=== PATIENT | female | born 1980 | race Caucasian/White ===

== ENCOUNTER 2016-07-21 10:08 | Emergency (ER) | payer OTHER, SELFPAY ==
[2016-07-21] MEDS ORDERED: MOTRIN 600 MG PO ONE (10:16)
--- NOTE | 2016-07-21 10:21 | ERPHSYRPT ---
- History of Present Illness Time Seen by Provider: 07/21/16 10:16 Source: patient Physician History: CC: left foot/ankle pain Hx: 36 y/o patient of Dr Elliott was walking and felt pain in the left foot and ankle. It is severe. 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 Not . No other injuries. Severity of Pain-Max: moderate Severity of Pain-Current: moderate Lower Extremities Pain: foot: left, ankle: left Allergies/Adverse Reactions: cefaclor [From Ceclor] Allergy (Mild, Verified 08/04/15 02:38) cephalexin monohydrate [From Keflex] Allergy (Mild, Verified 08/04/15 02:38) Home Medications: Fluoxetine HCl 20 mg [Prozac 20 MG] 20 mg PO DAILY 11/09/11 [History] Hx Tetanus, Diphtheria Vaccination/Date Given: No Hx Influenza Vaccination/Date Given: No Hx Pneumococcal Vaccination/Date Given: No - Review of Systems Constitutional: No Symptoms Musculoskeletal: Injury, Joint Pain, No Back Pain, No Neck Pain Skin: No Rash Neurological: No Focal Weakness, No Headache, No Parasthesia - Past Medical History Pertinent Past Medical History: Yes Neurological History: Migraines ENT History: No Pertinent History Cardiac History: No Pertinent History Respiratory History: Bronchitis Endocrine Medical History: No Pertinent History Musculoskeletal History: No Pertinent History GI Medical History: No Pertinent History History: No Pertinent History Psycho-Social History: Depression Female Reproductive Disorders: Endometriosis, Other Other Medical History: polycystic ovaries - Past Surgical History Past Surgical History: Yes Neuro Surgical History: No Pertinent History Cardiac: No Pertinent History Respiratory: No Pertinent History Gastrointestinal: Appendectomy Genitourinary: No Pertinent History Musculoskeletal: No Pertinent History Female Surgical History: Hysterectomy Other Surgical History: HYSTERECTOMY PARTIAL - Social History Smoking Status: Current every day smoker How long have you smoked: 15 Exposure to second hand smoke: Yes Drug Use: marijuana Patient Lives Alone: No Significant Family History: no pertinent family hx, alpha-1 antitrypsin deficiency - Female History Hx Now: No - Nursing Vital Signs Nursing Vital Signs: Initial Vital Signs Temperature 97.8 F Temperature Source Oral Pulse Rate 84 Respiratory Rate 18 Blood Pressure [Right Arm] 122/52 - Physical Exam General Appearance: alert Neck Exam: supple Cardiovascular/Respiratory Exam: regular rate/rhythm Neuro/Tendon Exam: normal sensation, normal motor functions Mental Status Exam: alert, oriented x 3, cooperative Skin Exam: warm, dry Comments: tender left foot prox and ankle lateral. No swelling or bruising. No fibular head tenderness. Skin intact. - Course Nursing assessment & vital signs reviewed: Yes - Radiology Exams left ankle/foot X-ray Interpretation: Discussed w/ radiologist, No Fracture Ordered Tests: Active Orders 24 hr Category Date Time Status Reji Bandage Application -[facility] STAT Care 07/21/16 10:58 Ordered Cold Application STAT Care 07/21/16 10:16 Active ANKLE (3 VIEWS) Stat Exams 07/21/16 10:16 Completed FOOT (MINIMUM 3 VIEWS) Stat Exams 07/21/16 10:16 Completed Medication Summary Discontinued Medications Generic Name Dose Route Start Last Admin Trade Name Freq PRN Reason Stop Dose Admin Ibuprofen 600 mg 07/21/16 10:16 07/21/16 10:23 Motrin 600 Mg PO 07/21/16 10:17 600 mg STAT ONE Administration Ibuprofen Confirm 07/21/16 10:22 Motrin 600 Mg Administered 07/21/16 10:23 Dose 600 mg .ROUTE .STK-MED ONE - Progress Progress Note: 07/21/16 10:59 Reji wrap and ankle sprain instructions given. She will use aleve at home which she already has for pain. Counseled pt/family regarding: diagnosis, need for follow-up, rad results - Departure Time of Disposition: 10:59 Departure Disposition: Home Clinical Impression: Sprain of left ankle Qualifiers: Encounter type: initial encounter Involved ligament of ankle: unspecified ligament Qualified Code(s): S93.402A - Sprain of unspecified ligament of left ankle, initial encounter Condition: Stable Critical Care Time: No Referrals: DENISE PEREZ [Primary Care Provider] - Instructions: Ankle Sprain Additional Instructions: Ice, rest, elevated. Reji wrap. Use your aleve as already directed. Follow up with Dr Elliott.
[2016-07-21] MEDS ORDERED: MOTRIN 600 MG ONE (10:22)
[2016-07-21 10:24] VITALS: BP 122/52; PULSE 84; O2SAT 100
--- NOTE | 2016-07-21 10:55 | XRAY ---
Indication: Pain and swelling after walking. Comparison: None 3 nonweightbearing views of the left foot demonstrates normal bones, articulation, and soft tissues.
--- NOTE | 2016-07-21 10:55 | XRAY ---
Indication: Pain and swelling after walking. Comparison: None 3 views of the left ankle demonstrates normal bones, articulation, and soft tissues.
== END 2016-07-21 11:17 | disposition home or self-care (01) ==
LOC: ED 10:08
DX: S93.402A Sprain of unspecified ligament of left ankle, initial encounter (principal)
CPT/HCPCS: 73610; 73630; 99283

== ENCOUNTER 2016-10-17 02:51 | Emergency (ER) | payer SELFPAY ==
[2016-10-17] MEDS ORDERED: TORAdol 30 mg Injection IV ONE (03:27)
--- NOTE | 2016-10-17 03:27 | ERPHSYRPT ---
- History of Present Illness Time Seen by Provider: 10/17/16 03:16 Historian: patient Exam Limitations: no limitations Patient Subjective Stated Complaint: Pt sts chest pain left side under ribs. St pain woke her up. Sts pain stays in that area, non-radiating. Sts feels short of breath with it. Pt rates pain 10/10, worse with coughing, movement. Pt has cough. Triage Nursing Assessment: Pt alert, oriented, answers all questions appropriately. Skin p/w/d, resps non-labored. Loose cough noted. Pt clutching chest when coughing. EKG at triage - sinus rhythm. Denies cardiac history. Physician History: The patient is a 36-year-old female who smokes complains of waking up tonight an hour and a half ago with coughing and left-sided lower chest pain. The patient is quite dramatic when she tells the history. She says the pain is a 10 out of 10. However she fell back asleep while her was making a grilled cheese sandwich for her. She says the pain is excruciating when she coughs. She claims she was short of breath due to the chest pain and coughing. She denies nausea or diaphoresis. She says her told her that she was coughing in her sleep. Timing/Duration: today, hour(s) (06/13) Activities at Onset: sleep Quality: sharpness Location: central Chest Pain Radiation: no radiation Severity of Pain-Max: severe Severity of Pain-Current: severe Modifying Factors: Improves With: coughing Associated Symptoms: shortness of breath, cough, hurts to breathe Prior Chest Pain/Cardiac Workup: no prior chest pain Nitro Today/Relief: no nitro taken today Aspirin Treatment Today: no aspirin today Allergies/Adverse Reactions: cefaclor [From Ceclor] Allergy (Mild, Verified 10/17/16 02:58) cephalexin monohydrate [From Keflex] Allergy (Mild, Verified 10/17/16 02:58) Hx Tetanus, Diphtheria Vaccination/Date Given: No Hx Influenza Vaccination/Date Given: No Hx Pneumococcal Vaccination/Date Given: No Immunizations Up to Date: Yes - Review of Systems Constitutional: No Fever, No Chills Eyes: No Symptoms Ears, Nose, & Throat: No Symptoms Respiratory: Cough, Dyspnea Cardiac: Chest Pain Abdominal/Gastrointestinal: No Abdominal Pain, No Nausea, No Vomiting, No Diarrhea Genitourinary Symptoms: No No Symptoms ( really even afebrile lesions we can't do that I understand they have they will they don't want normally), No Dysuria Musculoskeletal: No Back Pain, No Neck Pain Skin: No Rash Neurological: No Dizziness, No Focal Weakness, No Sensory Changes Psychological: No Symptoms Endocrine: No Symptoms Hematologic/Lymphatic: No Symptoms Immunological/Allergic: No Symptoms All Other Systems: Reviewed and Negative - Past Medical History Pertinent Past Medical History: Yes Neurological History: Migraines ENT History: No Pertinent History Cardiac History: No Pertinent History Respiratory History: Bronchitis Endocrine Medical History: No Pertinent History Musculoskeletal History: No Pertinent History GI Medical History: No Pertinent History History: No Pertinent History Psycho-Social History: Depression Female Reproductive Disorders: Endometriosis, Other Other Medical History: polycystic ovaries - Past Surgical History Past Surgical History: Yes Neuro Surgical History: No Pertinent History Cardiac: No Pertinent History Respiratory: No Pertinent History Gastrointestinal: Appendectomy Genitourinary: No Pertinent History Musculoskeletal: No Pertinent History Female Surgical History: Hysterectomy Other Surgical History: HYSTERECTOMY PARTIAL - Social History Smoking Status: Current every day smoker How long have you smoked: 20+ Exposure to second hand smoke: No Drug Use: marijuana Patient Lives Alone: No Significant Family History: no pertinent family hx, alpha-1 antitrypsin deficiency - Female History Hx Last Menstrual Period: partial hyst Hx Now: No - Nursing Vital Signs Temperature: 97.9 F Temperature Source: Oral Pulse Rate: 87 Respiratory Rate: 16 Pain Intensity: 10 - Physical Exam General Appearance: mild distress Eye Exam: PERRL/EOMI, eyes nml inspection Ears, Nose, Throat Exam: normal ENT inspection, moist mucous membranes Neck Exam: normal inspection, non-tender, supple, full range of motion Respiratory Exam: chest tenderness (The patient's response to light palpation of the anterior lower ribs bilaterally was highly exaggerated.), diminished breath sounds Cardiovascular Exam: regular rate/rhythm, normal heart sounds Gastrointestinal/Abdomen Exam: soft, No tenderness, No mass Pelvic Exam: not done Rectal Exam: not done Back Exam: normal inspection, No CVA tenderness, No vertebral tenderness Extremity Exam: normal inspection, normal range of motion Neurologic Exam: alert, oriented x 3, cooperative, normal mood/affect, sensation nml, No motor deficits Skin Exam: normal color SpO2 Interpretation: normal SpO2: 96 - Course EKG Interpreted by Me: RATE, Sinus Rhythm, NORMAL AXIS, NORMAL INTERVALS, NORMAL QRS, NORMAL ST-T, Other (No change compared to EKG 04/17/13.) - Radiology Exams Chest X-ray Interpretation: Interpreted by me, Negative, Other (no acute, hyperinflated chest. Comp CXR 06/19/14.) Ordered Tests: Active Orders 24 hr Category Date Time Status EKG-ER Only STAT Care 10/17/16 03:27 Active IV Insertion STAT Care 10/17/16 03:27 Active CHEST 2 VIEWS (PA AND LAT) Stat Exams 10/17/16 03:27 Taken CBC W DIFF Stat Lab 10/17/16 03:34 Completed CMP Stat Lab 10/17/16 03:34 Completed LIPASE Stat Lab 10/17/16 03:34 Completed TROPONIN Stat Lab 10/17/16 03:34 Completed UA Stat Lab 10/17/16 03:27 Ordered Urine Triage Profile Stat Lab 10/17/16 03:27 Ordered Respiratory Nebulizer STAT RT 10/17/16 03:29 Completed Medication Summary Discontinued Medications Generic Name Dose Route Start Last Admin Trade Name Freq PRN Reason Stop Dose Admin Albuterol/Ipratropium 3 ml 10/17/16 03:28 10/17/16 03:46 Duoneb 0.5-3 Mg/3 Ml Neb IH 10/17/16 03:29 3 ml STAT ONE Administration Albuterol/Ipratropium Confirm 10/17/16 03:36 Duoneb 0.5-3 Mg/3 Ml Neb Administered 10/17/16 03:37 Dose 3 ml IH .STK-MED ONE Benzonatate 100 mg 10/17/16 04:02 Tessalon Perles 100 Mg PO 10/17/16 04:03 TID PRN STA Ketorolac Tromethamine 30 mg 10/17/16 03:27 10/17/16 03:39 Toradol 30 Mg Injection IV 10/17/16 03:28 30 mg STAT ONE Administration Ketorolac Tromethamine Confirm 10/17/16 03:34 Toradol 30 Mg Injection Administered 10/17/16 03:35 Dose 30 mg .ROUTE .STK-MED ONE Methylprednisolone Sodium Succinate 125 mg 10/17/16 03:28 10/17/16 03:39 Solu-Medrol 125 Mg IV 10/17/16 03:29 125 mg STAT ONE Administration Methylprednisolone Sodium Succinate Confirm 10/17/16 03:34 Solu-Medrol 125 Mg Administered 10/17/16 03:35 Dose 125 mg .ROUTE .STK-MED ONE Lab/Rad Data: Laboratory Result Diagrams 10/17/16 03:34 10/17/16 03:34 Laboratory Results 10/17/16 10/17/16 Range/Units 03:34 03:34 WBC 5.6 (4.0-10.5) K/mm3 RBC 4.67 (4.1-5.4) M/mm3 Hgb 14.6 (12.0-16.0) gm/dl Hct 43.1 (35-47) % MCV 92.3 (78-100) fl MCH 31.3 (26-32) pg MCHC 33.9 (32-36) g/dl RDW 12.5 (11.5-14.0) % Plt Count 156 (150-450) K/mm3 MPV 10.9 H (6-9.5) fl Gran % 43.1 (36.0-66.0) % Lymphocytes % 42.9 (24.0-44.0) % Monocytes % 10.6 (0.0-12.0) % Eosinophils % 2.9 (0.00-5.0) % Basophils % 0.5 (0.0-0.4) % Basophils # 0.03 (0-0.4) Sodium 142 (136-145) mEq/L Potassium 3.4 L (3.5-5.1) mEq/L Chloride 102 (98-107) mEq/L Carbon Dioxide 25.8 (21-32) mEq/L Anion Gap 17.1 H (5-15) MEQ/L BUN 5 L (9-20) mg/dL Creatinine 0.85 (0.55-1.30) mg/dl Estimated GFR > 60 ML/MIN Glucose 95 (70-110) MG/DL Calcium 9.4 (8.5-10.1) mg/dL Total Bilirubin 0.5 (0.2-1.0) mg/dL AST 24 (15-37) U/L ALT 18 (12-78) U/L Alkaline Phosphatase 48 (46-116) U/L Troponin I < 0.017 (0.000-0.056) ng/ml Serum Total Protein 7.5 (6.4-8.2) gm/dL Albumin 4.0 (3.4-5.0) g/dL Lipase 117 (73-393) U/L - Progress Progress: improved Air Movement: good Progress Note: 10/17/16 04:13 After Duo neb, tessalon perles 100 mg po, and solumedrol 125 mg IV, pt is feeling better. Blood Culture(s) Obtained: No Antibiotics given: No Counseled pt/family regarding: lab results, diagnosis, rad results, smoking cessation - Departure Time of Disposition: 04:14 Departure Disposition: Home Clinical Impression: Pleuritic chest pain Condition: Stable Critical Care Time: No Referrals: DENISE PEREZ [Primary Care Provider] - Additional Instructions: You have pleuritic chest pain. You were given a DuoNeb treatment, Solu-Medrol 125 mg IV, and Tessalon Perles 100 mg in the ER. Your chest x-ray did not show any pneumonia but it did show hyperinflated lungs that are consistent with COPD. Please consider smoking cessation. You were given a prescription for Tessalon pearls 100 mg every 8 hours as needed for cough. And also a prescription for naproxen 500 mg twice a day as needed for the pleuritic chest pain. Prescriptions: Benzonatate [Tessalon Perle] 100 mg PO TID PRN #21 capsule Naproxen 500 mg PO BID PRN #30 tablet.
[2016-10-17] MEDS ORDERED: solu-MEDROL 125 MG IV ONE (03:28)
[2016-10-17] MEDS ORDERED: DUONEB 0.5-3 MG/3 ml Neb IH ONE ×2 (03:28→03:36)
[2016-10-17] MEDS ORDERED: TORAdol 30 mg Injection ONE (03:34)
[2016-10-17] MEDS ORDERED: solu-MEDROL 125 MG ONE (03:34)
[2016-10-17 03:38] LABS: BASOPHIL % 0.5 % (0.0-0.4); Eosinophil % 2.9 % (0.00-5.0); Granulocytes % 43.1 % (36.0-66.0); Lymphocytes % 42.9 % (24.0-44.0); Mean Cell Volume 92.3 fl (78-100); Mean Corpuscular Hemoglobin 31.3 pg (26-32); Mean Platelet Volume 10.9 fl (6-9.5); Monocytes % 10.6 % (0.0-12.0); Platelet Count 156 K/mm3 (150-450); Red Blood Count 4.67 M/mm3 (4.1-5.4); Red Cell Distribution Width 12.5 % (11.5-14.0); White Blood Count 5.6 K/mm3 (4.0-10.5)
[2016-10-17 03:50] LABS: ALKALINE PHOSPHATASE 48 U/L (46-116); ANION GAP 17.1 MEQ/L (5-15); BILIRUBIN,TOTAL 0.5 mg/dL (0.2-1.0); BLOOD UREA NITROGEN 5 mg/dL (9-20); CHLORIDE 102 mEq/L (98-107); Carbon Dioxide 25.8 mEq/L (21-32); Glucose 95 MG/DL (70-110); LIPASE 117 U/L (73-393); Potassium 3.4 mEq/L (3.5-5.1); SGOT/AST 24 U/L (15-37); SGPT/ALT 18 U/L (12-78); SODIUM 142 mEq/L (136-145); TROPONIN < 0.017 ng/ml (0.000-0.056); Total Protein 7.5 gm/dL (6.4-8.2)
[2016-10-17] MEDS ORDERED: Tessalon Perles 100 MG PO STA (04:02)
[2016-10-17] MEDS ORDERED: Klor Con 10 MEQ PO ONE ×2 (04:07→04:14)
[2016-10-17 04:18] LABS: COMPLETE URINE MICROSCOPIC? NO; Collection Type CLEAN CATCH
[2016-10-17 04:43] VITALS: BP 102/45; PULSE 77; O2SAT 98
--- NOTE | 2016-10-17 09:05 | XRAY ---
Indication: Chest pain and cough. Comparison: June 19, 2014. PA/lateral chest again hyperinflated and clear. Heart and mediastinal structures are stable and within normal limits. Bony thorax intact. Impression: Stable nonacute hyperinflated chest.
== END 2016-10-17 04:43 | disposition home or self-care (01) ==
LOC: ED 02:51
DX: R07.89 Other chest pain (principal); R06.02 Shortness of breath; R05 Cough; R06.00 Dyspnea, unspecified
CPT/HCPCS: 36000; 36415; 71020; 80053; 80307; 81002; 83690; 84484; 85025; 93005; 94640; 96374; 96375; 99284; J1885; J2930; A9270-GY

== ENCOUNTER 2018-01-28 11:03 | Emergency (ER) | payer OTHER ==
[2018-01-28] MEDS ORDERED: Zofran 4 MG/2 ML VIAL IV ONE (11:37)
[2018-01-28] MEDS ORDERED: Sodium Chloride 0.9% 1000 ML 1,000 ML IV STA (11:37)
[2018-01-28] MEDS ORDERED: Sodium Chloride 0.9% 1000 ML 1,000 ML ONE (11:45)
[2018-01-28] MEDS ORDERED: Zofran 4 MG/2 ML VIAL ONE (11:45)
[2018-01-28 11:54] LABS: BASOPHIL % 0.3 % (0.0-0.4); Basophil (Absolute #) 0.03 (0-0.4); Eosinophil % 3.1 % (0.00-5.0); Granulocyte Absolute (ANC) 5.35 (1.4-6.9); Granulocytes % 54.6 % (36.0-66.0); Hematocrit 42.5 % (35-47); Hemoglobin 14.7 gm/dl (12.0-16.0); Lymphocyte (Absolute #) 3.31 (1.0-4.6); Lymphocytes % 33.8 % (24.0-44.0); Mean Cell Volume 93.8 fl (78-100); Mean Corpuscular Hemoglobin 32.5 pg (26-32); Mean Corpuscular Hgb Concent. 34.6 g/dl (32-36); Mean Platelet Volume 10.3 fl (6-9.5); Monocytes % 8.2 % (0.0-12.0); Platelet Count 212 K/mm3 (150-450); Red Blood Count 4.53 M/mm3 (4.1-5.4); Red Cell Distribution Width 12.8 % (11.5-14.0); White Blood Count 9.8 K/mm3 (4.0-10.5)
[2018-01-28 12:29] VITALS: O2SAT 98
[2018-01-28] MEDS ORDERED: TORAdol 30 mg Injection IV ONE (12:59)
[2018-01-28 13:08] LABS: Amphetamine,Urine NEGATIVE (NEGATIVE); Barbiturate,Urine NEGATIVE (NEGATIVE); Benzodiazepine,Urine NEGATIVE (NEGATIVE); Cocaine,Urine NEGATIVE (NEGATIVE); Methadone,Urine NEGATIVE (NEGATIVE); Opiate,Urine NEGATIVE (NEGATIVE); PCP,Urine NEGATIVE (NEGATIVE); THC,Urine POSITIVE (NEGATIVE)
[2018-01-28] MEDS ORDERED: TORAdol 30 mg Injection ONE (13:13)
--- NOTE | 2018-01-28 13:31 | ERPHSYRPT ---
- History of Present Illness Time Seen by Provider: 01/28/18 11:15 Source: patient Exam Limitations: clinical condition Patient Subjective Stated Complaint: stated had a headache yesterday, has a history of cluster headaches. C/o right sided facial pain and headache, light sensitivity, feels like I'm going to pass out. ate bites of breakfast and drove self to work. felt worse at work and co worker brought to ER. Triage Nursing Assessment: Pt holding hand to face to shield light, c/o right sided facial pain and headache 10/10 with nausea, dry heaves, diaphoretic. states has a history of cluster headaches/migraines. A/O speech clear, able to voice wants and needs. BECKER WNL, having intermittent tremors in extremities Physician History: PATIENT COMPLAINS OF RIGHT SIDE FACIAL PAIN, FRONTAL HEADACHE AND DIZZINESS X 2 DAYS. STATES DIZZINESS EXACERBATED UPON MOTION OF HEAD AND NECK. HAS ASSOCIATED PHOTOPHOBIA, DENIES BLURRED VISION, NASAL CONGESTION OR FEVER, HAS ASSOCIATED DRY HEAVES. DENIES SINUS DRAINAGE. Timing/Duration: day(s) Quality: pressure Head Pain Location: frontal (RIGHT FACIAL PAIN) Severity of Pain-Max: moderate Severity of Pain-Current: moderate Recent Head Trauma: occasional headaches Modifying Factors: Improves With: exposure to light Associated Symptoms: facial pain, nausea/vomiting Previous symptoms: same symptoms as today Allergies/Adverse Reactions: cefaclor [From Ceclor] Allergy (Mild, Verified 10/17/16 02:58) cephalexin monohydrate [From Keflex] Allergy (Mild, Verified 10/17/16 02:58) Hx Tetanus, Diphtheria Vaccination/Date Given: No Hx Influenza Vaccination/Date Given: No Hx Pneumococcal Vaccination/Date Given: No - Review of Systems Constitutional: No Fever, No Chills Eyes: No Symptoms Ears, Nose, & Throat: No Symptoms, Other (FACIAL PAIN) Respiratory: No Symptoms, No Cough, No Dyspnea Cardiac: No Symptoms, No Chest Pain, No Edema, No Syncope Abdominal/Gastrointestinal: No Symptoms, No Abdominal Pain, No Nausea, No Vomiting, No Diarrhea Genitourinary Symptoms: No Dysuria Musculoskeletal: No Symptoms, No Back Pain, No Neck Pain Skin: No Rash Neurological: No Dizziness, No Focal Weakness, No Sensory Changes Psychological: No Symptoms Endocrine: No Symptoms All Other Systems: Reviewed and Negative - Past Medical History Pertinent Past Medical History: Yes Neurological History: Migraines ENT History: No Pertinent History Cardiac History: No Pertinent History Respiratory History: Bronchitis Endocrine Medical History: No Pertinent History Musculoskeletal History: No Pertinent History GI Medical History: No Pertinent History History: No Pertinent History Psycho-Social History: Depression Female Reproductive Disorders: Endometriosis, Other Other Medical History: polycystic ovaries - Past Surgical History Past Surgical History: Yes Neuro Surgical History: No Pertinent History Cardiac: No Pertinent History Respiratory: No Pertinent History Gastrointestinal: Appendectomy Genitourinary: No Pertinent History Musculoskeletal: No Pertinent History Female Surgical History: Hysterectomy Other Surgical History: HYSTERECTOMY PARTIAL - Social History Smoking Status: Current every day smoker How long have you smoked: 20+ Exposure to second hand smoke: No Drug Use: marijuana Patient Lives Alone: No Significant Family History: no pertinent family hx, alpha-1 antitrypsin deficiency - Female History Hx Now: No - Nursing Vital Signs Nursing Vital Signs: Initial Vital Signs Temperature 97.4 F 01/28/18 11:04 Pulse Rate 86 01/28/18 11:04 Respiratory Rate 18 01/28/18 11:04 Blood Pressure 136/73 01/28/18 11:04 O2 Sat by Pulse Oximetry 97 01/28/18 11:04 Pain Scale Pain Intensity 3 - Physical Exam General Appearance: no apparent distress Eye Exam: PERRL/EOMI Ears, Nose, Throat Exam: normal ENT inspection, moist mucous membranes, other ( THERE IS ) Neck Exam: normal inspection, supple, full range of motion, No meningismus Respiratory Exam: normal breath sounds, lungs clear Cardiovascular Exam: regular rate/rhythm, normal heart sounds Gastrointestinal/Abdominal Exam: soft, normal bowel sounds, No tenderness, No distention Back Exam: normal inspection, normal range of motion Mental Status Exam: alert, oriented x 3, 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: normal speech, PERRL, No facial droop Coordination/Gait Exam: normal cerebellar function Motor/Sensory Exam: no motor deficit, no sensory deficit DTR Exam: bicep (R): 2+, bicep (L): 2+, tricep (R): 2+, tricep (L): 2+, knee (R) : 2+, knee (L): 2+, ankle (R): 2+, ankle (L): 2+ Skin Exam: normal color, warm, dry, No rash SpO2 Interpretation: normal SpO2: 98 Oxygen Delivery: Room Air - CT Exams Head CT Interpretation: Tele-radiologist Report, No/Intracranial Hemorrhag Ordered Tests: Active Orders 24 hr Category Date Time Status Clean Catch Urine Specimen STAT Care 01/28/18 11:37 Active IV Insertion STAT Care 01/28/18 11:37 Active HEAD WITHOUT CONTRAST [CT] Stat Exams 01/28/18 11:39 Taken CBC W DIFF Stat Lab 01/28/18 11:25 Completed Urine Triage Profile Stat Lab 01/28/18 12:10 Received Medication Summary Generic Name Dose Route Start Last Admin Trade Name Freq PRN Reason Stop Dose Admin Sodium Chloride 1,000 mls @ 500 mls/hr 01/28/18 11:37 01/28/18 11:48 Sodium Chloride 0.9% 1000 Ml IV 01/28/18 13:36 500 mls/hr .Q2H STA Administration Discontinued Medications Generic Name Dose Route Start Last Admin Trade Name Freq PRN Reason Stop Dose Admin Sodium Chloride Confirm 01/28/18 11:45 Sodium Chloride 0.9% 1000 Ml Administered 01/28/18 11:46 Dose 1,000 mls @ ud .ROUTE .STK-MED ONE Ketorolac Tromethamine 30 mg 01/28/18 12:59 01/28/18 13:17 Toradol 30 Mg Injection IV 01/28/18 13:00 30 mg STAT ONE Administration Ketorolac Tromethamine Confirm 01/28/18 13:13 Toradol 30 Mg Injection Administered 01/28/18 13:14 Dose 30 mg .ROUTE .STK-MED ONE Ondansetron HCl 4 mg 01/28/18 11:37 01/28/18 11:48 Zofran 4 Mg/2 Ml Vial IV 01/28/18 11:38 4 mg STAT ONE Administration Ondansetron HCl Confirm 01/28/18 11:45 Zofran 4 Mg/2 Ml Vial Administered 01/28/18 11:46 Dose 4 mg .ROUTE .STK-MED ONE Lab/Rad Data: Laboratory Result Diagrams 01/28/18 11:25 Laboratory Results 01/28/18 01/28/18 Range/Units 12:10 11:25 WBC 9.8 (4.0-10.5) K/mm3 RBC 4.53 (4.1-5.4) M/mm3 Hgb 14.7 (12.0-16.0) gm/dl Hct 42.5 (35-47) % MCV 93.8 (78-100) fl MCH 32.5 H (26-32) pg MCHC 34.6 (32-36) g/dl RDW 12.8 (11.5-14.0) % Plt Count 212 (150-450) K/mm3 MPV 10.3 H (6-9.5) fl Gran % 54.6 (36.0-66.0) % Eos # (Auto) 0.30 (0-0.5) Absolute Lymphs (auto) 3.31 (1.0-4.6) Absolute Monos (auto) 0.80 (0.0-1.3) Lymphocytes % 33.8 (24.0-44.0) % Monocytes % 8.2 (0.0-12.0) % Eosinophils % 3.1 (0.00-5.0) % Basophils % 0.3 (0.0-0.4) % Absolute Granulocytes 5.35 (1.4-6.9) Basophils # 0.03 (0-0.4) Urine Opiates Level NEGATIVE (NEGATIVE) Ur Methadone NEGATIVE (NEGATIVE) Urine Barbiturates NEGATIVE (NEGATIVE) Ur Phencyclidine (PCP) NEGATIVE (NEGATIVE) Urine Amphetamine NEGATIVE (NEGATIVE) U Benzodiazepine Level NEGATIVE (NEGATIVE) Urine Cocaine NEGATIVE (NEGATIVE) Urine Marijuana (THC) POSITIVE (NEGATIVE) - Progress Progress: improved Progress Note: 01/28/18 13:35 ADMINISTERED IF NORMAL SALINE 500ML/HR, ZOFRAN 4MG, TORADOL 30MG IV, SYMPTOMS IMPROVED. Will see patient in: hospital (full admit) Counseled pt/family regarding: diagnosis, need for follow-up, rad results - Departure Time of Disposition: 13:40 Departure Disposition: Home Clinical Impression: ACUTE SINUSITIS, ACUTE LABYRINTHITIS Condition: Stable Critical Care Time: No Additional Instructions: BEGIN ANTIBIOTIC AMOXICILLIN 500MG EVERY 8 HOURS FOR 10 DAYS. TORADOL 10MG EVERY 6 HOURS NEEDED FOR PAIN. ANTIVERT 25MG EVERY 8 HOURS FOR DIZZINESS. CONSULT YOUR PRIMARY CARE PROVIDER FOR FOLLOWUP IN 1 WEEK. Prescriptions: Ketorolac Tromethamine [Toradol] 10 mg PO Q6HPRN PRN #20 tablet PRN Reason: Pain Meclizine HCl 25 mg [Antivert 25 mg] 25 mg PO Q8H PRN PRN #20 tablet PRN Reason: Dizziness Amoxicillin 500 mg PO TID #30 capsule
[2018-01-28 14:05] VITALS: BP 91/56; PULSE 80
--- NOTE | 2018-01-28 21:01 | XRAY ---
Indication: Headache, dizziness, pain behind right eye, and left arm pain. Multiple contiguous axial images obtained through the head without contrast. Comparison: June 27, 2014. Again normal appearing brain parenchyma, ventricles, and bony calvarium. Visualized paranasal sinuses and mastoid air cells are clear. Impression: Stable normal CT head without contrast exam. Comment: Preliminary interpretation was made by [facility]. No discrepancy. CTDI 69.25
== END 2018-01-28 14:06 | disposition home or self-care (01) ==
LOC: ED 11:03
DX: J01.90 Acute sinusitis, unspecified (principal); H83.09 Labyrinthitis, unspecified ear
CPT/HCPCS: 36415; 70450; 80307; 85025; 96360; 96361; 96374; 96375; 99284; J1885; J2405

== ENCOUNTER 2018-02-05 12:55 | Emergency (ER) | payer OTHER ==
[2018-02-05 14:17] VITALS: BP 122/58; PULSE 66; O2SAT 98
--- NOTE | 2018-02-05 14:29 | ERPHSYRPT ---
- History of Present Illness Time Seen by Provider: 02/05/18 14:27 Source: patient Patient Subjective Stated Complaint: HERE FOR A MIGRAINE HEADACHE,PT HAS HEADACHES LIKE THIS BEFORE, Triage Nursing Assessment: PT ALERT, WALKED IN, RESP EASY, SKIN W/D/P Physician History: mild throbbing familiar migraine since 11am has improved, hx migraines for 20 yrs, no fever, no visual disturbance, no injury, speech fluent Allergies/Adverse Reactions: cefaclor [From Ceclor] Allergy (Mild, Verified 02/05/18 14:17) cephalexin monohydrate [From Keflex] Allergy (Mild, Verified 02/05/18 14:17) Home Medications: Amoxicillin 500 mg Cap [Amoxil 500 mg] 500 mg TID 02/05/18 [History] Hx Tetanus, Diphtheria Vaccination/Date Given: No Hx Influenza Vaccination/Date Given: No Hx Pneumococcal Vaccination/Date Given: No Immunizations Up to Date: Yes - Review of Systems Constitutional: No Fever Eyes: Photophobia, No Vision Changes Ears, Nose, & Throat: No Mouth Pain Respiratory: No Dyspnea Cardiac: No Chest Pain Abdominal/Gastrointestinal: No Abdominal Pain Genitourinary Symptoms: No Dysuria Musculoskeletal: No Back Pain, No Neck Pain Skin: No Rash Neurological: Headache, No Dizziness, No Focal Weakness, No Speech Changes - Past Medical History Pertinent Past Medical History: Yes Neurological History: Migraines ENT History: No Pertinent History Cardiac History: No Pertinent History Respiratory History: Bronchitis Endocrine Medical History: No Pertinent History Musculoskeletal History: No Pertinent History GI Medical History: No Pertinent History History: No Pertinent History Psycho-Social History: Depression Female Reproductive Disorders: Endometriosis, Other Other Medical History: polycystic ovaries - Past Surgical History Past Surgical History: Yes Neuro Surgical History: No Pertinent History Cardiac: No Pertinent History Respiratory: No Pertinent History Gastrointestinal: Appendectomy Genitourinary: No Pertinent History Musculoskeletal: No Pertinent History Female Surgical History: Hysterectomy Other Surgical History: HYSTERECTOMY PARTIAL - Social History Smoking Status: Current every day smoker How long have you smoked: 20+ Exposure to second hand smoke: Yes Drug Use: marijuana Patient Lives Alone: No Significant Family History: no pertinent family hx, alpha-1 antitrypsin deficiency - Female History Hx Last Menstrual Period: HYSTER Hx Now: No - Nursing Vital Signs Nursing Vital Signs: Initial Vital Signs Temperature 97.9 F 02/05/18 14:14 Pulse Rate 66 02/05/18 14:14 Respiratory Rate 16 02/05/18 14:14 Blood Pressure 122/58 02/05/18 14:14 O2 Sat by Pulse Oximetry 98 02/05/18 14:14 Pain Scale Pain Intensity 7 - Physical Exam General Appearance: no apparent distress Eye Exam: PERRL/EOMI, eyes nml inspection Ears, Nose, Throat Exam: moist mucous membranes Neck Exam: normal inspection Respiratory Exam: normal breath sounds Cardiovascular Exam: regular rate/rhythm Gastrointestinal/Abdominal Exam: soft, No tenderness Extremity Exam: normal range of motion Mental Status Exam: alert, oriented x 3, 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 Exam: normal speech, PERRL Skin Exam: normal color, warm, dry SpO2 Interpretation: normal SpO2: 98 Oxygen Delivery: Room Air - Course Nursing assessment & vital signs reviewed: Yes Ordered Tests: Medication Summary Discontinued Medications Generic Name Dose Route Start Last Admin Trade Name Freq PRN Reason Stop Dose Admin Acetaminophen 1,000 mg 02/05/18 14:26 02/05/18 14:37 Tylenol Extra Strength 500 Mg PO 02/05/18 14:27 1,000 mg STAT STA Administration Acetaminophen Confirm 02/05/18 14:36 Tylenol Extra Strength 500 Mg Administered 02/05/18 14:37 Dose 1,000 mg .ROUTE .STK-MED ONE - Progress Progress: improved Air Movement: good Counseled pt/family regarding: diagnosis, need for follow-up - Departure Time of Disposition: 14:41 Departure Disposition: Home Clinical Impression: Migraine headache Qualifiers: Migraine type: unspecified Status migrainosus presence: without status migrainosus Intractability: not intractable Qualified Code(s): G43.909 - Migraine, unspecified, not intractable, without status migrainosus Condition: Stable Critical Care Time: No Referrals: DOCTOR,NO FAMILY [Primary Care Provider] - Instructions: Headache, Adult (DC)
[2018-02-05] MEDS ORDERED: TYLENOL EXTRA STRENGTH 500 MG ONE (14:36)
[2018-02-05] MEDS: TYLENOL EXTRA STRENGTH 500 MG PO STA (14:37)
== END 2018-02-05 14:59 | disposition home or self-care (01) ==
LOC: ED 12:55
DX: G43.909 Migraine, unspecified, not intractable, without status migrainosus (principal)
CPT/HCPCS: 99283; A9270-GY

== ENCOUNTER 2018-07-01 09:34 | Emergency (ER) | payer MEDICAID, OTHER ==
[2018-07-01] MEDS ORDERED: CLINDAMYCIN-D5W 600 MG/50 ML*** 600 MG/50 ML BAG IV STA (10:14)
[2018-07-01] MEDS ORDERED: TORAdol 30 mg Injection IV ONE (10:15)
--- NOTE | 2018-07-01 10:21 | ERPHSYRPT ---
- History of Present Illness Time Seen by Provider: 07/01/18 10:03 Source: patient Exam Limitations: no limitations Patient Subjective Stated Complaint: Pt states "I think I have a dental infection. My face has been swelling since . I cannot eat, I cannot sleep." Triage Nursing Assessment: Pt alert and oriented X 3, skin pwd. Pt ambulates with an upright steady gait, able to speak in clear full sentencse. PT in no apparent respiratory distress. the right side of pt face swollen with tenderness to lower right jaw, no neck swelling or tenderness noted. Physician History: 38-year-old white female arrives with complaint of pain and swelling in the right mandibular region symptoms 3 days no fevers. Patient states she is unable to get into a dentist. Past medical history includes migraines, bronchitis, depression, endometriosis, polycystic ovaries. Past surgical history includes appendectomy hysterectomy.. Social history negative day includes tobacco use, marijuana use. Timing/Duration: day(s) (3 days) Severity: moderate Modifying Factors: Improves With: nothing Associated Symptoms: other (swelling and pain right side of jaw), No nausea, No vomiting, No abdominal pain, No shortness of breath, No heartburn, No diaphoresis, No cough, No chills, No chest pain, No fever, No headaches, No loss of appetite, No malaise, No rash, No syncope, No seizure, No weakness Allergies/Adverse Reactions: cefaclor [From Ceclor] Allergy (Mild, Verified 02/05/18 14:17) cephalexin monohydrate [From Keflex] Allergy (Mild, Verified 02/05/18 14:17) Hx Tetanus, Diphtheria Vaccination/Date Given: No Hx Influenza Vaccination/Date Given: No Hx Pneumococcal Vaccination/Date Given: No Immunizations Up to Date: Yes - Review of Systems Constitutional: No Fever, No Chills Eyes: No Symptoms Ears, Nose, & Throat: Mouth Pain, Mouth Swelling, No Ear Pain, No Ear Discharge , No Hearing Changes, No Tinnitus, No Nose Pain, No Nose Congestion, No Nose Discharge, No Sinus Drainage, No Loose Teeth, No Throat Pain, No Throat Swelling , No Hoarse, No Painful Swallowing, No Snoring, No Stridor Respiratory: No Cough, No Dyspnea Cardiac: No Chest Pain, No Edema, No Syncope Abdominal/Gastrointestinal: No Abdominal Pain, No Nausea, No Vomiting, No Diarrhea Genitourinary Symptoms: No Dysuria Musculoskeletal: No Back Pain, No Neck Pain Skin: No Rash Neurological: No Dizziness, No Focal Weakness, No Sensory Changes Psychological: No Symptoms Endocrine: No Symptoms All Other Systems: Reviewed and Negative - Past Medical History Pertinent Past Medical History: Yes Neurological History: Migraines ENT History: No Pertinent History Cardiac History: No Pertinent History Respiratory History: Bronchitis Endocrine Medical History: No Pertinent History Musculoskeletal History: No Pertinent History GI Medical History: No Pertinent History History: No Pertinent History Psycho-Social History: Depression Female Reproductive Disorders: Endometriosis, Other Other Medical History: polycystic ovaries - Past Surgical History Past Surgical History: Yes Neuro Surgical History: No Pertinent History Cardiac: No Pertinent History Respiratory: No Pertinent History Gastrointestinal: Appendectomy Genitourinary: No Pertinent History Musculoskeletal: No Pertinent History Female Surgical History: Hysterectomy Other Surgical History: HYSTERECTOMY PARTIAL - Social History Smoking Status: Current every day smoker How long have you smoked: 20 years Exposure to second hand smoke: Yes Drug Use: marijuana Patient Lives Alone: No Significant Family History: no pertinent family hx, alpha-1 antitrypsin deficiency - Female History Hx Last Menstrual Period: partial hysterectomy Hx Now: No - Nursing Vital Signs Nursing Vital Signs: Initial Vital Signs Temperature 98.0 F 07/01/18 09:42 Pulse Rate 92 H 07/01/18 09:42 Respiratory Rate 18 07/01/18 09:42 Blood Pressure 117/86 07/01/18 09:42 O2 Sat by Pulse Oximetry 96 07/01/18 09:42 Pain Scale Pain Intensity 7 - Physical Exam General Appearance: moderate distress, alert, other (well-developed white female moderate distress, tender right mandibular region with swelling) Eye Exam: PERRL/EOMI, eyes nml inspection Ears, Nose, Throat Exam: TMs normal, pharynx normal, moist mucous membranes, other (Multiple dental caries right mandibular region. Edema and tenderness in the skin overlying mandible right lateral mandible), No TM abnormal (R), No TM abnormal (L), No pharyngeal erythema Neck Exam: normal inspection, non-tender, supple, full range of motion Respiratory Exam: normal breath sounds, lungs clear, No respiratory distress Cardiovascular Exam: regular rate/rhythm, normal heart sounds, normal peripheral pulses Gastrointestinal/Abdomen Exam: soft, normal bowel sounds, No tenderness, No mass Back Exam: normal inspection, normal range of motion, No CVA tenderness, No vertebral tenderness Extremity Exam: normal inspection, normal range of motion, pelvis stable Neurologic Exam: alert, oriented 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, 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, 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, normal mood/affect, nml cerebellar function, nml station & gait, sensation nml, No motor deficits Skin Exam: normal color, warm, dry, No rash SpO2 Interpretation: normal (96%) SpO2: 96 - Course Nursing assessment & vital signs reviewed: Yes Ordered Tests: Active Orders 24 hr Category Date Time Status IV Insertion STAT Care 07/01/18 10:15 Active Medication Summary Generic Name Dose Route Start Last Admin Trade Name Freq PRN Reason Stop Dose Admin Clindamycin HCl/Dextrose 600 mg in 50 mls @ 100 mls/hr 07/01/18 10:14 Clindamycin-D5w 600 Mg/50 Ml IV 07/01/18 10:43 STAT STA Discontinued Medications Generic Name Dose Route Start Last Admin Trade Name Freq PRN Reason Stop Dose Admin Ketorolac Tromethamine 30 mg 07/01/18 10:15 Toradol 30 Mg Injection IV 07/01/18 10:16 STAT ONE - Progress Progress: improved Progress Note: 07/01/18 10:19 This is a 38-year-old white female with history of migraines, bronchitis, depression, endometriosis, polycystic ovaries. She arrives with complaint of pain and swelling on the right side of her mandible symptoms 3 days. On physical examination patient has palpable tenderness on the right lateral mandible she does have corresponding carious teeth. Will go ahead and give patient clindamycin 600 mg IV, also Toradol 30 mg IV. Will go ahead and plan to discharge patient she is to continue clindamycin 300 mg orally 3 times a day for 10 days. Will write for [place] for pain. Patient will need to place cold packs on the area overlying the right mandible. She will need follow-up with a dentist she is advised of this. She may return for acute distress or severe symptoms or any problems. 07/01/18 10:23 Inspect his queried patient does not show history of recent narcotic prescription or recurrent prescriptions. Patient denies any history of substance abuse. Other than smoking marijuana. - Departure Time of Disposition: 10:23 Departure Disposition: Home Clinical Impression: Pain, dental, Dental abscess Condition: Fair Critical Care Time: No Referrals: DOCTOR,NO FAMILY [Primary Care Provider] - Instructions: Tooth Abscess (DC) Additional Instructions: Return home. Clindamycin as prescribed. Cold packs to area 24-48 hours. [place] as prescribed. Follow-up with your dentist. Return for acute distress or for severe symptoms or for any problems. Prescriptions: Clindamycin HCl 300 mg PO TID #30 capsule Hydrocodone/APAP 5-325 Tab^^^ [[place] 5-325 Tablet^^^] 1 tab PO Q4-6HPRN PRN #12 tablet MDD 6 PRN Reason: Pain
[2018-07-01] MEDS ORDERED: TORAdol 30 mg Injection ONE (10:40)
[2018-07-01] MEDS ORDERED: CLINDAMYCIN-D5W 600 MG/50 ML*** 600 MG/50 ML BAG IV ONE (10:41)
[2018-07-01 10:49] VITALS: O2SAT 97
[2018-07-01] MEDS ORDERED: CLEOCIN 150 MG CAPSULE PO ONE (11:42)
[2018-07-01] MEDS ORDERED: NORCO 5/325 MG PO ONE (11:43)
[2018-07-01] MEDS ORDERED: CLEOCIN 150 MG CAPSULE ONE (11:43)
[2018-07-01] MEDS ORDERED: NORCO 5/325 MG ONE (11:44)
[2018-07-01 11:58] VITALS: BP 110/74; PULSE 68
== END 2018-07-01 11:56 | disposition home or self-care (01) ==
LOC: ED 09:34
DX: K04.7 Periapical abscess without sinus (principal); F15.10 Other stimulant abuse, uncomplicated; F32.9 Major depressive disorder, single episode, unspecified; N80.9 Endometriosis, unspecified
CPT/HCPCS: 36000; 96365; 96374; 99284; J1885; A9270-GY

== ENCOUNTER 2019-01-11 00:58 | Emergency (ER) | payer MEDICAID | END 2019-01-11 02:06 | disposition left against medical advice (07) | LOC: ED 00:58 | DX: Z53.9 Procedure and treatment not carried out, unspecified reason (principal) ==

== ENCOUNTER 2019-06-06 10:10 | Emergency (ER) | payer MEDICAID ==
[2019-06-06] MEDS ORDERED: DUONEB 0.5-3 MG/3 ml Neb IH ONE ×2 (10:49→10:59)
--- NOTE | 2019-06-06 11:04 | ERPHSYRPT ---
- History of Present Illness Time Seen by Provider: 06/06/19 10:14 Source: patient, family Exam Limitations: no limitations Patient Subjective Stated Complaint: states fever and cough since yesterday. took aleve this am but is not feeling any better. denies n/v/d. also aching all over and has back pain. Triage Nursing Assessment: ambulated to room per self. skin w/d, color normal. resp nonlabored. occasional dry cough noted. Physician History: fever ,chills, general malaise--headache, sore throat , copugh s/s since yesterday Son was sick earlier this week with similar s/s m did not go to doctor for evaluation Timing/Duration: yesterday Severity: moderate Modifying Factors: Improves With: other (smoker) Allergies/Adverse Reactions: cefaclor [From Ceclor] Allergy (Mild, Verified 06/06/19 10:24) cephalexin monohydrate [From Keflex] Allergy (Mild, Verified 06/06/19 10:24) Hx Tetanus, Diphtheria Vaccination/Date Given: No Hx Influenza Vaccination/Date Given: No Hx Pneumococcal Vaccination/Date Given: No - Review of Systems Constitutional: Fever, Chills, Fatigue, Malaise Eyes: No Symptoms Ears, Nose, & Throat: Nose Congestion, Sinus Drainage, Other (sinus pain) Respiratory: Cough Cardiac: No Symptoms Abdominal/Gastrointestinal: Diarrhea Genitourinary Symptoms: No Symptoms Musculoskeletal: Arthralgias, Back Pain Skin: No Symptoms Neurological: No Symptoms Psychological: No Symptoms Hematologic/Lymphatic: No Symptoms All Other Systems: Reviewed and Negative - Past Medical History Pertinent Past Medical History: Yes Neurological History: Migraines ENT History: No Pertinent History Cardiac History: No Pertinent History Respiratory History: Bronchitis Endocrine Medical History: No Pertinent History Musculoskeletal History: No Pertinent History GI Medical History: No Pertinent History History: No Pertinent History Psycho-Social History: Depression Female Reproductive Disorders: Endometriosis, Other Other Medical History: polycystic ovaries - Past Surgical History Past Surgical History: Yes Neuro Surgical History: No Pertinent History Cardiac: No Pertinent History Respiratory: No Pertinent History Gastrointestinal: Appendectomy Genitourinary: No Pertinent History Musculoskeletal: No Pertinent History Female Surgical History: Hysterectomy Other Surgical History: HYSTERECTOMY PARTIAL - Social History Smoking Status: Current every day smoker How long have you smoked: 25 Exposure to second hand smoke: Yes Drug Use: marijuana Patient Lives Alone: No Significant Family History: no pertinent family hx, alpha-1 antitrypsin deficiency - Female History Hx Now: No - Nursing Vital Signs Nursing Vital Signs: Initial Vital Signs Temperature 100 F 06/06/19 10:14 Pulse Rate 95 H 06/06/19 10:14 Respiratory Rate 16 06/06/19 10:14 Blood Pressure 119/63 06/06/19 10:14 O2 Sat by Pulse Oximetry 99 06/06/19 10:14 Pain Scale Pain Intensity 2 - Physical Exam General Appearance: mild distress Eye Exam: PERRL/EOMI Ears, Nose, Throat Exam: moist mucous membranes, TM abnormal (L) (SELINA bilaterally injected), pharyngeal erythema Neck Exam: normal inspection, non-tender, supple, full range of motion Respiratory Exam: diminished breath sounds, prolonged expirations (mild), wheezing (scattered) Cardiovascular Exam: tachycardia (104) Gastrointestinal/Abdomen Exam: soft, normal bowel sounds, No tenderness, No guarding, No rebound Back Exam: normal inspection, normal range of motion, CVA tenderness, vertebral tenderness (and he) Extremity Exam: normal inspection, normal range of motion, pelvis stable Neurologic Exam: alert, oriented x 3, 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, 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, normal mood/affect, nml cerebellar function, nml station & gait Skin Exam: normal color Lymphatic Exam: No adenopathy SpO2: 99 O2 Delivery: Room Air - Course Nursing assessment & vital signs reviewed: Yes Ordered Tests: Active Orders 24 hr Category Date Time Status CHEST 1 VIEW (PORTABLE) Stat Exams 06/06/19 10:39 Completed KUB Stat Exams 06/06/19 11:00 Completed CBC W DIFF Stat Lab 06/06/19 11:00 Completed CMP Stat Lab 06/06/19 11:00 Completed UA W/RFX UR CULTURE Stat Lab 06/06/19 12:00 Completed Peak Expiratory Flow Rate ONCE RT 06/06/19 11:20 Active Respiratory Therapy Assessment DAILY RT 06/06/19 11:20 Active Medication Summary Discontinued Medications Generic Name Dose Route Start Last Admin Trade Name Freq PRN Reason Stop Dose Admin Albuterol/Ipratropium 3 ml 06/06/19 10:49 06/06/19 11:17 Duoneb 0.5-3 Mg/3 Ml Neb IH 06/06/19 10:50 3 ml STAT ONE Administration Albuterol/Ipratropium Confirm 06/06/19 10:59 Duoneb 0.5-3 Mg/3 Ml Neb Administered 06/06/19 11:00 Dose 3 ml IH .STK-MED ONE Lab/Rad Data: Laboratory Result Diagrams 06/06/19 11:00 06/06/19 11:00 Laboratory Results 06/06/19 06/06/19 06/06/19 Range/Units 12:00 11:00 11:00 WBC 4.5 (4.0-10.5) K/mm3 RBC 4.47 (4.1-5.4) M/mm3 Hgb 14.1 (12.0-16.0) gm/dl Hct 41.8 (35-47) % MCV 93.5 (78-100) fl MCH 31.5 (26-32) pg MCHC 33.7 (32-36) g/dl RDW 12.2 (11.5-14.0) % Plt Count 113 L (150-450) K/mm3 MPV 10.8 H (6-9.5) fl Gran % 70.5 H (36.0-66.0) % Eos # (Auto) 0.01 (0-0.5) Absolute Lymphs (auto) 0.78 L (1.0-4.6) Absolute Monos (auto) 0.54 (0.0-1.3) Lymphocytes % 17.2 L (24.0-44.0) % Monocytes % 11.9 (0.0-12.0) % Eosinophils % 0.2 (0.00-5.0) % Basophils % 0.2 (0.0-0.4) % Absolute Granulocytes 3.20 (1.4-6.9) Basophils # 0.01 (0-0.4) Sodium 135 L (137-145) mmol/L Potassium 4.0 (3.5-5.1) mmol/L Chloride 103 (98-107) mmol/L Carbon Dioxide 24 (22-30) mmol/L Anion Gap 12.6 (5-15) MEQ/L BUN 6 L (7-17) mg/dL Creatinine 0.66 (0.52-1.04) mg/dL Estimated GFR > 60.0 ML/MIN Glucose 89 (74-106) mg/dL Calcium 9.4 (8.4-10.2) mg/dL Total Bilirubin 0.70 (0.2-1.3) mg/dL AST 26 (14-36) U/L ALT 14 (0-35) U/L Alkaline Phosphatase 43 (38-126) U/L Serum Total Protein 7.9 (6.3-8.2) g/dL Albumin 4.4 (3.5-5.0) g/dL Urine Color YELLOW (YELLOW) Urine Appearance CLEAR (CLEAR) Urine pH 5.0 (5-6) Ur Specific [place] 1.015 (1.005-1.025) Urine Protein NEGATIVE (Negative) Urine Ketones SMALL (NEGATIVE) Urine Blood MODERATE (0-5) Robinson/ul Urine Nitrite NEGATIVE (NEGATIVE) Urine Bilirubin NEGATIVE (NEGATIVE) Urine Urobilinogen NEGATIVE (0-1) mg/dL Ur Leukocyte Esterase NEGATIVE (NEGATIVE) Urine WBC (Auto) 3-5 (0-5) /HPF Urine RBC (Auto) 0-2 (0-2) /HPF U Epithel Cells (Auto) RARE (FEW) /HPF Urine Bacteria (Auto) RARE (NEGATIVE) /HPF Urine Mucus (Auto) SLIGHT (NEGATIVE) /HPF Urine Culture Reflexed NO (NO) Urine Glucose NEGATIVE (NEGATIVE) mg/dL - Progress Progress: improved - Departure Departure Disposition: Home Clinical Impression: Flu syndrome, Bronchitis, Smoker, Headache, Sinusitis Condition: Stable Critical Care Time: No Referrals: DOCTOR,NO FAMILY [Primary Care Provider] - Instructions: Quit Smoking Additional Instructions: follow up with pcp next week return to ER as needed take medications as directed advised to stop smoking Prescriptions: Albuterol 8 gm Mdi Hfa [Ventolin Hfa MDI] 8 gm IH Q4H PRN #1 [id number] PRN Reason: Shortness Of Breath Azithromycin 250 mg [Zithromax 250 MG TABLET] 250 mg PO ZPACK #6 tablet Oseltamivir 75 mg [Tamiflu 75MG Capsule] 75 mg PO BID #10 cap
--- NOTE | 2019-06-06 11:12 | XRAY ---
Indication: Cough, congestion, and fever. Comparison: October 12, 2009. KUB demonstrates nonspecific nonobstructed bowel gas pattern. Solid organs and osseous structures unremarkable. No large free air. Impression: Negative KUB.
--- NOTE | 2019-06-06 11:15 | XRAY ---
Indication: Cough, congestion, and fever. Comparison: October 17, 2016. Portable chest remains hyperinflated and clear. Heart and mediastinal structures within normal limits. Bony thorax intact. No new/acute findings.
[2019-06-06 11:18] LABS: BASOPHIL % 0.2 % (0.0-0.4); Basophil (Absolute #) 0.01 (0-0.4); Eosinophil % 0.2 % (0.00-5.0); Eosinophil (Absolute #) 0.01 (0-0.5); Hematocrit 41.8 % (35-47); Hemoglobin 14.1 gm/dl (12.0-16.0); Lymphocyte (Absolute #) 0.78 (1.0-4.6); Lymphocytes % 17.2 % (24.0-44.0); Mean Cell Volume 93.5 fl (78-100); Mean Corpuscular Hemoglobin 31.5 pg (26-32); Mean Corpuscular Hgb Concent. 33.7 g/dl (32-36); Mean Platelet Volume 10.8 fl (6-9.5); Monocyte (Absolute #) 0.54 (0.0-1.3); Monocytes % 11.9 % (0.0-12.0); Neutrophil % 70.5 % (36.0-66.0); Platelet Count 113 K/mm3 (150-450); Red Blood Count 4.47 M/mm3 (4.1-5.4); Red Cell Distribution Width 12.2 % (11.5-14.0); White Blood Count 4.5 K/mm3 (4.0-10.5)
[2019-06-06 11:25] LABS: ALBUMIN 4.4 g/dL (3.5-5.0); ALKALINE PHOSPHATASE 43 U/L (38-126); ANION GAP 12.6 MEQ/L (5-15); BLOOD UREA NITROGEN 6 mg/dL (7-17); CHLORIDE 103 mmol/L (98-107); Calcium 9.4 mg/dL (8.4-10.2); Carbon Dioxide 24 mmol/L (22-30); Creatinine 1 0.66 mg/dL (0.52-1.04); Glucose 89 mg/dL (74-106); SGOT/AST 26 U/L (14-36); SGPT/ALT 14 U/L (0-35); SODIUM 135 mmol/L (137-145); Total Protein 7.9 g/dL (6.3-8.2)
[2019-06-06 12:00] LABS: Appearance CLEAR (CLEAR); Bacteria RARE /HPF (NEGATIVE); Bilirubin NEGATIVE (NEGATIVE); Blood MODERATE Ery/ul (0-5); Epithelial Cells RARE /HPF (FEW); Glucose NEGATIVE (NEGATIVE); Ketones SMALL (NEGATIVE); Leukocyte Esterase NEGATIVE (NEGATIVE); Mucus SLIGHT /HPF (NEGATIVE); Nitrite NEGATIVE (NEGATIVE); Protein,Urine Dip NEGATIVE (Negative); RBC 0-2 /HPF (0-2); Specific Gravity 1.015 (1.005-1.025); Urobilinogen NEGATIVE mg/dL (0-1)
[2019-06-06 13:48] VITALS: BP 123/56; PULSE 88; O2SAT 98
== END 2019-06-06 13:48 | disposition home or self-care (01) ==
LOC: ED 10:10
DX: J11.1 Influenza due to unidentified influenza virus with other respiratory manifestations (principal); J40 Bronchitis, not specified as acute or chronic; Z72.0 Tobacco use; J32.9 Chronic sinusitis, unspecified
CPT/HCPCS: 36415; 71045; 74018; 80053; 81001; 85025; 94150; 94640; 99284; A9270-GY

== ENCOUNTER 2019-06-09 10:49 | Emergency (ER) | payer MEDICAID ==
[2019-06-09] MEDS ORDERED: Sodium Chloride 0.9% 1000 ML 1,000 ML IV STA (11:34)
[2019-06-09] MEDS ORDERED: Robitussin AC Syrup Unit Dose Cup PO PRN (11:34)
[2019-06-09] MEDS ORDERED: Robitussin AC Syrup Unit Dose Cup ONE (11:38)
[2019-06-09] MEDS ORDERED: Sodium Chloride 0.9% 1000 ML 1,000 ML ONE (11:38)
--- NOTE | 2019-06-09 11:47 | ERPHSYRPT ---
- History of Present Illness Time Seen by Provider: 06/09/19 11:46 Source: patient, family Exam Limitations: no limitations Patient Subjective Stated Complaint: Pt diagnosed with the flu on and has been treating it but she still feels bad, vomiting when she eats, diarrhea Triage Nursing Assessment: Pt walked into the ER slowly, hypotensive, afebrile, pulses normal, skin flushed and dry, coughing Physician History: Pt diagnosed with the flu on and has been treating it but she still feels bad, vomiting when she eats, diarrhea Cough Quality/Degree: dry cough Associated Symptoms: chest pain/soreness, cough, headache, muscle aches, shortness of breath, No fever, No chills International travel in last 2 weeks: No Allergies/Adverse Reactions: cefaclor [From Ceclor] Allergy (Mild, Verified 06/09/19 11:34) cephalexin monohydrate [From Keflex] Allergy (Mild, Verified 06/09/19 11:34) Hx Tetanus, Diphtheria Vaccination/Date Given: No Hx Influenza Vaccination/Date Given: No Hx Pneumococcal Vaccination/Date Given: No - Review of Systems Constitutional: No Fever, No Chills Eyes: No Symptoms Ears, Nose, & Throat: No Symptoms Respiratory: Cough, Dyspnea, Wheezing Cardiac: No Chest Pain, No Edema, No Syncope Abdominal/Gastrointestinal: Nausea, Vomiting, Diarrhea, No Abdominal Pain Genitourinary Symptoms: No Dysuria Musculoskeletal: No Back Pain, No Neck Pain Skin: No Rash Neurological: No Dizziness, No Focal Weakness, No Sensory Changes Psychological: No Symptoms Endocrine: No Symptoms All Other Systems: Reviewed and Negative - Past Medical History Pertinent Past Medical History: Yes Neurological History: Migraines ENT History: No Pertinent History Cardiac History: No Pertinent History Respiratory History: Bronchitis Endocrine Medical History: No Pertinent History Musculoskeletal History: No Pertinent History GI Medical History: No Pertinent History History: No Pertinent History Psycho-Social History: Depression Female Reproductive Disorders: Endometriosis, Other Other Medical History: polycystic ovaries - Past Surgical History Past Surgical History: Yes Neuro Surgical History: No Pertinent History Cardiac: No Pertinent History Respiratory: No Pertinent History Gastrointestinal: Appendectomy Genitourinary: No Pertinent History Musculoskeletal: No Pertinent History Female Surgical History: Hysterectomy Other Surgical History: HYSTERECTOMY PARTIAL - Social History Smoking Status: Current every day smoker How long have you smoked: 25 Exposure to second hand smoke: Yes Drug Use: marijuana Patient Lives Alone: No Significant Family History: no pertinent family hx, alpha-1 antitrypsin deficiency - Female History Hx Now: No - Nursing Vital Signs Nursing Vital Signs: Initial Vital Signs Temperature 98.2 F 06/09/19 11:24 Pulse Rate 77 06/09/19 11:24 Blood Pressure 82/54 06/09/19 11:24 O2 Sat by Pulse Oximetry 97 06/09/19 11:24 Pain Scale Pain Intensity 3 - Physical Exam General Appearance: no apparent distress, alert Eye Exam: PERRL/EOMI, eyes nml inspection Ears, Nose, Throat Exam: normal ENT inspection, TMs normal, pharynx normal, moist mucous membranes Neck Exam: normal inspection, non-tender, supple, full range of motion Respiratory Exam: normal breath sounds, diminished breath sounds, wheezing, No respiratory distress Cardiovascular Exam: regular rate/rhythm, normal heart sounds Gastrointestinal/Abdomen Exam: soft, normal bowel sounds, No tenderness Back Exam: normal inspection, No CVA tenderness, No vertebral tenderness Extremity Exam: normal inspection, normal range of motion Neurologic Exam: alert, oriented x 3, cooperative, normal mood/affect, sensation nml, No motor deficits Skin Exam: normal color, warm, dry, No rash Lymphatic Exam: No adenopathy SpO2: 97 Ordered Tests: Medication Summary Generic Name Dose Route Start Last Admin Trade Name Freq PRN Reason Stop Dose Admin Guaifenesin/Codeine Phosphate 10 ml 06/09/19 11:34 06/09/19 11:39 Robitussin Ac Syrup Unit Dose Cup PO 07/09/19 11:33 10 ml QIDP PRN Administration COUGH Sodium Chloride 1,000 mls @ 999 mls/hr 06/09/19 11:34 06/09/19 11:39 Sodium Chloride 0.9% 1000 Ml IV 06/09/19 12:34 999 mls/hr .Q1H1M STA Administration Discontinued Medications Generic Name Dose Route Start Last Admin Trade Name Freq PRN Reason Stop Dose Admin Sodium Chloride Confirm 06/09/19 11:38 Sodium Chloride 0.9% 1000 Ml Administered 06/09/19 11:39 Dose 1,000 mls @ ud .ROUTE .STK-MED ONE Oseltamivir Phosphate 75 mg 06/09/19 12:17 06/09/19 12:27 Tamiflu 75mg Capsule PO 12/29/19 12:18 Not Given STAT ONE Lab/Rad Data: Laboratory Results 06/09/19 Range/Units 11:38 Influenza Type A Ag POSITIVE (NEGATIVE) Influenza Type B Ag NEGATIVE (NEGATIVE) RSV (PCR) NEGATIVE (Negative) - Progress Progress: improved Air Movement: good Blood Culture(s) Obtained: No Antibiotics given: No Counseled pt/family regarding: lab results, diagnosis, need for follow-up, smoking cessation - Departure Departure Disposition: Home Clinical Impression: Influenza A Condition: Stable Critical Care Time: No Referrals: DOCTOR,NO FAMILY [Primary Care Provider] - Instructions: Flu, Adult (DC) Additional Instructions: Discharge/Care Plan KAHLIL HALE was seen on 06/09/19 in the Emergency Room. The patient was counseled regarding Diagnosis,Lab results, Imaging studies, need for follow up and when to return to the Emergency Room. Prescriptions given: Discharge Note I have spoken with the patient and/or caregivers. I have explained the patient' s condition, diagnosis and treatment plan based on the information available to me at this time. I have answered the patient's and/or caregiver's questions and addressed any concerns. The patient and/or caregivers have as good understanding of the patient's diagnosis, condition and treatment plan as can be expected at this point. The vital signs have been stable. The patient's condition is stable and appropriate for discharge from the emergency department. The patient will pursue further outpatient evaluation with the primary care physician or other designated or consulting physician as outlined in the discharge instructions. The patient and/or caregivers are agreeable to this plan of care and follow-up instructions have been explained in detail. The patient and/or caregivers have received these instruction. The patient/and or caregivers are aware that any significant change in condition or worsening of symptoms should prompt an immediate return to this or the closest emergency department or call 911. KAHLIL HALE was seen on 06/09/19 n the Emergency Room. At that time you were treated for an emergent condition, during your visit Laboratory, Radiology and/or other procedures may have been ordered. It is very important that you follow-up with your Primary Care Physician NO FAMILY DOCTOR within the next 24-48 hours to review your Emergency Room visit and the final results of testing that was ordered. Some test results such as Urine Cultures, Blood Cultures, and other cultures if ordered will not be finalized for 24-48 hours. If you do not have a Primary Care Provider please call the medical records department at [phone] ext [phone] to obtain a copy of your results or you may sign into our patient portal to obtain these results by visiting us @ [email or web address] and completing the following steps: 1. Click on the Patient Portal link 2. Click the Patient Self Enrollment Link to complete the enrollment form and entering your 3. Once the enrollment form is completed you will receive an email with a temporary ID and password at the email address you provided. 4. Next choose a user name and password. Your user name must be at least 4 characters long and your password must be at least 4 characters long. 5. Choose a security question from the list and provide your answer to the question. If you already have signed into the Health Portal you may access your Health Care Information 02/01 by the following steps: 1. Login to our website @ [email or web address] 2. Enter your original user name and password. FAQS The [facility] Health Portal is an online tool that contains your Lab Results, Radiology Reports, Visit History, Discharge Instructions and Health Summary Lab and Radiology Results will not be available for 72 hours on the portal. The Portal is a secure site, passwords are encryted and URLs are re-written so they cannot be copied and pasted. You and authorized family members are the only ones who can access your Portal. Also there is a timeout feature that protects your information if you leave the Portal page open. If you have technical difficulty please use the Contact Us link on the page this will allow you to submit any questions you have regarding the Portal or you may contact the Medical Record Department at [phone] ext [phone]. Continue tamiflu and Zithromax. Forms: Work/School Release Form Prescriptions: Guaifenesin/Codeine Phosphate [Robitussin AC Syrup] 5 ml PO QID #120 ml
[2019-06-09 12:16] LABS: INFLUENZA A POSITIVE (NEGATIVE); INFLUENZA B NEGATIVE (NEGATIVE); RESPIRATORY SYNCTIAL VIRUS NEGATIVE (Negative)
[2019-06-09] MEDS ORDERED: Tamiflu 75MG Capsule PO ONE (12:17)
[2019-06-09 12:29] VITALS: BP 114/75; PULSE 81
[2019-06-09 12:32] VITALS: O2SAT 97
== END 2019-06-09 12:38 | disposition home or self-care (01) ==
LOC: ED 10:49
DX: J10.1 Influenza due to other identified influenza virus with other respiratory manifestations (principal)
CPT/HCPCS: 87631; 96360; 99284; A9270-GY

== ENCOUNTER 2019-06-12 02:03 | Emergency (ER) | payer MEDICAID ==
[2019-06-12] MEDS ORDERED: BABY ASPIRIN 81 MG CHEW PO ONE (02:06)
[2019-06-12] MEDS ORDERED: Ativan 2 MG/1 ML VIAL IV ONE (02:07)
--- NOTE | 2019-06-12 02:11 | ERPHSYRPT ---
- History of Present Illness Time Seen by Provider: 06/12/19 02:05 Source: patient, family Exam Limitations: no limitations Physician History: patient came to the ER as shaking all over and see if she cannot control her shakes. Patient smoked marijuana active midnight which was a 2 hours ago. Patient is on atenolol Zithromax and inhalers Albuterol for a flu. ppatient denies using meth Timing/Duration: today Severity: moderate Modifying Factors: Improves With: other (mmarijuana) Associated Symptoms: cough, chills, other (sshaking and hurting all over) Allergies/Adverse Reactions: cefaclor [From Ceclor] Allergy (Mild, Verified 06/12/19 02:19) cephalexin monohydrate [From Keflex] Allergy (Mild, Verified 06/12/19 02:19) Hx Tetanus, Diphtheria Vaccination/Date Given: No Hx Influenza Vaccination/Date Given: No Hx Pneumococcal Vaccination/Date Given: No - Review of Systems Constitutional: Other (shaking all over), No Fever, No Chills Eyes: No Symptoms Ears, Nose, & Throat: No Symptoms Respiratory: No Cough, No Dyspnea Cardiac: No Chest Pain, No Edema, No Syncope Abdominal/Gastrointestinal: No Abdominal Pain, No Nausea, No Vomiting, No Diarrhea Genitourinary Symptoms: No Dysuria Musculoskeletal: No Back Pain, No Neck Pain Skin: No Rash Neurological: No Dizziness, No Focal Weakness, No Sensory Changes Psychological: No Symptoms Endocrine: No Symptoms All Other Systems: Reviewed and Negative - Past Medical History Pertinent Past Medical History: Yes Neurological History: Migraines ENT History: No Pertinent History Cardiac History: No Pertinent History Respiratory History: Bronchitis Endocrine Medical History: No Pertinent History Musculoskeletal History: No Pertinent History GI Medical History: No Pertinent History History: No Pertinent History Psycho-Social History: Depression Female Reproductive Disorders: Endometriosis, Other Other Medical History: polycystic ovaries - Past Surgical History Past Surgical History: Yes Neuro Surgical History: No Pertinent History Cardiac: No Pertinent History Respiratory: No Pertinent History Gastrointestinal: Appendectomy Genitourinary: No Pertinent History Musculoskeletal: No Pertinent History Female Surgical History: Hysterectomy Other Surgical History: HYSTERECTOMY PARTIAL - Social History Smoking Status: Current every day smoker How long have you smoked: 25 Exposure to second hand smoke: Yes Drug Use: marijuana Patient Lives Alone: No Significant Family History: no pertinent family hx, alpha-1 antitrypsin deficiency - Nursing Vital Signs Nursing Vital Signs: Initial Vital Signs Temperature 99.1 F 06/12/19 02:05 Pulse Rate 99 H 06/12/19 02:05 Respiratory Rate 18 06/12/19 02:05 O2 Sat by Pulse Oximetry 100 06/12/19 02:05 Pain Scale Pain Intensity 5 - Physical Exam General Appearance: no apparent distress, alert, other (Anxious, SHaking) Eye Exam: PERRL/EOMI, eyes nml inspection Ears, Nose, Throat Exam: normal ENT inspection, TMs normal, pharynx normal, moist mucous membranes Neck Exam: normal inspection, non-tender, supple, full range of motion Respiratory Exam: normal breath sounds, lungs clear, No respiratory distress Cardiovascular Exam: regular rate/rhythm, normal heart sounds, normal peripheral pulses Gastrointestinal/Abdomen Exam: soft, normal bowel sounds, No tenderness, No mass Back Exam: normal inspection, normal range of motion, No CVA tenderness, No vertebral tenderness Extremity Exam: normal inspection, normal range of motion, pelvis stable Neurologic Exam: alert, oriented x 3, cooperative, normal mood/affect, nml cerebellar function, nml station & gait, sensation nml, No motor deficits Skin Exam: normal color, warm, dry, No rash Lymphatic Exam: No adenopathy SpO2 Interpretation: normal O2 Delivery: Room Air - Course Nursing assessment & vital signs reviewed: Yes EKG Interpreted by Me: RATE, NORMAL AXIS, NORMAL INTERVALS, NORMAL QRS, Q-wave Ordered Tests: Active Orders 24 hr Category Date Time Status EKG-ER Only STAT Care 06/12/19 02:06 Active IV Insertion STAT Care 06/12/19 02:06 Active CBC W DIFF Stat Lab 06/12/19 02:22 Completed CMP Stat Lab 06/12/19 02:22 Completed Manual Differential NC Stat Lab 06/12/19 02:22 Completed TROPONIN Stat Lab 06/12/19 02:22 Completed Urine Triage Profile Stat Lab 06/12/19 02:39 Completed Medication Summary Discontinued Medications Generic Name Dose Route Start Last Admin Trade Name Freq PRN Reason Stop Dose Admin Aspirin 324 mg 06/12/19 02:06 06/12/19 02:27 Baby Aspirin 81 Mg Chew PO 06/12/19 02:07 324 mg STAT ONE Administration Lorazepam 1 mg 06/12/19 02:07 06/12/19 02:27 Ativan 2 Mg/1 Ml Vial IV 06/12/19 02:08 1 mg STAT ONE Administration Lorazepam Confirm 06/12/19 02:25 Ativan 2 Mg/1 Ml Vial Administered 06/12/19 02:26 Dose 2 mg .ROUTE .STK-MED ONE Lab/Rad Data: Laboratory Result Diagrams 06/12/19 02:22 06/12/19 02:22 Laboratory Results 06/12/19 06/12/19 06/12/19 Range/Units 02:39 02:22 02:22 WBC 6.3 (4.0-10.5) K/mm3 RBC 4.49 (4.1-5.4) M/mm3 Hgb 14.4 (12.0-16.0) gm/dl Hct 41.9 (35-47) % MCV 93.3 (78-100) fl MCH 32.1 H (26-32) pg MCHC 34.4 (32-36) g/dl RDW 12.2 (11.5-14.0) % Plt Count 123 L (150-450) K/mm3 MPV 10.6 H (6-9.5) fl Segmented Neutrophils 52 (36.0-66.0) % Lymphocytes (Manual) 27 (24-44) % Monocytes (Manual) 12 (0.0-12.0) % Eosinophils (Manual) 3 (0.00-3.0) % Atypical Lymphocytes 6 % Platelet Estimate NORMAL (NORMAL) RBC Morphology NORMAL Sodium 139 (137-145) mmol/L Potassium 4.2 (3.5-5.1) mmol/L Chloride 104 (98-107) mmol/L Carbon Dioxide 28 (22-30) mmol/L Anion Gap 11.8 (5-15) MEQ/L BUN 8 (7-17) mg/dL Creatinine 0.82 (0.52-1.04) mg/dL Estimated GFR > 60.0 ML/MIN Glucose 79 (74-106) mg/dL Calcium 9.5 (8.4-10.2) mg/dL Total Bilirubin 0.40 (0.2-1.3) mg/dL AST 26 (14-36) U/L ALT 18 (0-35) U/L Alkaline Phosphatase 41 (38-126) U/L Troponin I < 0.012 (0.000-0.034) ng/mL Serum Total Protein 7.8 (6.3-8.2) g/dL Albumin 4.3 (3.5-5.0) g/dL Urine Opiates Level NEGATIVE (NEGATIVE) Ur Methadone NEGATIVE (NEGATIVE) Urine Barbiturates NEGATIVE (NEGATIVE) Ur Phencyclidine (PCP) NEGATIVE (NEGATIVE) Urine Amphetamine NEGATIVE (NEGATIVE) U Benzodiazepine Level NEGATIVE (NEGATIVE) Urine Cocaine NEGATIVE (NEGATIVE) Urine Marijuana (THC) POSITIVE (NEGATIVE) Influenza Type A Ag (NEGATIVE) Influenza Type B Ag (NEGATIVE) RSV (PCR) (Negative) 06/12/19 Range/Units 02:10 WBC (4.0-10.5) K/mm3 RBC (4.1-5.4) M/mm3 Hgb (12.0-16.0) gm/dl Hct (35-47) % MCV (78-100) fl MCH (26-32) pg MCHC (32-36) g/dl RDW (11.5-14.0) % Plt Count (150-450) K/mm3 MPV (6-9.5) fl Segmented Neutrophils (36.0-66.0) % Lymphocytes (Manual) (24-44) % Monocytes (Manual) (0.0-12.0) % Eosinophils (Manual) (0.00-3.0) % Atypical Lymphocytes % Platelet Estimate (NORMAL) RBC Morphology Sodium (137-145) mmol/L Potassium (3.5-5.1) mmol/L Chloride (98-107) mmol/L Carbon Dioxide (22-30) mmol/L Anion Gap (5-15) MEQ/L BUN (7-17) mg/dL Creatinine (0.52-1.04) mg/dL Estimated GFR ML/MIN Glucose (74-106) mg/dL Calcium (8.4-10.2) mg/dL Total Bilirubin (0.2-1.3) mg/dL AST (14-36) U/L ALT (0-35) U/L Alkaline Phosphatase (38-126) U/L Troponin I (0.000-0.034) ng/mL Serum Total Protein (6.3-8.2) g/dL Albumin (3.5-5.0) g/dL Urine Opiates Level (NEGATIVE) Ur Methadone (NEGATIVE) Urine Barbiturates (NEGATIVE) Ur Phencyclidine (PCP) (NEGATIVE) Urine Amphetamine (NEGATIVE) U Benzodiazepine Level (NEGATIVE) Urine Cocaine (NEGATIVE) Urine Marijuana (THC) (NEGATIVE) Influenza Type A Ag NEGATIVE (NEGATIVE) Influenza Type B Ag NEGATIVE (NEGATIVE) RSV (PCR) NEGATIVE (Negative) - Progress Progress: improved Progress Note: 06/12/19 04: pt resting in ER Will see patient in: other Counseled pt/family regarding: lab results, diagnosis - Departure Departure Disposition: Home Clinical Impression: Panic attack, Substance abuse Condition: Fair Critical Care Time: No Referrals: DOCTOR,NO FAMILY [Primary Care Provider] - Follow Up with PCP/3 days Instructions: Panic Disorder, Marijuana Use and Addiction
[2019-06-12 02:19] VITALS: O2SAT 100
[2019-06-12 02:25] LABS: Hematocrit 41.9 % (35-47); Hemoglobin 14.4 gm/dl (12.0-16.0); Mean Cell Volume 93.3 fl (78-100); Mean Corpuscular Hemoglobin 32.1 pg (26-32); Mean Corpuscular Hgb Concent. 34.4 g/dl (32-36); Mean Platelet Volume 10.6 fl (6-9.5); Platelet Count 123 K/mm3 (150-450); Red Blood Count 4.49 M/mm3 (4.1-5.4); Red Cell Distribution Width 12.2 % (11.5-14.0); White Blood Count 6.3 K/mm3 (4.0-10.5)
[2019-06-12] MEDS ORDERED: Ativan 2 MG/1 ML VIAL ONE (02:25)
[2019-06-12 02:47] LABS: ALBUMIN 4.3 g/dL (3.5-5.0); ALKALINE PHOSPHATASE 41 U/L (38-126); ANION GAP 11.8 MEQ/L (5-15); BLOOD UREA NITROGEN 8 mg/dL (7-17); CHLORIDE 104 mmol/L (98-107); Calcium 9.5 mg/dL (8.4-10.2); Carbon Dioxide 28 mmol/L (22-30); Creatinine 1 0.82 mg/dL (0.52-1.04); Glucose 79 mg/dL (74-106); Potassium 4.2 mmol/L (3.5-5.1); SGOT/AST 26 U/L (14-36); SGPT/ALT 18 U/L (0-35); SODIUM 139 mmol/L (137-145); Total Protein 7.8 g/dL (6.3-8.2)
[2019-06-12 02:51] LABS: TROPONIN < 0.012 ng/mL (0.000-0.034)
[2019-06-12 02:51] LABS: INFLUENZA A NEGATIVE (NEGATIVE); INFLUENZA B NEGATIVE (NEGATIVE); RESPIRATORY SYNCTIAL VIRUS NEGATIVE (Negative)
[2019-06-12 02:57] LABS: Amphetamine,Urine NEGATIVE (NEGATIVE); Barbiturate,Urine NEGATIVE (NEGATIVE); Benzodiazepine,Urine NEGATIVE (NEGATIVE); Cocaine,Urine NEGATIVE (NEGATIVE); Methadone,Urine NEGATIVE (NEGATIVE); Opiate,Urine NEGATIVE (NEGATIVE); PCP,Urine NEGATIVE (NEGATIVE); THC,Urine POSITIVE (NEGATIVE)
[2019-06-12 02:57] LABS: ATYPICAL LYMPHS 6 %; Eosinophil 3 % (0.00-3.0); Lymphocytes 27 % (24-44); Monocyte 12 % (0.0-12.0); Neutrophils 52 % (36.0-66.0); Platelet Estimate NORMAL (NORMAL); Total Cells Counted 100
[2019-06-12 04:45] VITALS: BP 110/61; PULSE 68
== END 2019-06-12 04:45 | disposition home or self-care (01) ==
LOC: ED 02:03
DX: F41.0 Panic disorder [episodic paroxysmal anxiety] (principal); F19.10 Other psychoactive substance abuse, uncomplicated
CPT/HCPCS: 36000; 36415; 80053; 80307; 84484; 85025; 87631; 93005; 96374; 99284; J2060; A9270-GY

== ENCOUNTER 2019-08-07 18:26 | Emergency (ER) | payer MEDICAID ==
--- NOTE | 2019-08-07 18:39 | ERPHSYRPT ---
- History of Present Illness Time Seen by Provider: 08/07/19 18:39 Source: patient, family Exam Limitations: no limitations Physician History: Is a 39-year-old white female who states she is not on any medication and presents with a one-week history of constipation. Patient did states she used a fleets enema yesterday but it hurt too use it so she did not repeat the enema. Patient states she does have a history of intermittent constipation. However, these episodes usually last only 2 to 3 days. Patient has had no nausea or vomiting and denies fever Timing/Duration: week(s) (1), intermittent, worse Severity: moderate Associated Symptoms: abdominal pain, No nausea, No vomiting Allergies/Adverse Reactions: cefaclor [From Ceclor] Allergy (Mild, Verified 06/12/19 02:19) cephalexin monohydrate [From Keflex] Allergy (Mild, Verified 06/12/19 02:19) Hx Tetanus, Diphtheria Vaccination/Date Given: No Hx Influenza Vaccination/Date Given: No Hx Pneumococcal Vaccination/Date Given: No - Review of Systems Constitutional: No Symptoms Eyes: No Symptoms Ears, Nose, & Throat: No Symptoms Respiratory: No Symptoms Cardiac: No Symptoms Abdominal/Gastrointestinal: Abdominal Pain, Constipation Genitourinary Symptoms: No Symptoms Musculoskeletal: No Symptoms Skin: No Symptoms Neurological: No Symptoms Psychological: No Symptoms Endocrine: No Symptoms Hematologic/Lymphatic: No Symptoms Immunological/Allergic: No Symptoms All Other Systems: Reviewed and Negative - Past Medical History Pertinent Past Medical History: Yes Neurological History: Migraines ENT History: No Pertinent History Cardiac History: No Pertinent History Respiratory History: Bronchitis Endocrine Medical History: No Pertinent History Musculoskeletal History: No Pertinent History GI Medical History: No Pertinent History History: No Pertinent History Psycho-Social History: Depression Female Reproductive Disorders: Endometriosis, Other Other Medical History: polycystic ovaries - Past Surgical History Past Surgical History: Yes Neuro Surgical History: No Pertinent History Cardiac: No Pertinent History Respiratory: No Pertinent History Gastrointestinal: Appendectomy Genitourinary: No Pertinent History Musculoskeletal: No Pertinent History Female Surgical History: Hysterectomy Other Surgical History: HYSTERECTOMY PARTIAL - Social History Smoking Status: Current every day smoker How long have you smoked: 25 Exposure to second hand smoke: Yes Drug Use: marijuana Patient Lives Alone: No Significant Family History: no pertinent family hx, alpha-1 antitrypsin deficiency - Nursing Vital Signs Nursing Vital Signs: Initial Vital Signs Temperature 97.4 F 08/07/19 18:35 Pulse Rate 70 08/07/19 18:35 Respiratory Rate 18 08/07/19 18:35 Blood Pressure 120/63 08/07/19 18:35 O2 Sat by Pulse Oximetry 98 08/07/19 18:35 Pain Scale Pain Intensity 7 - Physical Exam General Appearance: mild distress, alert, anxiety Eye Exam: PERRL/EOMI, eyes nml inspection Ears, Nose, Throat Exam: moist mucous membranes Neck Exam: normal inspection, non-tender, supple, full range of motion Respiratory Exam: normal breath sounds, lungs clear, airway intact, No chest tenderness, No respiratory distress Cardiovascular Exam: regular rate/rhythm, normal heart sounds, normal peripheral pulses Gastrointestinal/Abdomen Exam: normal bowel sounds, tenderness (mild diffuse), distention (mild diffuse), No guarding, No rebound Pelvic Exam: not done Rectal Exam: not done Back Exam: normal inspection, normal range of motion, No CVA tenderness, No vertebral tenderness Extremity Exam: normal inspection, normal range of motion, pelvis stable Neurologic Exam: alert, oriented x 3, cooperative, park manager II-XII nml as tested, normal mood/affect, nml cerebellar function, nml station & gait Skin Exam: normal color, warm, dry Lymphatic Exam: No adenopathy SpO2 Interpretation: normal O2 Delivery: Room Air - Course Nursing assessment & vital signs reviewed: Yes Ordered Tests: Active Orders 24 hr Category Date Time Status Enema STAT Care 08/07/19 19:25 Active ABDOMEN AND PELVIS W/0 CONTRAS [CT] Stat Exams 08/07/19 21:31 Ordered KUB Stat Exams 08/07/19 19:25 Taken Medication Summary Discontinued Medications Generic Name Dose Route Start Last Admin Trade Name Wingq PRN Reason Stop Dose Admin Magnesium Citrate 296 ml 08/07/19 19:24 08/07/19 19:30 Citroma 296 Ml PO 08/07/19 19:25 296 ml STAT ONE Administration Magnesium Citrate Confirm 08/07/19 19:30 Citroma 296 Ml Administered 08/07/19 19:31 Dose 296 ml .ROUTE .STK-MED ONE - Progress Progress: improved, pain not gone completely, re-examined Progress Note: 08/07/19 22:44 The patient states that she is feeling better. She does not have as much distention on examination and she states the pain is not as severe. It is now intermittent cramping and she is passing more flatus now. Medical decision making: The KUB performed shows no free air under the diaphragm. There is some air in the large colon as well as right-sided colonic stool present. There is no evidence of's small bowel obstruction. There is no air or stool in the rectum seen on the KUB. The CAT scan report was read by the night radiologist group. He states in the report that there is small bowel fluid consistent with possible enteritis. However the patient did recently consume 300 mL of magnesium citrate. I feel this is likely what he is seen. I will hold off prescribing this patient antibiotics at this time. I had a discussion with Dr. Arenas who is the night radiologist. He stated specifically there is no evidence of any bowel obstruction. Patient symptomatically has improved with the treatment we provided. We will send her home with magnesium citrate orally and a fleets enema for rectal use. Patient can follow-up with her primary care physician if her symptoms worsen or she can return to the emergency room 08/07/19 22:47 Counseled pt/family regarding: diagnosis, need for follow-up, rad results - Departure Departure Disposition: Home Clinical Impression: Constipation Condition: Stable Critical Care Time: No Referrals: DOCTOR,NO FAMILY [Primary Care Provider] - Additional Instructions: Clear liquid diet only until you are passing large amounts of stool and flatus and you have no more abdominal distention or abdominal pain. Use the magnesium citrate and fleets enema as discussed. Follow-up with your primary care physician for persistent symptoms. Return to the emergency department if symptoms worsen
[2019-08-07] MEDS ORDERED: CITROMA 296 ML PO ONE ×2 (19:24→22:50)
[2019-08-07] MEDS ORDERED: CITROMA 296 ML ONE ×2 (19:30→23:22)
[2019-08-07 23:44] VITALS: BP 120/70; PULSE 71; O2SAT 100
--- NOTE | 2019-08-08 10:29 | XRAY ---
Exam: Supine film of the abdomen from 08/07/2019. Comparison: Supine film of the abdomen from 06/06/2019. Indication: Fecal stasis in 39-year-old female. Findings: I again see abundant air within the stomach, small bowel, and colon. However, the bowel appears nondistended. Gas is not seen in the distal rectum. A mild amount of stool is seen within the ascending colon and hepatic flexure. No other significant colonic stool is seen. No hepatosplenomegaly is seen. No extrinsic soft tissue mass impressions or suspicious calcifications are seen. The bones appear unremarkable. Impression: 1. Nonspecific bowel gas pattern, as described above, representing no significant change from 06/06/2019. The bowel is not obstructed. There is a mild amount of retained stool within the ascending colon and hepatic flexure.
--- NOTE | 2019-08-08 11:28 | XRAY ---
Exam: CT of the abdomen and pelvis without IV contrast from 08/07/2019. CTDI: 3.17mGy. Comparison: CT of the abdomen and pelvis with IV contrast from 08/29/2013. Indication: 39-year-old female with abdominal pain, constipation. Patient gives history of prior partial hysterectomy and appendectomy. Technique: Non-IV contrast axial images were obtained through the abdomen and pelvis. Reconstructed coronal and sagittal images were created and reviewed. No oral contrast was given. Findings: Abundant bowel gas is seen within the stomach, small bowel, and colon to the level of the rectum. The bowel appears nonobstructed. Only a small amount of retained solid stool is seen within the cecum, ascending colon, and distal descending colon. This is nonspecific. The patient is quite thin. The lung bases appear clear. The liver, spleen, pancreas, adrenal glands, and kidneys reveal no gross abnormality. Scattered fluid is seen within the stomach, small bowel, and colon. Consider a generalized ileus or gastroenteritis. I see no bowel wall thickening. The appendix is difficult to definitively identify in this thin individual with no IV or oral contrast. However, no secondary findings of appendicitis are seen. Also, the patient gives a history of prior appendectomy. There is no free intraperitoneal air or free intraperitoneal fluid. Some atherosclerotic vascular calcification is seen within the distal abdominal aorta and proximal common iliac arteries. No abdominal aortic aneurysm or abnormal retroperitoneal lymphadenopathy is seen. The uterus appears surgically absent. The urinary bladder is only minimally distended. No other pelvic abnormality is seen. No abnormal lymphadenopathy is seen within either groin. The bones reveal no acute fracture or aggressive bone lesion. Impression: 1. Abundant bowel gas is seen within the stomach, small bowel, and colon. There is no evidence of bowel obstruction. I do note scattered fluid within the stomach, small bowel, and colon. Consider an ileus versus gastroenteritis. No bowel wall thickening or pathological bowel distention is seen. No significant retained solid stool is seen within the colon. 2. No other acute process is seen within the abdomen or pelvis.
== END 2019-08-07 23:42 | disposition home or self-care (01) ==
LOC: ED 18:26
DX: K59.00 Constipation, unspecified (principal)
CPT/HCPCS: 74018; 74176; 99284; A9270-GY

== ENCOUNTER 2019-08-09 12:28 | Emergency (ER) | payer MEDICAID ==
--- NOTE | 2019-08-09 12:44 | ERPHSYRPT ---
- History of Present Illness Time Seen by Provider: 08/09/19 12:43 Source: patient Exam Limitations: no limitations Physician History: Is a 39-year-old female who has had constipation, per her report, for 9 days. Patient was seen in the emergency room by me 2 days ago. At that time we did give the patient magnesium citrate orally and soapsuds enema rectally after obtaining a KUB and performing a CAT scan without contrast. During that emergency room visit, the patient began passing flatus and even had a liquid bowel movement prior to her being discharged. Patient's exam showed some abdominal distention during that visit. Today she arrives with persistent complaint of constipation. She states that her abdominal pain and distention have improved but she still is not, in her opinion, having and passing solid bowel movements. Patient is unable to see her primary care physician until next Monday. Patient did not want to wait to be evaluated since the weekend is coming up. Patient has had no vomiting or fevers. She states she is passing some flatus and oily liquid stool. Timing/Duration: day(s) (9) Severity: mild Modifying Factors: Improves With: nothing Associated Symptoms: abdominal pain (Mild diffuse cramping), No nausea, No vomiting, No shortness of breath, No chest pain, No fever, No weakness Allergies/Adverse Reactions: cefaclor [From Ceclor] Allergy (Mild, Verified 08/09/19 12:40) cephalexin monohydrate [From Keflex] Allergy (Mild, Verified 08/09/19 12:40) Home Medications: No Reportable Medications [No Reported Medications] 08/09/19 [History] Hx Tetanus, Diphtheria Vaccination/Date Given: No Hx Influenza Vaccination/Date Given: No Hx Pneumococcal Vaccination/Date Given: No - Review of Systems Constitutional: No Symptoms Eyes: No Symptoms Ears, Nose, & Throat: No Symptoms Respiratory: No Symptoms Cardiac: No Symptoms Abdominal/Gastrointestinal: Abdominal Pain, Constipation, No Nausea, No Vomiting , No Diarrhea Genitourinary Symptoms: No Symptoms Musculoskeletal: No Symptoms Skin: No Symptoms Neurological: No Symptoms Psychological: No Symptoms Endocrine: No Symptoms Hematologic/Lymphatic: No Symptoms Immunological/Allergic: No Symptoms All Other Systems: Reviewed and Negative - Past Medical History Pertinent Past Medical History: Yes Neurological History: Migraines ENT History: No Pertinent History Cardiac History: No Pertinent History Respiratory History: Bronchitis Endocrine Medical History: No Pertinent History Musculoskeletal History: No Pertinent History GI Medical History: No Pertinent History History: No Pertinent History Psycho-Social History: Depression Female Reproductive Disorders: Endometriosis, Other Other Medical History: polycystic ovaries - Past Surgical History Past Surgical History: Yes Neuro Surgical History: No Pertinent History Cardiac: No Pertinent History Respiratory: No Pertinent History Gastrointestinal: Appendectomy Genitourinary: No Pertinent History Musculoskeletal: No Pertinent History Female Surgical History: Hysterectomy Other Surgical History: HYSTERECTOMY PARTIAL - Social History Smoking Status: Current every day smoker How long have you smoked: 25 Exposure to second hand smoke: Yes Drug Use: marijuana Patient Lives Alone: No Significant Family History: no pertinent family hx, alpha-1 antitrypsin deficiency - Nursing Vital Signs Nursing Vital Signs: Initial Vital Signs Temperature 98.1 F 08/09/19 12:42 Pulse Rate 93 H 08/09/19 12:42 Respiratory Rate 18 08/09/19 12:42 Blood Pressure 123/59 08/09/19 12:42 O2 Sat by Pulse Oximetry 100 08/09/19 12:42 Pain Scale Pain Intensity 9 - Physical Exam General Appearance: no apparent distress, alert, anxiety Eye Exam: PERRL/EOMI, eyes nml inspection Ears, Nose, Throat Exam: normal ENT inspection, moist mucous membranes Neck Exam: normal inspection, non-tender, supple, full range of motion Respiratory Exam: normal breath sounds, lungs clear, airway intact, No chest tenderness, No respiratory distress Cardiovascular Exam: regular rate/rhythm, normal heart sounds, normal peripheral pulses Gastrointestinal/Abdomen Exam: soft, normal bowel sounds, tenderness (Mild diffuse), No distention, No guarding, No rebound Pelvic Exam: not done Rectal Exam: not done Back Exam: normal inspection, normal range of motion, No CVA tenderness, No vertebral tenderness Extremity Exam: normal inspection, normal range of motion, pelvis stable Neurologic Exam: alert, oriented x 3, cooperative, title curative specialist II-XII nml as tested Skin Exam: normal color, warm, dry Lymphatic Exam: No adenopathy SpO2 Interpretation: normal O2 Delivery: Room Air - Course Nursing assessment & vital signs reviewed: Yes Ordered Tests: Active Orders 24 hr Category Date Time Status IV Insertion STAT Care 08/09/19 13:09 Active ABDOMEN AND PELVIS W CONTRAST [CT] Stat Exams 08/09/19 13:10 Completed AMYLASE Stat Lab 08/09/19 13:21 Completed CBC W DIFF Stat Lab 08/09/19 13:21 Completed CMP Stat Lab 08/09/19 13:21 Completed LIPASE Stat Lab 08/09/19 13:21 Completed Lactic Acid Stat Lab 08/09/19 13:09 Completed UA W/RFX UR CULTURE Stat Lab 08/09/19 13:29 Completed Medication Summary Discontinued Medications Generic Name Dose Route Start Last Admin Trade Name Araceli PRN Reason Stop Dose Admin Sodium Chloride 1,000 mls @ 999 mls/hr 08/09/19 13:09 08/09/19 14:29 Sodium Chloride 0.9% 1000 Ml IV 08/09/19 14:09 Infused .Q1H1M STA Infusion Sodium Chloride Confirm 08/09/19 13:23 Sodium Chloride 0.9% 1000 Ml Administered 08/09/19 13:24 Dose 1,000 mls @ ud .ROUTE .STK-MED ONE Lab/Rad Data: Laboratory Result Diagrams 08/09/19 13:21 08/09/19 13:21 Laboratory Results 08/09/19 08/09/19 08/09/19 Range/Units 13:29 13:21 13:21 WBC 7.7 (4.0-10.5) K/mm3 RBC 4.44 (4.1-5.4) M/mm3 Hgb 14.1 (12.0-16.0) gm/dl Hct 42.0 (35-47) % MCV 94.6 (78-100) fl MCH 31.8 (26-32) pg MCHC 33.6 (32-36) g/dl RDW 12.9 (11.5-14.0) % Plt Count 136 L (150-450) K/mm3 MPV 9.9 (7.5-11.0) fl Gran % 78.8 H (36.0-66.0) % Eos # (Auto) 0.03 (0-0.5) Absolute Lymphs (auto) 0.87 L (1.0-4.6) Absolute Monos (auto) 0.73 (0.0-1.3) Lymphocytes % 11.3 L (24.0-44.0) % Monocytes % 9.4 (0.0-12.0) % Eosinophils % 0.4 (0.00-5.0) % Basophils % 0.1 (0.0-0.4) % Absolute Granulocytes 6.09 (1.4-6.9) Basophils # 0.01 (0-0.4) Sodium 133 L (137-145) mmol/L Potassium 4.3 (3.5-5.1) mmol/L Chloride 102 (98-107) mmol/L Carbon Dioxide 25 (22-30) mmol/L Anion Gap 10.5 (5-15) MEQ/L BUN 11 (7-17) mg/dL Creatinine 0.75 (0.52-1.04) mg/dL Estimated GFR > 60.0 ML/MIN Glucose 89 (74-106) mg/dL Lactic Acid (0.4-2.0) Calcium 9.4 (8.4-10.2) mg/dL Total Bilirubin 1.50 H (0.2-1.3) mg/dL AST 25 (14-36) U/L ALT 16 (0-35) U/L Alkaline Phosphatase 44 (38-126) U/L Serum Total Protein 7.6 (6.3-8.2) g/dL Albumin 4.3 (3.5-5.0) g/dL Amylase 66 (30-110) U/L Lipase 52 (23-300) U/L Urine Color YELLOW (YELLOW) Urine Appearance CLEAR (CLEAR) Urine pH 7.0 (5-6) Ur Specific [place] 1.023 (1.005-1.025) Urine Protein NEGATIVE (Negative) Urine Ketones NEGATIVE (NEGATIVE) Urine Blood SMALL (0-5) Robinson/ul Urine Nitrite NEGATIVE (NEGATIVE) Urine Bilirubin NEGATIVE (NEGATIVE) Urine Urobilinogen NEGATIVE (0-1) mg/dL Ur Leukocyte Esterase NEGATIVE (NEGATIVE) Urine WBC (Auto) NONE (0-5) /HPF Urine RBC (Auto) 6-10 (0-2) /HPF U Epithel Cells (Auto) RARE (FEW) /HPF Urine Bacteria (Auto) NONE (NEGATIVE) /HPF Urine Mucus (Auto) SLIGHT (NEGATIVE) /HPF Urine Culture Reflexed NO (NO) Urine Glucose NEGATIVE (NEGATIVE) mg/dL 08/09/19 Range/Units 13:09 WBC (4.0-10.5) K/mm3 RBC (4.1-5.4) M/mm3 Hgb (12.0-16.0) gm/dl Hct (35-47) % MCV (78-100) fl MCH (26-32) pg MCHC (32-36) g/dl RDW (11.5-14.0) % Plt Count (150-450) K/mm3 MPV (7.5-11.0) fl Gran % (36.0-66.0) % Eos # (Auto) (0-0.5) Absolute Lymphs (auto) (1.0-4.6) Absolute Monos (auto) (0.0-1.3) Lymphocytes % (24.0-44.0) % Monocytes % (0.0-12.0) % Eosinophils % (0.00-5.0) % Basophils % (0.0-0.4) % Absolute Granulocytes (1.4-6.9) Basophils # (0-0.4) Sodium (137-145) mmol/L Potassium (3.5-5.1) mmol/L Chloride (98-107) mmol/L Carbon Dioxide (22-30) mmol/L Anion Gap (5-15) MEQ/L BUN (7-17) mg/dL Creatinine (0.52-1.04) mg/dL Estimated GFR ML/MIN Glucose (74-106) mg/dL Lactic Acid 0.8 (0.4-2.0) Calcium (8.4-10.2) mg/dL Total Bilirubin (0.2-1.3) mg/dL AST (14-36) U/L ALT (0-35) U/L Alkaline Phosphatase (38-126) U/L Serum Total Protein (6.3-8.2) g/dL Albumin (3.5-5.0) g/dL Amylase (30-110) U/L Lipase (23-300) U/L Urine Color (YELLOW) Urine Appearance (CLEAR) Urine pH (5-6) Ur Specific [place] (1.005-1.025) Urine Protein (Negative) Urine Ketones (NEGATIVE) Urine Blood (0-5) Robinson/ul Urine Nitrite (NEGATIVE) Urine Bilirubin (NEGATIVE) Urine Urobilinogen (0-1) mg/dL Ur Leukocyte Esterase (NEGATIVE) Urine WBC (Auto) (0-5) /HPF Urine RBC (Auto) (0-2) /HPF U Epithel Cells (Auto) (FEW) /HPF Urine Bacteria (Auto) (NEGATIVE) /HPF Urine Mucus (Auto) (NEGATIVE) /HPF Urine Culture Reflexed (NO) Urine Glucose (NEGATIVE) mg/dL - Progress Progress: improved, re-examined Progress Note: 08/09/19 13:56 Medical decision making: This patient's symptoms have improved but are persistent. That includes constipation or abnormal passing of flatus or bowel movement. Patient still complains of a lani cramping that is more mild than prior visit. Patient does have a scheduled appointment next Monday with her primary care physician. Today, we will obtain a CAT scan of the abdomen and pelvis with contrast, place an IV and give patient normal saline, obtain urine and blood for laboratory evaluation. If the lab work and x-ray studies are within normal limits, the patient is to follow the bowel hygiene regimen that I discharge her with and to keep her appointment next Monday. 08/09/19 16:22 The CAT scan of the abdomen and pelvis with oral and IV contrast reveals the bowel to be well-opacified with contrast except for the distal rectosigmoid colon. The bowel is nonobstructed. There is no bowel wall thickening. There is a mild amount of retained stool within the rectosigmoid colon. There is a complex oval-shaped cystic mass measuring 6.4 cm x 3.2 cm. There are no other acute processes seen within the abdomen and pelvis Counseled pt/family regarding: lab results, diagnosis, need for follow-up, rad results - Departure Departure Disposition: Home Clinical Impression: Constipation, Ovarian cystic mass Condition: Stable Critical Care Time: No Referrals: RALU JALLOH [Primary Care Provider] - Additional Instructions: For bowel hygiene drink plenty of fluids. Be active with a lot of walking. Use MiraLAX [id number] as directed on the container. May use over-the- counter Colace as directed on the container. In addition, may use fleets enemas or glycerin suppositories as directed on the [id number] containers. Follow-up with your primary care physician for further instructions and management of your constipation. In addition, follow-up with your primary care physician or asphalt patcher for evaluation of this right ovarian cystic mass.
[2019-08-09] MEDS ORDERED: Sodium Chloride 0.9% 1000 ML 1,000 ML IV STA (13:09)
[2019-08-09] MEDS ORDERED: Sodium Chloride 0.9% 1000 ML 1,000 ML ONE (13:23)
[2019-08-09 13:24] LABS: Absolute Neutrophil Ct (ANC) 6.09 (1.4-6.9); BASOPHIL % 0.1 % (0.0-0.4); Basophil (Absolute #) 0.01 (0-0.4); Eosinophil % 0.4 % (0.00-5.0); Eosinophil (Absolute #) 0.03 (0-0.5); Hemoglobin 14.1 gm/dl (12.0-16.0); Lymphocyte (Absolute #) 0.87 (1.0-4.6); Lymphocytes % 11.3 % (24.0-44.0); Mean Cell Volume 94.6 fl (78-100); Mean Corpuscular Hemoglobin 31.8 pg (26-32); Mean Corpuscular Hgb Concent. 33.6 g/dl (32-36); Mean Platelet Volume 9.9 fl (7.5-11.0); Monocyte (Absolute #) 0.73 (0.0-1.3); Monocytes % 9.4 % (0.0-12.0); Neutrophil % 78.8 % (36.0-66.0); Platelet Count 136 K/mm3 (150-450); Red Blood Count 4.44 M/mm3 (4.1-5.4); Red Cell Distribution Width 12.9 % (11.5-14.0); White Blood Count 7.7 K/mm3 (4.0-10.5)
[2019-08-09 13:35] LABS: ALBUMIN 4.3 g/dL (3.5-5.0); ALKALINE PHOSPHATASE 44 U/L (38-126); AMYLASE 66 U/L (30-110); ANION GAP 10.5 MEQ/L (5-15); BLOOD UREA NITROGEN 11 mg/dL (7-17); CHLORIDE 102 mmol/L (98-107); Calcium 9.4 mg/dL (8.4-10.2); Carbon Dioxide 25 mmol/L (22-30); Creatinine 1 0.75 mg/dL (0.52-1.04); Glucose 89 mg/dL (74-106); LIPASE 52 U/L (23-300); Potassium 4.3 mmol/L (3.5-5.1); SGOT/AST 25 U/L (14-36); SGPT/ALT 16 U/L (0-35); SODIUM 133 mmol/L (137-145); Total Protein 7.6 g/dL (6.3-8.2)
[2019-08-09 14:14] LABS: Appearance CLEAR (CLEAR); Bilirubin NEGATIVE (NEGATIVE); Blood SMALL Ery/ul (0-5); Epithelial Cells RARE /HPF (FEW); Glucose NEGATIVE (NEGATIVE); Ketones NEGATIVE (NEGATIVE); Leukocyte Esterase NEGATIVE (NEGATIVE); Mucus SLIGHT /HPF (NEGATIVE); Nitrite NEGATIVE (NEGATIVE); Protein,Urine Dip NEGATIVE (Negative); Specific Gravity 1.023 (1.005-1.025); Urobilinogen NEGATIVE mg/dL (0-1)
[2019-08-09 16:17] VITALS: BP 105/43; PULSE 92; O2SAT 96
--- NOTE | 2019-08-09 16:17 | XRAY ---
Exam: CT of the abdomen and pelvis with IV contrast from 08/09/2019. Total DLP: 262.41 mGy-cm. Comparison: CT of the abdomen and pelvis without IV contrast from 08/07/2019. Indication: 39-year-old female with abdominal/pelvic pain, weakness, constipation for 2 weeks. The patient gives a history of prior partial hysterectomy and appendectomy. Technique: Post-IV contrast axial images were obtained through the abdomen and pelvis during and following automated injection of 80 cc of Isovue-370 contrast material. Reconstructed coronal and sagittal images were created and reviewed. In addition, CT oral contrast was given. Findings: The visualized lung bases appear clear. The liver and spleen appear of unremarkable size and uniform attenuation. No biliary duct distention is seen. The gallbladder is distended and reveals no dense calcifications within it. The pancreas and adrenal glands appear unremarkable. The kidneys are normal size and reveal no renal calculi, hydronephrosis, or renal mass. Both kidneys function on delay images. The opacified ureters appear unremarkable Mild atherosclerotic vascular calcification is seen within the distal abdominal aorta and proximal iliac arteries. No aneurysm or abnormal retroperitoneal lymphadenopathy is seen. There is no free intraperitoneal air. The anterior abdominal wall appears intact. The bowel is well opacified with contrast except for the distal rectosigmoid colon. The bowel is nonobstructed. No bowel wall thickening is seen. A mild amount of retained stool is seen within the rectosigmoid colon. The appendix is not identified consistent with patient's history of prior appendectomy. The uterus is surgically absent. The left pelvic adnexa appears unremarkable. Within the lower posterior right hemipelvis, I see a complex oval-shaped cystic mass measuring 6.4 cm x 3.2 cm in cross section on axial image #65. It measures about 5.3 cm in greatest craniocaudal dimension on coronal image #73. There is a suggestion of a small amount of free fluid posterior to this complex cystic mass. This may be right ovarian in origin. Consider further evaluation with a right pelvic ultrasound. The urinary bladder appears unremarkable. No enlarged pelvic lymph nodes are seen. The skeleton reveals no acute fracture or aggressive bone lesion. Impression: 1. Within the lower posterior right hemipelvis, I see an oval-shaped complex cystic mass measuring 6.4 cm x 3.2 cm in cross section on axial image #65. This may be right ovarian in origin. Consider complex right ovarian cyst, cystic neoplasm, or tubo-ovarian abscess. I believe there is also a small amount of free fluid posterior to this complex cystic mass. Consider further evaluation with a pelvic ultrasound. 2. No other acute process is seen within the abdomen and pelvis.
== END 2019-08-09 16:46 | disposition home or self-care (01) ==
LOC: ED 12:28
DX: K59.00 Constipation, unspecified (principal)
CPT/HCPCS: 36415; 74177; 80053; 81001; 82150; 83605; 83690; 85025; 96360; 99284

== ENCOUNTER 2019-09-28 01:15 | Emergency (ER) | payer SELFPAY ==
[2019-09-28] MEDS ORDERED: BABY ASPIRIN 81 MG CHEW PO ONE (01:27)
[2019-09-28 01:51] LABS: Absolute Neutrophil Ct (ANC) 4.33 (1.4-6.9); BASOPHIL % 0.3 % (0.0-0.4); Basophil (Absolute #) 0.02 (0-0.4); Eosinophil % 2.7 % (0.00-5.0); Eosinophil (Absolute #) 0.21 (0-0.5); Hematocrit 45.4 % (35-47); Hemoglobin 15.2 gm/dl (12.0-16.0); Lymphocyte (Absolute #) 2.67 (1.0-4.6); Lymphocytes % 34.1 % (24.0-44.0); Mean Cell Volume 95.2 fl (78-100); Mean Corpuscular Hemoglobin 31.9 pg (26-32); Mean Corpuscular Hgb Concent. 33.5 g/dl (32-36); Mean Platelet Volume 10.7 fl (7.5-11.0); Monocyte (Absolute #) 0.59 (0.0-1.3); Monocytes % 7.5 % (0.0-12.0); Neutrophil % 55.4 % (36.0-66.0); Platelet Count 160 K/mm3 (150-450); Red Blood Count 4.77 M/mm3 (4.1-5.4); White Blood Count 7.8 K/mm3 (4.0-10.5)
[2019-09-28 01:54] LABS: INR 1.04 (0.8-3.0); PROTIME 11.8 SECONDS (9.95-12.35)
--- NOTE | 2019-09-28 01:56 | ERPHSYRPT ---
- History of Present Illness Time Seen by Provider: 09/28/19 01:20 Historian: patient Exam Limitations: no limitations Patient Subjective Stated Complaint: pt states while sitting on the couch at home and began having pressure in the lt chest. states feels like "a gas bubble " Triage Nursing Assessment: pt alert and oriented, answers questions approp. pt ambulatory with steady gait noted. respirations nonlabored with lungs cta. skin pink warm and dry. heart rate 84 on monitor, sinus rhythm Physician History: This is a 39-year-old white female who has a history of bronchitis, smokes tobacco and marijuana, has a history of migraine headaches and panic attacks. She presents with a 1 hour history of chest pressure. She also states she feels shaky and has head pressure as well. Patient states she is under a lot of stress at this time. She has no nausea no vomiting no diarrhea no abdominal pain. The chest pressure has no radiation. She has no associated shortness of breath. Timing/Duration: today Activities at Onset: none Quality: pressure Location: substernal, central Chest Pain Radiation: no radiation Severity of Pain-Max: mild Severity of Pain-Current: mild Modifying Factors: Improves With: nothing Associated Symptoms: denies symptoms Prior Chest Pain/Cardiac Workup: no prior chest pain, no prior cardiac workup Nitro Today/Relief: no nitro taken today Aspirin Treatment Today: no aspirin today Allergies/Adverse Reactions: cefaclor [From Ceclor] Allergy (Mild, Verified 09/28/19 01:45) cephalexin monohydrate [From Keflex] Allergy (Mild, Verified 09/28/19 01:45) Home Medications: No Reportable Medications [No Reported Medications] 08/09/19 [History] Hx Tetanus, Diphtheria Vaccination/Date Given: No Hx Influenza Vaccination/Date Given: No Hx Pneumococcal Vaccination/Date Given: No Immunizations Up to Date: No Travel Risk - International Travel Have you traveled outside of the country in past 3 weeks: No Have you or anyone close to you been diagnosed with or: No Do your reside in a community with a known COVID-19 case?: Yes If Yes where:: [facility] - Coronavirus Screening Has patient experienced Coronavirus symptoms: No - Review of Systems Constitutional: No Symptoms Eyes: No Symptoms Ears, Nose, & Throat: No Symptoms Respiratory: No Symptoms Cardiac: Chest Pain Abdominal/Gastrointestinal: No Symptoms Genitourinary Symptoms: No Symptoms Musculoskeletal: No Symptoms Skin: No Symptoms Neurological: No Symptoms Psychological: No Symptoms Endocrine: No Symptoms Hematologic/Lymphatic: No Symptoms Immunological/Allergic: No Symptoms All Other Systems: Reviewed and Negative - Past Medical History Pertinent Past Medical History: Yes Neurological History: Migraines ENT History: No Pertinent History Cardiac History: No Pertinent History Respiratory History: Bronchitis Endocrine Medical History: No Pertinent History Musculoskeletal History: No Pertinent History GI Medical History: No Pertinent History History: No Pertinent History Psycho-Social History: Depression Female Reproductive Disorders: Endometriosis, Other Other Medical History: polycystic ovaries - Past Surgical History Past Surgical History: Yes Neuro Surgical History: No Pertinent History Cardiac: No Pertinent History Respiratory: No Pertinent History Gastrointestinal: Appendectomy Genitourinary: No Pertinent History Musculoskeletal: No Pertinent History Female Surgical History: Hysterectomy Other Surgical History: HYSTERECTOMY PARTIAL - Social History Smoking Status: Current every day smoker How long have you smoked: 25 Exposure to second hand smoke: Yes Drug Use: marijuana Patient Lives Alone: No Significant Family History: no pertinent family hx, alpha-1 antitrypsin deficiency - Female History Hx Last Menstrual Period: hyster Hx Now: No - Nursing Vital Signs Nursing Vital Signs: Initial Vital Signs Pulse Rate 90 09/28/19 01:16 Respiratory Rate 20 09/28/19 01:16 Blood Pressure 109/56 09/28/19 01:16 O2 Sat by Pulse Oximetry 100 09/28/19 01:16 Pain Scale Pain Intensity 5 - Physical Exam General Appearance: no apparent distress, alert, anxiety Eye Exam: PERRL/EOMI, eyes nml inspection Ears, Nose, Throat Exam: normal ENT inspection, moist mucous membranes Neck Exam: normal inspection, non-tender, supple, full range of motion Respiratory Exam: normal breath sounds, chest tenderness, lungs clear, airway intact, No respiratory distress Cardiovascular Exam: regular rate/rhythm, normal heart sounds, normal peripheral pulses Gastrointestinal/Abdomen Exam: soft, normal bowel sounds, No tenderness Pelvic Exam: not done Rectal Exam: not done Back Exam: normal inspection, normal range of motion, No CVA tenderness, No vertebral tenderness Extremity Exam: normal inspection, normal range of motion, pelvis stable Neurologic Exam: alert, oriented x 3, cooperative, cottrell operator II-XII nml as tested, normal mood/affect, nml cerebellar function, nml station & gait Skin Exam: normal color, warm, dry Lymphatic Exam: No adenopathy SpO2 Interpretation: normal SpO2: 100 O2 Delivery: Room Air - Course Nursing assessment & vital signs reviewed: Yes EKG Interpreted by Me: RATE ([id number]), Sinus Rhythm, NORMAL AXIS, NORMAL INTERVALS, NORMAL QRS, Other (No comparison EKG) Ordered Tests: Active Orders 24 hr Category Date Time Status Wire Saw Operator STAT Care 09/28/19 01:27 Active Clean Catch Urine Specimen STAT Care 09/28/19 01:28 Active EKG-ER Only STAT Care 09/28/19 01:27 Active IV Insertion STAT Care 09/28/19 01:27 Active Pulse Oximetry (ED) STAT Care 09/28/19 01:27 Active CBC W DIFF Stat Lab 09/28/19 01:43 Completed CMP Stat Lab 09/28/19 01:43 Completed D-DIMER QUANTITATIVE Stat Lab 09/28/19 01:43 Completed NT PRO BNP Stat Lab 09/28/19 01:43 Completed PROTIME WITH INR Stat Lab 09/28/19 01:43 Completed TROPONIN Q3H Lab 09/28/19 01:43 Completed TROPONIN Q3H Lab 09/28/19 04:30 Ordered TROPONIN Q3H Lab 09/28/19 07:30 Ordered TROPONIN Q3H Lab 09/28/19 10:30 Ordered TROPONIN Q3H Lab 09/28/19 13:30 Ordered UA W/RFX UR CULTURE Stat Lab 09/28/19 02:45 Completed Urine Triage Profile Stat Lab 09/28/19 01:59 Completed Medication Summary Discontinued Medications Generic Name Dose Route Start Last Admin Trade Name Freq PRN Reason Stop Dose Admin Aspirin 324 mg 09/28/19 01:27 09/28/19 01:43 Baby Aspirin 81 Mg Chew PO 09/28/19 01:28 324 mg STAT ONE Administration Lab/Rad Data: Laboratory Result Diagrams 09/28/19 01:43 09/28/19 01:43 Laboratory Results 09/28/19 09/28/19 09/28/19 Range/Units 02:45 01:59 01:43 WBC (4.0-10.5) K/mm3 RBC (4.1-5.4) M/mm3 Hgb (12.0-16.0) gm/dl Hct (35-47) % MCV (78-100) fl MCH (26-32) pg MCHC (32-36) g/dl RDW (11.5-14.0) % Plt Count (150-450) K/mm3 MPV (7.5-11.0) fl Gran % (36.0-66.0) % Eos # (Auto) (0-0.5) Absolute Lymphs (auto) (1.0-4.6) Absolute Monos (auto) (0.0-1.3) Lymphocytes % (24.0-44.0) % Monocytes % (0.0-12.0) % Eosinophils % (0.00-5.0) % Basophils % (0.0-0.4) % Absolute Granulocytes (1.4-6.9) Basophils # (0-0.4) PT (9.95-12.35) SECONDS INR (0.8-3.0) D-Dimer (215-500) ng/mL Sodium (137-145) mmol/L Potassium (3.5-5.1) mmol/L Chloride (98-107) mmol/L Carbon Dioxide (22-30) mmol/L Anion Gap (5-15) MEQ/L BUN (7-17) mg/dL Creatinine (0.52-1.04) mg/dL Estimated GFR ML/MIN Glucose (74-106) mg/dL Calcium (8.4-10.2) mg/dL Total Bilirubin (0.2-1.3) mg/dL AST (14-36) U/L ALT (0-35) U/L Alkaline Phosphatase (38-126) U/L Troponin I < 0.012 (0.000-0.034) ng/mL NT-Pro-B Natriuret Pep (0-450) pg/mL Serum Total Protein (6.3-8.2) g/dL Albumin (3.5-5.0) g/dL Urine Color STRAW (YELLOW) Urine Appearance CLEAR (CLEAR) Urine pH 7.0 (5-6) Ur Specific [place] 1.004 (1.005-1.025) Urine Protein NEGATIVE (Negative) Urine Ketones NEGATIVE (NEGATIVE) Urine Blood SMALL (0-5) Robinson/ul Urine Nitrite NEGATIVE (NEGATIVE) Urine Bilirubin NEGATIVE (NEGATIVE) Urine Urobilinogen NEGATIVE (0-1) mg/dL Ur Leukocyte Esterase NEGATIVE (NEGATIVE) Urine WBC (Auto) NONE (0-5) /HPF Urine RBC (Auto) NONE (0-2) /HPF U Epithel Cells (Auto) NONE (FEW) /HPF Urine Bacteria (Auto) NONE SEEN (NEGATIVE) /HPF Urine Culture Reflexed NO (NO) Urine Glucose NEGATIVE (NEGATIVE) mg/dL Urine Opiates Level NEGATIVE (NEGATIVE) Ur Methadone NEGATIVE (NEGATIVE) Urine Barbiturates NEGATIVE (NEGATIVE) Ur Phencyclidine (PCP) NEGATIVE (NEGATIVE) Urine Amphetamine NEGATIVE (NEGATIVE) U Benzodiazepine Level NEGATIVE (NEGATIVE) Urine Cocaine NEGATIVE (NEGATIVE) Urine Marijuana (THC) POSITIVE (NEGATIVE) 09/28/19 09/28/19 09/28/19 Range/Units 01:43 01:43 01:43 WBC 7.8 (4.0-10.5) K/mm3 RBC 4.77 (4.1-5.4) M/mm3 Hgb 15.2 (12.0-16.0) gm/dl Hct 45.4 (35-47) % MCV 95.2 (78-100) fl MCH 31.9 (26-32) pg MCHC 33.5 (32-36) g/dl RDW 13.0 (11.5-14.0) % Plt Count 160 (150-450) K/mm3 MPV 10.7 (7.5-11.0) fl Gran % 55.4 (36.0-66.0) % Eos # (Auto) 0.21 (0-0.5) Absolute Lymphs (auto) 2.67 (1.0-4.6) Absolute Monos (auto) 0.59 (0.0-1.3) Lymphocytes % 34.1 (24.0-44.0) % Monocytes % 7.5 (0.0-12.0) % Eosinophils % 2.7 (0.00-5.0) % Basophils % 0.3 (0.0-0.4) % Absolute Granulocytes 4.33 (1.4-6.9) Basophils # 0.02 (0-0.4) PT 11.8 (9.95-12.35) SECONDS INR 1.04 (0.8-3.0) D-Dimer 344 (215-500) ng/mL Sodium 141 (137-145) mmol/L Potassium 4.0 (3.5-5.1) mmol/L Chloride 104 (98-107) mmol/L Carbon Dioxide 28 (22-30) mmol/L Anion Gap 12.8 (5-15) MEQ/L BUN 13 (7-17) mg/dL Creatinine 0.73 (0.52-1.04) mg/dL Estimated GFR > 60.0 ML/MIN Glucose 87 (74-106) mg/dL Calcium 9.6 (8.4-10.2) mg/dL Total Bilirubin 0.40 (0.2-1.3) mg/dL AST 29 (14-36) U/L ALT 16 (0-35) U/L Alkaline Phosphatase 55 (38-126) U/L Troponin I (0.000-0.034) ng/mL NT-Pro-B Natriuret Pep 28.8 (0-450) pg/mL Serum Total Protein 7.9 (6.3-8.2) g/dL Albumin 4.5 (3.5-5.0) g/dL Urine Color (YELLOW) Urine Appearance (CLEAR) Urine pH (5-6) Ur Specific [place] (1.005-1.025) Urine Protein (Negative) Urine Ketones (NEGATIVE) Urine Blood (0-5) Robinson/ul Urine Nitrite (NEGATIVE) Urine Bilirubin (NEGATIVE) Urine Urobilinogen (0-1) mg/dL Ur Leukocyte Esterase (NEGATIVE) Urine WBC (Auto) (0-5) /HPF Urine RBC (Auto) (0-2) /HPF U Epithel Cells (Auto) (FEW) /HPF Urine Bacteria (Auto) (NEGATIVE) /HPF Urine Culture Reflexed (NO) Urine Glucose (NEGATIVE) mg/dL Urine Opiates Level (NEGATIVE) Ur Methadone (NEGATIVE) Urine Barbiturates (NEGATIVE) Ur Phencyclidine (PCP) (NEGATIVE) Urine Amphetamine (NEGATIVE) U Benzodiazepine Level (NEGATIVE) Urine Cocaine (NEGATIVE) Urine Marijuana (THC) (NEGATIVE) - Progress Progress: improved Air Movement: good Blood Culture(s) Obtained: No Antibiotics given: No Counseled pt/family regarding: lab results, diagnosis, need for follow-up - Departure Departure Disposition: Home Clinical Impression: Non-cardiac chest pain Condition: Stable Critical Care Time: No Referrals: RAUL JALLOH [Primary Care Provider] - Additional Instructions: Follow-up with your primary care physician for further management
[2019-09-28 02:06] LABS: ALBUMIN 4.5 g/dL (3.5-5.0); ALKALINE PHOSPHATASE 55 U/L (38-126); ANION GAP 12.8 MEQ/L (5-15); BLOOD UREA NITROGEN 13 mg/dL (7-17); CHLORIDE 104 mmol/L (98-107); Calcium 9.6 mg/dL (8.4-10.2); Carbon Dioxide 28 mmol/L (22-30); Creatinine 1 0.73 mg/dL (0.52-1.04); Glucose 87 mg/dL (74-106); NT PRO BNP 28.8 pg/mL (0-450); SGOT/AST 29 U/L (14-36); SGPT/ALT 16 U/L (0-35); SODIUM 141 mmol/L (137-145); Total Protein 7.9 g/dL (6.3-8.2)
[2019-09-28 02:17] LABS: Amphetamine,Urine NEGATIVE (NEGATIVE); Barbiturate,Urine NEGATIVE (NEGATIVE); Benzodiazepine,Urine NEGATIVE (NEGATIVE); Cocaine,Urine NEGATIVE (NEGATIVE); Methadone,Urine NEGATIVE (NEGATIVE); Opiate,Urine NEGATIVE (NEGATIVE); PCP,Urine NEGATIVE (NEGATIVE); THC,Urine POSITIVE (NEGATIVE)
[2019-09-28 02:56] LABS: Appearance CLEAR (CLEAR); Bilirubin NEGATIVE (NEGATIVE); Blood SMALL Ery/ul (0-5); Glucose NEGATIVE (NEGATIVE); Ketones NEGATIVE (NEGATIVE); Leukocyte Esterase NEGATIVE (NEGATIVE); Nitrite NEGATIVE (NEGATIVE); Protein,Urine Dip NEGATIVE (Negative); Specific Gravity 1.004 (1.005-1.025); Urobilinogen NEGATIVE mg/dL (0-1)
[2019-09-28 02:57] LABS: Bacteria NONE SEEN /HPF (NEGATIVE)
[2019-09-28 02:58] VITALS: PULSE 71
[2019-09-28 03:52] VITALS: BP 121/71; O2SAT 99
== END 2019-09-28 03:51 | disposition home or self-care (01) ==
LOC: ED 01:15
DX: R07.89 Other chest pain (principal)
CPT/HCPCS: 36000; 36415; 80053; 80307; 81001; 83880; 84484; 85025; 85379; 85610; 93005; 93041; 94760; 99284; A9270-GY

== ENCOUNTER 2019-10-11 22:48 | Observation (INO) | payer MEDICAID ==
[2019-10-11] MEDS ORDERED: MORPHINE SULFATE 2 MG INJ IV ONE (22:49)
[2019-10-11] MEDS ORDERED: Sodium Chloride 0.9% 1000 ML 1,000 ML IV SCH (23:00)
[2019-10-11] MEDS ORDERED: MORPHINE SULFATE 2 MG INJ ONE (23:20)
[2019-10-11] MEDS ORDERED: Ativan 2 MG/1 ML VIAL IV ONE (23:23)
[2019-10-11] MEDS ORDERED: Ativan 2 MG/1 ML VIAL ONE (23:24)
[2019-10-11 23:27] LABS: INR 1.07 (0.8-3.0); PROTIME 12.1 SECONDS (9.95-12.35)
[2019-10-11 23:30] LABS: PTT 32.1 SECONDS (25.3-37.0)
[2019-10-11 23:40] LABS: ALBUMIN 4.7 g/dL (3.5-5.0); ALKALINE PHOSPHATASE 51 U/L (38-126); ANION GAP 13.9 MEQ/L (5-15); BLOOD UREA NITROGEN 14 mg/dL (7-17); CHLORIDE 102 mmol/L (98-107); Calcium 9.7 mg/dL (8.4-10.2); Carbon Dioxide 26 mmol/L (22-30); Creatinine 1 0.78 mg/dL (0.52-1.04); Glucose 95 mg/dL (74-106); LDH-LACTATE DEHYDROGENASE 128 U/L (120-246); NT PRO BNP 23.6 pg/mL (0-450); Potassium 4.1 mmol/L (3.5-5.1); SGOT/AST 26 U/L (14-36); SGPT/ALT 16 U/L (0-35); SODIUM 138 mmol/L (137-145); Total Protein 8.3 g/dL (6.3-8.2)
[2019-10-12 00:14] LABS: Absolute Neutrophil Ct (ANC) 5.36 (1.4-6.9); Appearance CLEAR (CLEAR); BASOPHIL % 0.1 % (0.0-0.4); Basophil (Absolute #) 0.01 (0-0.4); Bilirubin NEGATIVE (NEGATIVE); Blood SMALL Ery/ul (0-5); Eosinophil % 2.8 % (0.00-5.0); Epithelial Cells RARE /HPF (FEW); Glucose NEGATIVE (NEGATIVE); Hematocrit 48.8 % (35-47); Hemoglobin 16.7 gm/dl (12.0-16.0); Ketones NEGATIVE (NEGATIVE); Leukocyte Esterase NEGATIVE (NEGATIVE); Lymphocyte (Absolute #) 3.98 (1.0-4.6); Lymphocytes % 37.7 % (24.0-44.0); Mean Corpuscular Hemoglobin 31.8 pg (26-32); Mean Corpuscular Hgb Concent. 34.2 g/dl (32-36); Monocyte (Absolute #) 0.92 (0.0-1.3); Monocytes % 8.7 % (0.0-12.0); Mucus SLIGHT /HPF (NEGATIVE); Neutrophil % 50.7 % (36.0-66.0); Nitrite NEGATIVE (NEGATIVE); Platelet Count 199 K/mm3 (150-450); Protein,Urine Dip NEGATIVE (Negative); RBC 0-2 /HPF (0-2); Red Blood Count 5.25 M/mm3 (4.1-5.4); Red Cell Distribution Width 12.4 % (11.5-14.0); Specific Gravity 1.014 (1.005-1.025); Urobilinogen 2 mg/dL (0-1); WBC 0-2 /HPF (0-5); White Blood Count 10.6 K/mm3 (4.0-10.5)
--- NOTE | 2019-10-12 00:38 | ERPHSYRPT ---
- History of Present Illness Time Seen by Provider: 10/11/19 22:55 Source: patient Exam Limitations: no limitations Patient Subjective Stated Complaint: pt states she was tested for covid 19 as part of a study on monday. states she was told on monday that she was positive and had negative antibodies reported today. states she was feeling fine at home until approx 2100 tonight when she began having burning pain in the rt lower lung and squeezing pain in the lt lung. Triage Nursing Assessment: pt alert and oriented, answers questions approp. pt in per wheelchair. slow shaky gait noted on arrival. respirations nonlabored with diminished lung sounds. skin warm and dry. Physician History: Patient is a 39-year-old white female to be positive for COVID-19 last Monday. She did receive an email from the state telling her she was COVID positive and antibody negative. This was confirmed by the ER nurse. She was being cared for at home and tonight developed burning pain on the right lung breath. Activities at Onset: emotional stress Severity of Dyspnea-Max: moderate Severity of Dyspnea-Current: moderate Possible Cause: occasional episodes Associated Symptoms: chest pain/discomfort, wheezing Allergies/Adverse Reactions: cefaclor [From Ceclor] Allergy (Mild, Verified 09/28/19 01:45) cephalexin monohydrate [From Keflex] Allergy (Mild, Verified 09/28/19 01:45) Home Medications: No Reportable Medications [No Reported Medications] 08/09/19 [History] Hx Tetanus, Diphtheria Vaccination/Date Given: No Hx Influenza Vaccination/Date Given: No Hx Pneumococcal Vaccination/Date Given: No Immunizations Up to Date: No Travel Risk - International Travel Have you traveled outside of the country in past 3 weeks: No (N) Have you or anyone close to you been diagnosed with or: No Do your reside in a community with a known COVID-19 case?: Yes If Yes where:: [facility] - Coronavirus Screening Has patient experienced Coronavirus symptoms: Yes Symptoms experienced: respiratory symptoms (i.e.Cought,shortness of breath), weakness Date of respiratory symptoms onset:: 10/11/19 - Review of Systems Constitutional: No Fever, No Chills Eyes: No Symptoms Ears, Nose, & Throat: No Symptoms Respiratory: Cough, Dyspnea, Wheezing Cardiac: No Chest Pain, No Edema, No Syncope Abdominal/Gastrointestinal: No Abdominal Pain, No Nausea, No Vomiting, No Diarrhea Genitourinary Symptoms: No Dysuria Musculoskeletal: No Back Pain, No Neck Pain Skin: No Rash Neurological: No Dizziness, No Focal Weakness, No Sensory Changes Psychological: No Symptoms Endocrine: No Symptoms All Other Systems: Reviewed and Negative - Past Medical History Pertinent Past Medical History: Yes Neurological History: Migraines ENT History: No Pertinent History Cardiac History: No Pertinent History Respiratory History: Bronchitis Endocrine Medical History: No Pertinent History Musculoskeletal History: No Pertinent History GI Medical History: No Pertinent History History: No Pertinent History Psycho-Social History: Depression Female Reproductive Disorders: Endometriosis, Other Other Medical History: polycystic ovaries. recent covid 19 diagnosis - Past Surgical History Past Surgical History: Yes Neuro Surgical History: No Pertinent History Cardiac: No Pertinent History Respiratory: No Pertinent History Gastrointestinal: Appendectomy Genitourinary: No Pertinent History Musculoskeletal: No Pertinent History Female Surgical History: Hysterectomy Other Surgical History: HYSTERECTOMY PARTIAL - Social History Smoking Status: Current every day smoker How long have you smoked: 25 Exposure to second hand smoke: Yes Drug Use: marijuana Patient Lives Alone: No Significant Family History: no pertinent family hx, alpha-1 antitrypsin deficiency - Female History Hx Last Menstrual Period: hyster Hx Now: No - Nursing Vital Signs Nursing Vital Signs: Initial Vital Signs Pulse Rate 84 10/11/19 22:49 Respiratory Rate 18 10/11/19 22:49 Blood Pressure 134/78 10/11/19 22:49 O2 Sat by Pulse Oximetry 99 10/11/19 22:49 Pain Scale Pain Intensity 4 - Physical Exam General Appearance: moderate distress, alert Eye Exam: PERRL/EOMI Neck Exam: normal inspection, supple Respiratory Exam: diminished breath sounds Cardiovascular/Chest Exam: normal heart sounds, regular rate/rhythm Abdominal/Gastrointestinal Exam: soft, No tenderness, No distention, No mass Extremity Exam: non-tender, normal range of motion, normal inspection, no calf tenderness, no pedal edema Neurologic Exam: alert, oriented x 3, cooperative, transliterator II-XII nml as tested, sensation nml, No motor deficits Skin Exam: normal color, warm, No dry SpO2 Interpretation: normal SpO2: 98 O2 Delivery: Room Air - Course Nursing assessment & vital signs reviewed: Yes Ordered Tests: Active Orders 24 hr Category Date Time Status Semi Driver STAT Care 10/11/19 22:51 Active EKG-ER Only STAT Care 10/11/19 22:49 Active IV Insertion STAT Care 10/11/19 22:49 Active Isolation, Initiate & Maintain Q12H Care 10/11/19 23:13 Active Pulse Oximetry (ED) STAT Care 10/11/19 22:49 Active CHEST 1 VIEW (PORTABLE) Stat Exams 10/11/19 22:50 Taken BLOOD CULTURE Stat Lab 10/11/19 23:14 Received BLOOD CULTURE Stat Lab 10/11/19 23:17 Received CBC W DIFF Stat Lab 10/11/19 23:14 Completed CMP Stat Lab 10/11/19 23:14 Completed D-DIMER QUANTITATIVE Stat Lab 10/11/19 23:14 Completed Ferritin Stat Lab 10/11/19 23:14 Completed LDH-LACTATE DEHYDROGENASE Stat Lab 10/11/19 23:14 Completed NT PRO BNP Stat Lab 10/11/19 23:14 Completed PROTIME WITH INR Stat Lab 10/11/19 23:14 Completed PTT Stat Lab 10/11/19 23:14 Completed TROPONIN Q3H Lab 10/11/19 23:00 Completed TROPONIN Q3H Lab 10/12/19 02:00 Ordered TROPONIN Q3H Lab 10/12/19 05:00 Ordered TROPONIN Q3H Lab 10/12/19 08:00 Ordered TROPONIN Q3H Lab 10/12/19 11:00 Ordered UA W/RFX UR CULTURE Stat Lab 10/11/19 23:14 Completed Medication Summary Generic Name Dose Route Start Last Admin Trade Name Freq PRN Reason Stop Dose Admin Sodium Chloride 1,000 mls @ 100 mls/hr 10/11/19 23:00 10/11/19 23:27 Sodium Chloride 0.9% 1000 Ml IV 11/10/19 22:59 100 mls/hr .Q10H LAURA Administration Discontinued Medications Generic Name Dose Route Start Last Admin Trade Name Freq PRN Reason Stop Dose Admin Lorazepam 1 mg 10/11/19 23:23 10/11/19 23:27 Ativan 2 Mg/1 Ml Vial IV 10/11/19 23:24 1 mg STAT ONE Administration Lorazepam Confirm 10/11/19 23:24 Ativan 2 Mg/1 Ml Vial Administered 10/11/19 23:25 Dose 2 mg .ROUTE .STK-MED ONE Morphine Sulfate 2 mg 10/11/19 22:49 10/11/19 23:28 Morphine Sulfate 2 Mg Inj IV 10/11/19 22:50 2 mg STAT ONE Administration Morphine Sulfate Confirm 10/11/19 23:20 Morphine Sulfate 2 Mg Inj Administered 10/11/19 23:21 Dose 2 mg .ROUTE .STK-MED ONE Lab/Rad Data: Laboratory Result Diagrams 10/11/19 23:14 10/11/19 23:14 Laboratory Results 10/11/19 10/11/19 10/11/19 Range/Units 23:14 23:14 23:14 WBC (4.0-10.5) K/mm3 RBC (4.1-5.4) M/mm3 Hgb (12.0-16.0) gm/dl Hct (35-47) % MCV (78-100) fl MCH (26-32) pg MCHC (32-36) g/dl RDW (11.5-14.0) % Plt Count (150-450) K/mm3 MPV (7.5-11.0) fl Gran % (36.0-66.0) % Eos # (Auto) (0-0.5) Absolute Lymphs (auto) (1.0-4.6) Absolute Monos (auto) (0.0-1.3) Lymphocytes % (24.0-44.0) % Monocytes % (0.0-12.0) % Eosinophils % (0.00-5.0) % Basophils % (0.0-0.4) % Absolute Granulocytes (1.4-6.9) Basophils # (0-0.4) PT 12.1 (9.95-12.35) SECONDS INR 1.07 (0.8-3.0) APTT 32.1 (25.3-37.0) SECONDS D-Dimer 275 (215-500) ng/mL Sodium (137-145) mmol/L Potassium (3.5-5.1) mmol/L Chloride (98-107) mmol/L Carbon Dioxide (22-30) mmol/L Anion Gap (5-15) MEQ/L BUN (7-17) mg/dL Creatinine (0.52-1.04) mg/dL Estimated GFR ML/MIN Glucose (74-106) mg/dL Calcium (8.4-10.2) mg/dL Ferritin 73.5 (6.24-137) ng/mL Total Bilirubin (0.2-1.3) mg/dL AST (14-36) U/L ALT (0-35) U/L Alkaline Phosphatase (38-126) U/L Lactate Dehydrogenase (120-246) U/L Troponin I (0.000-0.034) ng/mL NT-Pro-B Natriuret Pep (0-450) pg/mL Serum Total Protein (6.3-8.2) g/dL Albumin (3.5-5.0) g/dL Urine Color YELLOW (YELLOW) Urine Appearance CLEAR (CLEAR) Urine pH 6.0 (5-6) Ur Specific [place] 1.014 (1.005-1.025) Urine Protein NEGATIVE (Negative) Urine Ketones NEGATIVE (NEGATIVE) Urine Blood SMALL (0-5) Robinson/ul Urine Nitrite NEGATIVE (NEGATIVE) Urine Bilirubin NEGATIVE (NEGATIVE) Urine Urobilinogen 2 (0-1) mg/dL Ur Leukocyte Esterase NEGATIVE (NEGATIVE) Urine WBC (Auto) 0-2 (0-5) /HPF Urine RBC (Auto) 0-2 (0-2) /HPF U Epithel Cells (Auto) RARE (FEW) /HPF Urine Bacteria (Auto) NONE (NEGATIVE) /HPF Urine Mucus (Auto) SLIGHT (NEGATIVE) /HPF Urine Culture Reflexed NO (NO) Urine Glucose NEGATIVE (NEGATIVE) mg/dL 10/11/19 10/11/19 10/11/19 Range/Units 23:14 23:14 23:00 WBC 10.6 H (4.0-10.5) K/mm3 RBC 5.25 (4.1-5.4) M/mm3 Hgb 16.7 H (12.0-16.0) gm/dl Hct 48.8 H (35-47) % MCV 93.0 (78-100) fl MCH 31.8 (26-32) pg MCHC 34.2 (32-36) g/dl RDW 12.4 (11.5-14.0) % Plt Count 199 (150-450) K/mm3 MPV 11.0 (7.5-11.0) fl Gran % 50.7 (36.0-66.0) % Eos # (Auto) 0.30 (0-0.5) Absolute Lymphs (auto) 3.98 (1.0-4.6) Absolute Monos (auto) 0.92 (0.0-1.3) Lymphocytes % 37.7 (24.0-44.0) % Monocytes % 8.7 (0.0-12.0) % Eosinophils % 2.8 (0.00-5.0) % Basophils % 0.1 (0.0-0.4) % Absolute Granulocytes 5.36 (1.4-6.9) Basophils # 0.01 (0-0.4) PT (9.95-12.35) SECONDS INR (0.8-3.0) APTT (25.3-37.0) SECONDS D-Dimer (215-500) ng/mL Sodium 138 (137-145) mmol/L Potassium 4.1 (3.5-5.1) mmol/L Chloride 102 (98-107) mmol/L Carbon Dioxide 26 (22-30) mmol/L Anion Gap 13.9 (5-15) MEQ/L BUN 14 (7-17) mg/dL Creatinine 0.78 (0.52-1.04) mg/dL Estimated GFR > 60.0 ML/MIN Glucose 95 (74-106) mg/dL Calcium 9.7 (8.4-10.2) mg/dL Ferritin (6.24-137) ng/mL Total Bilirubin 0.60 (0.2-1.3) mg/dL AST 26 (14-36) U/L ALT 16 (0-35) U/L Alkaline Phosphatase 51 (38-126) U/L Lactate Dehydrogenase 128 (120-246) U/L Troponin I < 0.012 (0.000-0.034) ng/mL NT-Pro-B Natriuret Pep 23.6 (0-450) pg/mL Serum Total Protein 8.3 H (6.3-8.2) g/dL Albumin 4.7 (3.5-5.0) g/dL Urine Color (YELLOW) Urine Appearance (CLEAR) Urine pH (5-6) Ur Specific [place] (1.005-1.025) Urine Protein (Negative) Urine Ketones (NEGATIVE) Urine Blood (0-5) Robinson/ul Urine Nitrite (NEGATIVE) Urine Bilirubin (NEGATIVE) Urine Urobilinogen (0-1) mg/dL Ur Leukocyte Esterase (NEGATIVE) Urine WBC (Auto) (0-5) /HPF Urine RBC (Auto) (0-2) /HPF U Epithel Cells (Auto) (FEW) /HPF Urine Bacteria (Auto) (NEGATIVE) /HPF Urine Mucus (Auto) (NEGATIVE) /HPF Urine Culture Reflexed (NO) Urine Glucose (NEGATIVE) mg/dL - Progress Progress: improved Air Movement: fair Blood Culture(s) Obtained: Yes Antibiotics given: No Discussed with : Vlad Will see patient in: hospital (observation) - Departure Departure Disposition: Observation (Patient will be placed in the COVID unit on observation status overnight to be evaluated tomorrow by ) Clinical Impression: COVID-19 Condition: Fair Critical Care Time: No Referrals: RAUL JALLOH [Primary Care Provider] -
[2019-10-12] MEDS ORDERED: Sodium Chloride 0.9% 1000 ML 1,000 ML IV SCH (00:45)
[2019-10-12] MEDS ORDERED: VENTOLIN COMMON CANISTER IH PRN (02:45)
[2019-10-12 06:10] LABS: Absolute Neutrophil Ct (ANC) 4.36 (1.4-6.9); BASOPHIL % 0.2 % (0.0-0.4); Basophil (Absolute #) 0.02 (0-0.4); Eosinophil % 2.9 % (0.00-5.0); Eosinophil (Absolute #) 0.24 (0-0.5); Hematocrit 43.8 % (35-47); Hemoglobin 14.7 gm/dl (12.0-16.0); Lymphocyte (Absolute #) 2.95 (1.0-4.6); Lymphocytes % 36.1 % (24.0-44.0); Mean Cell Volume 94.4 fl (78-100); Mean Corpuscular Hemoglobin 31.7 pg (26-32); Mean Corpuscular Hgb Concent. 33.6 g/dl (32-36); Mean Platelet Volume 10.4 fl (7.5-11.0); Monocytes % 7.3 % (0.0-12.0); Neutrophil % 53.5 % (36.0-66.0); Platelet Count 150 K/mm3 (150-450); Red Blood Count 4.64 M/mm3 (4.1-5.4); Red Cell Distribution Width 12.3 % (11.5-14.0); White Blood Count 8.2 K/mm3 (4.0-10.5)
[2019-10-12 06:40] LABS: INR 1.16 (0.8-3.0); PROTIME 13.1 SECONDS (9.95-12.35)
[2019-10-12 06:47] LABS: ALBUMIN 3.7 g/dL (3.5-5.0); ALKALINE PHOSPHATASE 35 U/L (38-126); ANION GAP 13.1 MEQ/L (5-15); BLOOD UREA NITROGEN 12 mg/dL (7-17); CHLORIDE 103 mmol/L (98-107); Calcium 8.9 mg/dL (8.4-10.2); Carbon Dioxide 26 mmol/L (22-30); Creatinine 1 0.76 mg/dL (0.52-1.04); Glucose 84 mg/dL (74-106); Potassium 4.1 mmol/L (3.5-5.1); SGOT/AST 22 U/L (14-36); SGPT/ALT 13 U/L (0-35); SODIUM 138 mmol/L (137-145); Total Protein 6.8 g/dL (6.3-8.2)
[2019-10-12 06:53] LABS: D-DIMER QUANTITATIVE < 215 ng/mL (215-500)
[2019-10-12] MEDS ORDERED: VENTOLIN COMMON CANISTER IH SCH (07:00)
--- NOTE | 2019-10-12 07:18 | XRAY ---
Indication: Chest pain. COVID 19. Comparison: June 06, 2019. Portable chest remains hyperinflated and clear. Heart is not enlarged. Bony thorax intact. No new/acute findings. Impression: Nonacute hyperinflated chest.
[2019-10-12] MEDS ORDERED: FLUZONE QUAD 2019-2020 SYRINGE IM ONE (10:00)
[2019-10-12] MEDS ORDERED: Pepcid 20 MG VIAL IV SCH (10:00)
--- NOTE | 2019-10-12 10:04 | PCM.SSS ---
History of Present Illness - Chief Complaint Chief Complaint: SOB Date: 10/12/19 History of Present Illness: is a 39 year old female. presented to ER last night with feeling of sob and anxiousness with right lower chest pain, she was recently reported positive for covid virus with self isolation for the past 2 days. - Review of Systems Constitutional: No Symptoms Eyes: No Symptoms Ears, Nose, & Throat: No Symptoms Respiratory: Short Of Breath Cardiac: Chest Pain Abdominal/Gastrointestinal: No Abdominal Pain, No Nausea, No Vomiting, No Diarrhea Genitourinary Symptoms: No Dysuria Musculoskeletal: No Back Pain, No Neck Pain Skin: No Rash Neurological: No Dizziness, No Focal Weakness, No Sensory Changes Psychological: No Symptoms All Other Systems: Reviewed and Negative Medications & Allergies Home Medications: Home Medication List No Reportable Medications [No Reported Medications] 08/09/19 [History Confirmed 10/12/19] Allergies/Adverse Reactions: Allergies Allergy/AdvReac Type Severity Reaction Status Date / Time cephalexin monohydrate Allergy Intermediate Hives Verified 10/12/19 04:02 [From Keflex] cefaclor [From Ceclor] Allergy Mild Hives Verified 10/12/19 04:02 - Past Medical History Past Medical History: Yes Neurological History: Migraines ENT History: No Pertinent History Cardiac History: No Pertinent History Respiratory History: Bronchitis Endocrine Medical History: No Pertinent History Musculoskelatal History: No Pertinent History GI Medical History: No Pertinent History History: No Pertinent History Pyscho-Social History: Depression Reproductive Disorders: Endometriosis, Other Comment: polycystic ovaries. recent covid 19 diagnosis - Female History Hx Last Menstrual Period: hyster Are you now?: No - Past Surgical History Past Surgical History: Yes Neuro Surgical History: No Pertinent History Cardiac History: No Pertinent History Respiratory Surgery: No Pertinent History GI Surgical History: Appendectomy Genitourinary Surgical Hx: No Pertinent History Musculskeletal Surgical Hx: No Pertinent History Female Surgical History: Hysterectomy Other Surgical History: HYSTERECTOMY PARTIAL - Social History Smoking Status: Current every day smoker How long have you smoked: 35 years Exposure to second hand smoke: Yes Alcohol: None Drug Use: marijuana Significant Family History: no pertinent family hx, alpha-1 antitrypsin deficiency - Physical Exam Vital Signs: Vital Signs - 24 hr Temp Pulse Resp BP Pulse Ox 10/12/19 09:00 18 05/02/20 08:03 94 L 10/12/19 08:02 89 18 94 L 10/12/19 08:00 97.7 F 93 H 18 116/41 98 10/12/19 06:49 17 10/12/19 06:03 114/52 10/12/19 06:00 17 10/12/19 05:46 64 17 92 L 10/12/19 05:00 12 10/12/19 04:56 75 19 96 10/12/19 03:51 18 10/12/19 03:50 97.7 F 76 19 95 10/12/19 03:00 18 10/12/19 02:58 75 18 95 10/12/19 02:47 77 18 95 10/12/19 02:00 19 10/12/19 01:52 74 19 95 10/12/19 01:51 97.7 F 67 15 104/61 99 10/12/19 00:58 72 18 116/64 97 10/12/19 00:38 98 10/12/19 00:00 70 16 117/66 98 10/11/19 23:04 18 99 10/11/19 23:02 99 10/11/19 22:49 84 18 134/78 99 General Appearance: no apparent distress, alert Neurologic Exam: alert, oriented x 3, cooperative, normal mood/affect, No motor deficits Eye Exam: PERRL/EOMI, eyes nml inspection Ears, Nose, Throat Exam: normal ENT inspection, pharynx normal, moist mucous membranes Neck Exam: normal inspection, non-tender, supple, full range of motion Respiratory Exam: normal breath sounds, lungs clear, No respiratory distress Cardiovascular Exam: regular rate/rhythm, normal heart sounds, normal peripheral pulses Gastrointestinal/Abdomen Exam: soft, normal bowel sounds, No tenderness, No mass Extremity Exam: normal inspection, normal range of motion, pelvis stable Skin Exam: normal color, warm, dry, No rash Results - Labs Lab/Micro Results: Lab Results-Last 24 Hours 10/11/19 10/11/19 10/11/19 Range/Units 23:00 23:14 23:14 WBC 10.6 H (4.0-10.5) K/mm3 RBC 5.25 (4.1-5.4) M/mm3 Hgb 16.7 H (12.0-16.0) gm/dl Hct 48.8 H (35-47) % MCV 93.0 (78-100) fl MCH 31.8 (26-32) pg MCHC 34.2 (32-36) g/dl RDW 12.4 (11.5-14.0) % Plt Count 199 (150-450) K/mm3 MPV 11.0 (7.5-11.0) fl Gran % 50.7 (36.0-66.0) % Eos # (Auto) 0.30 (0-0.5) Absolute Lymphs (auto) 3.98 (1.0-4.6) Absolute Monos (auto) 0.92 (0.0-1.3) Lymphocytes % 37.7 (24.0-44.0) % Monocytes % 8.7 (0.0-12.0) % Eosinophils % 2.8 (0.00-5.0) % Basophils % 0.1 (0.0-0.4) % Absolute Granulocytes 5.36 (1.4-6.9) Basophils # 0.01 (0-0.4) PT (9.95-12.35) SECONDS INR (0.8-3.0) APTT (25.3-37.0) SECONDS D-Dimer (215-500) ng/mL Sodium 138 (137-145) mmol/L Potassium 4.1 (3.5-5.1) mmol/L Chloride 102 (98-107) mmol/L Carbon Dioxide 26 (22-30) mmol/L Anion Gap 13.9 (5-15) MEQ/L BUN 14 (7-17) mg/dL Creatinine 0.78 (0.52-1.04) mg/dL Estimated GFR > 60.0 ML/MIN Glucose 95 (74-106) mg/dL Calcium 9.7 (8.4-10.2) mg/dL Ferritin (6.24-137) ng/mL Total Bilirubin 0.60 (0.2-1.3) mg/dL AST 26 (14-36) U/L ALT 16 (0-35) U/L Alkaline Phosphatase 51 (38-126) U/L Lactate Dehydrogenase 128 (120-246) U/L Troponin I < 0.012 (0.000-0.034) ng/mL NT-Pro-B Natriuret Pep 23.6 (0-450) pg/mL Serum Total Protein 8.3 H (6.3-8.2) g/dL Albumin 4.7 (3.5-5.0) g/dL Urine Color (YELLOW) Urine Appearance (CLEAR) Urine pH (5-6) Ur Specific [place] (1.005-1.025) Urine Protein (Negative) Urine Ketones (NEGATIVE) Urine Blood (0-5) Robinson/ul Urine Nitrite (NEGATIVE) Urine Bilirubin (NEGATIVE) Urine Urobilinogen (0-1) mg/dL Ur Leukocyte Esterase (NEGATIVE) Urine WBC (Auto) (0-5) /HPF Urine RBC (Auto) (0-2) /HPF U Epithel Cells (Auto) (FEW) /HPF Urine Bacteria (Auto) (NEGATIVE) /HPF Urine Mucus (Auto) (NEGATIVE) /HPF Urine Culture Reflexed (NO) Urine Glucose (NEGATIVE) mg/dL 10/11/19 10/11/19 10/11/19 Range/Units 23:14 23:14 23:14 WBC (4.0-10.5) K/mm3 RBC (4.1-5.4) M/mm3 Hgb (12.0-16.0) gm/dl Hct (35-47) % MCV (78-100) fl MCH (26-32) pg MCHC (32-36) g/dl RDW (11.5-14.0) % Plt Count (150-450) K/mm3 MPV (7.5-11.0) fl Gran % (36.0-66.0) % Eos # (Auto) (0-0.5) Absolute Lymphs (auto) (1.0-4.6) Absolute Monos (auto) (0.0-1.3) Lymphocytes % (24.0-44.0) % Monocytes % (0.0-12.0) % Eosinophils % (0.00-5.0) % Basophils % (0.0-0.4) % Absolute Granulocytes (1.4-6.9) Basophils # (0-0.4) PT 12.1 (9.95-12.35) SECONDS INR 1.07 (0.8-3.0) APTT 32.1 (25.3-37.0) SECONDS D-Dimer 275 (215-500) ng/mL Sodium (137-145) mmol/L Potassium (3.5-5.1) mmol/L Chloride (98-107) mmol/L Carbon Dioxide (22-30) mmol/L Anion Gap (5-15) MEQ/L BUN (7-17) mg/dL Creatinine (0.52-1.04) mg/dL Estimated GFR ML/MIN Glucose (74-106) mg/dL Calcium (8.4-10.2) mg/dL Ferritin 73.5 (6.24-137) ng/mL Total Bilirubin (0.2-1.3) mg/dL AST (14-36) U/L ALT (0-35) U/L Alkaline Phosphatase (38-126) U/L Lactate Dehydrogenase (120-246) U/L Troponin I (0.000-0.034) ng/mL NT-Pro-B Natriuret Pep (0-450) pg/mL Serum Total Protein (6.3-8.2) g/dL Albumin (3.5-5.0) g/dL Urine Color YELLOW (YELLOW) Urine Appearance CLEAR (CLEAR) Urine pH 6.0 (5-6) Ur Specific [place] 1.014 (1.005-1.025) Urine Protein NEGATIVE (Negative) Urine Ketones NEGATIVE (NEGATIVE) Urine Blood SMALL (0-5) Robinson/ul Urine Nitrite NEGATIVE (NEGATIVE) Urine Bilirubin NEGATIVE (NEGATIVE) Urine Urobilinogen 2 (0-1) mg/dL Ur Leukocyte Esterase NEGATIVE (NEGATIVE) Urine WBC (Auto) 0-2 (0-5) /HPF Urine RBC (Auto) 0-2 (0-2) /HPF U Epithel Cells (Auto) RARE (FEW) /HPF Urine Bacteria (Auto) NONE (NEGATIVE) /HPF Urine Mucus (Auto) SLIGHT (NEGATIVE) /HPF Urine Culture Reflexed NO (NO) Urine Glucose NEGATIVE (NEGATIVE) mg/dL 10/12/19 10/12/19 10/12/19 Range/Units 05:15 05:15 05:15 WBC 8.2 (4.0-10.5) K/mm3 RBC 4.64 (4.1-5.4) M/mm3 Hgb 14.7 (12.0-16.0) gm/dl Hct 43.8 (35-47) % MCV 94.4 (78-100) fl MCH 31.7 (26-32) pg MCHC 33.6 (32-36) g/dl RDW 12.3 (11.5-14.0) % Plt Count 150 (150-450) K/mm3 MPV 10.4 (7.5-11.0) fl Gran % 53.5 (36.0-66.0) % Eos # (Auto) 0.24 (0-0.5) Absolute Lymphs (auto) 2.95 (1.0-4.6) Absolute Monos (auto) 0.60 (0.0-1.3) Lymphocytes % 36.1 (24.0-44.0) % Monocytes % 7.3 (0.0-12.0) % Eosinophils % 2.9 (0.00-5.0) % Basophils % 0.2 (0.0-0.4) % Absolute Granulocytes 4.36 (1.4-6.9) Basophils # 0.02 (0-0.4) PT 13.1 H (9.95-12.35) SECONDS INR 1.16 (0.8-3.0) APTT (25.3-37.0) SECONDS D-Dimer < 215 L (215-500) ng/mL Sodium 138 (137-145) mmol/L Potassium 4.1 (3.5-5.1) mmol/L Chloride 103 (98-107) mmol/L Carbon Dioxide 26 (22-30) mmol/L Anion Gap 13.1 (5-15) MEQ/L BUN 12 (7-17) mg/dL Creatinine 0.76 (0.52-1.04) mg/dL Estimated GFR > 60.0 ML/MIN Glucose 84 (74-106) mg/dL Calcium 8.9 (8.4-10.2) mg/dL Ferritin (6.24-137) ng/mL Total Bilirubin 0.80 (0.2-1.3) mg/dL AST 22 (14-36) U/L ALT 13 (0-35) U/L Alkaline Phosphatase 35 L (38-126) U/L Lactate Dehydrogenase (120-246) U/L Troponin I (0.000-0.034) ng/mL NT-Pro-B Natriuret Pep (0-450) pg/mL Serum Total Protein 6.8 (6.3-8.2) g/dL Albumin 3.7 (3.5-5.0) g/dL Urine Color (YELLOW) Urine Appearance (CLEAR) Urine pH (5-6) Ur Specific [place] (1.005-1.025) Urine Protein (Negative) Urine Ketones (NEGATIVE) Urine Blood (0-5) Robinson/ul Urine Nitrite (NEGATIVE) Urine Bilirubin (NEGATIVE) Urine Urobilinogen (0-1) mg/dL Ur Leukocyte Esterase (NEGATIVE) Urine WBC (Auto) (0-5) /HPF Urine RBC (Auto) (0-2) /HPF U Epithel Cells (Auto) (FEW) /HPF Urine Bacteria (Auto) (NEGATIVE) /HPF Urine Mucus (Auto) (NEGATIVE) /HPF Urine Culture Reflexed (NO) Urine Glucose (NEGATIVE) mg/dL - Radiology Impressions Radiology Exams & Impressions: Radiology Procedures Category Date Time Status CHEST 1 VIEW (PORTABLE) Stat Exams 10/11/19 22:50 Completed - Other Procedures and Tests Respiratory Therapy 10/12/19 02:45 Respiratory Therapy Assessment DAILY Assessment/Plan (1) COVID-19 Current Visit: Yes Status: Acute Assessment & Plan: positive test results but no ill symptoms at this time, work-up negative for acute process to address at this time, will plan d/c to home. Code(s): U07.1 - [place] [address] Hospital Summary - Hospital Course Hospital Course: Pt. given several doses of ativan, work-up negative and pt. feeling fine this am , will d/c to home with continued self isolation - Vitals & Intake/Output Vital Signs: Vital Signs Temperature 97.7 F 10/12/19 08:00 Pulse Rate 89 10/12/19 08:02 Respiratory Rate 18 10/12/19 09:00 Blood Pressure 116/41 10/12/19 08:00 O2 Sat by Pulse Oximetry 94 L 10/12/19 08:03 Intake & Output: Intake & Output 10/09/19 10/10/19 10/11/19 10/12/19 11:59 11:59 11:59 11:59 Weight 48.5 kg - Lab Result Diagrams: 10/12/19 05:15 10/12/19 05:15 Lab Results-Last 24 Hrs: Lab Results-Last 24 Hours 05/01/20 05/01/20 05/01/20 Range/Units 23:00 23:14 23:14 WBC 10.6 H (4.0-10.5) K/mm3 RBC 5.25 (4.1-5.4) M/mm3 Hgb 16.7 H (12.0-16.0) gm/dl Hct 48.8 H (35-47) % MCV 93.0 (78-100) fl MCH 31.8 (26-32) pg MCHC 34.2 (32-36) g/dl RDW 12.4 (11.5-14.0) % Plt Count 199 (150-450) K/mm3 MPV 11.0 (7.5-11.0) fl Gran % 50.7 (36.0-66.0) % Eos # (Auto) 0.30 (0-0.5) Absolute Lymphs (auto) 3.98 (1.0-4.6) Absolute Monos (auto) 0.92 (0.0-1.3) Lymphocytes % 37.7 (24.0-44.0) % Monocytes % 8.7 (0.0-12.0) % Eosinophils % 2.8 (0.00-5.0) % Basophils % 0.1 (0.0-0.4) % Absolute Granulocytes 5.36 (1.4-6.9) Basophils # 0.01 (0-0.4) PT (9.95-12.35) SECONDS INR (0.8-3.0) APTT (25.3-37.0) SECONDS D-Dimer (215-500) ng/mL Sodium 138 (137-145) mmol/L Potassium 4.1 (3.5-5.1) mmol/L Chloride 102 (98-107) mmol/L Carbon Dioxide 26 (22-30) mmol/L Anion Gap 13.9 (5-15) MEQ/L BUN 14 (7-17) mg/dL Creatinine 0.78 (0.52-1.04) mg/dL Estimated GFR > 60.0 ML/MIN Glucose 95 (74-106) mg/dL Calcium 9.7 (8.4-10.2) mg/dL Ferritin (6.24-137) ng/mL Total Bilirubin 0.60 (0.2-1.3) mg/dL AST 26 (14-36) U/L ALT 16 (0-35) U/L Alkaline Phosphatase 51 (38-126) U/L Lactate Dehydrogenase 128 (120-246) U/L Troponin I < 0.012 (0.000-0.034) ng/mL NT-Pro-B Natriuret Pep 23.6 (0-450) pg/mL Serum Total Protein 8.3 H (6.3-8.2) g/dL Albumin 4.7 (3.5-5.0) g/dL Urine Color (YELLOW) Urine Appearance (CLEAR) Urine pH (5-6) Ur Specific [place] (1.005-1.025) Urine Protein (Negative) Urine Ketones (NEGATIVE) Urine Blood (0-5) Robinson/ul Urine Nitrite (NEGATIVE) Urine Bilirubin (NEGATIVE) Urine Urobilinogen (0-1) mg/dL Ur Leukocyte Esterase (NEGATIVE) Urine WBC (Auto) (0-5) /HPF Urine RBC (Auto) (0-2) /HPF U Epithel Cells (Auto) (FEW) /HPF Urine Bacteria (Auto) (NEGATIVE) /HPF Urine Mucus (Auto) (NEGATIVE) /HPF Urine Culture Reflexed (NO) Urine Glucose (NEGATIVE) mg/dL 10/11/19 10/11/19 10/11/19 Range/Units 23:14 23:14 23:14 WBC (4.0-10.5) K/mm3 RBC (4.1-5.4) M/mm3 Hgb (12.0-16.0) gm/dl Hct (35-47) % MCV (78-100) fl MCH (26-32) pg MCHC (32-36) g/dl RDW (11.5-14.0) % Plt Count (150-450) K/mm3 MPV (7.5-11.0) fl Gran % (36.0-66.0) % Eos # (Auto) (0-0.5) Absolute Lymphs (auto) (1.0-4.6) Absolute Monos (auto) (0.0-1.3) Lymphocytes % (24.0-44.0) % Monocytes % (0.0-12.0) % Eosinophils % (0.00-5.0) % Basophils % (0.0-0.4) % Absolute Granulocytes (1.4-6.9) Basophils # (0-0.4) PT 12.1 (9.95-12.35) SECONDS INR 1.07 (0.8-3.0) APTT 32.1 (25.3-37.0) SECONDS D-Dimer 275 (215-500) ng/mL Sodium (137-145) mmol/L Potassium (3.5-5.1) mmol/L Chloride (98-107) mmol/L Carbon Dioxide (22-30) mmol/L Anion Gap (5-15) MEQ/L BUN (7-17) mg/dL Creatinine (0.52-1.04) mg/dL Estimated GFR ML/MIN Glucose (74-106) mg/dL Calcium (8.4-10.2) mg/dL Ferritin 73.5 (6.24-137) ng/mL Total Bilirubin (0.2-1.3) mg/dL AST (14-36) U/L ALT (0-35) U/L Alkaline Phosphatase (38-126) U/L Lactate Dehydrogenase (120-246) U/L Troponin I (0.000-0.034) ng/mL NT-Pro-B Natriuret Pep (0-450) pg/mL Serum Total Protein (6.3-8.2) g/dL Albumin (3.5-5.0) g/dL Urine Color YELLOW (YELLOW) Urine Appearance CLEAR (CLEAR) Urine pH 6.0 (5-6) Ur Specific [place] 1.014 (1.005-1.025) Urine Protein NEGATIVE (Negative) Urine Ketones NEGATIVE (NEGATIVE) Urine Blood SMALL (0-5) Robinson/ul Urine Nitrite NEGATIVE (NEGATIVE) Urine Bilirubin NEGATIVE (NEGATIVE) Urine Urobilinogen 2 (0-1) mg/dL Ur Leukocyte Esterase NEGATIVE (NEGATIVE) Urine WBC (Auto) 0-2 (0-5) /HPF Urine RBC (Auto) 0-2 (0-2) /HPF U Epithel Cells (Auto) RARE (FEW) /HPF Urine Bacteria (Auto) NONE (NEGATIVE) /HPF Urine Mucus (Auto) SLIGHT (NEGATIVE) /HPF Urine Culture Reflexed NO (NO) Urine Glucose NEGATIVE (NEGATIVE) mg/dL 10/12/19 10/12/19 10/12/19 Range/Units 05:15 05:15 05:15 WBC 8.2 (4.0-10.5) K/mm3 RBC 4.64 (4.1-5.4) M/mm3 Hgb 14.7 (12.0-16.0) gm/dl Hct 43.8 (35-47) % MCV 94.4 (78-100) fl MCH 31.7 (26-32) pg MCHC 33.6 (32-36) g/dl RDW 12.3 (11.5-14.0) % Plt Count 150 (150-450) K/mm3 MPV 10.4 (7.5-11.0) fl Gran % 53.5 (36.0-66.0) % Eos # (Auto) 0.24 (0-0.5) Absolute Lymphs (auto) 2.95 (1.0-4.6) Absolute Monos (auto) 0.60 (0.0-1.3) Lymphocytes % 36.1 (24.0-44.0) % Monocytes % 7.3 (0.0-12.0) % Eosinophils % 2.9 (0.00-5.0) % Basophils % 0.2 (0.0-0.4) % Absolute Granulocytes 4.36 (1.4-6.9) Basophils # 0.02 (0-0.4) PT 13.1 H (9.95-12.35) SECONDS INR 1.16 (0.8-3.0) APTT (25.3-37.0) SECONDS D-Dimer < 215 L (215-500) ng/mL Sodium 138 (137-145) mmol/L Potassium 4.1 (3.5-5.1) mmol/L Chloride 103 (98-107) mmol/L Carbon Dioxide 26 (22-30) mmol/L Anion Gap 13.1 (5-15) MEQ/L BUN 12 (7-17) mg/dL Creatinine 0.76 (0.52-1.04) mg/dL Estimated GFR > 60.0 ML/MIN Glucose 84 (74-106) mg/dL Calcium 8.9 (8.4-10.2) mg/dL Ferritin (6.24-137) ng/mL Total Bilirubin 0.80 (0.2-1.3) mg/dL AST 22 (14-36) U/L ALT 13 (0-35) U/L Alkaline Phosphatase 35 L (38-126) U/L Lactate Dehydrogenase (120-246) U/L Troponin I (0.000-0.034) ng/mL NT-Pro-B Natriuret Pep (0-450) pg/mL Serum Total Protein 6.8 (6.3-8.2) g/dL Albumin 3.7 (3.5-5.0) g/dL Urine Color (YELLOW) Urine Appearance (CLEAR) Urine pH (5-6) Ur Specific [place] (1.005-1.025) Urine Protein (Negative) Urine Ketones (NEGATIVE) Urine Blood (0-5) Robinson/ul Urine Nitrite (NEGATIVE) Urine Bilirubin (NEGATIVE) Urine Urobilinogen (0-1) mg/dL Ur Leukocyte Esterase (NEGATIVE) Urine WBC (Auto) (0-5) /HPF Urine RBC (Auto) (0-2) /HPF U Epithel Cells (Auto) (FEW) /HPF Urine Bacteria (Auto) (NEGATIVE) /HPF Urine Mucus (Auto) (NEGATIVE) /HPF Urine Culture Reflexed (NO) Urine Glucose (NEGATIVE) mg/dL - Radiology Exams Ordered Rad Exams-Entire Visit: Radiology Procedures Category Date Time Status CHEST 1 VIEW (PORTABLE) Stat Exams 10/11/19 22:50 Completed - Procedures and Test Procedures and Tests throughout Hospitalization: Therapy Orders & Screens 10/12/19 00:39 Respiratory Therapy Consult Comment: Reason For Exam: 10/12/19 02:45 Respiratory Therapy Assessment DAILY Comment: Diagnosis: SOB - Discharge Disposition: Home, Self-Care Condition: Fair Prescriptions: No Action No Reportable Medications [No Reported Medications] Follow up with: RAUL JALLOH [Primary Care Provider] - 1 Week
[2019-10-12 11:04] VITALS: BP 106/47; PULSE 73; O2SAT 98
== END 2019-10-12 11:25 | disposition home or self-care (01) ==
LOC: ED 22:48 → MED SURG 10-12 01:17
PROVIDERS: ADMIT Family Medicine; ATTEND Family Medicine
DX: U07.1 COVID-19 (principal); F41.9 Anxiety disorder, unspecified; R07.9 Chest pain, unspecified; F17.200 Nicotine dependence, unspecified, uncomplicated
CPT/HCPCS: 36000; 36415; 71045; 80053; 81001; 82728; 83615; 83880; 84484; 85025; 85379; 85610; 85730; 86140; 87040; 93005; 93041; 93268; 94760; 94762; 96374; 96375; 99285; J2060; J2270; G0378

== ENCOUNTER 2019-10-19 00:30 | Emergency (ER) | payer MEDICAID ==
[2019-10-19] MEDS ORDERED: Sodium Chloride 0.9% 1000 ML 1,000 ML IV STA (00:35)
[2019-10-19] MEDS ORDERED: NORCO 5/325 MG PO ONE (00:37)
--- NOTE | 2019-10-19 00:46 | ERPHSYRPT ---
- History of Present Illness Time Seen by Provider: 10/19/19 00:32 Source: patient Exam Limitations: no limitations Physician History: 39 years old female with history of tobacco abuse, positive COVID testing outpatient 13 days ago who remained asymptomatic presented in the ER with chief complaint of generalized body ache, sore throat, cough and generalized chest soreness/pain since morning. She is complaining of mild shortness of breath and chills. Cough is productive of clear to yellow sputum not any different than her routine smoker cough. Denies any fever. Patient reports she was told that her current plan would be over 2 days ago. Denies any abdominal pain nausea vomiting, dizziness or lightheadedness. Timing/Duration: today, gradual onset, worse Cough Quality/Degree: moderate, productive cough, sputum Modifying Factors: Improves With: nothing Associated Symptoms: chills, chest pain/soreness, cough, muscle aches, shortness of breath, sore throat Allergies/Adverse Reactions: cephalexin monohydrate [From Keflex] Allergy (Intermediate, Verified 10/19/19 02 :20) Hives cefaclor [From Ceclor] Allergy (Mild, Verified 10/19/19 02:20) Hives Home Medications: No Reportable Medications [No Reported Medications] 10/19/19 [History] Hx Tetanus, Diphtheria Vaccination/Date Given: No Hx Influenza Vaccination/Date Given: No Hx Pneumococcal Vaccination/Date Given: No Travel Risk - International Travel Have you traveled outside of the country in past 3 weeks: No Have you or anyone close to you been diagnosed with or: Yes Do your reside in a community with a known COVID-19 case?: Yes - Coronavirus Screening Has patient experienced Coronavirus symptoms: Yes Symptoms experienced: respiratory symptoms (i.e.Cought,shortness of breath), muscle pain, weakness - Review of Systems Constitutional: Chills, Fatigue, Malaise Eyes: No Symptoms Ears, Nose, & Throat: Nose Congestion, Throat Pain, Throat Swelling Respiratory: Cough Cardiac: Chest Pain Abdominal/Gastrointestinal: No Symptoms Genitourinary Symptoms: No Symptoms Musculoskeletal: Myalgias Neurological: No Symptoms Psychological: No Symptoms Endocrine: No Symptoms Hematologic/Lymphatic: No Symptoms Immunological/Allergic: No Symptoms - Past Medical History Pertinent Past Medical History: Yes Neurological History: Migraines ENT History: No Pertinent History Cardiac History: No Pertinent History Respiratory History: Bronchitis Endocrine Medical History: No Pertinent History Musculoskeletal History: No Pertinent History GI Medical History: No Pertinent History History: No Pertinent History Psycho-Social History: Depression Female Reproductive Disorders: Endometriosis, Other Other Medical History: polycystic ovaries. recent covid 19 diagnosis - Past Surgical History Past Surgical History: Yes Neuro Surgical History: No Pertinent History Cardiac: No Pertinent History Respiratory: No Pertinent History Gastrointestinal: Appendectomy Genitourinary: No Pertinent History Musculoskeletal: No Pertinent History Female Surgical History: Hysterectomy Other Surgical History: HYSTERECTOMY PARTIAL - Social History Smoking Status: Current every day smoker How long have you smoked: 35 years Exposure to second hand smoke: Yes Drug Use: marijuana Patient Lives Alone: No Significant Family History: no pertinent family hx, alpha-1 antitrypsin deficiency - Nursing Vital Signs Nursing Vital Signs: Initial Vital Signs Temperature 98.0 F 10/19/19 01:08 Pulse Rate 91 H 10/19/19 01:08 Respiratory Rate 18 10/19/19 01:08 Blood Pressure 99/64 10/19/19 01:08 O2 Sat by Pulse Oximetry 100 10/19/19 01:08 Pain Scale Pain Intensity 0 - Physical Exam General Appearance: no apparent distress, alert, anxiety Eye Exam: eyes nml inspection Ears, Nose, Throat Exam: TMs normal, moist mucous membranes, pharyngeal erythema Neck Exam: normal inspection, non-tender, supple, full range of motion Respiratory Exam: normal breath sounds, chest tenderness (Left anterior chest wall tenderness mild), lungs clear, airway intact, No accessory muscle use Cardiovascular Exam: regular rate/rhythm, normal heart sounds Gastrointestinal/Abdomen Exam: soft, normal bowel sounds, No tenderness Back Exam: normal inspection, normal range of motion Extremity Exam: normal inspection, normal range of motion, pelvis stable Neurologic Exam: alert, oriented x 3, cooperative, 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 as tested, normal mood/affect, nml cerebellar function Skin Exam: normal color, warm SpO2 Interpretation: normal O2 Delivery: Room Air - Course Nursing assessment & vital signs reviewed: Yes EKG Interpreted by Me: RATE ([id number]), NORMAL AXIS, NORMAL INTERVALS, NORMAL QRS Ordered Tests: Active Orders 24 hr Category Date Time Status Isolation, Initiate & Maintain Q4H Care 10/19/19 01:20 Active CHEST 1 VIEW (PORTABLE) Stat Exams 10/19/19 01:15 Taken BLOOD CULTURE Stat Lab 10/19/19 01:15 Received CBC W DIFF Stat Lab 10/19/19 01:00 Completed CMP Stat Lab 10/19/19 01:00 Completed HCG QUALITATIVE,SERUM Stat Lab 10/19/19 01:00 Completed Lactic Acid Stat Lab 10/19/19 01:07 Completed NT PRO BNP Stat Lab 10/19/19 01:00 Completed TROPONIN Q3H Lab 10/19/19 01:00 Completed UA W/RFX UR CULTURE Stat Lab 10/19/19 02:30 Completed Medication Summary Discontinued Medications Generic Name Dose Route Start Last Admin Trade Name Freq PRN Reason Stop Dose Admin Hydrocodone Bitart/Acetaminophen 1 tab 10/19/19 00:37 10/19/19 01:53 [place] 5/325 Mg PO 10/19/19 00:38 1 tab STAT ONE Administration Hydrocodone Bitart/Acetaminophen Confirm 10/19/19 01:51 [place] 5/325 Mg Administered 10/19/19 01:52 Dose 1 tab .ROUTE .STK-MED ONE Sodium Chloride 1,000 mls @ 999 mls/hr 10/19/19 00:35 10/19/19 01:53 Sodium Chloride 0.9% 1000 Ml IV 10/19/19 01:35 999 mls/hr .Q1H1M STA Administration Sodium Chloride Confirm 10/19/19 01:51 Sodium Chloride 0.9% 1000 Ml Administered 10/19/19 01:52 Dose 1,000 mls @ ud .ROUTE .STK-MED ONE Lab/Rad Data: Laboratory Result Diagrams 10/19/19 01:00 10/19/19 01:00 Laboratory Results 10/19/19 10/19/19 10/19/19 Range/Units 02:30 01:15 01:07 WBC (4.0-10.5) K/mm3 RBC (4.1-5.4) M/mm3 Hgb (12.0-16.0) gm/dl Hct (35-47) % MCV (78-100) fl MCH (26-32) pg MCHC (32-36) g/dl RDW (11.5-14.0) % Plt Count (150-450) K/mm3 MPV (7.5-11.0) fl Gran % (36.0-66.0) % Eos # (Auto) (0-0.5) Absolute Lymphs (auto) (1.0-4.6) Absolute Monos (auto) (0.0-1.3) Lymphocytes % (24.0-44.0) % Monocytes % (0.0-12.0) % Eosinophils % (0.00-5.0) % Basophils % (0.0-0.4) % Absolute Granulocytes (1.4-6.9) Basophils # (0-0.4) Sodium (137-145) mmol/L Potassium (3.5-5.1) mmol/L Chloride (98-107) mmol/L Carbon Dioxide (22-30) mmol/L Anion Gap (5-15) MEQ/L BUN (7-17) mg/dL Creatinine (0.52-1.04) mg/dL Estimated GFR ML/MIN Glucose (74-106) mg/dL Lactic Acid 0.7 (0.4-2.0) Calcium (8.4-10.2) mg/dL Total Bilirubin (0.2-1.3) mg/dL AST (14-36) U/L ALT (0-35) U/L Alkaline Phosphatase (38-126) U/L Troponin I (0.000-0.034) ng/mL NT-Pro-B Natriuret Pep (0-450) pg/mL Serum Total Protein (6.3-8.2) g/dL Albumin (3.5-5.0) g/dL Serum , Qual (Negative) Urine Color YELLOW (YELLOW) Urine Appearance CLEAR (CLEAR) Urine pH 6.0 (5-6) Ur Specific Coy 1.010 (1.005-1.025) Urine Protein NEGATIVE (Negative) Urine Ketones NEGATIVE (NEGATIVE) Urine Blood SMALL (0-5) Robinson/ul Urine Nitrite NEGATIVE (NEGATIVE) Urine Bilirubin NEGATIVE (NEGATIVE) Urine Urobilinogen NEGATIVE (0-1) mg/dL Ur Leukocyte Esterase NEGATIVE (NEGATIVE) Urine WBC (Auto) NONE (0-5) /HPF Urine RBC (Auto) 0-2 (0-2) /HPF U Epithel Cells (Auto) NONE (FEW) /HPF Urine Bacteria (Auto) NONE (NEGATIVE) /HPF Urine Mucus (Auto) SLIGHT (NEGATIVE) /HPF Urine Culture Reflexed NO (NO) Urine Glucose NEGATIVE (NEGATIVE) mg/dL Influenza Type A Ag NEGATIVE (NEGATIVE) Influenza Type B Ag NEGATIVE (NEGATIVE) RSV (PCR) NEGATIVE (Negative) Group A Strep Antibody NOT DETECTED (NEGATIVE) 10/19/19 10/19/19 10/19/19 Range/Units 01:00 01:00 01:00 WBC (4.0-10.5) K/mm3 RBC (4.1-5.4) M/mm3 Hgb (12.0-16.0) gm/dl Hct (35-47) % MCV (78-100) fl MCH (26-32) pg MCHC (32-36) g/dl RDW (11.5-14.0) % Plt Count (150-450) K/mm3 MPV (7.5-11.0) fl Gran % (36.0-66.0) % Eos # (Auto) (0-0.5) Absolute Lymphs (auto) (1.0-4.6) Absolute Monos (auto) (0.0-1.3) Lymphocytes % (24.0-44.0) % Monocytes % (0.0-12.0) % Eosinophils % (0.00-5.0) % Basophils % (0.0-0.4) % Absolute Granulocytes (1.4-6.9) Basophils # (0-0.4) Sodium 136 L (137-145) mmol/L Potassium 3.8 (3.5-5.1) mmol/L Chloride 103 (98-107) mmol/L Carbon Dioxide 26 (22-30) mmol/L Anion Gap 11.2 (5-15) MEQ/L BUN 9 (7-17) mg/dL Creatinine 0.67 (0.52-1.04) mg/dL Estimated GFR > 60.0 ML/MIN Glucose 88 (74-106) mg/dL Lactic Acid (0.4-2.0) Calcium 9.3 (8.4-10.2) mg/dL Total Bilirubin 0.60 (0.2-1.3) mg/dL AST 22 (14-36) U/L ALT 13 (0-35) U/L Alkaline Phosphatase 48 (38-126) U/L Troponin I < 0.012 (0.000-0.034) ng/mL NT-Pro-B Natriuret Pep 32.9 (0-450) pg/mL Serum Total Protein 7.6 (6.3-8.2) g/dL Albumin 4.2 (3.5-5.0) g/dL Serum , Qual NEGATIVE (Negative) Urine Color (YELLOW) Urine Appearance (CLEAR) Urine pH (5-6) Ur Specific Coy (1.005-1.025) Urine Protein (Negative) Urine Ketones (NEGATIVE) Urine Blood (0-5) Robinson/ul Urine Nitrite (NEGATIVE) Urine Bilirubin (NEGATIVE) Urine Urobilinogen (0-1) mg/dL Ur Leukocyte Esterase (NEGATIVE) Urine WBC (Auto) (0-5) /HPF Urine RBC (Auto) (0-2) /HPF U Epithel Cells (Auto) (FEW) /HPF Urine Bacteria (Auto) (NEGATIVE) /HPF Urine Mucus (Auto) (NEGATIVE) /HPF Urine Culture Reflexed (NO) Urine Glucose (NEGATIVE) mg/dL Influenza Type A Ag (NEGATIVE) Influenza Type B Ag (NEGATIVE) RSV (PCR) (Negative) Group A Strep Antibody (NEGATIVE) 10/19/19 Range/Units 01:00 WBC 6.3 (4.0-10.5) K/mm3 RBC 4.72 (4.1-5.4) M/mm3 Hgb 15.3 (12.0-16.0) gm/dl Hct 43.8 (35-47) % MCV 92.8 (78-100) fl MCH 32.4 H (26-32) pg MCHC 34.9 (32-36) g/dl RDW 12.3 (11.5-14.0) % Plt Count 153 (150-450) K/mm3 MPV 10.2 (7.5-11.0) fl Gran % 56.1 (36.0-66.0) % Eos # (Auto) 0.19 (0-0.5) Absolute Lymphs (auto) 1.97 (1.0-4.6) Absolute Monos (auto) 0.57 (0.0-1.3) Lymphocytes % 31.5 (24.0-44.0) % Monocytes % 9.1 (0.0-12.0) % Eosinophils % 3.0 (0.00-5.0) % Basophils % 0.3 (0.0-0.4) % Absolute Granulocytes 3.50 (1.4-6.9) Basophils # 0.02 (0-0.4) Sodium (137-145) mmol/L Potassium (3.5-5.1) mmol/L Chloride (98-107) mmol/L Carbon Dioxide (22-30) mmol/L Anion Gap (5-15) MEQ/L BUN (7-17) mg/dL Creatinine (0.52-1.04) mg/dL Estimated GFR ML/MIN Glucose (74-106) mg/dL Lactic Acid (0.4-2.0) Calcium (8.4-10.2) mg/dL Total Bilirubin (0.2-1.3) mg/dL AST (14-36) U/L ALT (0-35) U/L Alkaline Phosphatase (38-126) U/L Troponin I (0.000-0.034) ng/mL NT-Pro-B Natriuret Pep (0-450) pg/mL Serum Total Protein (6.3-8.2) g/dL Albumin (3.5-5.0) g/dL Serum , Qual (Negative) Urine Color (YELLOW) Urine Appearance (CLEAR) Urine pH (5-6) Ur Specific Coy (1.005-1.025) Urine Protein (Negative) Urine Ketones (NEGATIVE) Urine Blood (0-5) Robinson/ul Urine Nitrite (NEGATIVE) Urine Bilirubin (NEGATIVE) Urine Urobilinogen (0-1) mg/dL Ur Leukocyte Esterase (NEGATIVE) Urine WBC (Auto) (0-5) /HPF Urine RBC (Auto) (0-2) /HPF U Epithel Cells (Auto) (FEW) /HPF Urine Bacteria (Auto) (NEGATIVE) /HPF Urine Mucus (Auto) (NEGATIVE) /HPF Urine Culture Reflexed (NO) Urine Glucose (NEGATIVE) mg/dL Influenza Type A Ag (NEGATIVE) Influenza Type B Ag (NEGATIVE) RSV (PCR) (Negative) Group A Strep Antibody (NEGATIVE) - Progress Progress: re-examined Air Movement: good Progress Note: 10/19/19 She is given IV fluids and one-time dose of oral pain medication, on reevaluation she is feeling better. Chest x-ray did not show pneumonia or picture suggestive of COVID. Respiratory panel is negative. Grossly unremarkable blood work otherwise. I believe patient has viral syndrome and recommended supportive care. Will recheck for COVID to make sure it is negative. Patient is recommended to continue with social isolation until results are back. Discussed signs symptoms of worsening needing return to ER which she seems understanding. Stable for discharge. Blood Culture(s) Obtained: Yes Antibiotics given: No Counseled pt/family regarding: diagnosis, need for follow-up, rad results, smoking cessation - Departure Departure Disposition: Home Clinical Impression: Viral syndrome Condition: Stable Critical Care Time: No Referrals: RAUL JALLOH [Primary Care Provider] - Follow Up with PCP/3 days Instructions: Viral Syndrome (DC) Additional Instructions: Drink plenty of fluids. Take Tylenol as needed. Follow-up with primary care for reevaluation. Return to ER for any worsening.
[2019-10-19 01:27] LABS: BASOPHIL % 0.3 % (0.0-0.4); Basophil (Absolute #) 0.02 (0-0.4); Eosinophil (Absolute #) 0.19 (0-0.5); Hematocrit 43.8 % (35-47); Hemoglobin 15.3 gm/dl (12.0-16.0); Lymphocyte (Absolute #) 1.97 (1.0-4.6); Lymphocytes % 31.5 % (24.0-44.0); Mean Cell Volume 92.8 fl (78-100); Mean Corpuscular Hemoglobin 32.4 pg (26-32); Mean Corpuscular Hgb Concent. 34.9 g/dl (32-36); Mean Platelet Volume 10.2 fl (7.5-11.0); Monocyte (Absolute #) 0.57 (0.0-1.3); Monocytes % 9.1 % (0.0-12.0); Neutrophil % 56.1 % (36.0-66.0); Platelet Count 153 K/mm3 (150-450); Red Blood Count 4.72 M/mm3 (4.1-5.4); Red Cell Distribution Width 12.3 % (11.5-14.0); White Blood Count 6.3 K/mm3 (4.0-10.5)
[2019-10-19 01:48] LABS: ALBUMIN 4.2 g/dL (3.5-5.0); ALKALINE PHOSPHATASE 48 U/L (38-126); ANION GAP 11.2 MEQ/L (5-15); BLOOD UREA NITROGEN 9 mg/dL (7-17); CHLORIDE 103 mmol/L (98-107); Calcium 9.3 mg/dL (8.4-10.2); Carbon Dioxide 26 mmol/L (22-30); Creatinine 1 0.67 mg/dL (0.52-1.04); Glucose 88 mg/dL (74-106); NT PRO BNP 32.9 pg/mL (0-450); Potassium 3.8 mmol/L (3.5-5.1); SGOT/AST 22 U/L (14-36); SGPT/ALT 13 U/L (0-35); SODIUM 136 mmol/L (137-145); Total Protein 7.6 g/dL (6.3-8.2)
[2019-10-19] MEDS ORDERED: Sodium Chloride 0.9% 1000 ML 1,000 ML ONE (01:51)
[2019-10-19] MEDS ORDERED: NORCO 5/325 MG ONE (01:51)
[2019-10-19 02:09] LABS: INFLUENZA A NEGATIVE (NEGATIVE); INFLUENZA B NEGATIVE (NEGATIVE); RESPIRATORY SYNCTIAL VIRUS NEGATIVE (Negative)
[2019-10-19 02:48] VITALS: BP 122/46; PULSE 67; O2SAT 100
[2019-10-19 02:53] LABS: Appearance CLEAR (CLEAR); Bilirubin NEGATIVE (NEGATIVE); Blood SMALL Ery/ul (0-5); Glucose NEGATIVE (NEGATIVE); Ketones NEGATIVE (NEGATIVE); Leukocyte Esterase NEGATIVE (NEGATIVE); Mucus SLIGHT /HPF (NEGATIVE); Nitrite NEGATIVE (NEGATIVE); Protein,Urine Dip NEGATIVE (Negative); RBC 0-2 /HPF (0-2); Urobilinogen NEGATIVE mg/dL (0-1)
--- NOTE | 2019-10-19 09:23 | XRAY ---
Indication: Short of breath. Positive COVID 19. Comparison: October 11, 2019. Portable chest again hyperinflated and clear. Heart and mediastinal structures within normal limits. No new/acute findings. Impression: Continued nonacute hyperinflated chest.
== END 2019-10-19 03:10 | disposition home or self-care (01) ==
LOC: ED 00:30
DX: B34.9 Viral infection, unspecified (principal)
CPT/HCPCS: 36415; 71045; 80053; 81001; 81025; 83605; 83880; 84484; 85025; 87040; 87631; 87651; 96360; 99284; U0003; A9270-GY

== ENCOUNTER 2019-12-07 02:06 | Emergency (ER) | payer MEDICAID ==
[2019-12-07] MEDS ORDERED: BENADRYL 50 MG/ML IV ONE (02:39)
[2019-12-07] MEDS ORDERED: TORAdol 30 mg Injection IV ONE (02:39)
[2019-12-07] MEDS ORDERED: Compazine 10 MG/2 ML IV ONE (02:40)
[2019-12-07] MEDS ORDERED: TORAdol 30 mg Injection ONE (02:43)
[2019-12-07] MEDS ORDERED: BENADRYL 50 MG/ML ONE (02:43)
[2019-12-07] MEDS ORDERED: Compazine 10 MG/2 ML ONE (02:43)
--- NOTE | 2019-12-07 03:02 | ERPHSYRPT ---
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 She has had some nausea no vomiting she does have a history of migraines this headache is typical. She gets headaches 2-3 times a year. Timing/Duration: yesterday Quality: aching, throbbing Head Pain Location: global Severity of Pain-Max: severe Severity of Pain-Current: severe Recent Head Trauma: frequent headaches Modifying Factors: Improves With: exposure to light, noise Associated Symptoms: nausea/vomiting Allergies/Adverse Reactions: cephalexin monohydrate [From Keflex] Allergy (Intermediate, Verified 12/07/19 02:34) Hives cefaclor [From Ceclor] Allergy (Mild, Verified 12/07/19 02:34) Hives Home Medications: Aspirin [Aspirin EC] 81 mg PO DAILY 12/07/19 [History] Hx Tetanus, Diphtheria Vaccination/Date Given: No Hx Influenza Vaccination/Date Given: No Hx Pneumococcal Vaccination/Date Given: No Travel Risk - International Travel Have you traveled outside of the country in past 3 weeks: No - Coronavirus Screening Are you exhibiting any of the following symptoms?: No Close contact with a COVID-19 positive Pt in past 14-21 Days: No - Review of Systems Constitutional: No Fever, No Chills Eyes: Photophobia Ears, Nose, & Throat: No Symptoms Respiratory: No Cough, No Dyspnea Cardiac: No Chest Pain, No Edema, No Syncope Abdominal/Gastrointestinal: Nausea, No Abdominal Pain, No Vomiting, No Diarrhea Genitourinary Symptoms: No Dysuria Musculoskeletal: No Back Pain, No Neck Pain Skin: No Rash Neurological: Headache, No Dizziness, No Focal Weakness, No Sensory Changes Psychological: No Symptoms Endocrine: No Symptoms All Other Systems: Reviewed and Negative - Past Medical History Pertinent Past Medical History: Yes Neurological History: Migraines ENT History: No Pertinent History Cardiac History: No Pertinent History Respiratory History: Bronchitis Endocrine Medical History: No Pertinent History Musculoskeletal History: No Pertinent History GI Medical History: No Pertinent History History: No Pertinent History Psycho-Social History: Depression Female Reproductive Disorders: Endometriosis, Other Other Medical History: polycystic ovaries. 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 - Past Surgical History Past Surgical History: Yes Neuro Surgical History: No Pertinent History Cardiac: No Pertinent History Respiratory: No Pertinent History Gastrointestinal: Appendectomy Genitourinary: No Pertinent History Musculoskeletal: No Pertinent History Female Surgical History: Hysterectomy Other Surgical History: HYSTERECTOMY PARTIAL - Social History Smoking Status: Current every day smoker How long have you smoked: 35 years Exposure to second hand smoke: Yes Drug Use: marijuana Patient Lives Alone: No Significant Family History: no pertinent family hx, alpha-1 antitrypsin deficiency - Female History Hx Now: No - Nursing Vital Signs Nursing Vital Signs: Initial Vital Signs Temperature 97.8 F 12/07/19 02:13 Pulse Rate 78 12/07/19 02:13 Respiratory Rate 16 12/07/19 02:13 Blood Pressure 129/43 12/07/19 02:13 O2 Sat by Pulse Oximetry 100 12/07/19 02:13 Pain Scale Pain Intensity 7 - Physical Exam General Appearance: no apparent distress, moderate distress Eye Exam: PERRL/EOMI Ears, Nose, Throat Exam: normal ENT inspection, moist mucous membranes Neck Exam: normal inspection, supple, full range of motion, No meningismus Respiratory Exam: normal breath sounds, lungs clear Cardiovascular Exam: regular rate/rhythm, normal heart sounds Gastrointestinal/Abdominal Exam: soft, No tenderness, No distention Back Exam: normal inspection, normal range of motion Mental Status Exam: alert, oriented x 3, cooperative 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 Exam: normal speech, PERRL, No facial droop Coordination/Gait Exam: normal cerebellar function Motor/Sensory Exam: no motor deficit, no sensory deficit Skin Exam: normal color, warm, dry, No rash SpO2: 100 - Course Nursing assessment & vital signs reviewed: Yes Ordered Tests: Medication Summary Generic Name Dose Route Start Last Admin Trade Name Freq PRN Reason Stop Dose Admin Diphenhydramine HCl 50 mg 12/07/19 02:39 Benadryl 50 Mg/Ml IV 12/07/19 02:40 STAT ONE Ketorolac Tromethamine 30 mg 12/07/19 02:39 Toradol 30 Mg Injection IV 12/07/19 02:40 STAT ONE Prochlorperazine Edisylate 10 mg 12/07/19 02:40 Compazine 10 Mg/2 Ml IV 12/07/19 02:41 STAT ONE - Progress Progress: improved, re-examined (Feeling better) Air Movement: good Blood Culture(s) Obtained: No Antibiotics given: No - Departure Departure Disposition: Home Clinical Impression: Migraine headache Condition: Stable Critical Care Time: No Referrals: RAUL JALLOH [Primary Care Provider] - Instructions: Headache, Adult (DC)
[2019-12-07 03:08] VITALS: BP 126/62; PULSE 68; O2SAT 99
== END 2019-12-07 03:19 | disposition home or self-care (01) ==
LOC: ED 02:06
DX: G43.909 Migraine, unspecified, not intractable, without status migrainosus (principal)
CPT/HCPCS: 96374; 96375; 99284; J1200; J1885

== ENCOUNTER 2019-12-10 09:02 | Emergency (ER) | payer MEDICAID ==
--- NOTE | 2019-12-10 09:38 | ERPHSYRPT ---
- History of Present Illness Time Seen by Provider: 12/10/19 09:09 Patient Subjective Stated Complaint: PT states "I feel really weird, my head has a ton of pressure in it and my lungs burn. It is not my chest, it is my lungs." Triage Nursing Assessment: Pt presented alert and oriented X 3, skin pwd. Pt ambulates with an upright steady gait, able to speak in clear full sentences. PT has no apparent respiratory distress. Physician History: 39 years old female with history of tobacco abuse, migraine presented in the ER with sudden onset of generalized headache moderate intensity, generalized pressure/pressure in the both ears without any significant aggravating or relieving factors. Nausea but no vomiting. No neck pain. Denies any visual symptoms, difficulty speech, numbness tingling or focal weakness. Denies any fever or chills. Denies any sinus congestion. She has scarring in the lungs with a recent infection and has some burning sensation which is going on for the last few months which is not any worse than usual. Denies any chest pain otherwise. No palpitations. No shortness of breath. Patient described similar symptoms in the past as well. Timing/Duration: today, sudden, worse Quality: pressure Head Pain Location: global Severity of Pain-Max: moderate Severity of Pain-Current: moderate Recent Head Trauma: frequent headaches Associated Symptoms: denies symptoms Previous symptoms: same symptoms as today Allergies/Adverse Reactions: cephalexin monohydrate [From Keflex] Allergy (Intermediate, Verified 12/07/19 02:34) Hives cefaclor [From Ceclor] Allergy (Mild, Verified 12/07/19 02:34) Hives Home Medications: Aspirin [Aspirin EC] 81 mg PO DAILY 12/07/19 [History] Hx Tetanus, Diphtheria Vaccination/Date Given: No Hx Influenza Vaccination/Date Given: No Hx Pneumococcal Vaccination/Date Given: No Immunizations Up to Date: Yes Travel Risk - International Travel Have you traveled outside of the country in past 3 weeks: No If Yes, where;: N - Coronavirus Screening Are you exhibiting any of the following symptoms?: No Close contact with a COVID-19 positive Pt in past 14-21 Days: No - Review of Systems Constitutional: No Symptoms Eyes: No Symptoms Ears, Nose, & Throat: No Symptoms Respiratory: No Symptoms Cardiac: No Symptoms Abdominal/Gastrointestinal: Nausea Genitourinary Symptoms: No Symptoms Musculoskeletal: No Symptoms Skin: No Symptoms Neurological: Headache Psychological: No Symptoms Endocrine: No Symptoms Hematologic/Lymphatic: No Symptoms - Past Medical History Pertinent Past Medical History: Yes Neurological History: Migraines ENT History: No Pertinent History Cardiac History: No Pertinent History Respiratory History: Bronchitis Endocrine Medical History: No Pertinent History Musculoskeletal History: No Pertinent History GI Medical History: No Pertinent History History: No Pertinent History Psycho-Social History: Depression Female Reproductive Disorders: Endometriosis, Other Other Medical History: polycystic ovaries. 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 - Past Surgical History Past Surgical History: Yes Neuro Surgical History: No Pertinent History Cardiac: No Pertinent History Respiratory: No Pertinent History Gastrointestinal: Appendectomy Genitourinary: No Pertinent History Musculoskeletal: No Pertinent History Female Surgical History: Hysterectomy Other Surgical History: HYSTERECTOMY PARTIAL - Social History Smoking Status: Current every day smoker How long have you smoked: years Exposure to second hand smoke: Yes Drug Use: marijuana Patient Lives Alone: No Significant Family History: no pertinent family hx, alpha-1 antitrypsin deficiency - Female History Hx Last Menstrual Period: partial hysterectomy Hx Now: No - Nursing Vital Signs Nursing Vital Signs: Initial Vital Signs Temperature 97.8 F 12/10/19 09:11 Pulse Rate 64 12/10/19 09:11 Respiratory Rate 18 12/10/19 09:11 Blood Pressure 133/74 12/10/19 09:11 O2 Sat by Pulse Oximetry 100 12/10/19 09:11 Pain Scale Pain Intensity 4 - Physical Exam General Appearance: no apparent distress Eye Exam: PERRL/EOMI, eyes nml inspection Ears, Nose, Throat Exam: normal ENT inspection, TMs normal, pharyngeal erythema Neck Exam: normal inspection, non-tender, supple, full range of motion Respiratory Exam: normal breath sounds, lungs clear, No chest tenderness Cardiovascular Exam: regular rate/rhythm, normal heart sounds Gastrointestinal/Abdominal Exam: soft, normal bowel sounds Back Exam: normal inspection Extremity Exam: normal inspection, normal range of motion Mental Status Exam: alert, oriented x 3, cooperative pecan picker Exam: normal hearing, normal speech, PERRL Coordination/Gait Exam: normal finger to nose, normal gait Motor/Sensory Exam: no motor deficit, no sensory deficit, no pronator drift, negative Babinski's sign Skin Exam: normal color SpO2 Interpretation: normal SpO2: 100 O2 Delivery: Room Air Ordered Tests: Medication Summary Discontinued Medications Generic Name Dose Route Start Last Admin Trade Name Araceli PRN Reason Stop Dose Admin Diphenhydramine HCl 25 mg 12/10/19 09:30 12/10/19 09:48 Benadryl 50 Mg/Ml IM 12/10/19 09:31 25 mg STAT ONE Administration Diphenhydramine HCl Confirm 12/10/19 09:45 Benadryl 50 Mg/Ml Administered 12/10/19 09:46 Dose 50 mg .ROUTE .STK-MED ONE Ketorolac Tromethamine 30 mg 12/10/19 09:30 12/10/19 09:49 Toradol 30 Mg Injection IM 12/10/19 09:31 30 mg STAT ONE Administration Ketorolac Tromethamine Confirm 12/10/19 09:45 Toradol 30 Mg Injection Administered 12/10/19 09:46 Dose 30 mg .ROUTE .STK-MED ONE Metoclopramide HCl 10 mg 12/10/19 09:30 12/10/19 09:49 Reglan 10 Mg/2 Ml IM 12/10/19 09:31 10 mg STAT ONE Administration Metoclopramide HCl Confirm 12/10/19 09:45 Reglan 10 Mg/2 Ml Administered 12/10/19 09:46 Dose 10 mg .ROUTE .STK-MED ONE - Progress Progress: improved, re-examined Air Movement: good Progress Note: 12/10/19 10:39 Given migraine cocktail, on reevaluation her headache is completely improved. She has nonfocal neuro exam throughout her stay in the ER. Headache is similar to previous episode. I do not think she needs imaging or other work-up. Stable for discharge with outpatient follow-up. Discussed with patient about neurology evaluation and to be placed on prophylactic medication for migraine because of her repeated episodes. Discussed signs symptoms of worsening needing return to ER which she seems understanding. Blood Culture(s) Obtained: No Antibiotics given: No Counseled pt/family regarding: diagnosis, need for follow-up - Departure Departure Disposition: Home Clinical Impression: Migraine headache Qualifiers: Migraine type: unspecified Status migrainosus presence: without status migrainosus Intractability: not intractable Qualified Code(s): G43.909 - Migraine, unspecified, not intractable, without status migrainosus Condition: Stable Critical Care Time: No Referrals: RAUL JALLOH [Primary Care Provider] - (1-2 days for reevaluation) BISI SHAFER [NON-STAFF PHY W/O PRIVILEGES] - Follow Up with PCP/3 days Instructions: Headache, Adult (DC) Additional Instructions: Tylenol/ibuprofen as needed. Follow-up with primary care and neurology for reevaluation. Return to ER for any worsening.
[2019-12-10] MEDS ORDERED: Reglan 10 MG/2 ML ONE (09:45)
[2019-12-10] MEDS ORDERED: TORAdol 30 mg Injection ONE (09:45)
[2019-12-10] MEDS ORDERED: BENADRYL 50 MG/ML ONE (09:45)
[2019-12-10] MEDS: BENADRYL 50 MG/ML IM ONE (09:48)
[2019-12-10] MEDS: TORAdol 30 mg Injection IM ONE (09:49)
[2019-12-10] MEDS: Reglan 10 MG/2 ML IM ONE (09:49)
[2019-12-10 10:17] VITALS: BP 115/66; PULSE 60
[2019-12-10 10:41] VITALS: O2SAT 100
== END 2019-12-10 10:54 | disposition home or self-care (01) ==
LOC: ED 09:02
DX: G43.909 Migraine, unspecified, not intractable, without status migrainosus (principal)
CPT/HCPCS: 96372; 99284; J1200; J1885

== ENCOUNTER 2020-01-22 21:51 | Emergency (ER) | payer SELFPAY ==
[2020-01-22] MEDS ORDERED: DELTASONE 20 MG PO ONE (22:42)
--- NOTE | 2020-01-22 22:49 | ERPHSYRPT ---
- History of Present Illness Time Seen by Provider: 01/22/20 22:16 Source: patient Patient Subjective Stated Complaint: pt states she has had sinus congestion, cough, sore throat, and ear pain tonight. states she was seen by tube bender today and was told that her lungs were fine. Triage Nursing Assessment: pt alert and oriented, answers questions approp. pt ambulatory with steady gait noted. respirations nonlabored with lungs cta. no distress ntoed. skin warm and dry. Physician History: 39 years old female presented in the ER with chief complaint of nasal/sinus congestion, sore throat along with dry cough for the last 2 to 3 days after her but then on her face all night and symptoms began the next morning. She has been using [id number] sinus medication with not much relief and prior to arrival she is feeling more congested. No fever or chills reported. Reports having similar symptoms multiple times in the past. Patient denies any chest pain palpitations or shortness of breath. Timing/Duration: today Cough Quality/Degree: mild, dry cough Possible Cause: occasional episodes Modifying Factors: Improves With: nothing Associated Symptoms: nasal congestion, nasal drainage, sinus infection, sore throat Allergies/Adverse Reactions: cephalexin monohydrate [From Keflex] Allergy (Intermediate, Verified 01/22/20 22:16) Hives cefaclor [From Ceclor] Allergy (Mild, Verified 01/22/20 22:16) Hives Home Medications: Aspirin [Aspirin EC] 81 mg PO DAILY 12/07/19 [History] Hx Tetanus, Diphtheria Vaccination/Date Given: Yes Hx Influenza Vaccination/Date Given: No Hx Pneumococcal Vaccination/Date Given: No Immunizations Up to Date: Yes Travel Risk - International Travel Have you traveled outside of the country in past 3 weeks: No - Coronavirus Screening Are you exhibiting any of the following symptoms?: No Close contact with a COVID-19 positive Pt in past 14-21 Days: No - Review of Systems Constitutional: No Symptoms Eyes: No Symptoms Ears, Nose, & Throat: Nose Congestion, Throat Swelling Respiratory: Cough Cardiac: No Symptoms Abdominal/Gastrointestinal: No Symptoms Genitourinary Symptoms: No Symptoms Musculoskeletal: No Symptoms Skin: No Symptoms Neurological: No Symptoms Psychological: No Symptoms Endocrine: No Symptoms Hematologic/Lymphatic: No Symptoms Immunological/Allergic: No Symptoms - Past Medical History Pertinent Past Medical History: Yes Neurological History: Migraines ENT History: No Pertinent History Cardiac History: No Pertinent History Respiratory History: Bronchitis Endocrine Medical History: No Pertinent History Musculoskeletal History: No Pertinent History GI Medical History: No Pertinent History History: No Pertinent History Psycho-Social History: Depression Female Reproductive Disorders: Endometriosis, Other Other Medical History: polycystic ovaries. 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 - Past Surgical History Past Surgical History: Yes Neuro Surgical History: No Pertinent History Cardiac: No Pertinent History Respiratory: No Pertinent History Gastrointestinal: Appendectomy Genitourinary: No Pertinent History Musculoskeletal: No Pertinent History Female Surgical History: Hysterectomy Other Surgical History: HYSTERECTOMY PARTIAL - Social History Smoking Status: Current every day smoker How long have you smoked: years Exposure to second hand smoke: Yes Drug Use: marijuana Patient Lives Alone: No Significant Family History: no pertinent family hx, alpha-1 antitrypsin deficiency - Female History Hx Last Menstrual Period: hyster Hx Now: No - Nursing Vital Signs Nursing Vital Signs: Initial Vital Signs Temperature 98.3 F 01/22/20 22:02 Pulse Rate 96 H 01/22/20 22:02 Respiratory Rate 18 01/22/20 22:02 Blood Pressure 118/80 01/22/20 22:02 O2 Sat by Pulse Oximetry 99 01/22/20 22:02 Pain Scale Pain Intensity 0 - Physical Exam General Appearance: no apparent distress, alert, anxiety Eye Exam: PERRL/EOMI, eyes nml inspection Ears, Nose, Throat Exam: pharyngeal erythema, other (Mild bilateral maxillary tenderness) Neck Exam: normal inspection, supple, full range of motion Respiratory Exam: normal breath sounds, lungs clear Cardiovascular Exam: regular rate/rhythm, normal heart sounds Gastrointestinal/Abdomen Exam: soft, No tenderness Extremity Exam: normal inspection, normal range of motion Neurologic Exam: alert, oriented x 3, cooperative Skin Exam: normal color SpO2 Interpretation: normal SpO2: 99 O2 Delivery: Room Air - Course Nursing assessment & vital signs reviewed: Yes Ordered Tests: Medication Summary Discontinued Medications Generic Name Dose Route Start Last Admin Trade Name Freq PRN Reason Stop Dose Admin Prednisone 60 mg 01/22/20 22:42 01/22/20 22:50 Deltasone 20 Mg PO 01/22/20 22:43 60 mg STAT ONE Administration Prednisone Confirm 01/22/20 22:50 Deltasone 20 Mg Administered 01/22/20 22:51 Dose 60 mg .ROUTE .STK-MED ONE - Progress Progress: unchanged Air Movement: good Progress Note: 01/23/20 00:10 Patient symptoms/signs are consistent with sinusitis. I would start her on oral steroids and Flonase along with Claritin. Outpatient follow-up. Do not think she needs any work-up and is stable for discharge. Lungs are bilateral clear. Blood Culture(s) Obtained: No Antibiotics given: No Counseled pt/family regarding: diagnosis, need for follow-up - Departure Departure Disposition: Home Clinical Impression: Sinusitis Qualifiers: Sinusitis location: maxillary Chronicity: acute Recurrence: not specified as recurrent Qualified Code(s): J01.00 - Acute maxillary sinusitis, unspecified Condition: Stable Critical Care Time: No Referrals: RAUL JALLOH [Primary Care Provider] - Follow Up with PCP/3 days Instructions: Sinusitis, Adult (DC), Cough, Adult (DC) Additional Instructions: Take [id number] cough medications as needed. Take Tylenol/ibuprofen as needed. Continue with Flonase and steroids. Follow-up with primary care for reevaluation. Return to ER for any worsening. Prescriptions: Loratadine 10 mg [Claritin 10 mg] 10 mg PO DAILY #10 tablet Prednisone 20 mg [Deltasone 20 mg] 60 mg PO DAILY 5 Days #15 tablet Fluticasone Propionate [Flonase Allergy Relief] 9.9 ml NS DAILY #1 spray.susp
[2020-01-22] MEDS ORDERED: DELTASONE 20 MG ONE (22:50)
[2020-01-22 23:02] VITALS: BP 130/64; PULSE 87
[2020-01-23 00:09] VITALS: O2SAT 99
== END 2020-01-22 23:03 | disposition home or self-care (01) ==
LOC: ED 21:51
DX: J01.00 Acute maxillary sinusitis, unspecified (principal)
CPT/HCPCS: 99283; A9270-GY

== ENCOUNTER 2020-04-30 01:55 | Emergency (ER) | payer SELFPAY ==
--- NOTE | 2020-04-30 02:21 | ERPHSYRPT ---
- History of Present Illness Time Seen by Provider: 04/30/20 02:10 Historian: patient Exam Limitations: no limitations Patient Subjective Stated Complaint: pt states she began having pain in her lt chest, under her lt breast, radiating up to lt neck. describes pain as pressure. Triage Nursing Assessment: pt alert and oriented, answers questions approp. pt ambulatory with steady gait noted. respirations nonlabored with lungs cta. heart rate 92 on monitor, sinus rhythm. skin pink warm and dry Physician History: This this is a 40-year-old white female who has anxiety and depression issues and presents with sudden onset of left-sided chest pain described as a pressure with radiation to her left back. Began at approximately 00 45 this morning. Patient is a chronic smoker. She takes no medications chronically. Patient has had intermittent chest pain in the past but nothing like this. She denies cough. She denies fever. She denies shortness of breath. Patient is not under any new or worsening stressors at home. Timing/Duration: today Activities at Onset: none Quality: pressure Location: other (Left anterior chest) Chest Pain Radiation: back (Left) Severity of Pain-Max: mild Severity of Pain-Current: mild Modifying Factors: Improves With: nothing Associated Symptoms: denies symptoms Nitro Today/Relief: no nitro taken today Aspirin Treatment Today: no aspirin today Allergies/Adverse Reactions: cephalexin monohydrate [From Keflex] Allergy (Intermediate, Verified 01/22/20 22:16) Hives cefaclor [From Ceclor] Allergy (Mild, Verified 01/22/20 22:16) Hives Home Medications: Aspirin [Aspirin EC] 81 mg PO DAILY 12/07/19 [History] Hx Tetanus, Diphtheria Vaccination/Date Given: Yes Hx Influenza Vaccination/Date Given: No Hx Pneumococcal Vaccination/Date Given: No Immunizations Up to Date: Yes Travel Risk - International Travel Have you traveled outside of the country in past 3 weeks: No - Coronavirus Screening Are you exhibiting any of the following symptoms?: No Close contact with a COVID-19 positive Pt in past 14-21 Days: No - Review of Systems Constitutional: No Symptoms Eyes: No Symptoms Ears, Nose, & Throat: No Symptoms Respiratory: No Symptoms Cardiac: Chest Pain Abdominal/Gastrointestinal: No Symptoms Genitourinary Symptoms: No Symptoms Musculoskeletal: No Symptoms Skin: No Symptoms Neurological: No Symptoms Psychological: No Symptoms Endocrine: No Symptoms Hematologic/Lymphatic: No Symptoms Immunological/Allergic: No Symptoms All Other Systems: Reviewed and Negative - Past Medical History Pertinent Past Medical History: Yes Neurological History: Migraines ENT History: No Pertinent History Cardiac History: No Pertinent History Respiratory History: Bronchitis Endocrine Medical History: No Pertinent History Musculoskeletal History: No Pertinent History GI Medical History: No Pertinent History History: No Pertinent History Psycho-Social History: Depression Female Reproductive Disorders: Endometriosis, Other Other Medical History: polycystic ovaries. 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 - Past Surgical History Past Surgical History: Yes Neuro Surgical History: No Pertinent History Cardiac: No Pertinent History Respiratory: No Pertinent History Gastrointestinal: Appendectomy Genitourinary: No Pertinent History Musculoskeletal: No Pertinent History Female Surgical History: Hysterectomy Other Surgical History: HYSTERECTOMY PARTIAL - Social History Smoking Status: Current every day smoker How long have you smoked: years Exposure to second hand smoke: Yes Drug Use: marijuana Patient Lives Alone: No Significant Family History: no pertinent family hx, alpha-1 antitrypsin deficiency - Female History Hx Last Menstrual Period: hyster Hx Now: No - Nursing Vital Signs Nursing Vital Signs: Initial Vital Signs Temperature 97.7 F 04/30/20 01:57 Pulse Rate 92 H 04/30/20 01:57 Respiratory Rate 18 04/30/20 01:57 Blood Pressure 130/47 04/30/20 01:57 O2 Sat by Pulse Oximetry 100 04/30/20 01:57 Pain Scale Pain Intensity 5 - Physical Exam General Appearance: no apparent distress, alert, anxiety, thin Eye Exam: PERRL/EOMI, eyes nml inspection Ears, Nose, Throat Exam: normal ENT inspection, moist mucous membranes Neck Exam: normal inspection, non-tender, supple, full range of motion Respiratory Exam: normal breath sounds, chest tenderness, lungs clear, airway intact, No respiratory distress Cardiovascular Exam: regular rate/rhythm, normal heart sounds, normal peripheral pulses Gastrointestinal/Abdomen Exam: soft, normal bowel sounds, No tenderness Pelvic Exam: not done Rectal Exam: not done Back Exam: normal inspection, normal range of motion, No CVA tenderness, No vertebral tenderness Extremity Exam: normal inspection, normal range of motion, pelvis stable Neurologic Exam: alert, oriented x 3, cooperative, archeologist classical II-XII nml as tested, normal mood/affect, nml cerebellar function, nml station & gait, sensation nml Skin Exam: normal color, warm, dry Lymphatic Exam: No adenopathy SpO2 Interpretation: normal SpO2: 100 O2 Delivery: Room Air - Course Nursing assessment & vital signs reviewed: Yes EKG Interpreted by Me: RATE ([id number]), Sinus Rhythm, NORMAL AXIS, NORMAL INTERVALS, NORMAL QRS, Other (The nonspecific ST-T segment changes that were present on the comparison EKG dated 10/19/2019 are now resolved on this EKG. There are no acute ischemic changes on the current EKG) Ordered Tests: Active Orders 24 hr Category Date Time Status Estimator STAT Care 04/30/20 02:22 Active EKG-ER Only STAT Care 04/30/20 02:21 Active IV Insertion STAT Care 04/30/20 02:21 Active Pulse Oximetry (ED) STAT Care 04/30/20 02:21 Active CHEST 1 VIEW (PORTABLE) Stat Exams 04/30/20 02:22 Taken CBC W DIFF Stat Lab 04/30/20 02:28 Completed CMP Stat Lab 04/30/20 02:28 Completed D-DIMER QUANTITATIVE Stat Lab 04/30/20 02:28 Completed NT PRO BNP Stat Lab 04/30/20 02:28 Completed TROPONIN Q3H Lab 04/30/20 02:28 Completed TROPONIN Q3H Lab 04/30/20 05:30 Ordered TROPONIN Q3H Lab 04/30/20 08:30 Ordered TROPONIN Q3H Lab 04/30/20 11:30 Ordered TROPONIN Q3H Lab 04/30/20 14:30 Ordered Medication Summary Discontinued Medications Generic Name Dose Route Start Last Admin Trade Name Freq PRN Reason Stop Dose Admin Aspirin 324 mg 04/30/20 02:30 04/30/20 02:36 Baby Aspirin 81 Mg Chew PO 04/30/20 02:31 324 mg STAT ONE Administration Lab/Rad Data: Laboratory Result Diagrams 04/30/20 02:28 04/30/20 02:28 Laboratory Results 04/30/20 04/30/20 04/30/20 Range/Units 02:28 02:28 02:28 WBC (4.0-10.5) K/mm3 RBC (4.1-5.4) M/mm3 Hgb (12.0-16.0) gm/dl Hct (35-47) % MCV (78-100) fl MCH (26-32) pg MCHC (32-36) g/dl RDW (11.5-14.0) % Plt Count (150-450) K/mm3 MPV (7.5-11.0) fl Gran % (36.0-66.0) % Eos # (Auto) (0-0.5) Absolute Lymphs (auto) (1.0-4.6) Absolute Monos (auto) (0.0-1.3) Lymphocytes % (24.0-44.0) % Monocytes % (0.0-12.0) % Eosinophils % (0.00-5.0) % Basophils % (0.0-0.4) % Absolute Granulocytes (1.4-6.9) Basophils # (0-0.4) D-Dimer 290 (215-500) ng/mL Sodium 136 L (137-145) mmol/L Potassium 3.7 (3.5-5.1) mmol/L Chloride 104 (98-107) mmol/L Carbon Dioxide 28 (22-30) mmol/L Anion Gap 7.7 (5-15) MEQ/L BUN 8 (7-17) mg/dL Creatinine 0.70 (0.52-1.04) mg/dL Estimated GFR > 60.0 ML/MIN Glucose 99 (74-106) mg/dL Calcium 9.2 (8.4-10.2) mg/dL Total Bilirubin 0.50 (0.2-1.3) mg/dL AST 21 (14-36) U/L ALT 12 (0-35) U/L Alkaline Phosphatase 39 (38-126) U/L Troponin I < 0.012 (0.000-0.034) ng/mL NT-Pro-B Natriuret Pep 29.2 (0-450) pg/mL Serum Total Protein 7.6 (6.3-8.2) g/dL Albumin 4.4 (3.5-5.0) g/dL 04/30/20 Range/Units 02:28 WBC 8.7 (4.0-10.5) K/mm3 RBC 4.52 (4.1-5.4) M/mm3 Hgb 14.4 (12.0-16.0) gm/dl Hct 43.2 (35-47) % MCV 95.6 (78-100) fl MCH 31.9 (26-32) pg MCHC 33.3 (32-36) g/dl RDW 12.8 (11.5-14.0) % Plt Count 172 (150-450) K/mm3 MPV 10.9 (7.5-11.0) fl Gran % 50.6 (36.0-66.0) % Eos # (Auto) 0.34 (0-0.5) Absolute Lymphs (auto) 3.21 (1.0-4.6) Absolute Monos (auto) 0.73 (0.0-1.3) Lymphocytes % 36.9 (24.0-44.0) % Monocytes % 8.4 (0.0-12.0) % Eosinophils % 3.9 (0.00-5.0) % Basophils % 0.2 (0.0-0.4) % Absolute Granulocytes 4.39 (1.4-6.9) Basophils # 0.02 (0-0.4) D-Dimer (215-500) ng/mL Sodium (137-145) mmol/L Potassium (3.5-5.1) mmol/L Chloride (98-107) mmol/L Carbon Dioxide (22-30) mmol/L Anion Gap (5-15) MEQ/L BUN (7-17) mg/dL Creatinine (0.52-1.04) mg/dL Estimated GFR ML/MIN Glucose (74-106) mg/dL Calcium (8.4-10.2) mg/dL Total Bilirubin (0.2-1.3) mg/dL AST (14-36) U/L ALT (0-35) U/L Alkaline Phosphatase (38-126) U/L Troponin I (0.000-0.034) ng/mL NT-Pro-B Natriuret Pep (0-450) pg/mL Serum Total Protein (6.3-8.2) g/dL Albumin (3.5-5.0) g/dL - Progress Progress: improved, re-examined Air Movement: good Progress Note: 04/30/20 02:35 Chest x-ray shows no acute cardiopulmonary process. Blood Culture(s) Obtained: No Antibiotics given: No Counseled pt/family regarding: lab results, diagnosis, need for follow-up, rad results - Departure Departure Disposition: Home Clinical Impression: Chest pain Condition: Stable Critical Care Time: No Referrals: RAUL JALLOH [Primary Care Provider] - Additional Instructions: Follow-up with your primary care physician for further management and evaluation.
[2020-04-30] MEDS ORDERED: BABY ASPIRIN 81 MG CHEW PO ONE (02:30)
[2020-04-30 02:51] LABS: Absolute Neutrophil Ct (ANC) 4.39 (1.4-6.9); BASOPHIL % 0.2 % (0.0-0.4); Basophil (Absolute #) 0.02 (0-0.4); Eosinophil % 3.9 % (0.00-5.0); Eosinophil (Absolute #) 0.34 (0-0.5); Hematocrit 43.2 % (35-47); Hemoglobin 14.4 gm/dl (12.0-16.0); Lymphocyte (Absolute #) 3.21 (1.0-4.6); Lymphocytes % 36.9 % (24.0-44.0); Mean Cell Volume 95.6 fl (78-100); Mean Corpuscular Hemoglobin 31.9 pg (26-32); Mean Corpuscular Hgb Concent. 33.3 g/dl (32-36); Mean Platelet Volume 10.9 fl (7.5-11.0); Monocyte (Absolute #) 0.73 (0.0-1.3); Monocytes % 8.4 % (0.0-12.0); Neutrophil % 50.6 % (36.0-66.0); Platelet Count 172 K/mm3 (150-450); Red Blood Count 4.52 M/mm3 (4.1-5.4); Red Cell Distribution Width 12.8 % (11.5-14.0); White Blood Count 8.7 K/mm3 (4.0-10.5)
[2020-04-30 02:53] LABS: ALBUMIN 4.4 g/dL (3.5-5.0); ALKALINE PHOSPHATASE 39 U/L (38-126); ANION GAP 7.7 MEQ/L (5-15); BLOOD UREA NITROGEN 8 mg/dL (7-17); CHLORIDE 104 mmol/L (98-107); Calcium 9.2 mg/dL (8.4-10.2); Carbon Dioxide 28 mmol/L (22-30); EST GLOMERULAR FILTRATION RATE > 60.0 ML/MIN; Glucose 99 mg/dL (74-106); NT PRO BNP 29.2 pg/mL (0-450); Potassium 3.7 mmol/L (3.5-5.1); SGOT/AST 21 U/L (14-36); SGPT/ALT 12 U/L (0-35); SODIUM 136 mmol/L (137-145); Total Protein 7.6 g/dL (6.3-8.2)
[2020-04-30 03:18] VITALS: BP 130/51; PULSE 66; O2SAT 98
--- NOTE | 2020-04-30 08:54 | XRAY ---
Indication: Chest pain and short of breath. Comparison: October 19, 2019. Portable chest remains hyperinflated and clear. Heart is not enlarged. Bony thorax intact. No new/acute findings.
== END 2020-04-30 03:33 | disposition home or self-care (01) ==
LOC: ED 01:55
DX: R07.89 Other chest pain (principal)
CPT/HCPCS: 36000; 36415; 71045; 80053; 83880; 84484; 85025; 85379; 93005; 93041; 94760; 99284; A9270-GY

== ENCOUNTER 2020-05-08 15:00 | Emergency (ER) | payer SELFPAY ==
--- NOTE | 2020-05-08 15:11 | ERPHSYRPT ---
- History of Present Illness Time Seen by Provider: 05/08/20 15:10 Historian: patient Exam Limitations: no limitations Physician History: This is a 40-year-old white female who has had a history of an appendectomy and a hysterectomy in the past and presents with epigastric abdominal pain. Patient was seen 8 days ago and had a negative work-up for chest pain. She has a history of anxiety and depression. She is a chronic smoker. She was tested positive for COVID-19 in October 2019. She has no cough. She has no chest pain. She has no vomiting or diarrhea. However she did have some nausea today. The pain came on suddenly at 2:00 this morning. No other individuals in the family have similar symptoms Timing/Duration: today, day(s) Activities at Onset: none Quality: aching Abdominal Pain Onset Location: epigastric Pain Radiation: no radiation Severity of Pain-Max: moderate Severity of Pain-Current: moderate Modifying Factors: Improves With: nothing Associated Symptoms: nausea, No chest pain, No shortness of breath, No vomiting Previous symptoms: no prior history, recently seen Allergies/Adverse Reactions: cephalexin monohydrate [From Keflex] Allergy (Intermediate, Verified 05/08/20 15:20) Hives cefaclor [From Ceclor] Allergy (Mild, Verified 05/08/20 15:20) Hives Home Medications: Aspirin [Aspirin EC] 81 mg PO DAILY 12/07/19 [History] Hx Tetanus, Diphtheria Vaccination/Date Given: Yes Hx Influenza Vaccination/Date Given: No Hx Pneumococcal Vaccination/Date Given: No Travel Risk - International Travel Have you traveled outside of the country in past 3 weeks: No - Coronavirus Screening Are you exhibiting any of the following symptoms?: No Close contact with a COVID-19 positive Pt in past 14-21 Days: No - Review of Systems Constitutional: No Symptoms Eyes: No Symptoms Ears, Nose, & Throat: No Symptoms Respiratory: No Symptoms Cardiac: No Symptoms Abdominal/Gastrointestinal: No Symptoms Genitourinary Symptoms: No Symptoms Musculoskeletal: No Symptoms Skin: No Symptoms Neurological: No Symptoms Psychological: No Symptoms Endocrine: No Symptoms Hematologic/Lymphatic: No Symptoms Immunological/Allergic: No Symptoms All Other Systems: Reviewed and Negative - Past Medical History Pertinent Past Medical History: Yes Neurological History: Migraines ENT History: No Pertinent History Cardiac History: No Pertinent History Respiratory History: Bronchitis Endocrine Medical History: No Pertinent History Musculoskeletal History: No Pertinent History GI Medical History: No Pertinent History History: No Pertinent History Psycho-Social History: Depression Female Reproductive Disorders: Endometriosis, Other Other Medical History: polycystic ovaries. 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 - Past Surgical History Past Surgical History: Yes Neuro Surgical History: No Pertinent History Cardiac: No Pertinent History Respiratory: No Pertinent History Gastrointestinal: Appendectomy Genitourinary: No Pertinent History Musculoskeletal: No Pertinent History Female Surgical History: Hysterectomy Other Surgical History: HYSTERECTOMY PARTIAL - Social History Smoking Status: Current every day smoker How long have you smoked: years Exposure to second hand smoke: Yes Drug Use: marijuana Patient Lives Alone: No Significant Family History: no pertinent family hx, alpha-1 antitrypsin defic iency - Nursing Vital Signs Nursing Vital Signs: Initial Vital Signs Temperature 97.9 F 05/08/20 15:10 Pulse Rate 85 05/08/20 15:10 Respiratory Rate 16 05/08/20 15:10 Blood Pressure 134/61 05/08/20 15:10 O2 Sat by Pulse Oximetry 98 05/08/20 15:10 Pain Scale Pain Intensity 4 - Physical Exam General Appearance: no apparent distress, alert, anxiety Eye Exam: PERRL/EOMI, eyes nml inspection Ears, Nose, Throat Exam: normal ENT inspection, moist mucous membranes Neck Exam: normal inspection, non-tender, supple, full range of motion Respiratory Exam: normal breath sounds, lungs clear, respiratory distress, airway intact, No chest tenderness Cardiovascular Exam: regular rate/rhythm, normal heart sounds, normal peripheral pulses Gastrointestinal/Abdomen Exam: soft, normal bowel sounds, tenderness (Epigastric), guarding Pelvic Exam: not done Rectal Exam: not done Back Exam: normal inspection, normal range of motion, No CVA tenderness, No vertebral tenderness Extremity Exam: normal inspection, normal range of motion, pelvis stable Neurologic Exam: alert, oriented x 3, cooperative, 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, normal mood/affect, nml cerebellar function, nml station & gait, sensation nml Skin Exam: normal color, warm, dry Lymphatic Exam: No adenopathy SpO2 Interpretation: normal O2 Delivery: Room Air Ordered Tests: Active Orders 24 hr Category Date Time Status Clean Catch Urine Specimen STAT Care 05/08/20 15:41 Active IV Insertion STAT Care 05/08/20 15:41 Active ABDOMEN AND PELVIS W/0 CONTRAS [CT] Stat Exams 05/08/20 15:41 Taken AMYLASE Stat Lab 05/08/20 15:48 Completed CBC W DIFF Stat Lab 05/08/20 15:48 Completed CMP Stat Lab 05/08/20 15:48 Completed LIPASE Stat Lab 05/08/20 15:48 Completed Lactic Acid Stat Lab 05/08/20 15:41 Completed UA W/RFX UR CULTURE Stat Lab 05/08/20 15:45 Completed Urine Triage Profile Stat Lab 05/08/20 15:45 Completed Medication Summary Discontinued Medications Generic Name Dose Route Start Last Admin Trade Name Freq PRN Reason Stop Dose Admin Hydromorphone HCl 0.5 mg 05/08/20 15:41 05/08/20 15:53 Hydromorphone 1 Mg/Ml Injection IV 05/08/20 15:42 Not Given STAT ONE Hydromorphone HCl Confirm 05/08/20 15:46 Hydromorphone 1 Mg/Ml Injection Administered 05/08/20 15:47 Dose 1 mg .ROUTE .STK-MED ONE Sodium Chloride 1,000 mls @ 999 mls/hr 05/08/20 15:41 05/08/20 15:48 Sodium Chloride 0.9% 1000 Ml IV 05/08/20 16:41 999 mls/hr .Q1H1M STA Administration Sodium Chloride Confirm 05/08/20 15:46 Sodium Chloride 0.9% 1000 Ml Administered 05/08/20 15:47 Dose 1,000 mls @ ud .ROUTE .STK-MED ONE Ondansetron HCl 4 mg 05/08/20 15:41 05/08/20 15:49 Zofran 4 Mg/2 Ml Vial IV 05/08/20 15:42 4 mg STAT ONE Administration Ondansetron HCl Confirm 05/08/20 15:45 Zofran 4 Mg/2 Ml Vial Administered 05/08/20 15:46 Dose 4 mg .ROUTE .STK-MED ONE Pantoprazole Sodium 40 mg 05/08/20 15:41 05/08/20 15:49 Protonix 40 Mg Iv IV 05/08/20 15:42 40 mg STAT ONE Administration Pantoprazole Sodium Confirm 05/08/20 15:45 Protonix 40 Mg Iv Administered 05/08/20 15:46 Dose 40 mg IV .STK-MED ONE Lab/Rad Data: Laboratory Result Diagrams 05/08/20 15:48 05/08/20 15:48 Laboratory Results 05/08/20 05/08/20 05/08/20 Range/Units 15:48 15:48 15:45 WBC 8.6 (4.0-10.5) K/mm3 RBC 5.03 (4.1-5.4) M/mm3 Hgb 16.1 H (12.0-16.0) gm/dl Hct 48.1 H (35-47) % MCV 95.6 (78-100) fl MCH 32.0 (26-32) pg MCHC 33.5 (32-36) g/dl RDW 12.7 (11.5-14.0) % Plt Count 186 (150-450) K/mm3 MPV 10.8 (7.5-11.0) fl Gran % 66.7 H (36.0-66.0) % Eos # (Auto) 0.12 (0-0.5) Absolute Lymphs (auto) 2.06 (1.0-4.6) Absolute Monos (auto) 0.68 (0.0-1.3) Lymphocytes % 23.8 L (24.0-44.0) % Monocytes % 7.9 (0.0-12.0) % Eosinophils % 1.4 (0.00-5.0) % Basophils % 0.2 (0.0-0.4) % Absolute Granulocytes 5.76 (1.4-6.9) Basophils # 0.02 (0-0.4) Sodium 139 (137-145) mmol/L Potassium 4.1 (3.5-5.1) mmol/L Chloride 102 (98-107) mmol/L Carbon Dioxide 29 (22-30) mmol/L Anion Gap 11.6 (5-15) MEQ/L BUN 9 (7-17) mg/dL Creatinine 0.78 (0.52-1.04) mg/dL Estimated GFR > 60.0 ML/MIN Glucose 87 (74-106) mg/dL Lactic Acid (0.4-2.0) Calcium 9.8 (8.4-10.2) mg/dL Total Bilirubin 0.80 (0.2-1.3) mg/dL AST 24 (14-36) U/L ALT 14 (0-35) U/L Alkaline Phosphatase 40 (38-126) U/L Serum Total Protein 7.8 (6.3-8.2) g/dL Albumin 4.7 (3.5-5.0) g/dL Amylase 68 (30-110) U/L Lipase 87 (23-300) U/L Urine Color (YELLOW) Urine Appearance (CLEAR) Urine pH (5-6) Ur Specific [place] (1.005-1.025) Urine Protein (Negative) Urine Ketones (NEGATIVE) Urine Blood (0-5) Robinson/ul Urine Nitrite (NEGATIVE) Urine Bilirubin (NEGATIVE) Urine Urobilinogen (0-1) mg/dL Ur Leukocyte Esterase (NEGATIVE) Urine WBC (Auto) (0-5) /HPF Urine RBC (Auto) (0-2) /HPF U Epithel Cells (Auto) (FEW) /HPF Urine Bacteria (Auto) (NEGATIVE) /HPF Urine Mucus (Auto) (NEGATIVE) /HPF Urine Culture Reflexed (NO) Urine Glucose (NEGATIVE) mg/dL Urine Opiates Level NEGATIVE (NEGATIVE) Ur Methadone NEGATIVE (NEGATIVE) Urine Barbiturates NEGATIVE (NEGATIVE) Ur Phencyclidine (PCP) NEGATIVE (NEGATIVE) Urine Amphetamine NEGATIVE (NEGATIVE) U Benzodiazepine Level NEGATIVE (NEGATIVE) Urine Cocaine NEGATIVE (NEGATIVE) Urine Marijuana (THC) POSITIVE (NEGATIVE) 05/08/20 05/08/20 Range/Units 15:45 15:41 WBC (4.0-10.5) K/mm3 RBC (4.1-5.4) M/mm3 Hgb (12.0-16.0) gm/dl Hct (35-47) % MCV (78-100) fl MCH (26-32) pg MCHC (32-36) g/dl RDW (11.5-14.0) % Plt Count (150-450) K/mm3 MPV (7.5-11.0) fl Gran % (36.0-66.0) % Eos # (Auto) (0-0.5) Absolute Lymphs (auto) (1.0-4.6) Absolute Monos (auto) (0.0-1.3) Lymphocytes % (24.0-44.0) % Monocytes % (0.0-12.0) % Eosinophils % (0.00-5.0) % Basophils % (0.0-0.4) % Absolute Granulocytes (1.4-6.9) Basophils # (0-0.4) Sodium (137-145) mmol/L Potassium (3.5-5.1) mmol/L Chloride (98-107) mmol/L Carbon Dioxide (22-30) mmol/L Anion Gap (5-15) MEQ/L BUN (7-17) mg/dL Creatinine (0.52-1.04) mg/dL Estimated GFR ML/MIN Glucose (74-106) mg/dL Lactic Acid 1.0 (0.4-2.0) Calcium (8.4-10.2) mg/dL Total Bilirubin (0.2-1.3) mg/dL AST (14-36) U/L ALT (0-35) U/L Alkaline Phosphatase (38-126) U/L Serum Total Protein (6.3-8.2) g/dL Albumin (3.5-5.0) g/dL Amylase (30-110) U/L Lipase (23-300) U/L Urine Color YELLOW (YELLOW) Urine Appearance SLIGHTLY CLOUDY (CLEAR) Urine pH 8.0 (5-6) Ur Specific [place] 1.020 (1.005-1.025) Urine Protein NEGATIVE (Negative) Urine Ketones NEGATIVE (NEGATIVE) Urine Blood NEGATIVE (0-5) Robinson/ul Urine Nitrite NEGATIVE (NEGATIVE) Urine Bilirubin NEGATIVE (NEGATIVE) Urine Urobilinogen 4 (0-1) mg/dL Ur Leukocyte Esterase NEGATIVE (NEGATIVE) Urine WBC (Auto) 0-2 (0-5) /HPF Urine RBC (Auto) NONE (0-2) /HPF U Epithel Cells (Auto) RARE (FEW) /HPF Urine Bacteria (Auto) NONE (NEGATIVE) /HPF Urine Mucus (Auto) SLIGHT (NEGATIVE) /HPF Urine Culture Reflexed NO (NO) Urine Glucose NEGATIVE (NEGATIVE) mg/dL Urine Opiates Level (NEGATIVE) Ur Methadone (NEGATIVE) Urine Barbiturates (NEGATIVE) Ur Phencyclidine (PCP) (NEGATIVE) Urine Amphetamine (NEGATIVE) U Benzodiazepine Level (NEGATIVE) Urine Cocaine (NEGATIVE) Urine Marijuana (THC) (NEGATIVE) - Progress Progress: improved, pain not gone completely, re-examined Progress Note: 05/08/20 16:51 CAT scan of the abdomen and pelvis shows a small amount of pelvic fluid possibly gynecologic in nature. No other acute intra-abdominal process present Counseled pt/family regarding: lab results, diagnosis, need for follow-up, rad results - Departure Departure Disposition: Home Clinical Impression: Abdominal pain Condition: Stable Critical Care Time: No Referrals: RAUL JALLOH [Primary Care Provider] - Additional Instructions: Avoid fatty greasy spicy foods. Follow-up with your primary care physician for further management. Prescriptions: Famotidine 20 mg [Pepcid 20 MG] 20 mg PO DAILY #10 tablet
[2020-05-08] MEDS ORDERED: Zofran 4 MG/2 ML VIAL IV ONE (15:41)
[2020-05-08] MEDS ORDERED: Sodium Chloride 0.9% 1000 ML 1,000 ML IV STA (15:41)
[2020-05-08] MEDS ORDERED: PROTONIX 40 MG IV IV ONE ×2 (15:41→15:45)
[2020-05-08] MEDS ORDERED: Hydromorphone 1 mg/ml Injection IV ONE (15:41)
[2020-05-08] MEDS ORDERED: Zofran 4 MG/2 ML VIAL ONE (15:45)
[2020-05-08] MEDS ORDERED: Hydromorphone 1 mg/ml Injection ONE (15:46)
[2020-05-08] MEDS ORDERED: Sodium Chloride 0.9% 1000 ML 1,000 ML ONE (15:46)
[2020-05-08 15:51] LABS: Absolute Neutrophil Ct (ANC) 5.76 (1.4-6.9); BASOPHIL % 0.2 % (0.0-0.4); Basophil (Absolute #) 0.02 (0-0.4); Eosinophil % 1.4 % (0.00-5.0); Eosinophil (Absolute #) 0.12 (0-0.5); Hematocrit 48.1 % (35-47); Hemoglobin 16.1 gm/dl (12.0-16.0); Lymphocyte (Absolute #) 2.06 (1.0-4.6); Lymphocytes % 23.8 % (24.0-44.0); Mean Cell Volume 95.6 fl (78-100); Mean Corpuscular Hgb Concent. 33.5 g/dl (32-36); Mean Platelet Volume 10.8 fl (7.5-11.0); Monocyte (Absolute #) 0.68 (0.0-1.3); Monocytes % 7.9 % (0.0-12.0); Neutrophil % 66.7 % (36.0-66.0); Platelet Count 186 K/mm3 (150-450); Red Blood Count 5.03 M/mm3 (4.1-5.4); Red Cell Distribution Width 12.7 % (11.5-14.0); White Blood Count 8.6 K/mm3 (4.0-10.5)
[2020-05-08 15:52] LABS: Appearance SLIGHTLY CLOUDY (CLEAR); Bilirubin NEGATIVE (NEGATIVE); Blood NEGATIVE Ery/ul (0-5); Epithelial Cells RARE /HPF (FEW); Glucose NEGATIVE (NEGATIVE); Ketones NEGATIVE (NEGATIVE); Leukocyte Esterase NEGATIVE (NEGATIVE); Mucus SLIGHT /HPF (NEGATIVE); Nitrite NEGATIVE (NEGATIVE); Protein,Urine Dip NEGATIVE (Negative); Urobilinogen 4 mg/dL (0-1); WBC 0-2 /HPF (0-5)
[2020-05-08 15:55] LABS: ALBUMIN 4.7 g/dL (3.5-5.0); ALKALINE PHOSPHATASE 40 U/L (38-126); AMYLASE 68 U/L (30-110); ANION GAP 11.6 MEQ/L (5-15); BLOOD UREA NITROGEN 9 mg/dL (7-17); CHLORIDE 102 mmol/L (98-107); Calcium 9.8 mg/dL (8.4-10.2); Carbon Dioxide 29 mmol/L (22-30); Creatinine 1 0.78 mg/dL (0.52-1.04); EST GLOMERULAR FILTRATION RATE > 60.0 ML/MIN; Glucose 87 mg/dL (74-106); LIPASE 87 U/L (23-300); Potassium 4.1 mmol/L (3.5-5.1); SGOT/AST 24 U/L (14-36); SGPT/ALT 14 U/L (0-35); SODIUM 139 mmol/L (137-145); Total Protein 7.8 g/dL (6.3-8.2)
[2020-05-08 16:07] LABS: Amphetamine,Urine NEGATIVE (NEGATIVE); Barbiturate,Urine NEGATIVE (NEGATIVE); Benzodiazepine,Urine NEGATIVE (NEGATIVE); Cocaine,Urine NEGATIVE (NEGATIVE); Methadone,Urine NEGATIVE (NEGATIVE); Opiate,Urine NEGATIVE (NEGATIVE); PCP,Urine NEGATIVE (NEGATIVE); THC,Urine POSITIVE (NEGATIVE)
[2020-05-08 16:12] VITALS: O2SAT 99
[2020-05-08 17:10] VITALS: BP 114/56; PULSE 67
--- NOTE | 2020-05-08 19:17 | XRAY ---
Indication: Abdomen pain and vomiting. Multiple contiguous axial images obtained through the abdomen and pelvis without contrast as ordered. Comparison: August 09, 2019. Lung bases remain clear. Heart is not enlarged. Noncontrasted stomach and bowel loops appear nonobstructed. Appendectomy and partial hysterectomy reported. Tiny nonspecific pelvic free fluid. No walled off fluid collection or free air. Gallbladder contracted without gallstones. Remaining liver, gallbladder, pancreas, spleen, adrenal glands, kidneys, ureters, and bladder appear unremarkable for noncontrast exam. Minimal aortoiliac calcifications without AAA. Osseous structures intact. Impression: 1. Tiny pelvic free fluid, possibly physiologic from rupture/leaking cyst. 2. Remaining CT abdomen/pelvis without contrast exam is negative. Comment: Preliminary interpretation was made by [facility]. No critical discrepancy.
== END 2020-05-08 17:11 | disposition home or self-care (01) ==
LOC: ED 15:00
DX: R10.9 Unspecified abdominal pain (principal)
CPT/HCPCS: 36000; 36415; 74176; 80053; 80307; 81001; 82150; 83605; 83690; 85025; 96360; 96374; 96375; 99284; J1170; J2405

== ENCOUNTER 2020-06-17 00:03 | Emergency (ER) | payer OTHER ==
--- NOTE | 2020-06-17 00:23 | ERPHSYRPT ---
- History of Present Illness Time Seen by Provider: 06/17/20 00:23 Source: patient Exam Limitations: no limitations Physician History: This is a 40-year-old white female has a history of migraine headaches and presents with onset of a migraine headache at approximately 8 AM on 06/16/2020. She took Excedrin migraine headache this morning and it did not seem to help much. She then took Aleve medication this evening and that did not help. It is not her typical migraine headache. She has had nausea but no vomiting. She did not suffer any trauma or head injury. Patient has not had any myalgias arthralgias or fevers. She has no nausea vomiting or diarrhea. She has no flulike symptoms. Patient has some mild sensitivity to light but no blurred vision. Timing/Duration: today Quality: pressure Head Pain Location: global Severity of Pain-Max: moderate Severity of Pain-Current: moderate Recent Head Trauma: occasional headaches Modifying Factors: Improves With: exposure to light, noise Associated Symptoms: denies symptoms Previous symptoms: different symptoms Allergies/Adverse Reactions: cephalexin monohydrate [From Keflex] Allergy (Intermediate, Verified 05/08/20 15:20) Hives cefaclor [From Ceclor] Allergy (Mild, Verified 05/08/20 15:20) Hives Home Medications: Aspirin [Aspirin EC] 81 mg PO DAILY 12/07/19 [History] Hx Tetanus, Diphtheria Vaccination/Date Given: Yes Hx Influenza Vaccination/Date Given: No Hx Pneumococcal Vaccination/Date Given: No Travel Risk - International Travel Have you traveled outside of the country in past 3 weeks: No - Coronavirus Screening Are you exhibiting any of the following symptoms?: No Close contact with a COVID-19 positive Pt in past 14-21 Days: No - Review of Systems Constitutional: No Symptoms Eyes: No Symptoms Ears, Nose, & Throat: No Symptoms Respiratory: No Symptoms Cardiac: No Symptoms Abdominal/Gastrointestinal: No Symptoms Genitourinary Symptoms: No Symptoms Musculoskeletal: No Symptoms Skin: No Symptoms Neurological: Headache Psychological: No Symptoms Endocrine: No Symptoms Hematologic/Lymphatic: No Symptoms Immunological/Allergic: No Symptoms All Other Systems: Reviewed and Negative - Past Medical History Pertinent Past Medical History: Yes Neurological History: Migraines ENT History: No Pertinent History Cardiac History: No Pertinent History Respiratory History: Bronchitis Endocrine Medical History: No Pertinent History Musculoskeletal History: No Pertinent History GI Medical History: No Pertinent History History: No Pertinent History Psycho-Social History: Depression Female Reproductive Disorders: Endometriosis, Other Other Medical History: polycystic ovaries. 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 - Past Surgical History Past Surgical History: Yes Neuro Surgical History: No Pertinent History Cardiac: No Pertinent History Respiratory: No Pertinent History Gastrointestinal: Appendectomy Genitourinary: No Pertinent History Musculoskeletal: No Pertinent History Female Surgical History: Hysterectomy Other Surgical History: HYSTERECTOMY PARTIAL - Social History Smoking Status: Current every day smoker How long have you smoked: years Exposure to second hand smoke: Yes Drug Use: marijuana Patient Lives Alone: No Significant Family History: no pertinent family hx, alpha-1 antitrypsin deficiency - Nursing Vital Signs Nursing Vital Signs: Initial Vital Signs Temperature 98.1 F 06/17/20 00:15 Pulse Rate 62 06/17/20 00:15 Respiratory Rate 18 06/17/20 00:15 Blood Pressure 122/58 06/17/20 00:15 O2 Sat by Pulse Oximetry 96 06/17/20 00:15 Pain Scale Pain Intensity 7 - Physical Exam General Appearance: moderate distress, alert, anxiety, thin Eye Exam: PERRL/EOMI, eyes nml inspection Ears, Nose, Throat Exam: normal ENT inspection, moist mucous membranes, tonsillar exudate Neck Exam: normal inspection, non-tender, supple Respiratory Exam: normal breath sounds, lungs clear, airway intact, No chest tenderness, No respiratory distress Cardiovascular Exam: regular rate/rhythm, normal heart sounds, normal peripheral pulses Gastrointestinal/Abdominal Exam: soft, normal bowel sounds, No tenderness Back Exam: normal inspection, normal range of motion, No CVA tenderness, No vertebral tenderness Extremity Exam: normal inspection, normal range of motion, pelvis stable Mental Status Exam: alert, oriented x 3, 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 Exam: normal hearing, normal speech, PERRL Coordination/Gait Exam: normal finger to nose, normal gait, normal cerebellar function Motor/Sensory Exam: no motor deficit, no sensory deficit Skin Exam: normal color, warm, dry Lymphatic Exam: No adenopathy SpO2 Interpretation: normal O2 Delivery: Room Air - Course Nursing assessment & vital signs reviewed: Yes Ordered Tests: Active Orders 24 hr Category Date Time Status HEAD WITHOUT CONTRAST [CT] Stat Exams 06/17/20 00:22 Taken Medication Summary Discontinued Medications Generic Name Dose Route Start Last Admin Trade Name Freq PRN Reason Stop Dose Admin Hydromorphone HCl 1 mg 06/17/20 01:03 Hydromorphone 1 Mg/Ml Injection IM 06/17/20 01:04 STAT ONE Ondansetron HCl 4 mg 06/17/20 01:02 Zofran Odt 4 Mg PO 06/17/20 01:03 STAT ONE - Progress Progress: unchanged Air Movement: good Progress Note: 06/17/20 01:07 CAT scan of the head without contrast reveals no intracranial hemorrhage or mass-effect. Visualized sinuses are unremarkable. No fluid levels present Counseled pt/family regarding: diagnosis, need for follow-up, rad results - Departure Departure Disposition: Home Clinical Impression: Migraine headache Condition: Stable Critical Care Time: No Referrals: RAUL JALLOH [Primary Care Provider] - Additional Instructions: Use Tylenol and Aleve for pain control if needed. Call your prescribing doctor for further management of your migraine headaches.
[2020-06-17] MEDS ORDERED: ZOFRAN ODT 4 MG PO ONE (01:02)
[2020-06-17] MEDS ORDERED: Hydromorphone 1 mg/ml Injection IM ONE (01:03)
[2020-06-17] MEDS ORDERED: ZOFRAN ODT 4 MG ONE (01:05)
[2020-06-17] MEDS ORDERED: Hydromorphone 1 mg/ml Injection ONE (01:06)
[2020-06-17 03:25] VITALS: BP 120/59; PULSE 73; O2SAT 100
--- NOTE | 2020-06-17 09:10 | XRAY ---
Indication: Headache. Multiple contiguous axial images obtained through the head without contrast. Comparison: January 28, 2018. Normal appearing brain parenchyma, ventricles, and bony calvarium. Visualized paranasal sinuses and mastoid air cells remain clear. Impression: Continued normal CT head without contrast exam. Comment: Preliminary interpretation was made by [facility]. No critical discrepancy.
== END 2020-06-17 03:15 | disposition home or self-care (01) ==
LOC: ED 00:03
DX: G43.909 Migraine, unspecified, not intractable, without status migrainosus (principal); R11.0 Nausea; H53.143 Visual discomfort, bilateral
CPT/HCPCS: 70450; 96372; 99284; J1170; Q0162

== ENCOUNTER 2020-08-30 15:48 | Emergency (ER) | payer OTHER ==
--- NOTE | 2020-08-30 16:22 | ERPHSYRPT ---
- History of Present Illness Source: patient Exam Limitations: no limitations Patient Subjective Stated Complaint: pt here for pain to right right side of neck and shoulder since monday.no injury noted, she states she is unable to lift boxes at work Triage Nursing Assessment: pt alert, resp easy, face mask in place, skin w/d/p. no bruising or swelling noted to right arm Physician History: Patient is a 40-year-old female who presents to the emergency room for right shoulder pain. Patient states she woke up 3 days ago with pain in her right shoulder and neck. She denies any injury. She denied any heavy lifting or any activity that might have strained that area. She thought that she may have slept awkwardly and strained her shoulder. Patient states she was not feeling much better over the next couple of days. Patient also had trouble carrying anything heavy on her right upper extremity and so came here for evaluation. Occurred: days ago (3) Method of Injury: unknown Quality: constant, sharpness Severity of Pain-Max: mild Severity of Pain-Current: severe Extremities Pain Location: shoulder: right, arm: right Modifying Factors: Improves With: movement Associated Symptoms: back pain, neck pain Allergies/Adverse Reactions: cephalexin monohydrate [From Keflex] Allergy (Intermediate, Verified 08/30/20 15:58) Hives cefaclor [From Ceclor] Allergy (Mild, Verified 08/30/20 15:58) Hives Hx Tetanus, Diphtheria Vaccination/Date Given: Yes Hx Influenza Vaccination/Date Given: No Hx Pneumococcal Vaccination/Date Given: No Immunizations Up to Date: Yes Travel Risk - International Travel Have you traveled outside of the country in past 3 weeks: No - Coronavirus Screening Are you exhibiting any of the following symptoms?: No Close contact with a COVID-19 positive Pt in past 14-21 Days: No - Review of Systems Constitutional: No Fever, No Chills Eyes: No Symptoms Ears, Nose, & Throat: No Symptoms Respiratory: No Cough, No Dyspnea Cardiac: No Chest Pain, No Edema, No Syncope Abdominal/Gastrointestinal: No Abdominal Pain, No Nausea, No Vomiting, No Diarrhea Genitourinary Symptoms: No Dysuria Musculoskeletal: Back Pain, Neck Pain, Joint Pain Skin: No Rash Neurological: No Dizziness, No Focal Weakness, No Sensory Changes Psychological: No Symptoms Endocrine: No Symptoms All Other Systems: Reviewed and Negative - Past Medical History Pertinent Past Medical History: Yes Neurological History: Migraines ENT History: No Pertinent History Cardiac History: No Pertinent History Respiratory History: Bronchitis Endocrine Medical History: No Pertinent History Musculoskeletal History: No Pertinent History GI Medical History: No Pertinent History History: No Pertinent History Psycho-Social History: Depression Female Reproductive Disorders: Endometriosis, Other Other Medical History: polycystic ovaries. 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 - Past Surgical History Past Surgical History: Yes Neuro Surgical History: No Pertinent History Cardiac: No Pertinent History Respiratory: No Pertinent History Gastrointestinal: Appendectomy Genitourinary: No Pertinent History Musculoskeletal: No Pertinent History Female Surgical History: Hysterectomy Other Surgical History: HYSTERECTOMY PARTIAL - Social History Smoking Status: Current every day smoker How long have you smoked: years Exposure to second hand smoke: Yes Drug Use: marijuana Patient Lives Alone: No Significant Family History: no pertinent family hx, alpha-1 antitrypsin deficiency - Female History Hx Last Menstrual Period: hyster Hx Now: No - Nursing Vital Signs Nursing Vital Signs: Initial Vital Signs Temperature 97.9 F 08/30/20 15:51 Pulse Rate 88 08/30/20 15:51 Respiratory Rate 18 08/30/20 15:51 Blood Pressure 172/42 08/30/20 15:51 O2 Sat by Pulse Oximetry 98 08/30/20 15:51 Pain Scale Pain Intensity 6 - Physical Exam General Appearance: alert Eyes, Ears, Nose, Throat Exam: moist mucous membranes Neck Exam: non-tender, supple Cardiovascular/Respiratory Exam: chest non-tender, normal breath sounds, regular rate/rhythm, no respiratory distress Abdominal Exam: non-tender, No guarding Back Exam: normal inspection, muscle spasm (Rhomboid/scapular), point tenderness, No vertebral tenderness Shoulder Exam: normal ROM, pain (Lateral right deltoid) Neuro/Tendon Exam: normal sensation, normal motor functions Mental Status Exam: alert, oriented x 3, cooperative Skin Exam: normal color, warm, dry SpO2 Interpretation: normal SpO2: 98 - Course Nursing assessment & vital signs reviewed: Yes Ordered Tests: Active Orders 24 hr Category Date Time Status SHOULDER Stat Exams 08/30/20 16:40 Taken - Progress Progress: improved Progress Note: 08/30/20 16:57 It appears to be muscular. Possibly rhomboid strain. We will get x-rays of the shoulder to rule out any other issues. X-rays negative. Conservative treatment. Will prescribe Flexeril as needed. Will DC home. - Departure Departure Disposition: Home Clinical Impression: Rhomboid muscle strain Condition: Stable Critical Care Time: No Referrals: RAUL JALLOH [Primary Care Provider] - Instructions: Muscle Strain (DC) Additional Instructions: Symptoms closely. Gentle stretching throughout the day will help loosen up the muscle. Ibuprofen or Aleve 3 times a day as needed. We will prescribe some muscle relaxer for nighttime. Follow-up with your PCP if not better in 2 to 3 days. Return to ER if worse. Forms: Work/School Release Form Prescriptions: Cyclobenzaprine HCl [Flexeril] 10 mg PO TID PRN #12 tablet PRN Reason: Muscle Spasms
[2020-08-30 17:01] VITALS: BP 114/44; PULSE 70; O2SAT 100
--- NOTE | 2020-08-30 20:38 | XRAY ---
Indication: Worsening shoulder pain 3-4 days. No known injury. Comparison: None 3 view right shoulder obtained. No bony, articular, or soft tissue abnormalities.
== END 2020-08-30 17:02 | disposition home or self-care (01) ==
LOC: ED 15:48
DX: S46.911A Strain of unspecified muscle, fascia and tendon at shoulder and upper arm level, right arm, initial encounter (principal); M25.511 Pain in right shoulder; M54.2 Cervicalgia; X50.0XXA Overexertion from strenuous movement or load, initial encounter; X50.9XXA Other and unspecified overexertion or strenuous movements or postures, initial encounter; Y93.89 Activity, other specified; Y92.89 Other specified places as the place of occurrence of the external cause; Y99.0 Civilian activity done for income or pay
CPT/HCPCS: 73030; 99283

== ENCOUNTER 2020-11-01 11:42 | Emergency (ER) | payer OTHER ==
--- NOTE | 2020-11-01 12:00 | ERPHSYRPT ---
- History of Present Illness Time Seen by Provider: 11/01/20 11:59 Historian: patient Exam Limitations: no limitations Patient Subjective Stated Complaint: NVD onset early yesterday morning Triage Nursing Assessment: pt to ED c/o NVD that woke her from sleep yesterday morning. did have emesis and diarrhea yesterday but none today, only nausea rem ains. pt states she had hotdog with cheese the night before she began to feel ill and thinks they may be correlated. also c/o 6/10 tightness abd pain in epigastric region that is not relieved by anything. Physician History: This is a thin 40-year-old white female who presents with a history of nausea vomiting and epigastric abdominal pain that started yesterday. The abdominal pain is still present this morning, however, vomiting has stopped but she does have persistent nausea. Patient has been seen multiple times in this emergency department with similar symptoms. Patient does use marijuana. She also smokes tobacco. Patient has history of migraine headaches, endometriosis and polycystic ovary disease/syndrome. Patient has a history of anxiety and depression as well. Patient has had surgical operations of the abdomen including appendectomy and hysterectomy. Patient does see her pain specialist tomorrow. Patient has no chest pain. She has no shortness of breath. She has no back pain. She has not had diarrhea, fever or chills Timing/Duration: yesterday Activities at Onset: none Quality: aching Abdominal Pain Onset Location: epigastric Pain Radiation: no radiation Severity of Pain-Max: moderate Severity of Pain-Current: mild Modifying Factors: Improves With: vomiting Associated Symptoms: nausea, vomiting, No back, No chest pain, No diaphoresis, No diarrhea Previous symptoms: same symptoms as today Allergies/Adverse Reactions: cephalexin monohydrate [From Keflex] Allergy (Intermediate, Verified 11/01/20 11:46) Hives cefaclor [From Ceclor] Allergy (Mild, Verified 11/01/20 11:46) Hives Home Medications: No Reportable Medications [No Reported Medications] 11/01/20 [History] Hx Tetanus, Diphtheria Vaccination/Date Given: No Hx Influenza Vaccination/Date Given: No Hx Pneumococcal Vaccination/Date Given: No Immunizations Up to Date: No Travel Risk - International Travel Have you traveled outside of the country in past 3 weeks: No - Coronavirus Screening Are you exhibiting any of the following symptoms?: Yes Symptoms: Vomiting/Diarrhea Close contact with a COVID-19 positive Pt in past 14-21 Days: No - Vaccine Status Have you recieved a Covid-19 vaccination: No - Review of Systems Constitutional: No Symptoms Eyes: No Symptoms Ears, Nose, & Throat: No Symptoms Respiratory: No Symptoms Cardiac: No Symptoms Abdominal/Gastrointestinal: Abdominal Pain, Nausea, Vomiting Genitourinary Symptoms: No Symptoms Musculoskeletal: No Symptoms Skin: No Symptoms Neurological: No Symptoms Psychological: No Symptoms Endocrine: No Symptoms Hematologic/Lymphatic: No Symptoms Immunological/Allergic: No Symptoms All Other Systems: Reviewed and Negative - Past Medical History Pertinent Past Medical History: Yes Neurological History: Migraines ENT History: No Pertinent History Cardiac History: No Pertinent History Respiratory History: Bronchitis Endocrine Medical History: No Pertinent History Musculoskeletal History: No Pertinent History GI Medical History: No Pertinent History History: No Pertinent History Psycho-Social History: Depression Female Reproductive Disorders: Endometriosis, Other Other Medical History: polycystic ovaries. 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 - Past Surgical History Past Surgical History: Yes Neuro Surgical History: No Pertinent History Cardiac: No Pertinent History Respiratory: No Pertinent History Gastrointestinal: Appendectomy Genitourinary: No Pertinent History Musculoskeletal: No Pertinent History Female Surgical History: Hysterectomy Other Surgical History: HYSTERECTOMY PARTIAL - Social History Smoking Status: Current every day smoker How long have you smoked: years Exposure to second hand smoke: Yes Drug Use: marijuana Patient Lives Alone: No Significant Family History: no pertinent family hx, alpha-1 antitrypsin deficiency - Female History Hx Now: No (hysterectomy) - Nursing Vital Signs Nursing Vital Signs: Initial Vital Signs Temperature 97.8 F 11/01/20 11:47 Pulse Rate 82 11/01/20 11:47 Respiratory Rate 18 11/01/20 11:47 Blood Pressure 138/50 11/01/20 11:47 O2 Sat by Pulse Oximetry 98 11/01/20 11:47 Pain Scale Pain Intensity 5 - Physical Exam General Appearance: no apparent distress, alert, anxiety, thin Eye Exam: PERRL/EOMI, eyes nml inspection Ears, Nose, Throat Exam: moist mucous membranes, other (Patient is a edentulous) Neck Exam: normal inspection, non-tender, supple, full range of motion Respiratory Exam: normal breath sounds, lungs clear, airway intact, No chest tenderness, No respiratory distress Cardiovascular Exam: regular rate/rhythm, normal heart sounds, normal peripheral pulses Gastrointestinal/Abdomen Exam: soft, normal bowel sounds, tenderness (Mild in the epigastric region), guarding (In the epigastric region), No rebound Pelvic Exam: not done Rectal Exam: not done Back Exam: normal inspection, normal range of motion, No CVA tenderness, No vertebral tenderness Extremity Exam: normal inspection, normal range of motion, pelvis stable Neurologic Exam: alert, oriented x 3, cooperative, operations scheduler II-XII nml as tested, normal mood/affect, nml cerebellar function, nml station & gait, sensation nml Skin Exam: normal color, warm, dry Lymphatic Exam: No adenopathy SpO2 Interpretation: normal O2 Delivery: Room Air - Course Nursing assessment & vital signs reviewed: Yes EKG Interpreted by Me: RATE (65), Sinus Rhythm, NORMAL AXIS, NORMAL INTERVALS, NORMAL QRS, NORMAL ST-T, Other (No acute ischemia on today's EKG. There is no changes from the EKG dated 04/30/2020.) Ordered Tests: Active Orders 24 hr Category Date Time Status Clean Catch Urine Specimen STAT Care 11/01/20 12:07 Active EKG-ER Only STAT Care 11/01/20 12:07 Active IV Insertion STAT Care 11/01/20 12:07 Active ABDOMEN AND PELVIS W/0 CONTRAS [CT] Stat Exams 11/01/20 12:07 Taken AMYLASE Stat Lab 11/01/20 12:15 Completed CBC W DIFF Stat Lab 11/01/20 12:15 Completed CMP Stat Lab 11/01/20 12:15 Completed LIPASE Stat Lab 11/01/20 12:15 Completed Lactic Acid Stat Lab 11/01/20 12:07 Completed TROPONIN Q3H Lab 11/01/20 12:15 Completed TROPONIN Q3H Lab 11/01/20 15:15 Ordered TROPONIN Q3H Lab 11/01/20 18:15 Ordered TROPONIN Q3H Lab 11/01/20 21:15 Ordered TROPONIN Q3H Lab 11/02/20 00:15 Ordered UA W/RFX UR CULTURE Stat Lab 11/01/20 12:15 Completed Urine Triage Profile Stat Lab 11/01/20 12:15 Completed Medication Summary Discontinued Medications Generic Name Dose Route Start Last Admin Trade Name Freq PRN Reason Stop Dose Admin Famotidine 20 mg 11/01/20 12:07 11/01/20 12:29 Pepcid 20 Mg Vial IV 11/01/20 12:08 20 mg STAT ONE Administration Famotidine Confirm 11/01/20 12:27 Pepcid 20 Mg Vial Administered 11/01/20 12:28 Dose 20 mg IV .STK-MED ONE Hydromorphone HCl 0.5 mg 11/01/20 12:07 11/01/20 14:00 Hydromorphone 1 Mg/Ml Injection IV 11/01/20 12:08 Not Given STAT ONE Ondansetron HCl 4 mg 11/01/20 12:07 11/01/20 12:29 Zofran 4 Mg/2 Ml Vial IV 11/01/20 12:08 4 mg STAT ONE Administration Ondansetron HCl Confirm 11/01/20 12:27 Zofran 4 Mg/2 Ml Vial Administered 11/01/20 12:28 Dose 4 mg .ROUTE .STK-MED ONE Lab/Rad Data: Laboratory Result Diagrams 11/01/20 12:15 11/01/20 12:15 Laboratory Results 11/01/20 11/01/20 11/01/20 Range/Units 12:15 12:15 12:15 WBC 6.3 (4.0-10.5) K/mm3 RBC 4.52 (4.1-5.4) M/mm3 Hgb 14.3 (12.0-16.0) gm/dl Hct 43.1 (35-47) % MCV 95.4 (78-100) fl MCH 31.6 (26-32) pg MCHC 33.2 (32-36) g/dl RDW 12.6 (11.5-14.0) % Plt Count 153 (150-450) K/mm3 MPV 10.5 (7.5-11.0) fl Gran % 60.2 (36.0-66.0) % Eos # (Auto) 0.15 (0-0.5) Absolute Lymphs (auto) 1.78 (1.0-4.6) Absolute Monos (auto) 0.58 (0.0-1.3) Lymphocytes % 28.1 (24.0-44.0) % Monocytes % 9.1 (0.0-12.0) % Eosinophils % 2.4 (0.00-5.0) % Basophils % 0.2 (0.0-0.4) % Absolute Granulocytes 3.82 (1.4-6.9) Basophils # 0.01 (0-0.4) Sodium 134 L (137-145) mmol/L Potassium 3.9 (3.5-5.1) mmol/L Chloride 104 (98-107) mmol/L Carbon Dioxide 26 (22-30) mmol/L Anion Gap 7.7 (5-15) MEQ/L BUN 8 (7-17) mg/dL Creatinine 0.71 (0.52-1.04) mg/dL Estimated GFR > 60.0 ML/MIN Glucose 89 (74-106) mg/dL Lactic Acid (0.4-2.0) Calcium 9.1 (8.4-10.2) mg/dL Total Bilirubin 0.70 (0.2-1.3) mg/dL AST 20 (14-36) U/L ALT 11 (0-35) U/L Alkaline Phosphatase 35 L (38-126) U/L Troponin I < 0.012 (0.000-0.034) ng/mL Serum Total Protein 6.7 (6.3-8.2) g/dL Albumin 4.1 (3.5-5.0) g/dL Amylase 81 (30-110) U/L Lipase 84 (23-300) U/L Urine Color (YELLOW) Urine Appearance (CLEAR) Urine pH (5-6) Ur Specific Lucas (1.005-1.025) Urine Protein (Negative) Urine Ketones (NEGATIVE) Urine Blood (0-5) Robinson/ul Urine Nitrite (NEGATIVE) Urine Bilirubin (NEGATIVE) Urine Urobilinogen (0-1) mg/dL Ur Leukocyte Esterase (NEGATIVE) Urine WBC (Auto) (0-5) /HPF Urine RBC (Auto) (0-2) /HPF U Epithel Cells (Auto) (FEW) /HPF Urine Bacteria (Auto) (NEGATIVE) /HPF Urine Mucus (Auto) (NEGATIVE) /HPF Urine Culture Reflexed (NO) Urine Glucose (NEGATIVE) mg/dL Urine Opiates Level (NEGATIVE) Ur Methadone (NEGATIVE) Urine Barbiturates (NEGATIVE) Ur Phencyclidine (PCP) (NEGATIVE) Urine Amphetamine (NEGATIVE) U Benzodiazepine Level (NEGATIVE) Urine Cocaine (NEGATIVE) Urine Marijuana (THC) (NEGATIVE) 11/01/20 11/01/20 11/01/20 Range/Units 12:15 12:15 12:07 WBC (4.0-10.5) K/mm3 RBC (4.1-5.4) M/mm3 Hgb (12.0-16.0) gm/dl Hct (35-47) % MCV (78-100) fl MCH (26-32) pg MCHC (32-36) g/dl RDW (11.5-14.0) % Plt Count (150-450) K/mm3 MPV (7.5-11.0) fl Gran % (36.0-66.0) % Eos # (Auto) (0-0.5) Absolute Lymphs (auto) (1.0-4.6) Absolute Monos (auto) (0.0-1.3) Lymphocytes % (24.0-44.0) % Monocytes % (0.0-12.0) % Eosinophils % (0.00-5.0) % Basophils % (0.0-0.4) % Absolute Granulocytes (1.4-6.9) Basophils # (0-0.4) Sodium (137-145) mmol/L Potassium (3.5-5.1) mmol/L Chloride (98-107) mmol/L Carbon Dioxide (22-30) mmol/L Anion Gap (5-15) MEQ/L BUN (7-17) mg/dL Creatinine (0.52-1.04) mg/dL Estimated GFR ML/MIN Glucose (74-106) mg/dL Lactic Acid 1.3 (0.4-2.0) Calcium (8.4-10.2) mg/dL Total Bilirubin (0.2-1.3) mg/dL AST (14-36) U/L ALT (0-35) U/L Alkaline Phosphatase (38-126) U/L Troponin I (0.000-0.034) ng/mL Serum Total Protein (6.3-8.2) g/dL Albumin (3.5-5.0) g/dL Amylase (30-110) U/L Lipase (23-300) U/L Urine Color YELLOW (YELLOW) Urine Appearance SLIGHTLY CLOUDY (CLEAR) Urine pH 5.0 (5-6) Ur Specific Lucas 1.023 (1.005-1.025) Urine Protein NEGATIVE (Negative) Urine Ketones NEGATIVE (NEGATIVE) Urine Blood SMALL (0-5) Robinson/ul Urine Nitrite NEGATIVE (NEGATIVE) Urine Bilirubin NEGATIVE (NEGATIVE) Urine Urobilinogen NEGATIVE (0-1) mg/dL Ur Leukocyte Esterase NEGATIVE (NEGATIVE) Urine WBC (Auto) 0-2 (0-5) /HPF Urine RBC (Auto) 0-2 (0-2) /HPF U Epithel Cells (Auto) RARE (FEW) /HPF Urine Bacteria (Auto) NONE (NEGATIVE) /HPF Urine Mucus (Auto) SLIGHT (NEGATIVE) /HPF Urine Culture Reflexed NO (NO) Urine Glucose NEGATIVE (NEGATIVE) mg/dL Urine Opiates Level NEGATIVE (NEGATIVE) Ur Methadone NEGATIVE (NEGATIVE) Urine Barbiturates NEGATIVE (NEGATIVE) Ur Phencyclidine (PCP) NEGATIVE (NEGATIVE) Urine Amphetamine NEGATIVE (NEGATIVE) U Benzodiazepine Level NEGATIVE (NEGATIVE) Urine Cocaine NEGATIVE (NEGATIVE) Urine Marijuana (THC) POSITIVE (NEGATIVE) - Progress Progress: improved, re-examined Progress Note: 11/01/20 14:19 CAT scan of the abdomen pelvis shows no acute inflammatory process in the visualized abdomen or pelvis. There is small quantity of dependent free fluid in the pelvis Counseled pt/family regarding: lab results, diagnosis, need for follow-up, rad results - Departure Departure Disposition: Home Clinical Impression: Recurrent abdominal pain Condition: Stable Critical Care Time: No Referrals: RAUL JALLOH [Primary Care Provider] - Additional Instructions: Drink plenty of fluids. Avoid fatty greasy spicy foods. Follow-up with your primary care doctor tomorrow to make arrangements for follow-up appointment and further management.
[2020-11-01] MEDS ORDERED: Zofran 4 MG/2 ML VIAL ONE (12:27)
[2020-11-01] MEDS ORDERED: Pepcid 20 MG VIAL IV ONE (12:27)
[2020-11-01] MEDS: Pepcid 20 MG VIAL IV ONE (12:29)
[2020-11-01] MEDS: Zofran 4 MG/2 ML VIAL IV ONE (12:29)
[2020-11-01 12:37] LABS: Absolute Neutrophil Ct (ANC) 3.82 (1.4-6.9); BASOPHIL % 0.2 % (0.0-0.4); Basophil (Absolute #) 0.01 (0-0.4); Eosinophil % 2.4 % (0.00-5.0); Eosinophil (Absolute #) 0.15 (0-0.5); Hematocrit 43.1 % (35-47); Hemoglobin 14.3 gm/dl (12.0-16.0); Lymphocyte (Absolute #) 1.78 (1.0-4.6); Lymphocytes % 28.1 % (24.0-44.0); Mean Cell Volume 95.4 fl (78-100); Mean Corpuscular Hemoglobin 31.6 pg (26-32); Mean Corpuscular Hgb Concent. 33.2 g/dl (32-36); Mean Platelet Volume 10.5 fl (7.5-11.0); Monocyte (Absolute #) 0.58 (0.0-1.3); Monocytes % 9.1 % (0.0-12.0); Neutrophil % 60.2 % (36.0-66.0); Platelet Count 153 K/mm3 (150-450); Red Blood Count 4.52 M/mm3 (4.1-5.4); Red Cell Distribution Width 12.6 % (11.5-14.0); White Blood Count 6.3 K/mm3 (4.0-10.5)
[2020-11-01 12:41] LABS: Appearance SLIGHTLY CLOUDY (CLEAR); Bilirubin NEGATIVE (NEGATIVE); Blood SMALL Ery/ul (0-5); Epithelial Cells RARE /HPF (FEW); Glucose NEGATIVE (NEGATIVE); Ketones NEGATIVE (NEGATIVE); Leukocyte Esterase NEGATIVE (NEGATIVE); Mucus SLIGHT /HPF (NEGATIVE); Nitrite NEGATIVE (NEGATIVE); Protein,Urine Dip NEGATIVE (Negative); RBC 0-2 /HPF (0-2); Specific Gravity 1.023 (1.005-1.025); Urobilinogen NEGATIVE mg/dL (0-1); WBC 0-2 /HPF (0-5)
[2020-11-01 12:44] LABS: ALBUMIN 4.1 g/dL (3.5-5.0); ALKALINE PHOSPHATASE 35 U/L (38-126); AMYLASE 81 U/L (30-110); ANION GAP 7.7 MEQ/L (5-15); BLOOD UREA NITROGEN 8 mg/dL (7-17); CHLORIDE 104 mmol/L (98-107); Calcium 9.1 mg/dL (8.4-10.2); Carbon Dioxide 26 mmol/L (22-30); Creatinine 1 0.71 mg/dL (0.52-1.04); EST GLOMERULAR FILTRATION RATE > 60.0 ML/MIN; Glucose 89 mg/dL (74-106); LIPASE 84 U/L (23-300); Potassium 3.9 mmol/L (3.5-5.1); SGOT/AST 20 U/L (14-36); SGPT/ALT 11 U/L (0-35); SODIUM 134 mmol/L (137-145); Total Protein 6.7 g/dL (6.3-8.2)
[2020-11-01 12:52] LABS: Amphetamine,Urine NEGATIVE (NEGATIVE); Barbiturate,Urine NEGATIVE (NEGATIVE); Benzodiazepine,Urine NEGATIVE (NEGATIVE); Cocaine,Urine NEGATIVE (NEGATIVE); Methadone,Urine NEGATIVE (NEGATIVE); Opiate,Urine NEGATIVE (NEGATIVE); PCP,Urine NEGATIVE (NEGATIVE); THC,Urine POSITIVE (NEGATIVE)
[2020-11-01 13:11] VITALS: BP 110/53; O2SAT 97
[2020-11-01] MEDS: Hydromorphone 1 mg/ml Injection IV ONE (14:00)
[2020-11-01 14:05] VITALS: PULSE 92
--- NOTE | 2020-11-01 18:22 | XRAY ---
Indication: Abdomen pain, nausea, and vomiting. Multiple contiguous axial images obtained through the abdomen and pelvis without contrast. Comparison: May 08, 2020. Lung bases remain clear. Heart is not enlarged. Noncontrasted stomach and bowel loops are nonobstructed. Appendectomy and partial hysterectomy reported. Again tiny nonspecific pelvic free fluid. No walled off fluid collection or free air. Remaining liver, gallbladder, pancreas, spleen, adrenal glands, kidneys, ureters, and bladder appear unremarkable for noncontrast exam. There remains minimal aortoiliac calcifications without AAA. Osseous structures intact. Impression: 1. Again tiny pelvic free fluid, possibly physiologic from rupture/leaking cyst. 2. Remaining CT abdomen/pelvis without contrast exam is again negative. Comment: Preliminary interpretation was made by [facility]. No critical discrepancy.
== END 2020-11-01 14:48 | disposition home or self-care (01) ==
LOC: ED 11:42
DX: R10.9 Unspecified abdominal pain (principal)
CPT/HCPCS: 36000; 36415; 74176; 80053; 80307; 81001; 82150; 83605; 83690; 84484; 85025; 93005; 96374; 96375; 99284; J2405

== ENCOUNTER 2020-12-02 12:03 | Day surgery (SDC) | payer OTHER ==
[2020-12-02] MEDS ORDERED: Depo-Medrol 40 MG/ML IM ONE (12:04)
[2020-12-02] MEDS ORDERED: BUPIVACAINE 0.5% VIAL IJ ONE (12:04)
[2020-12-02] MEDS ORDERED: Versed 2 MG/2 ML Injection ONE (12:30)
[2020-12-02] MEDS ORDERED: DIPRIVAN 200 MG/20 ML IV ONE (13:33)
[2020-12-02] MEDS ORDERED: Lactated Ringers 1,000 ML IV ONE (16:29)
--- NOTE | 2020-12-03 11:34 | XRAY ---
19 seconds fluoroscopy time in surgery for intra-articular and subachromial injections of the right shoulder.
== END 2020-12-02 14:01 | disposition home or self-care (01) ==
LOC: SDC-PAIN 12:03
PROVIDERS: ATTEND Psychiatry & Neurology Pain Medicine
DX: M19.012 Primary osteoarthritis, left shoulder (principal); M75.52 Bursitis of left shoulder; F32.9 Major depressive disorder, single episode, unspecified; F41.9 Anxiety disorder, unspecified; Z79.899 Other long term (current) drug therapy
CPT/HCPCS: 20610; 73030; 77002; 77003; J1030; J2250; J2704; Q9966

== ENCOUNTER 2020-12-08 22:15 | Emergency (ER) | payer OTHER ==
--- NOTE | 2020-12-08 22:56 | ERPHSYRPT ---
- History of Present Illness Time Seen by Provider: 12/08/20 22:19 Source: patient Exam Limitations: no limitations Patient Subjective Stated Complaint: pt states she was "playing Around" with her and she felt like he accidently hit her hand with his fingernail or knuckle and she began having burning pain in her lt hand. states she has increased pain when she moves her ring finger. Triage Nursing Assessment: pt alert and oriented, answers questions approp. pt ambulatory with steady gait noted. respirations nonlabored. swelling noted . radial pulse and cap refill wnl. pt reports good sensation to fingers. Physician History: 40 years old right-handed dominant female presented in the ER with chief complaint of left hand swelling and pain after her accidentally hit her while playing with his knuckle on the dorsum of her hand. Sharp shooting moderate intensity pain, aggravated with movements at the wrist and ring finger with associated increasing swelling on her dorsum of hand. No numbness tingling in the fingers. No injury anywhere else. No skin break. Occurred: hours ago (1) Method of Injury: direct blow Quality: sharpness Severity of Pain-Max: moderate Severity of Pain-Current: moderate Extremities Pain Location: hand: left Modifying Factors: Improves With: immobilization. Worsens With: movement Associated Symptoms: none Allergies/Adverse Reactions: cephalexin monohydrate [From Keflex] Allergy (Intermediate, Verified 12/08/20 22:32) Hives cefaclor [From Ceclor] Allergy (Mild, Verified 12/08/20 22:32) Hives Home Medications: No Reportable Medications [No Reported Medications] 11/01/20 [History] Hx Tetanus, Diphtheria Vaccination/Date Given: No (unsure) Hx Influenza Vaccination/Date Given: No Hx Pneumococcal Vaccination/Date Given: No Immunizations Up to Date: No Travel Risk - International Travel Have you traveled outside of the country in past 3 weeks: No - Coronavirus Screening Are you exhibiting any of the following symptoms?: No Close contact with a COVID-19 positive Pt in past 14-21 Days: No - Vaccine Status Have you recieved a Covid-19 vaccination: No - Review of Systems Constitutional: No Symptoms Eyes: No Symptoms Ears, Nose, & Throat: No Symptoms Respiratory: No Symptoms Cardiac: No Symptoms Abdominal/Gastrointestinal: No Symptoms Genitourinary Symptoms: No Symptoms Musculoskeletal: Arthralgias, Injury, Joint Redness Skin: No Symptoms Psychological: No Symptoms Endocrine: No Symptoms Hematologic/Lymphatic: No Symptoms - Past Medical History Pertinent Past Medical History: Yes Neurological History: Migraines ENT History: No Pertinent History Cardiac History: High Cholesterol Respiratory History: COPD, Other Endocrine Medical History: No Pertinent History Musculoskeletal History: Fractures GI Medical History: No Pertinent History History: No Pertinent History Psycho-Social History: Depression Female Reproductive Disorders: Endometriosis, Other Other Medical History: 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 steriod injections to rt shoulder under anesthesia - Social History Smoking Status: Current every day smoker How long have you smoked: years Exposure to second hand smoke: Yes Drug Use: marijuana Patient Lives Alone: No Significant Family History: no pertinent family hx, alpha-1 antitrypsin deficie ncy - Female History Hx Last Menstrual Period: hyster Hx Now: No - Nursing Vital Signs Nursing Vital Signs: Initial Vital Signs Temperature 98.2 F 12/08/20 22:21 Pulse Rate 93 H 12/08/20 22:21 Respiratory Rate 16 12/08/20 22:21 Blood Pressure 114/51 12/08/20 22:21 O2 Sat by Pulse Oximetry 99 12/08/20 22:21 Pain Scale Pain Intensity 5 - Physical Exam General Appearance: no apparent distress, alert Eyes, Ears, Nose, Throat Exam: normal ENT inspection Neck Exam: normal inspection, supple, full range of motion Cardiovascular/Respiratory Exam: normal breath sounds, regular rate/rhythm Shoulder Exam: normal inspection, non-tender, no evidence of injury, normal ROM Elbow/Forearm Exam: normal inspection, non-tender, no evidence of injury, normal ROM Wrist Exam: normal inspection, non-tender, no evidence of injury, limited ROM (Left wrist because of pain in the dorsum of hand) Hand Exam: soft tissue tenderness, swelling (Left hand dorsum on fourth metacarpal area 2 x 2 cm swelling, tender to palpation. Restricted range of motion of fourth digit secondary to pain. Intact distal neurovascular.) Neuro/Tendon Exam: normal sensation, normal motor functions Skin Exam: normal color SpO2 Interpretation: normal SpO2: 99 O2 Delivery: Room Air Ordered Tests: Active Orders 24 hr Category Date Time Status HAND (MINIMUM 3 VIEWS) Stat Exams 12/08/20 22:46 Taken - Progress Progress: unchanged Progress Note: 12/08/20 22:54 She is offered pain medication which she refused. I did not appreciate any obvious fracture dislocation on x-rays reviewed by me. Official report is pending. Will place in a splint, recommended ice, does have [place] at home for pain which he is advised to continue. Recommended outpatient Ortho clinic follow-up. Counseled pt/family regarding: diagnosis, need for follow-up, rad results - Departure Departure Disposition: Home Clinical Impression: Contusion of left hand Qualifiers: Encounter type: initial encounter Qualified Code(s): S60.222A - Contusion of left hand, initial encounter Condition: Stable Critical Care Time: No Referrals: RAUL JALLOH [Primary Care Provider] - Follow Up with PCP/3 days ORTHO - RENZO BUCHANAN NP [NON-STAFF PHY W/O PRIVILEGES] - (Call tomorrow for reevaluation in 1 to 2 days) Instructions: Hand Fracture (DC), Hand Pain (DC) Additional Instructions: Apply ice. Take pain medications which you have at home as needed. Keep it elevated. Follow-up with Ortho clinic for reevaluation. Return to ER for increasing swelling pain, difficulty movements of finger/placed etc.
[2020-12-08 23:49] VITALS: BP 101/52; PULSE 78; O2SAT 97
--- NOTE | 2020-12-09 08:52 | XRAY ---
Indication: Pain and swelling following injury. Comparison: None 3 view left hand obtained. No bony, articular, or soft tissue abnormalities.
== END 2020-12-08 23:27 | disposition home or self-care (01) ==
LOC: ED 22:15
DX: S60.222A Contusion of left hand, initial encounter (principal); M79.642 Pain in left hand; W50.0XXA Accidental hit or strike by another person, initial encounter
CPT/HCPCS: 73130; 99283; A4570

== ENCOUNTER 2020-12-31 17:20 | Emergency (ER) | payer OTHER ==
[2020-12-31] MEDS ORDERED: Sodium Chloride 0.9% 1000 ML 1,000 ML IV STA (18:18)
[2020-12-31] MEDS ORDERED: TORAdol 30 mg Injection IV ONE (18:20)
--- NOTE | 2020-12-31 18:28 | ERPHSYRPT ---
- History of Present Illness Time Seen by Provider: 12/31/20 17:31 Source: patient Exam Limitations: no limitations Patient Subjective Stated Complaint: C/O fever of 101.4 last night that still hasn't broke today. Has back ache, body aches, headaches since last night. Fuad es SOB or chest pain. States, "I get cold, then I get hot, then I get cold, then I get hot." C/O "my eyes burning really bad." States sleeping a lot. Triage Nursing Assessment: States history of migranes. Denies blurry or double vision; no change in vision thakur noted. Ambulated into hospital without difficulties. No SOB noted upon examination. Physician History: 40 years old female presented in the ER with chief complaint of fever chills, generalized body ache for the last 3 days. She had been taking [id number] medication and he was continuous until prior to arrival when she took Naprosyn and is afebrile. Has chronic smoker cough which is not any worse than usual. No shortness of breath. No sore throat. Denies any sick contact. No urinary symptoms. Denies any nausea vomiting abdominal pain or diarrhea. Did not have Covid vaccine. Does have some headache but denies any difficulty movements of neck. She is feeling fatigued tired with no energy to do her routine activities. 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 Associated Symptoms: denies symptoms Allergies/Adverse Reactions: cephalexin monohydrate [From Keflex] Allergy (Intermediate, Verified 12/08/20 22:32) Hives cefaclor [From Ceclor] Allergy (Mild, Verified 12/08/20 22:32) Hives oxycodone [From OxyContin] Allergy (Verified 12/31/20 17:46) Home Medications: No Reportable Medications [No Reported Medications] 11/01/20 [History] Hx Tetanus, Diphtheria Vaccination/Date Given: No (unsure) Hx Influenza Vaccination/Date Given: No Hx Pneumococcal Vaccination/Date Given: No Immunizations Up to Date: Yes Travel Risk - International Travel Have you traveled outside of the country in past 3 weeks: No - Coronavirus Screening Are you exhibiting any of the following symptoms?: Yes Symptoms: Fever, Headaches/Body Aches/Fatigue Close contact with a COVID-19 positive Pt in past 14-21 Days: No - Vaccine Status Have you recieved a Covid-19 vaccination: No - Review of Systems Constitutional: Fever, Chills, Fatigue, Weakness Eyes: No Symptoms Ears, Nose, & Throat: No Symptoms Respiratory: Cough Cardiac: No Symptoms Abdominal/Gastrointestinal: No Symptoms Genitourinary Symptoms: No Symptoms Musculoskeletal: Myalgias Skin: No Symptoms Neurological: No Symptoms Psychological: No Symptoms Endocrine: No Symptoms Hematologic/Lymphatic: No Symptoms Immunological/Allergic: No Symptoms - Past Medical History Pertinent Past Medical History: Yes Neurological History: Migraines ENT History: No Pertinent History Cardiac History: High Cholesterol Respiratory History: COPD, Other Endocrine Medical History: No Pertinent History Musculoskeletal History: Fractures GI Medical History: No Pertinent History History: No Pertinent History Psycho-Social History: Depression Female Reproductive Disorders: Endometriosis, Other Other Medical History: COVID-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 steriod injections to rt shoulder under anesthesia - Social History Smoking Status: Current every day smoker How long have you smoked: 25 years Exposure to second hand smoke: Yes Drug Use: marijuana Patient Lives Alone: No Significant Family History: no pertinent family hx, alpha-1 antitrypsin deficiency - Female History Hx Now: (unkn) - Nursing Vital Signs Nursing Vital Signs: Initial Vital Signs Temperature 99.3 F 12/31/20 17:35 Pulse Rate 106 H 12/31/20 17:35 Respiratory Rate 19 12/31/20 17:35 Blood Pressure 114/74 12/31/20 17:35 O2 Sat by Pulse Oximetry 97 12/31/20 17:35 Pain Scale Pain Intensity 2 - Physical Exam General Appearance: no apparent distress, alert Eye Exam: PERRL/EOMI, eyes nml inspection ENT Exam: normal ENT inspection, no apparent trauma, hearing grossly normal Neck Exam: normal inspection, non-tender, supple, full range of motion Respiratory Exam: normal breath sounds, lungs clear Cardiovascular/Chest Exam: normal heart sounds, regular rate/rhythm Gastrointestinal/Abdominal Exam: soft, non tender, no distention Extremity Exam: non-tender, normal range of motion Neurologic Exam: alert, oriented x 3, 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, 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 Skin Exam: normal color SpO2 Interpretation: normal SpO2: 97 O2 Delivery: Room Air Ordered Tests: Active Orders 24 hr Category Date Time Status IV Insertion STAT Care 12/31/20 18:18 Active CHEST 1 VIEW (PORTABLE) Stat Exams 12/31/20 18:19 Taken BLOOD CULTURE Stat Lab 12/31/20 18:45 Received CBC W DIFF Stat Lab 12/31/20 18:35 Completed CMP Stat Lab 12/31/20 18:35 Completed HCG,QUALITATIVE URINE Stat Lab 12/31/20 18:50 Completed Lactic Acid Stat Lab 12/31/20 18:40 Completed UA W/RFX UR CULTURE Stat Lab 12/31/20 18:50 Completed Medication Summary Discontinued Medications Generic Name Dose Route Start Last Admin Trade Name Freq PRN Reason Stop Dose Admin Sodium Chloride 1,000 mls @ 999 mls/hr 12/31/20 18:18 12/31/20 20:34 Sodium Chloride 0.9% 1000 Ml IV 12/31/20 19:18 Infused .Q1H1M STA Infusion Sodium Chloride Confirm 12/31/20 18:47 Sodium Chloride 0.9% 1000 Ml Administered 12/31/20 18:48 Dose 1,000 mls @ ud .ROUTE .STK-MED ONE Sodium Chloride Confirm 12/31/20 19:19 Sodium Chloride 0.9% 1000 Ml Administered 12/31/20 19:20 Dose 1,000 mls @ ud .ROUTE .STK-MED ONE Ketorolac Tromethamine 30 mg 12/31/20 18:20 12/31/20 19:27 Toradol 30 Mg Injection IV 12/31/20 18:21 30 mg STAT ONE Administration Ketorolac Tromethamine Confirm 12/31/20 18:47 Toradol 30 Mg Injection Administered 12/31/20 18:48 Dose 30 mg .ROUTE .STK-MED ONE Ketorolac Tromethamine Confirm 12/31/20 19:19 Toradol 30 Mg Injection Administered 12/31/20 19:20 Dose 30 mg .ROUTE .STK-MED ONE Lab/Rad Data: Laboratory Result Diagrams 12/31/20 18:35 12/31/20 18:35 Laboratory Results 12/31/20 12/31/20 12/31/20 Range/Units 18:50 18:50 18:50 WBC (4.0-10.5) K/mm3 RBC (4.1-5.4) M/mm3 Hgb (12.0-16.0) gm/dl Hct (35-47) % MCV (78-100) fl MCH (26-32) pg MCHC (32-36) g/dl RDW (11.5-14.0) % Plt Count (150-450) K/mm3 MPV (7.5-11.0) fl Gran % (36.0-66.0) % Eos # (Auto) (0-0.5) Absolute Lymphs (auto) (1.0-4.6) Absolute Monos (auto) (0.0-1.3) Lymphocytes % (24.0-44.0) % Monocytes % (0.0-12.0) % Eosinophils % (0.00-5.0) % Basophils % (0.0-0.4) % Absolute Granulocytes (1.4-6.9) Basophils # (0-0.4) Sodium (137-145) mmol/L Potassium (3.5-5.1) mmol/L Chloride (98-107) mmol/L Carbon Dioxide (22-30) mmol/L Anion Gap (5-15) MEQ/L BUN (7-17) mg/dL Creatinine (0.52-1.04) mg/dL Estimated GFR ML/MIN Glucose (74-106) mg/dL Lactic Acid (0.4-2.0) Calcium (8.4-10.2) mg/dL Total Bilirubin (0.2-1.3) mg/dL AST (14-36) U/L ALT (0-35) U/L Alkaline Phosphatase (38-126) U/L Serum Total Protein (6.3-8.2) g/dL Albumin (3.5-5.0) g/dL Urine Color YELLOW (YELLOW) Urine Appearance CLEAR (CLEAR) Urine pH 5.0 (5-6) Ur Specific [place] 1.011 (1.005-1.025) Urine Protein NEGATIVE (Negative) Urine Ketones NEGATIVE (NEGATIVE) Urine Blood MODERATE (0-5) Rboinson/ul Urine Nitrite NEGATIVE (NEGATIVE) Urine Bilirubin NEGATIVE (NEGATIVE) Urine Urobilinogen NEGATIVE (0-1) mg/dL Ur Leukocyte Esterase NEGATIVE (NEGATIVE) Urine WBC (Auto) NONE (0-5) /HPF Urine RBC (Auto) NONE (0-2) /HPF U Epithel Cells (Auto) NONE (FEW) /HPF Urine Bacteria (Auto) NONE (NEGATIVE) /HPF Urine Culture Reflexed NO (NO) Urine Glucose NEGATIVE (NEGATIVE) mg/dL Urine HCG, Qual NEGATIVE (Negative) Group A Strep Antibody NOT DETECTED (NEGATIVE) 12/31/20 12/31/20 12/31/20 Range/Units 18:40 18:35 18:35 WBC 2.9 L (4.0-10.5) K/mm3 RBC 5.21 (4.1-5.4) M/mm3 Hgb 16.7 H (12.0-16.0) gm/dl Hct 49.4 H (35-47) % MCV 94.8 (78-100) fl MCH 32.1 H (26-32) pg MCHC 33.8 (32-36) g/dl RDW 12.2 (11.5-14.0) % Plt Count 122 L (150-450) K/mm3 MPV 10.6 (7.5-11.0) fl Gran % 67.5 H (36.0-66.0) % Eos # (Auto) 0.01 (0-0.5) Absolute Lymphs (auto) 0.51 L (1.0-4.6) Absolute Monos (auto) 0.42 (0.0-1.3) Lymphocytes % 17.5 L (24.0-44.0) % Monocytes % 14.4 H (0.0-12.0) % Eosinophils % 0.3 (0.00-5.0) % Basophils % 0.3 (0.0-0.4) % Absolute Granulocytes 1.97 (1.4-6.9) Basophils # 0.01 (0-0.4) Sodium 135 L (137-145) mmol/L Potassium 3.7 (3.5-5.1) mmol/L Chloride 96 L (98-107) mmol/L Carbon Dioxide 25 (22-30) mmol/L Anion Gap 17.5 H (5-15) MEQ/L BUN 6 L (7-17) mg/dL Creatinine 0.79 (0.52-1.04) mg/dL Estimated GFR > 60.0 ML/MIN Glucose 95 (74-106) mg/dL Lactic Acid 0.8 (0.4-2.0) Calcium 10.0 (8.4-10.2) mg/dL Total Bilirubin 0.40 (0.2-1.3) mg/dL AST 34 (14-36) U/L ALT 17 (0-35) U/L Alkaline Phosphatase 52 (38-126) U/L Serum Total Protein 9.1 H (6.3-8.2) g/dL Albumin 5.2 H (3.5-5.0) g/dL Urine Color (YELLOW) Urine Appearance (CLEAR) Urine pH (5-6) Ur Specific [place] (1.005-1.025) Urine Protein (Negative) Urine Ketones (NEGATIVE) Urine Blood (0-5) Robinson/ul Urine Nitrite (NEGATIVE) Urine Bilirubin (NEGATIVE) Urine Urobilinogen (0-1) mg/dL Ur Leukocyte Esterase (NEGATIVE) Urine WBC (Auto) (0-5) /HPF Urine RBC (Auto) (0-2) /HPF U Epithel Cells (Auto) (FEW) /HPF Urine Bacteria (Auto) (NEGATIVE) /HPF Urine Culture Reflexed (NO) Urine Glucose (NEGATIVE) mg/dL Urine HCG, Qual (Negative) Group A Strep Antibody (NEGATIVE) - Progress Progress: improved, re-examined Progress Note: 12/31/20 20:43 40 years old is evaluated for fever chills, generalized body aches/flulike symptoms, unvaccinated for COVID-19. She is given symptomatic treatment and fluid bolus. On reevaluation feeling better. Chest x-ray did not show any acute pneumonic infiltrates. She is maintaining oxygen saturation around 98% on room air without any signs of respiratory compromise. She has a white count of 2.9, low platelets in 130s, grossly unremarkable chemistries and Covid positive. No obvious other focus of infection. At this point I do not think she needs any intervention or admission, recommended supportive care, contact/droplet precautions and outpatient follow-up. Discussed signs symptoms of worsening needing return to ER which he seems understanding. Counseled pt/family regarding: lab results, diagnosis, need for follow-up, rad results - Departure Departure Disposition: Home Clinical Impression: Viral syndrome, COVID-19 Condition: Stable Critical Care Time: No Referrals: RAUL JALLOH [Primary Care Provider] - Follow Up with PCP/3 days Instructions: Fever, Adult (DC) Additional Instructions: Use Tylenol as needed for fever control/body aches. Drink plenty of fluids. Use contact/droplet precautions. Follow-up with primary care for reevaluation. Return to ER for high-grade fever, difficulty breathing, chest pain, intractable vomiting/diarrhea etc.
[2020-12-31] MEDS ORDERED: Sodium Chloride 0.9% 1000 ML 0 ML ONE (18:47)
[2020-12-31] MEDS ORDERED: TORAdol 30 mg Injection ONE ×2 (18:47→19:19)
[2020-12-31 18:57] LABS: Absolute Neutrophil Ct (ANC) 1.97 (1.4-6.9); BASOPHIL % 0.3 % (0.0-0.4); Basophil (Absolute #) 0.01 (0-0.4); Eosinophil % 0.3 % (0.00-5.0); Eosinophil (Absolute #) 0.01 (0-0.5); Hematocrit 49.4 % (35-47); Hemoglobin 16.7 gm/dl (12.0-16.0); Lymphocyte (Absolute #) 0.51 (1.0-4.6); Lymphocytes % 17.5 % (24.0-44.0); Mean Cell Volume 94.8 fl (78-100); Mean Corpuscular Hemoglobin 32.1 pg (26-32); Mean Corpuscular Hgb Concent. 33.8 g/dl (32-36); Mean Platelet Volume 10.6 fl (7.5-11.0); Monocyte (Absolute #) 0.42 (0.0-1.3); Monocytes % 14.4 % (0.0-12.0); Neutrophil % 67.5 % (36.0-66.0); Platelet Count 122 K/mm3 (150-450); Red Blood Count 5.21 M/mm3 (4.1-5.4); Red Cell Distribution Width 12.2 % (11.5-14.0); White Blood Count 2.9 K/mm3 (4.0-10.5)
[2020-12-31 19:11] LABS: ALBUMIN 5.2 g/dL (3.5-5.0); ALKALINE PHOSPHATASE 52 U/L (38-126); ANION GAP 17.5 MEQ/L (5-15); BLOOD UREA NITROGEN 6 mg/dL (7-17); CHLORIDE 96 mmol/L (98-107); Carbon Dioxide 25 mmol/L (22-30); Creatinine 1 0.79 mg/dL (0.52-1.04); EST GLOMERULAR FILTRATION RATE > 60.0 ML/MIN; Glucose 95 mg/dL (74-106); Potassium 3.7 mmol/L (3.5-5.1); SGOT/AST 34 U/L (14-36); SGPT/ALT 17 U/L (0-35); SODIUM 135 mmol/L (137-145); Total Protein 9.1 g/dL (6.3-8.2)
[2020-12-31 19:18] LABS: Appearance CLEAR (CLEAR); Bilirubin NEGATIVE (NEGATIVE); Blood MODERATE Ery/ul (0-5); Glucose NEGATIVE (NEGATIVE); Ketones NEGATIVE (NEGATIVE); Leukocyte Esterase NEGATIVE (NEGATIVE); Nitrite NEGATIVE (NEGATIVE); Protein,Urine Dip NEGATIVE (Negative); Specific Gravity 1.011 (1.005-1.025); Urobilinogen NEGATIVE mg/dL (0-1)
[2020-12-31] MEDS ORDERED: Sodium Chloride 0.9% 1000 ML 1,000 ML ONE (19:19)
[2020-12-31 21:26] VITALS: BP 114/76; PULSE 76; O2SAT 98
[2020-12-31 23:55] LABS: Slide Review 1 YES
--- NOTE | 2021-01-01 08:58 | XRAY ---
Indication: Fever. Comparison: April 30, 2020. Portable chest remains hyperinflated and clear. Heart not enlarged. Bony thorax intact. No new/acute findings.
== END 2020-12-31 21:23 | disposition home or self-care (01) ==
LOC: ED 17:20
DX: B34.9 Viral infection, unspecified (principal); U07.1 COVID-19
CPT/HCPCS: 36000; 36415; 71045; 80053; 81001; 83605; 84703; 85025; 87040; 87651; 96360; 96374; 99284; U0003; J1885

== ENCOUNTER 2021-01-07 18:49 | Emergency (ER) | payer OTHER ==
[2021-01-07] MEDS ORDERED: Sodium Chloride 0.9% 1000 ML 1,000 ML IV STA (19:14)
[2021-01-07] MEDS ORDERED: TYLENOL 325 MG PO ONE (19:14)
[2021-01-07] MEDS ORDERED: Reglan 10 MG/2 ML IV ONE (19:14)
[2021-01-07] MEDS ORDERED: Inapsine 5 MG/2 ML IV ONE (19:14)
[2021-01-07] MEDS ORDERED: BENADRYL 50 MG/ML IV ONE (19:15)
--- NOTE | 2021-01-07 19:19 | ERPHSYRPT ---
- History of Present Illness Time Seen by Provider: 01/07/21 18:58 Source: patient Exam Limitations: no limitations Patient Subjective Stated Complaint: pt here for was dx with covid, she co headache, n/v/d. hot flashes, Triage Nursing Assessment: pt walked in, resp easy, skin w/d/p. abd soft, no edema, face mask in place Physician History: 40 years old female with history of tobacco abuse, COPD, migraines, positive C OVID-19 almost a week ago presented in the ER with chief complaint of worsening headache, nausea and diarrhea with generalized weakness fatigue and tiredness. Patient reports headache on the right side moderate intensity, sharp throbbing without any significant aggravating or relieving factors. Denies any associated visual symptoms, difficulty speech, numbness tingling or focal weakness. No nec k pain or difficulty movements of neck. Does not think this is the worst headache of her life. She is not taking anything for headache at home. Patient reports similar headaches multiple times in the past. Also report having minimal productive smoker cough which is not any worse than usual without any shortness of breath. She also reports having fever chills off and on until yesterday and today fever resolved. No abdominal pain but nausea and diarrhea without hematochezia. Timing/Duration: week(s) (1), gradual onset, worse Severity: moderate Associated Symptoms: nausea, chills, fever, headaches, weakness Allergies/Adverse Reactions: cephalexin monohydrate [From Keflex] Allergy (Intermediate, Verified 01/07/21 19:11) Hives cefaclor [From Ceclor] Allergy (Mild, Verified 01/07/21 19:11) Hives oxycodone [From OxyContin] Allergy (Verified 01/07/21 19:11) Hx Tetanus, Diphtheria Vaccination/Date Given: No (unsure) Hx Influenza Vaccination/Date Given: No Hx Pneumococcal Vaccination/Date Given: No Immunizations Up to Date: Yes Travel Risk - International Travel Have you traveled outside of the country in past 3 weeks: No - Coronavirus Screening Are you exhibiting any of the following symptoms?: Yes Symptoms: Vomiting/Diarrhea, Headaches/Body Aches/Fatigue Close contact with a COVID-19 positive Pt in past 14-21 Days: Yes - Vaccine Status Have you recieved a Covid-19 vaccination: No - Review of Systems Constitutional: Fever, Chills, Fatigue, Weakness Eyes: No Symptoms Ears, Nose, & Throat: Throat Pain Respiratory: Cough Cardiac: No Symptoms Abdominal/Gastrointestinal: Nausea, Diarrhea Genitourinary Symptoms: No Symptoms Musculoskeletal: Myalgias Skin: No Symptoms Neurological: Headache Psychological: No Symptoms Endocrine: No Symptoms Hematologic/Lymphatic: No Symptoms Immunological/Allergic: No Symptoms - Past Medical History Pertinent Past Medical History: Yes Neurological History: Migraines ENT History: No Pertinent History Cardiac History: High Cholesterol Respiratory History: COPD, Other Endocrine Medical History: No Pertinent History Musculoskeletal History: Fractures GI Medical History: No Pertinent History History: No Pertinent History Psycho-Social History: Depression Female Reproductive Disorders: Endometriosis, Other Other Medical History: 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 steriod injections to rt shoulder under anesthesia - Social History Smoking Status: Current every day smoker How long have you smoked: years Exposure to second hand smoke: Yes Drug Use: marijuana Patient Lives Alone: Yes Significant Family History: no pertinent family hx, alpha-1 antitrypsin deficiency - Female History Hx Last Menstrual Period: hyster Hx Now: (unkn) - Nursing Vital Signs Nursing Vital Signs: Initial Vital Signs Temperature 97.8 F 01/07/21 19:05 Pulse Rate 79 01/07/21 19:05 Respiratory Rate 18 01/07/21 19:05 Blood Pressure 107/87 01/07/21 19:05 O2 Sat by Pulse Oximetry 99 01/07/21 19:05 Pain Scale Pain Intensity 4 - Physical Exam General Appearance: no apparent distress, alert, anxiety Eye Exam: PERRL/EOMI, eyes nml inspection Ears, Nose, Throat Exam: normal ENT inspection, TMs normal, pharynx normal Neck Exam: normal inspection, non-tender, supple, full range of motion Respiratory Exam: normal breath sounds, lungs clear Cardiovascular Exam: regular rate/rhythm, normal heart sounds Gastrointestinal/Abdomen Exam: soft, normal bowel sounds, No tenderness Back Exam: normal inspection, normal range of motion Extremity Exam: normal inspection, normal range of motion, pelvis stable Neurologic Exam: alert, oriented x 3, 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, 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 tested, nml cerebellar function, nml station & gait, sensation nml, No motor deficits, No sensory deficit Skin Exam: normal color SpO2 Interpretation: normal SpO2: 99 O2 Delivery: Room Air Ordered Tests: Active Orders 24 hr Category Date Time Status IV Insertion STAT Care 01/07/21 19:14 Completed NPO (ED) STAT Care 01/07/21 19:14 Completed CHEST 1 VIEW (PORTABLE) Stat Exams 01/07/21 19:14 Taken AMYLASE Stat Lab 01/07/21 20:40 Completed CBC W DIFF Stat Lab 01/07/21 20:40 Completed CMP Stat Lab 01/07/21 20:40 Completed LIPASE Stat Lab 01/07/21 20:40 Completed Lactic Acid Stat Lab 01/07/21 20:38 Completed TROPONIN Q3H Lab 01/07/21 20:40 Completed UA W/RFX UR CULTURE Stat Lab 01/07/21 19:14 Completed Medication Summary Discontinued Medications Generic Name Dose Route Start Last Admin Trade Name Wingq PRN Reason Stop Dose Admin Acetaminophen 975 mg 01/07/21 19:14 01/07/21 20:35 Tylenol 325 Mg PO 01/07/21 19:15 975 mg STAT ONE Administration Acetaminophen Confirm 01/07/21 20:08 Tylenol 325 Mg Administered 01/07/21 20:09 Dose 975 mg .ROUTE .STK-MED ONE Diphenhydramine HCl 25 mg 01/07/21 19:15 01/07/21 20:36 Benadryl 50 Mg/Ml IV 01/07/21 19:16 25 mg STAT ONE Administration Diphenhydramine HCl Confirm 01/07/21 20:08 Benadryl 50 Mg/Ml Administered 01/07/21 20:09 Dose 50 mg .ROUTE .STK-MED ONE Droperidol 1.25 mg 01/07/21 19:14 01/07/21 20:36 Inapsine 5 Mg/2 Ml IV 01/07/21 19:15 1.25 mg STAT ONE Administration Droperidol Confirm 01/07/21 20:07 Inapsine 5 Mg/2 Ml Administered 01/07/21 20:08 Dose 5 mg .ROUTE .STK-MED ONE Sodium Chloride 1,000 mls @ 999 mls/hr 01/07/21 19:14 01/07/21 21:45 Sodium Chloride 0.9% 1000 Ml IV 01/07/21 20:14 Infused .Q1H1M STA Infusion Sodium Chloride Confirm 01/07/21 20:08 Sodium Chloride 0.9% 1000 Ml Administered 01/07/21 20:09 Dose 1,000 mls @ ud .ROUTE .STK-MED ONE Metoclopramide HCl 10 mg 01/07/21 19:14 01/07/21 20:36 Reglan 10 Mg/2 Ml IV 01/07/21 19:15 10 mg STAT ONE Administration Metoclopramide HCl Confirm 01/07/21 20:08 Reglan 10 Mg/2 Ml Administered 01/07/21 20:09 Dose 10 mg .ROUTE .STK-MED ONE Lab/Rad Data: Laboratory Result Diagrams 01/07/21 20:40 01/07/21 20:40 Laboratory Results 01/07/21 01/07/21 01/07/21 Range/Units 20:40 20:40 20:40 WBC 6.1 (4.0-10.5) K/mm3 RBC 4.85 (4.1-5.4) M/mm3 Hgb 15.5 (12.0-16.0) gm/dl Hct 45.3 (35-47) % MCV 93.4 (78-100) fl MCH 32.0 (26-32) pg MCHC 34.2 (32-36) g/dl RDW 12.0 (11.5-14.0) % Plt Count 116 L (150-450) K/mm3 MPV 11.0 (7.5-11.0) fl Gran % 63.8 (36.0-66.0) % Eos # (Auto) 0.10 (0-0.5) Absolute Lymphs (auto) 1.68 (1.0-4.6) Absolute Monos (auto) 0.43 (0.0-1.3) Lymphocytes % 27.4 (24.0-44.0) % Monocytes % 7.0 (0.0-12.0) % Eosinophils % 1.6 (0.00-5.0) % Basophils % 0.2 (0.0-0.4) % Absolute Granulocytes 3.92 (1.4-6.9) Basophils # 0.01 (0-0.4) Sodium 135 L (137-145) mmol/L Potassium 3.9 (3.5-5.1) mmol/L Chloride 102 (98-107) mmol/L Carbon Dioxide 22 (22-30) mmol/L Anion Gap 14.9 (5-15) MEQ/L BUN 9 (7-17) mg/dL Creatinine 0.60 (0.52-1.04) mg/dL Estimated GFR > 60.0 ML/MIN Glucose 96 (74-106) mg/dL Lactic Acid (0.4-2.0) Calcium 9.2 (8.4-10.2) mg/dL Total Bilirubin 0.50 (0.2-1.3) mg/dL AST 25 (14-36) U/L ALT 13 (0-35) U/L Alkaline Phosphatase 52 (38-126) U/L Troponin I < 0.012 (0.000-0.034) ng/mL Serum Total Protein 7.4 (6.3-8.2) g/dL Albumin 4.2 (3.5-5.0) g/dL Amylase 70 (30-110) U/L Lipase 59 (23-300) U/L Urine Color (YELLOW) Urine Appearance (CLEAR) Urine pH (5-6) Ur Specific [place] (1.005-1.025) Urine Protein (Negative) Urine Ketones (NEGATIVE) Urine Blood (0-5) Robinson/ul Urine Nitrite (NEGATIVE) Urine Bilirubin (NEGATIVE) Urine Urobilinogen (0-1) mg/dL Ur Leukocyte Esterase (NEGATIVE) Urine WBC (Auto) (0-5) /HPF Urine RBC (Auto) (0-2) /HPF U Epithel Cells (Auto) (FEW) /HPF Urine Bacteria (Auto) (NEGATIVE) /HPF Urine Culture Reflexed (NO) Urine Glucose (NEGATIVE) mg/dL 01/07/21 01/07/21 Range/Units 20:38 19:14 WBC (4.0-10.5) K/mm3 RBC (4.1-5.4) M/mm3 Hgb (12.0-16.0) gm/dl Hct (35-47) % MCV (78-100) fl MCH (26-32) pg MCHC (32-36) g/dl RDW (11.5-14.0) % Plt Count (150-450) K/mm3 MPV (7.5-11.0) fl Gran % (36.0-66.0) % Eos # (Auto) (0-0.5) Absolute Lymphs (auto) (1.0-4.6) Absolute Monos (auto) (0.0-1.3) Lymphocytes % (24.0-44.0) % Monocytes % (0.0-12.0) % Eosinophils % (0.00-5.0) % Basophils % (0.0-0.4) % Absolute Granulocytes (1.4-6.9) Basophils # (0-0.4) Sodium (137-145) mmol/L Potassium (3.5-5.1) mmol/L Chloride (98-107) mmol/L Carbon Dioxide (22-30) mmol/L Anion Gap (5-15) MEQ/L BUN (7-17) mg/dL Creatinine (0.52-1.04) mg/dL Estimated GFR ML/MIN Glucose (74-106) mg/dL Lactic Acid 0.7 (0.4-2.0) Calcium (8.4-10.2) mg/dL Total Bilirubin (0.2-1.3) mg/dL AST (14-36) U/L ALT (0-35) U/L Alkaline Phosphatase (38-126) U/L Troponin I (0.000-0.034) ng/mL Serum Total Protein (6.3-8.2) g/dL Albumin (3.5-5.0) g/dL Amylase (30-110) U/L Lipase (23-300) U/L Urine Color YELLOW (YELLOW) Urine Appearance CLEAR (CLEAR) Urine pH 7.0 (5-6) Ur Specific [place] 1.017 (1.005-1.025) Urine Protein NEGATIVE (Negative) Urine Ketones SMALL (NEGATIVE) Urine Blood NEGATIVE (0-5) Robinson/ul Urine Nitrite NEGATIVE (NEGATIVE) Urine Bilirubin NEGATIVE (NEGATIVE) Urine Urobilinogen 4 (0-1) mg/dL Ur Leukocyte Esterase NEGATIVE (NEGATIVE) Urine WBC (Auto) NONE (0-5) /HPF Urine RBC (Auto) NONE (0-2) /HPF U Epithel Cells (Auto) RARE (FEW) /HPF Urine Bacteria (Auto) NONE (NEGATIVE) /HPF Urine Culture Reflexed NO (NO) Urine Glucose NEGATIVE (NEGATIVE) mg/dL - Progress Progress: improved, re-examined Progress Note: 01/07/21 21:42 She is given migraine cocktail and fluid bolus, on reevaluation feeling much better and her headache is completely resolved. Baseline work-up is grossly unremarkable. Nonfocal neuro exam throughout her stay in the ER. Do not think she needs any imaging or work-up. Headache is similar to previous episodes. Does not think this is the worst headache of her life. I believe patient has viral syndrome, recommended supportive care and outpatient follow-up. Counseled pt/family regarding: lab results, diagnosis, need for follow-up, rad results - Departure Departure Disposition: Home Clinical Impression: Viral syndrome Migraine headache Qualifiers: Migraine type: without aura Status migrainosus presence: without status migrainosus Intractability: not intractable Qualified Code(s): G43.009 - Migraine without aura, not intractable, without status migrainosus Condition: Stable Critical Care Time: No Referrals: RAUL JALLOH [Primary Care Provider] - Follow Up with PCP/3 days Instructions: Migraines (DC), Viral Syndrome (DC) Additional Instructions: Drink plenty of fluids. Take Tylenol as needed. Follow-up with your primary care physician for reevaluation. Return to ER for intractable headache, worsening diarrhea, abdominal pain, fever chills etc. Prescriptions: Ondansetron ODT 4 MG [Zofran Odt 4 mg] 4 mg PO Q6H PRN PRN #7 tab.rapdis PRN Reason: Vomiting
[2021-01-07 19:41] LABS: Appearance CLEAR (CLEAR); Bilirubin NEGATIVE (NEGATIVE); Blood NEGATIVE Ery/ul (0-5); Epithelial Cells RARE /HPF (FEW); Glucose NEGATIVE (NEGATIVE); Ketones SMALL (NEGATIVE); Leukocyte Esterase NEGATIVE (NEGATIVE); Nitrite NEGATIVE (NEGATIVE); Protein,Urine Dip NEGATIVE (Negative); Specific Gravity 1.017 (1.005-1.025); Urobilinogen 4 mg/dL (0-1)
[2021-01-07] MEDS ORDERED: Inapsine 5 MG/2 ML ONE (20:07)
[2021-01-07] MEDS ORDERED: Sodium Chloride 0.9% 1000 ML 1,000 ML ONE (20:08)
[2021-01-07] MEDS ORDERED: TYLENOL 325 MG ONE (20:08)
[2021-01-07] MEDS ORDERED: BENADRYL 50 MG/ML ONE (20:08)
[2021-01-07] MEDS ORDERED: Reglan 10 MG/2 ML ONE (20:08)
[2021-01-07 20:45] LABS: Absolute Neutrophil Ct (ANC) 3.92 (1.4-6.9); BASOPHIL % 0.2 % (0.0-0.4); Basophil (Absolute #) 0.01 (0-0.4); Eosinophil % 1.6 % (0.00-5.0); Hematocrit 45.3 % (35-47); Hemoglobin 15.5 gm/dl (12.0-16.0); Lymphocyte (Absolute #) 1.68 (1.0-4.6); Lymphocytes % 27.4 % (24.0-44.0); Mean Cell Volume 93.4 fl (78-100); Mean Corpuscular Hgb Concent. 34.2 g/dl (32-36); Monocyte (Absolute #) 0.43 (0.0-1.3); Neutrophil % 63.8 % (36.0-66.0); Platelet Count 116 K/mm3 (150-450); Red Blood Count 4.85 M/mm3 (4.1-5.4); White Blood Count 6.1 K/mm3 (4.0-10.5)
[2021-01-07 21:00] LABS: ALBUMIN 4.2 g/dL (3.5-5.0); ALKALINE PHOSPHATASE 52 U/L (38-126); AMYLASE 70 U/L (30-110); ANION GAP 14.9 MEQ/L (5-15); BLOOD UREA NITROGEN 9 mg/dL (7-17); CHLORIDE 102 mmol/L (98-107); Calcium 9.2 mg/dL (8.4-10.2); Carbon Dioxide 22 mmol/L (22-30); EST GLOMERULAR FILTRATION RATE > 60.0 ML/MIN; Glucose 96 mg/dL (74-106); LIPASE 59 U/L (23-300); Potassium 3.9 mmol/L (3.5-5.1); SGOT/AST 25 U/L (14-36); SGPT/ALT 13 U/L (0-35); SODIUM 135 mmol/L (137-145); Total Protein 7.4 g/dL (6.3-8.2)
[2021-01-07 21:43] VITALS: BP 121/70; PULSE 75
[2021-01-07 21:47] VITALS: O2SAT 99
--- NOTE | 2021-01-08 09:03 | XRAY ---
Indication: Fever. Positive Covid 19. Comparison: December 31, 2020. Portable chest remains hyperinflated and clear. Heart not enlarged. No new/acute abnormalities.
== END 2021-01-07 21:53 | disposition home or self-care (01) ==
LOC: ED 18:49
DX: B34.9 Viral infection, unspecified (principal); G43.009 Migraine without aura, not intractable, without status migrainosus; J44.9 Chronic obstructive pulmonary disease, unspecified
CPT/HCPCS: 36000; 36415; 71045; 80053; 81001; 82150; 83605; 83690; 84484; 85025; 96360; 96374; 96375; 99284; J1200; A9270-GY

== ENCOUNTER 2021-01-08 17:19 | Emergency (ER) | payer OTHER ==
[2021-01-08] MEDS ORDERED: BABY ASPIRIN 81 MG CHEW PO ONE (17:40)
--- NOTE | 2021-01-08 17:43 | ERPHSYRPT ---
- History of Present Illness Time Seen by Provider: 01/08/21 17:35 Historian: patient, EMS Exam Limitations: no limitations Patient Subjective Stated Complaint: chest pain, anxiety 30 min port captain while eating dinner Triage Nursing Assessment: pt to ED by EMS c/o CP and anxiety onset 30 min port captain while eating dinner. pt states she has been dx with COVID 9 days ago and gets out of quarentine tomorrow, no longer symptomatic of COVID. states CP began in epigastric region and is now moving up to center of chest. Physician History: This is a thin 40-year-old white female who complains of chest pain that began in the epigastric area and radiated into her central chest. Patient states that she and her got into a significant argument and she began having chest pain and shortness of breath. She feels as though maybe it was a panic attack. Once the patient calm down in the ambulance, her chest pain resolving and upon arrival to the emergency room she complains of epigastric pain with a level 2 out of 10. The chest pain has resolved. Patient is not short of breath. Patient was seen in this emergency department yesterday, 01/07/2021 and was diagnosed with viral syndrome and migraine headache. She had no complaints of chest pain at that time. She has a history of elevated cholesterol and COPD. She was diagnosed with COVID-19 infection over 10 days ago. She has no abdominal pain other than the epigastric symptoms. She denies nausea vomiting and denies diarrhea. Timing/Duration: today Quality: sharpness Location: substernal, central, epigastric Severity of Pain-Max: moderate Severity of Pain-Current: mild Modifying Factors: Improves With: nothing Associated Symptoms: abdominal pain (Epigastric) Prior Chest Pain/Cardiac Workup: recently seen/treated Nitro Today/Relief: no nitro taken today Aspirin Treatment Today: no aspirin today Allergies/Adverse Reactions: cephalexin monohydrate [From Keflex] Allergy (Intermediate, Verified 01/08/21 17:30) Hives cefaclor [From Ceclor] Allergy (Mild, Verified 01/08/21 17:30) Hives oxycodone [From OxyContin] Adverse Reaction (Verified 01/08/21 17:31) "not allergic, just dont like the way it makes me feel" Hx Tetanus, Diphtheria Vaccination/Date Given: No (unsure) Hx Influenza Vaccination/Date Given: No Hx Pneumococcal Vaccination/Date Given: No Immunizations Up to Date: No Travel Risk - International Travel Have you traveled outside of the country in past 3 weeks: No - Coronavirus Screening Are you exhibiting any of the following symptoms?: No Close contact with a COVID-19 positive Pt in past 14-21 Days: Yes - Vaccine Status Have you recieved a Covid-19 vaccination: No - Review of Systems Constitutional: No Symptoms Eyes: No Symptoms Ears, Nose, & Throat: No Symptoms Respiratory: No Symptoms Cardiac: Chest Pain (Pain in the epigastrium has radiated into her central substernal area. This is resolved at the time of arrival to the emergency department) Abdominal/Gastrointestinal: Abdominal Pain (Epigastric) Genitourinary Symptoms: No Symptoms Musculoskeletal: No Symptoms Skin: No Symptoms Neurological: No Symptoms Psychological: No Symptoms Endocrine: No Symptoms Hematologic/Lymphatic: No Symptoms Immunological/Allergic: No Symptoms All Other Systems: Reviewed and Negative - Past Medical History Pertinent Past Medical History: Yes Neurological History: Migraines ENT History: No Pertinent History Cardiac History: High Cholesterol Respiratory History: COPD, Other Endocrine Medical History: No Pertinent History Musculoskeletal History: Fractures GI Medical History: No Pertinent History History: No Pertinent History Psycho-Social History: Depression Female Reproductive Disorders: Endometriosis, Other Other Medical History: 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 steriod injections to rt shoulder under anesthesia - Social History Smoking Status: Current every day smoker How long have you smoked: years Exposure to second hand smoke: No Drug Use: marijuana Patient Lives Alone: No Significant Family History: no pertinent family hx, alpha-1 antitrypsin deficiency - Female History Hx Now: No - Nursing Vital Signs Nursing Vital Signs: Initial Vital Signs Temperature 98.1 F 01/08/21 17:21 Pulse Rate 80 01/08/21 17:21 Respiratory Rate 16 01/08/21 17:21 Blood Pressure 103/79 01/08/21 17:21 O2 Sat by Pulse Oximetry 98 01/08/21 17:21 Pain Scale Pain Intensity 7 - Physical Exam General Appearance: no apparent distress, alert, anxiety Eye Exam: PERRL/EOMI, eyes nml inspection Ears, Nose, Throat Exam: normal ENT inspection Neck Exam: normal inspection, non-tender, supple, full range of motion Respiratory Exam: normal breath sounds, lungs clear, airway intact, No chest tenderness, No respiratory distress Cardiovascular Exam: regular rate/rhythm, normal heart sounds, normal peripheral pulses Gastrointestinal/Abdomen Exam: soft, normal bowel sounds, No tenderness, No guarding Pelvic Exam: not done Rectal Exam: not done Back Exam: normal inspection, normal range of motion, No CVA tenderness, No vertebral tenderness Extremity Exam: normal inspection, normal range of motion, pelvis stable Neurologic Exam: alert, oriented x 3, cooperative, motor route carrier II-XII nml as tested, normal mood/affect, nml cerebellar function, nml station & gait, sensation nml Skin Exam: normal color, warm, dry Lymphatic Exam: No adenopathy SpO2 Interpretation: normal SpO2: 98 O2 Delivery: Room Air - Course Nursing assessment & vital signs reviewed: Yes EKG Interpreted by Me: RATE ([id number]), Sinus Rhythm, NORMAL AXIS, NORMAL INTERVALS, NORMAL QRS, NORMAL ST-T, Other (No acute ischemic changes on today's EKG. No change when you compare today's EKG with EKG dated 11/01/2020.) Ordered Tests: Active Orders 24 hr Category Date Time Status Printer Assistant STAT Care 01/08/21 17:41 Active EKG-ER Only STAT Care 01/08/21 17:40 Active IV Insertion STAT Care 01/08/21 17:40 Active CHEST 1 VIEW (PORTABLE) Stat Exams 01/08/21 17:40 Taken CHEST WITH CONTRAST [CT] Stat Exams 01/08/21 18:33 Ordered CBC W DIFF Stat Lab 01/08/21 17:34 Completed CMP Stat Lab 01/08/21 17:34 Completed D-DIMER QUANTITATIVE Stat Lab 01/08/21 18:00 Completed NT PRO BNP Stat Lab 01/08/21 17:34 Completed TROPONIN Q3H Lab 01/08/21 17:34 Completed TROPONIN Q3H Lab 01/08/21 20:45 Ordered TROPONIN Q3H Lab 01/08/21 23:45 Ordered TROPONIN Q3H Lab 01/09/21 02:45 Ordered TROPONIN Q3H Lab 01/09/21 05:45 Ordered Medication Summary Generic Name Dose Route Start Last Admin Trade Name Araceli PRN Reason Stop Dose Admin Sodium Chloride 500 mls @ 500 mls/hr 01/08/21 18:32 01/08/21 18:42 Sodium Chloride 0.9% 500 Ml IV 01/08/21 19:31 500 mls/hr .Q1H ONE Administration Discontinued Medications Generic Name Dose Route Start Last Admin Trade Name Araceli PRN Reason Stop Dose Admin Aspirin 324 mg 01/08/21 17:40 01/08/21 17:56 Baby Aspirin 81 Mg Chew PO 01/08/21 17:41 324 mg STAT ONE Administration Aspirin Confirm 01/08/21 17:56 Baby Aspirin 81 Mg Chew Administered 01/08/21 17:57 Dose 324 mg .ROUTE .STK-MED ONE Sodium Chloride Confirm 01/08/21 18:41 Sodium Chloride 0.9% 500 Ml Administered 01/08/21 18:42 Dose 500 mls @ ud IV .STK-MED ONE Lab/Rad Data: Laboratory Result Diagrams 01/08/21 17:34 01/08/21 17:34 Laboratory Results 01/08/21 01/08/21 01/08/21 Range/Units 18:00 17:34 17:34 WBC (4.0-10.5) K/mm3 RBC (4.1-5.4) M/mm3 Hgb (12.0-16.0) gm/dl Hct (35-47) % MCV (78-100) fl MCH (26-32) pg MCHC (32-36) g/dl RDW (11.5-14.0) % Plt Count (150-450) K/mm3 MPV (7.5-11.0) fl Gran % (36.0-66.0) % Eos # (Auto) (0-0.5) Absolute Lymphs (auto) (1.0-4.6) Absolute Monos (auto) (0.0-1.3) Lymphocytes % (24.0-44.0) % Monocytes % (0.0-12.0) % Eosinophils % (0.00-5.0) % Basophils % (0.0-0.4) % Absolute Granulocytes (1.4-6.9) Basophils # (0-0.4) D-Dimer 535 H* (215-500) ng/mL Sodium 135 L (137-145) mmol/L Potassium 3.6 (3.5-5.1) mmol/L Chloride 102 (98-107) mmol/L Carbon Dioxide 20 L (22-30) mmol/L Anion Gap 16.8 H (5-15) MEQ/L BUN 8 (7-17) mg/dL Creatinine 0.57 (0.52-1.04) mg/dL Estimated GFR > 60.0 ML/MIN Glucose 142 H (74-106) mg/dL Calcium 9.1 (8.4-10.2) mg/dL Total Bilirubin 0.90 (0.2-1.3) mg/dL AST 25 (14-36) U/L ALT 14 (0-35) U/L Alkaline Phosphatase 48 (38-126) U/L Troponin I < 0.012 (0.000-0.034) ng/mL NT-Pro-B Natriuret Pep 44.9 (0-450) pg/mL Serum Total Protein 7.4 (6.3-8.2) g/dL Albumin 4.4 (3.5-5.0) g/dL 01/08/21 Range/Units 17:34 WBC 4.2 (4.0-10.5) K/mm3 RBC 4.68 (4.1-5.4) M/mm3 Hgb 14.8 (12.0-16.0) gm/dl Hct 42.8 (35-47) % MCV 91.5 (78-100) fl MCH 31.6 (26-32) pg MCHC 34.6 (32-36) g/dl RDW 11.8 (11.5-14.0) % Plt Count 132 L (150-450) K/mm3 MPV 11.3 H (7.5-11.0) fl Gran % 55.4 (36.0-66.0) % Eos # (Auto) 0.06 (0-0.5) Absolute Lymphs (auto) 1.63 (1.0-4.6) Absolute Monos (auto) 0.18 (0.0-1.3) Lymphocytes % 38.7 (24.0-44.0) % Monocytes % 4.3 (0.0-12.0) % Eosinophils % 1.4 (0.00-5.0) % Basophils % 0.2 (0.0-0.4) % Absolute Granulocytes 2.33 (1.4-6.9) Basophils # 0.01 (0-0.4) D-Dimer (215-500) ng/mL Sodium (137-145) mmol/L Potassium (3.5-5.1) mmol/L Chloride (98-107) mmol/L Carbon Dioxide (22-30) mmol/L Anion Gap (5-15) MEQ/L BUN (7-17) mg/dL Creatinine (0.52-1.04) mg/dL Estimated GFR ML/MIN Glucose (74-106) mg/dL Calcium (8.4-10.2) mg/dL Total Bilirubin (0.2-1.3) mg/dL AST (14-36) U/L ALT (0-35) U/L Alkaline Phosphatase (38-126) U/L Troponin I (0.000-0.034) ng/mL NT-Pro-B Natriuret Pep (0-450) pg/mL Serum Total Protein (6.3-8.2) g/dL Albumin (3.5-5.0) g/dL - Progress Progress: improved, re-examined Air Movement: good Progress Note: 01/08/21 18:56 Chest x-ray shows no acute cardiopulmonary process. I transferred care to at shift change. He is to follow-up with the CAT scan of the chest with contrast. He will make the final disposition of this patient. Blood Culture(s) Obtained: No Antibiotics given: No Counseled pt/family regarding: lab results, diagnosis, need for follow-up, rad results - Departure Departure Disposition: Home Clinical Impression: Chest pain Condition: Stable Critical Care Time: No Referrals: RAUL JALLOH [Primary Care Provider] - Additional Instructions: Take all your medications as prescribed. Follow-up with your primary care physi bisi for further management
[2021-01-08 17:53] LABS: Absolute Neutrophil Ct (ANC) 2.33 (1.4-6.9); BASOPHIL % 0.2 % (0.0-0.4); Basophil (Absolute #) 0.01 (0-0.4); Eosinophil % 1.4 % (0.00-5.0); Eosinophil (Absolute #) 0.06 (0-0.5); Hematocrit 42.8 % (35-47); Hemoglobin 14.8 gm/dl (12.0-16.0); Lymphocyte (Absolute #) 1.63 (1.0-4.6); Lymphocytes % 38.7 % (24.0-44.0); Mean Cell Volume 91.5 fl (78-100); Mean Corpuscular Hemoglobin 31.6 pg (26-32); Mean Corpuscular Hgb Concent. 34.6 g/dl (32-36); Mean Platelet Volume 11.3 fl (7.5-11.0); Monocyte (Absolute #) 0.18 (0.0-1.3); Monocytes % 4.3 % (0.0-12.0); Neutrophil % 55.4 % (36.0-66.0); Platelet Count 132 K/mm3 (150-450); Red Blood Count 4.68 M/mm3 (4.1-5.4); Red Cell Distribution Width 11.8 % (11.5-14.0); White Blood Count 4.2 K/mm3 (4.0-10.5)
[2021-01-08] MEDS ORDERED: BABY ASPIRIN 81 MG CHEW ONE (17:56)
[2021-01-08 18:13] LABS: ALBUMIN 4.4 g/dL (3.5-5.0); ALKALINE PHOSPHATASE 48 U/L (38-126); ANION GAP 16.8 MEQ/L (5-15); BLOOD UREA NITROGEN 8 mg/dL (7-17); CHLORIDE 102 mmol/L (98-107); Calcium 9.1 mg/dL (8.4-10.2); Carbon Dioxide 20 mmol/L (22-30); Creatinine 1 0.57 mg/dL (0.52-1.04); EST GLOMERULAR FILTRATION RATE > 60.0 ML/MIN; Glucose 142 mg/dL (74-106); NT PRO BNP 44.9 pg/mL (0-450); Potassium 3.6 mmol/L (3.5-5.1); SGOT/AST 25 U/L (14-36); SGPT/ALT 14 U/L (0-35); SODIUM 135 mmol/L (137-145); Total Protein 7.4 g/dL (6.3-8.2)
[2021-01-08] MEDS ORDERED: Sodium Chloride 0.9% 500 ML 500 ML IV ONE ×2 (18:32→18:41)
[2021-01-08 19:16] VITALS: O2SAT 97
[2021-01-08 20:31] VITALS: BP 94/59; PULSE 76
--- NOTE | 2021-01-08 22:00 | XRAY ---
Indication: Chest pain. Comparison: One day earlier. Portable chest remains hyperinflated and clear. Heart and mediastinal structures within normal limits. Bony thorax intact. Impression: Continued nonacute hyperinflated chest.
--- NOTE | 2021-01-08 22:04 | XRAY ---
Indication: Chest pain. Elevated d-dimer. Positive Covid 19. Multiple contiguous axial images obtained through the chest using 80 cc of Isovue-370 contrast and PE protocol. Comparison: November 07, 2019. There is good opacification of the pulmonary arteries to include the lobar and segmental branches. No pulmonary embolus. Heart not enlarged. Aorta normal in course and caliber. No pathologic mediastinal/hilar lymphadenopathy. Lungs are inflated again with minimal biapical fibrosis/scarring and medial left upper lobe subpleural cystic changes. No suspicious pulmonary mass, infiltrate, or effusion. Bony thorax intact. The limited upper abdomen unremarkable. Impression: Continued negative pulmonary embolus. Again incidental biapical fibrosis/scarring and left upper lobe subpleural cystic changes. No new/acute cardiopulmonary abnormalities.
== END 2021-01-08 20:35 | disposition home or self-care (01) ==
LOC: ED 17:19
DX: R07.9 Chest pain, unspecified (principal)
CPT/HCPCS: 36000; 36415; 71045; 71260; 80053; 83880; 84484; 85025; 85379; 93005; 93041; 99284; A9270-GY

== ENCOUNTER 2021-01-28 16:37 | Emergency (ER) | payer OTHER ==
[2021-01-28 16:43] VITALS: PULSE 94; O2SAT 98
--- NOTE | 2021-01-28 16:55 | ERPHSYRPT ---
- History of Present Illness Time Seen by Provider: 01/28/21 16:54 Source: patient Exam Limitations: no limitations Patient Subjective Stated Complaint: Pt states "About four o'clock I got this horrible burning on the right side of my head and then I felt like I was going to pass out, I got nauseated and vomited several times.' Triage Nursing Assessment: Pt presnted alert and oriented X 3, skin pwd Pt ambultes with a slow gait, holding her head. pt in no apparent respiratory distress. pt activly vomiting when helped out of a car. Timing/Duration: today Quality: aching, burning Allergies/Adverse Reactions: cephalexin monohydrate [From Keflex] Allergy (Intermediate, Verified 01/08/21 17:30) Hives cefaclor [From Ceclor] Allergy (Mild, Verified 01/08/21 17:30) Hives oxycodone [From OxyContin] Adverse Reaction (Verified 01/08/21 17:31) "not allergic, just dont like the way it makes me feel" Home Medications: Escitalopram Oxalate 10 mg [Lexapro 10 MG] 10 mg PO DAILY 01/28/21 [History] clonazePAM [Clonazepam] 0.5 mg PO DAILY PRN 01/28/21 [History] Hx Tetanus, Diphtheria Vaccination/Date Given: No Hx Influenza Vaccination/Date Given: No Hx Pneumococcal Vaccination/Date Given: No Immunizations Up to Date: Yes Travel Risk - International Travel Have you traveled outside of the country in past 3 weeks: No - Coronavirus Screening Are you exhibiting any of the following symptoms?: No Close contact with a COVID-19 positive Pt in past 14-21 Days: No - Vaccine Status Have you recieved a Covid-19 vaccination: No - Review of Systems Constitutional: No Symptoms Eyes: No Symptoms Ears, Nose, & Throat: No Symptoms Respiratory: No Symptoms Cardiac: No Symptoms Abdominal/Gastrointestinal: No Symptoms Genitourinary Symptoms: No Symptoms Musculoskeletal: No Symptoms Skin: No Symptoms Neurological: Headache, Sensory Changes Endocrine: No Symptoms Hematologic/Lymphatic: No Symptoms Immunological/Allergic: No Symptoms All Other Systems: Reviewed and Negative - Past Medical History Pertinent Past Medical History: Yes Neurological History: Migraines ENT History: No Pertinent History Cardiac History: High Cholesterol Respiratory History: COPD, Other Endocrine Medical History: No Pertinent History Musculoskeletal History: Fractures GI Medical History: No Pertinent History History: No Pertinent History Psycho-Social History: Depression Female Reproductive Disorders: Endometriosis, Other Other Medical History: 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 steriod injections to rt shoulder under anesthesia - Social History Smoking Status: Current every day smoker How long have you smoked: years Exposure to second hand smoke: Yes Drug Use: marijuana Patient Lives Alone: No Significant Family History: no pertinent family hx, alpha-1 antitrypsin deficiency - Female History Hx Last Menstrual Period: partial hysterecomy Hx Now: No - Nursing Vital Signs Nursing Vital Signs: Initial Vital Signs Temperature 97.6 F 01/28/21 16:38 Pulse Rate 94 H 01/28/21 16:38 Respiratory Rate 22 01/28/21 16:38 Blood Pressure 116/62 01/28/21 16:38 O2 Sat by Pulse Oximetry 98 01/28/21 16:38 Pain Scale Pain Intensity 10 - Physical Exam General Appearance: moderate distress Eye Exam: PERRL/EOMI Ears, Nose, Throat Exam: normal ENT inspection, pharynx normal Neck Exam: normal inspection, non-tender, supple Respiratory Exam: normal breath sounds Cardiovascular Exam: regular rate/rhythm, normal heart sounds Back Exam: normal inspection, normal range of motion Extremity Exam: normal inspection, normal range of motion Mental Status Exam: alert, oriented x 3, cooperative 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 Exam: normal hearing, normal speech, tongue midline Coordination/Gait Exam: normal finger to nose, normal gait, normal cerebellar function Motor/Sensory Exam: no motor deficit, no sensory deficit, no pronator drift Skin Exam: normal color SpO2 Interpretation: normal SpO2: 98 O2 Delivery: Room Air Ordered Tests: Medication Summary Discontinued Medications Generic Name Dose Route Start Last Admin Trade Name Freq PRN Reason Stop Dose Admin Diphenhydramine HCl 25 mg 01/28/21 17:06 01/28/21 17:15 Benadryl 50 Mg/Ml IV 01/28/21 17:07 25 mg STAT ONE Administration Diphenhydramine HCl Confirm 01/28/21 17:13 Benadryl 50 Mg/Ml Administered 01/28/21 17:14 Dose 50 mg .ROUTE .STK-MED ONE Prochlorperazine Edisylate 10 mg 01/28/21 17:06 01/28/21 17:15 Compazine 10 Mg/2 Ml IV 01/28/21 17:07 10 mg STAT ONE Administration Prochlorperazine Edisylate Confirm 01/28/21 17:13 Compazine 10 Mg/2 Ml Administered 01/28/21 17:14 Dose 10 mg .ROUTE .STK-MED ONE - Progress Progress: improved Air Movement: good Blood Culture(s) Obtained: No Antibiotics given: No Counseled pt/family regarding: lab results, diagnosis, need for follow-up, rad results - Departure Departure Disposition: Home Clinical Impression: Migraine headache Qualifiers: Migraine type: without aura Status migrainosus presence: without status migrainosus Intractability: not intractable Qualified Code(s): G43.009 - Migraine without aura, not intractable, without status migrainosus Condition: Stable Critical Care Time: No Referrals: RAUL JALLOH [Primary Care Provider] - Additional Instructions: See PCP
[2021-01-28] MEDS ORDERED: Compazine 10 MG/2 ML IV ONE (17:06)
[2021-01-28] MEDS ORDERED: BENADRYL 50 MG/ML IV ONE (17:06)
[2021-01-28] MEDS ORDERED: BENADRYL 50 MG/ML ONE (17:13)
[2021-01-28] MEDS ORDERED: Compazine 10 MG/2 ML ONE (17:13)
[2021-01-28 18:22] VITALS: BP 112/65
--- NOTE | 2021-01-29 09:17 | XRAY ---
Indication: Migraine headache. Nausea and vomiting. Multiple contiguous axial images obtained through the head without contrast. Comparison: June 17, 2020. Normal appearing brain parenchyma, ventricles, and bony calvarium. Visualized paranasal sinuses and mastoid air cells are clear. Impression: Continued normal CT head without contrast exam.
== END 2021-01-29 07:42 | disposition home or self-care (01) ==
LOC: ED 16:37
DX: G43.009 Migraine without aura, not intractable, without status migrainosus (principal); Z79.899 Other long term (current) drug therapy
CPT/HCPCS: 70450; 96374; 96375; 99284; J1200

== ENCOUNTER 2021-01-31 12:31 | Emergency (ER) | payer OTHER ==
[2021-01-31] MEDS ORDERED: TYLENOL 325 MG PO ONE (12:46)
[2021-01-31] MEDS ORDERED: Reglan 10 MG/2 ML IV ONE (12:46)
[2021-01-31] MEDS ORDERED: Sodium Chloride 0.9% 1000 ML 1,000 ML IV STA (12:46)
[2021-01-31] MEDS ORDERED: TORAdol 30 mg Injection IV ONE (12:46)
[2021-01-31] MEDS ORDERED: BENADRYL 50 MG/ML IV ONE (12:46)
--- NOTE | 2021-01-31 12:55 | ERPHSYRPT ---
- History of Present Illness Time Seen by Provider: 01/31/21 12:33 Source: patient Exam Limitations: no limitations Physician History: 41 years old female with history of tobacco abuse, COPD, migraines, recent COVID-19 presented in the ER with chief complaint of right-sided headache for the last 2 hours, moderate to severe sharp nature, aggravated with movements, light and noise and no significant relieving factors. Took Aleve prior to arrival with no relief. Denies any neck pain or difficulty movements of neck. Nausea but no vomiting. Headache is similar to previous and does not think this is the worst headache of her life. Patient reports that since recovering from Covid headache frequency is getting worse and is having almost every day. She was seen in the ER few days ago with headache worse than this and had a CT done which was negative. Timing/Duration: hour(s) (2), constant, gradual onset, worse Quality: sharpness Head Pain Location: frontal, temporal Severity of Pain-Max: severe Severity of Pain-Current: severe Recent Head Trauma: no recent headache/trauma, frequent headaches Modifying Factors: Improves With: immobilization. Worsens With: exposure to light, movement, noise Associated Symptoms: facial pain, No confusion, No dizziness, No fatigue, No fever/chills, No flushing, No light-headedness, No loss of consciousness, No nasal congestion, No nasal drainage, No neck pain, No numbness in legs/feet, No rash, No sweating, No scotoma, No seizures, No sinus infection, No speech problems, No stiff neck, No trouble walking, No vision changes, No visual disturbance, No weakness Previous symptoms: same symptoms as today Allergies/Adverse Reactions: cephalexin monohydrate [From Keflex] Allergy (Intermediate, Verified 01/08/21 17:30) Hives cefaclor [From Ceclor] Allergy (Mild, Verified 01/08/21 17:30) Hives oxycodone [From OxyContin] Adverse Reaction (Verified 01/08/21 17:31) "not allergic, just dont like the way it makes me feel" Home Medications: Escitalopram Oxalate 10 mg [Lexapro 10 MG] 10 mg PO DAILY 01/28/21 [History] clonazePAM [Clonazepam] 0.5 mg PO DAILY PRN 01/28/21 [History] Hx Tetanus, Diphtheria Vaccination/Date Given: No Hx Influenza Vaccination/Date Given: No Hx Pneumococcal Vaccination/Date Given: No Travel Risk - Vaccine Status Have you recieved a Covid-19 vaccination: No - Review of Systems Constitutional: No Symptoms Eyes: No Symptoms Ears, Nose, & Throat: No Symptoms Respiratory: No Symptoms Cardiac: No Symptoms Abdominal/Gastrointestinal: Nausea Genitourinary Symptoms: No Symptoms Musculoskeletal: No Symptoms Neurological: Headache, No Sensory Changes Psychological: Anxiety Endocrine: No Symptoms Hematologic/Lymphatic: No Symptoms Immunological/Allergic: No Symptoms - Past Medical History Pertinent Past Medical History: Yes Neurological History: Migraines ENT History: No Pertinent History Cardiac History: High Cholesterol Respiratory History: COPD, Other Endocrine Medical History: No Pertinent History Musculoskeletal History: Fractures GI Medical History: No Pertinent History History: No Pertinent History Psycho-Social History: Depression Female Reproductive Disorders: Endometriosis, Other Other Medical History: 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 steriod injections to rt shoulder under anesthesia - Social History Smoking Status: Current every day smoker How long have you smoked: years Exposure to second hand smoke: Yes Drug Use: marijuana Patient Lives Alone: No Significant Family History: no pertinent family hx, alpha-1 antitrypsin deficiency - Nursing Vital Signs Nursing Vital Signs: Initial Vital Signs Temperature 98 F 01/31/21 12:43 Pulse Rate 84 01/31/21 12:43 Respiratory Rate 18 01/31/21 12:43 Blood Pressure 135/81 01/31/21 12:43 O2 Sat by Pulse Oximetry 98 01/31/21 12:43 Pain Scale Pain Intensity 8 - Physical Exam General Appearance: no apparent distress, alert, anxiety Eye Exam: PERRL/EOMI, eyes nml inspection Ears, Nose, Throat Exam: normal ENT inspection, TMs normal, pharynx normal, moist mucous membranes Neck Exam: normal inspection, non-tender, supple, full range of motion Respiratory Exam: normal breath sounds, lungs clear Cardiovascular Exam: regular rate/rhythm, normal heart sounds Gastrointestinal/Abdominal Exam: soft, normal bowel sounds, No tenderness Back Exam: normal inspection, normal range of motion Extremity Exam: normal inspection, normal range of motion Mental Status Exam: alert, oriented x 3, cooperative manager paid Exam: normal hearing, normal speech, PERRL Coordination/Gait Exam: normal finger to nose, normal gait, normal cerebellar function, negative Romberg's sign Motor/Sensory Exam: no motor deficit, no sensory deficit, no pronator drift, negative Babinski's sign DTR Exam: bicep (R): 2+, bicep (L): 2+, knee (R): 2+, knee (L): 2+ Skin Exam: normal color SpO2 Interpretation: normal SpO2: 96 O2 Delivery: Room Air Ordered Tests: Active Orders 24 hr Category Date Time Status IV Insertion STAT Care 01/31/21 12:46 Active Medication Summary Discontinued Medications Generic Name Dose Route Start Last Admin Trade Name Freq PRN Reason Stop Dose Admin Acetaminophen 975 mg 01/31/21 12:46 01/31/21 13:15 Tylenol 325 Mg PO 01/31/21 12:47 975 mg STAT ONE Administration Acetaminophen Confirm 01/31/21 13:12 Tylenol 325 Mg Administered 01/31/21 13:13 Dose 975 mg .ROUTE .STK-MED ONE Diphenhydramine HCl 50 mg 01/31/21 12:46 01/31/21 13:15 Benadryl 50 Mg/Ml IV 01/31/21 12:47 50 mg STAT ONE Administration Diphenhydramine HCl Confirm 01/31/21 13:12 Benadryl 50 Mg/Ml Administered 01/31/21 13:13 Dose 50 mg .ROUTE .STK-MED ONE Sodium Chloride 1,000 mls @ 999 mls/hr 01/31/21 12:46 01/31/21 13:14 Sodium Chloride 0.9% 1000 Ml IV 01/31/21 13:46 999 mls/hr .Q1H1M STA Administration Sodium Chloride Confirm 01/31/21 13:12 Sodium Chloride 0.9% 1000 Ml Administered 01/31/21 13:13 Dose 1,000 mls @ ud .ROUTE .STK-MED ONE Ketorolac Tromethamine 30 mg 01/31/21 12:46 01/31/21 13:14 Toradol 30 Mg Injection IV 01/31/21 12:47 30 mg STAT ONE Administration Ketorolac Tromethamine Confirm 01/31/21 13:12 Toradol 30 Mg Injection Administered 01/31/21 13:13 Dose 30 mg .ROUTE .STK-MED ONE Metoclopramide HCl 10 mg 01/31/21 12:46 01/31/21 13:14 Reglan 10 Mg/2 Ml IV 01/31/21 12:47 10 mg STAT ONE Administration Metoclopramide HCl Confirm 01/31/21 13:12 Reglan 10 Mg/2 Ml Administered 01/31/21 13:13 Dose 10 mg .ROUTE .STK-MED ONE - Progress Progress: improved Air Movement: good Progress Note: 01/31/21 13:57 She has a nonfocal neuro exam throughout her stay in the ER, headache similar to previous episodes, does not think this is the worst headache of her life. Given migraine cocktail Toradol Reglan and Benadryl, on reevaluation her headache is completely resolved. Discussed with patient about outpatient follow-up with neurology/primary care to be placed on prophylactic antimigraine medications to avoid frequent migraines and frequent ER visits. Discussed signs symptoms of worsening needing return to ER which she seems understanding. Stable for discharge. Counseled pt/family regarding: diagnosis, need for follow-up - Departure Departure Disposition: Home Clinical Impression: Migraine Qualifiers: Migraine type: without aura Status migrainosus presence: without status migrainosus Intractability: not intractable Qualified Code(s): G43.009 - Migraine without aura, not intractable, without status migrainosus Condition: Stable Critical Care Time: No Referrals: RAUL JALLOH [Primary Care Provider] - (Tomorrow as scheduled) BISI SHAFER [NON-STAFF PHY W/O PRIVILEGES] - (Call tomorrow for appointment) Instructions: Migraines in Adults Additional Instructions: Take Tylenol/ibuprofen as needed. Follow-up with your primary care and neurologist for reevaluation and to be placed on prophylactic medication for migraines. Return to ER for intractable headache, numbness tingling weakness, visual disturbance etc.
[2021-01-31] MEDS ORDERED: Reglan 10 MG/2 ML ONE (13:12)
[2021-01-31] MEDS ORDERED: TORAdol 30 mg Injection ONE (13:12)
[2021-01-31] MEDS ORDERED: BENADRYL 50 MG/ML ONE (13:12)
[2021-01-31] MEDS ORDERED: TYLENOL 325 MG ONE (13:12)
[2021-01-31] MEDS ORDERED: Sodium Chloride 0.9% 1000 ML 1,000 ML ONE (13:12)
[2021-01-31 14:17] VITALS: BP 117/40; PULSE 59; O2SAT 100
== END 2021-01-31 14:35 | disposition home or self-care (01) ==
LOC: ED 12:31
DX: G43.009 Migraine without aura, not intractable, without status migrainosus (principal)
CPT/HCPCS: 36000; 96374; 96375; 99284; J1200; J1885; A9270-GY

== ENCOUNTER 2021-02-14 13:43 | Emergency (ER) | payer OTHER ==
--- NOTE | 2021-02-14 13:48 | ERPHSYRPT ---
- History of Present Illness Time Seen by Provider: 02/14/21 13:47 Source: patient Exam Limitations: no limitations Physician History: This is a 41-year-old white female who presents with her typical migraine headache. This episode of headache began approximately 3 days ago. She has been using [id number] medications and its not relieving her pain. She has been seen several times in this emergency room for headaches. This is the third visit since January 28, 2022. She has received relief from various medication combinations. Patient denies head injury. Patient has history of migraine headaches, anxiety and depression. Patient denies chest pain. Patient denies shortness of breath. Patient has not yet seen a neurologist but it is in the works per her report. Patient has never seen a pain specialist for migraine headaches but has seen one in the past for left shoulder pain. Timing/Duration: day(s) (3) Head Pain Location: temporal (Right), parietal (Right) Severity of Pain-Max: moderate Severity of Pain-Current: moderate Recent Head Trauma: no recent headache/trauma, frequent headaches Modifying Factors: Improves With: exposure to light, noise Associated Symptoms: denies symptoms Previous symptoms: same symptoms as today, recently seen, recently treated Allergies/Adverse Reactions: cephalexin monohydrate [From Keflex] Allergy (Intermediate, Verified 02/14/21 14:18) Hives cefaclor [From Ceclor] Allergy (Mild, Verified 02/14/21 14:18) Hives oxycodone [From OxyContin] Adverse Reaction (Verified 02/14/21 14:18) "not allergic, just dont like the way it makes me feel" Home Medications: Escitalopram Oxalate 10 mg [Lexapro 10 MG] 10 mg PO DAILY 01/28/21 [History] clonazePAM [Clonazepam] 0.5 mg PO DAILY PRN 01/28/21 [History] Naproxen Sodium 220 mg [Aleve 220 MG] 220 mg PO DAILY 02/14/21 [History] Hx Tetanus, Diphtheria Vaccination/Date Given: No Hx Influenza Vaccination/Date Given: No Hx Pneumococcal Vaccination/Date Given: No Travel Risk - International Travel Have you traveled outside of the country in past 3 weeks: No - Coronavirus Screening Are you exhibiting any of the following symptoms?: No Close contact with a COVID-19 positive Pt in past 14-21 Days: No - Vaccine Status Have you recieved a Covid-19 vaccination: No - Review of Systems Constitutional: No Symptoms Eyes: No Symptoms Ears, Nose, & Throat: No Symptoms Respiratory: No Symptoms Cardiac: No Symptoms Abdominal/Gastrointestinal: No Symptoms Genitourinary Symptoms: No Symptoms Musculoskeletal: No Symptoms Skin: No Symptoms Neurological: Headache Psychological: No Symptoms Endocrine: No Symptoms Hematologic/Lymphatic: No Symptoms Immunological/Allergic: No Symptoms All Other Systems: Reviewed and Negative - Past Medical History Pertinent Past Medical History: Yes Neurological History: Migraines ENT History: No Pertinent History Cardiac History: High Cholesterol Respiratory History: COPD, Other Endocrine Medical History: No Pertinent History Musculoskeletal History: Fractures GI Medical History: No Pertinent History History: No Pertinent History Psycho-Social History: Depression Female Reproductive Disorders: Endometriosis, Other Other Medical History: 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 steriod injections to rt shoulder under anesthesia - Social History Smoking Status: Current every day smoker How long have you smoked: years Exposure to second hand smoke: Yes Drug Use: marijuana Patient Lives Alone: No Significant Family History: no pertinent family hx, alpha-1 antitrypsin deficiency - Nursing Vital Signs Nursing Vital Signs: Initial Vital Signs Temperature 98.1 F 02/14/21 14:09 Pulse Rate 81 02/14/21 14:09 Blood Pressure 120/60 02/14/21 14:09 O2 Sat by Pulse Oximetry 99 02/14/21 14:09 Pain Scale Pain Intensity 7 - Physical Exam General Appearance: mild distress, alert, anxiety, thin Eye Exam: PERRL/EOMI, eyes nml inspection Ears, Nose, Throat Exam: normal ENT inspection, moist mucous membranes Neck Exam: normal inspection, non-tender, supple, full range of motion Respiratory Exam: airway intact, No chest tenderness, No respiratory distress Gastrointestinal/Abdominal Exam: No tenderness Back Exam: normal inspection, normal range of motion, No CVA tenderness, No vertebral tenderness Extremity Exam: normal inspection, normal range of motion, pelvis stable Mental Status Exam: alert, oriented x 3, 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 nurse Exam: normal hearing, normal speech, PERRL, tongue midline Coordination/Gait Exam: normal finger to nose, normal gait, normal cerebellar function Motor/Sensory Exam: no motor deficit, no sensory deficit, no pronator drift Skin Exam: normal color, warm, dry Lymphatic Exam: No adenopathy SpO2 Interpretation: normal O2 Delivery: Room Air - Course Nursing assessment & vital signs reviewed: Yes - Progress Progress: improved Air Movement: good Blood Culture(s) Obtained: No Antibiotics given: No Counseled pt/family regarding: diagnosis, need for follow-up - Departure Departure Disposition: Home Clinical Impression: Migraine headache Condition: Stable Critical Care Time: No Referrals: RAUL JALLOH [Primary Care Provider] - Additional Instructions: Take all your medication as prescribed. Follow-up with your primary care physician for further management including referral to a neurologist and pain specialist.
[2021-02-14 14:18] VITALS: BP 120/60; PULSE 81; O2SAT 99
[2021-02-14] MEDS ORDERED: BENADRYL 50 MG/ML IM ONE (14:42)
[2021-02-14] MEDS ORDERED: ZOFRAN ODT 4 MG PO ONE (14:43)
[2021-02-14] MEDS ORDERED: Hydromorphone 1 mg/ml Injection IM ONE (14:43)
[2021-02-14] MEDS ORDERED: ZOFRAN ODT 4 MG ONE (14:49)
[2021-02-14] MEDS ORDERED: Hydromorphone 1 mg/ml Injection ONE (14:49)
[2021-02-14] MEDS ORDERED: BENADRYL 50 MG/ML ONE (14:49)
== END 2021-02-14 15:30 | disposition home or self-care (01) ==
LOC: ED 13:43
DX: G43.909 Migraine, unspecified, not intractable, without status migrainosus (principal)
CPT/HCPCS: 96372; 99284; J1170; J1200; Q0162

== ENCOUNTER 2021-12-06 21:52 | Emergency (ER) | payer OTHER ==
[2021-12-06 22:07] VITALS: O2SAT 100
--- NOTE | 2021-12-06 22:33 | ERPHSYRPT ---
- History of Present Illness Time Seen by Provider: 12/06/21 22:15 Historian: patient Exam Limitations: no limitations Patient Subjective Stated Complaint: pt states she has had diarrhea, nausea and abdominal pain om left side under ribs for 2 weeks, worse today, pain /10 Triage Nursing Assessment: 2 tylenol at 1900 Physician History: This is a 41-year-old thin white female patient of Dr. Martine Jalloh. Complains of 2-week history of abdominal pain. First it was on the right side than on the left side. Patient underwent a CAT scan of the abdomen pelvis at noon today which did not show anything acute in the abdomen or pelvis. This is a contrast study. Patient also underwent a gallbladder ultrasound on 11/29/2021. The results of this ultrasound was negative. Patient denies chest pain. Patient denies shortness of breath. She has had nausea vomiting and some diarrhea intermittently over the last 2 weeks. Patient has had a partial hysterectomy in the past. Her gallbladder still in place. She has had an appendectomy in the past. Abdominal Pain Onset Location: RUQ, LUQ Pain Radiation: no radiation Severity of Pain-Max: moderate Severity of Pain-Current: moderate Modifying Factors: Improves With: nothing Associated Symptoms: diarrhea, loss of appetite, nausea, vomiting, No chest pain, No fever/chills, No headache, No neck pain Previous symptoms: same symptoms as today Allergies/Adverse Reactions: cephalexin monohydrate [From Keflex] Allergy (Intermediate, Verified 12/06/21 22:07) Hives cefaclor [From Ceclor] Allergy (Mild, Verified 12/06/21 22:07) Hives oxycodone [From OxyContin] Adverse Reaction (Verified 12/06/21 22:07) "not allergic, just dont like the way it makes me feel" Home Medications: Escitalopram Oxalate [Lexapro 10 MG] 10 mg PO DAILY 01/28/21 [History] clonazePAM [Clonazepam] 0.5 mg PO DAILY PRN 01/28/21 [History] Naproxen Sodium 220 mg [Aleve 220 MG] 220 mg PO DAILY 02/14/21 [History] Hx Tetanus, Diphtheria Vaccination/Date Given: No Hx Influenza Vaccination/Date Given: No Hx Pneumococcal Vaccination/Date Given: No Travel Risk - International Travel Have you traveled outside of the country in past 3 weeks: No - Coronavirus Screening Are you exhibiting any of the following symptoms?: Yes Symptoms: Vomiting/Diarrhea - Vaccine Status Have you recieved a Covid-19 vaccination: No - Review of Systems Constitutional: No Symptoms Eyes: No Symptoms Ears, Nose, & Throat: No Symptoms Respiratory: No Symptoms Cardiac: No Symptoms Abdominal/Gastrointestinal: Abdominal Pain, Nausea, Vomiting, Diarrhea Genitourinary Symptoms: No Symptoms Musculoskeletal: No Symptoms Skin: No Symptoms Neurological: No Symptoms Psychological: No Symptoms Endocrine: No Symptoms Hematologic/Lymphatic: No Symptoms Immunological/Allergic: No Symptoms All Other Systems: Reviewed and Negative - Past Medical History Pertinent Past Medical History: Yes Neurological History: Migraines ENT History: No Pertinent History Cardiac History: High Cholesterol Respiratory History: COPD, Other Endocrine Medical History: No Pertinent History Musculoskeletal History: Fractures GI Medical History: No Pertinent History History: No Pertinent History Psycho-Social History: Depression Female Reproductive Disorders: Endometriosis, Other Other Medical History: 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 steriod injections to rt shoulder under anesthesia - Social History Smoking Status: Current every day smoker How long have you smoked: years Exposure to second hand smoke: Yes Drug Use: marijuana Patient Lives Alone: No Significant Family History: no pertinent family hx, alpha-1 antitrypsin deficiency - Female History Hx Last Menstrual Period: hysterectomy Hx Now: No - Nursing Vital Signs Nursing Vital Signs: Initial Vital Signs Temperature 98.4 F 12/06/21 21:54 Pulse Rate 86 12/06/21 21:54 Respiratory Rate 16 12/06/21 21:54 Blood Pressure 142/63 12/06/21 21:54 O2 Sat by Pulse Oximetry 100 12/06/21 21:54 Pain Scale Pain Intensity 7 - Physical Exam General Appearance: no apparent distress, alert, anxiety, thin Eye Exam: PERRL/EOMI, eyes nml inspection Ears, Nose, Throat Exam: normal ENT inspection, moist mucous membranes Neck Exam: normal inspection, non-tender, supple, full range of motion Respiratory Exam: normal breath sounds, lungs clear, airway intact, No chest tenderness, No respiratory distress Cardiovascular Exam: regular rate/rhythm, normal heart sounds, normal peripheral pulses Gastrointestinal/Abdomen Exam: soft, normal bowel sounds, tenderness (Mild to palpation), No guarding, No rebound Pelvic Exam: not done Rectal Exam: not done Back Exam: normal inspection, normal range of motion, No CVA tenderness, No vertebral tenderness Extremity Exam: normal inspection, normal range of motion, pelvis stable Neurologic Exam: alert, oriented x 3, cooperative, slabbing machine operator II-XII nml as tested, normal mood/affect, nml cerebellar function, nml station & gait, sensation nml Skin Exam: normal color, warm, dry Lymphatic Exam: No adenopathy SpO2 Interpretation: normal SpO2: 100 O2 Delivery: Room Air Ordered Tests: Active Orders 24 hr Category Date Time Status IV Insertion STAT Care 12/06/21 22:34 Active AMYLASE Stat Lab 12/06/21 22:30 Completed CBC W DIFF Stat Lab 12/06/21 22:30 Completed CMP Stat Lab 12/06/21 22:30 Completed LIPASE Stat Lab 12/06/21 22:30 Completed UA W/RFX CULTURE Stat Lab 12/06/21 22:38 Completed Medication Summary Generic Name Dose Route Start Last Admin Trade Name Freq PRN Reason Stop Dose Admin Sodium Chloride 1,000 mls @ 999 mls/hr 12/06/21 22:34 12/06/21 22:44 Sodium Chloride 0.9% 1000 Ml IV 12/06/21 23:34 999 mls/hr .Q1H1M STA Administration Discontinued Medications Generic Name Dose Route Start Last Admin Trade Name Freq PRN Reason Stop Dose Admin Hydromorphone HCl 0.5 mg 12/06/21 22:34 12/06/21 22:39 Hydromorphone 1 Mg/1ml Inj 1 Mg/Ml Syringe IV 12/06/21 22:35 Not Given STAT ONE Sodium Chloride Confirm 12/06/21 22:42 Sodium Chloride 0.9% 1000 Ml Administered 12/06/21 22:43 Dose 1,000 mls @ ud .ROUTE .STK-MED ONE Ketorolac Tromethamine 30 mg 12/06/21 22:38 12/06/21 22:54 Ketorolac Tromethamine 30 Mg/Ml Inj IV 12/06/21 22:39 30 mg STAT ONE Administration Ketorolac Tromethamine Confirm 12/06/21 22:41 Ketorolac Tromethamine 30 Mg/Ml Inj Administered 12/06/21 22:42 Dose 30 mg .ROUTE .STK-MED ONE Ondansetron HCl 4 mg 12/06/21 22:34 12/06/21 22:46 Ondansetron Hcl 4 Mg/2 Ml Vial IV 12/06/21 22:35 4 mg STAT ONE Administration Ondansetron HCl Confirm 12/06/21 22:41 Ondansetron Hcl 4 Mg/2 Ml Vial Administered 12/06/21 22:42 Dose 4 mg .ROUTE .STK-MED ONE Pantoprazole Sodium 40 mg 12/06/21 22:34 12/06/21 22:49 Pantoprazole 40 Mg Vial IV 12/06/21 22:35 40 mg STAT ONE Administration Pantoprazole Sodium Confirm 12/06/21 22:41 Pantoprazole 40 Mg Vial Administered 12/06/21 22:42 Dose 40 mg IV .STK-MED ONE Lab/Rad Data: Laboratory Result Diagrams 12/06/21 22:30 12/06/21 22:30 Laboratory Results 12/06/21 12/06/21 12/06/21 Range/Units 22:38 22:30 22:30 WBC 9.2 (4.0-10.5) x10^3/uL RBC 5.02 (4.1-5.4) x10^6/uL Hgb 16.0 (12.0-16.0) g/dL Hct 47.7 H (35-47) % MCV 95.0 (78-100) fL MCH 31.9 (26-32) pg MCHC 33.5 (32-36) g/dL RDW 11.9 (11.5-14.0) % Plt Count 208 (150-450) x10^3/uL MPV 10.1 (7.5-11.0) fL Gran % 54.3 (36.0-66.0) % Immature Gran % (Auto) 0.1 (0.00-0.4) % Nucleat RBC Rel Count 0.0 (0.00-0.1) % Eos # (Auto) 0.29 (0-0.5) x10^3/uL Immature Gran # (Auto) 0.01 (0.00-0.03) x10^3u/L Absolute Lymphs (auto) 3.28 (1.0-4.6) x10^3/uL Absolute Monos (auto) 0.53 (0.0-1.3) x10^3/uL Absolute Nucleated RBC 0.00 (0.00-0.01) x10^3u/L Lymphocytes % 35.8 (24.0-44.0) % Monocytes % 5.8 (0.0-12.0) % Eosinophils % 3.2 (0.00-5.0) % Basophils % 0.8 (0.0-0.4) % Absolute Granulocytes 4.97 (1.4-6.9) x10^3/uL Basophils # 0.07 (0-0.4) x10^3/uL Sodium 136 L (137-145) mmol/L Potassium 4.4 (3.5-5.1) mmol/L Chloride 102 (98-107) mmol/L Carbon Dioxide 23 (22-30) mmol/L Anion Gap 15.3 H (5-15) MEQ/L BUN 10 (7-17) mg/dL Creatinine 0.72 (0.52-1.04) mg/dL Estimated GFR > 60.0 ML/MIN Glucose 108 H (74-106) mg/dL Calcium 9.6 (8.4-10.2) mg/dL Total Bilirubin 0.90 (0.2-1.3) mg/dL AST 29 (14-36) U/L ALT 16 (0-35) U/L Alkaline Phosphatase 40 (38-126) U/L Serum Total Protein 8.0 (6.3-8.2) g/dL Albumin 4.8 (3.5-5.0) g/dL Amylase 88 (30-110) U/L Lipase 128 (23-300) U/L Urinalys Dipstick Clnc MAIN LAB Urine Color YELLOW (YELLOW) Urine Appearance CLEAR (CLEAR) Urine pH 6.0 (5-6) Ur Specific [place] 1.025 (1.005-1.025) POC Urine Protein Conf NEGATIVE (Negative) Urine Ketones NEGATIVE (NEGATIVE) Urine Nitrite NEGATIVE (NEGATIVE) Urine Bilirubin NEGATIVE (NEGATIVE) Urine Urobilinogen 1 (0-1) mg/dL Urine Leukocytes NEGATIVE (NEGATIVE) Urine WBC (Auto) NONE (0-5) /HPF Urine RBC (Auto) 0-2 (0-2) /HPF U Epithel Cells (Auto) RARE (FEW) /HPF Urine Bacteria (Auto) NONE (NEGATIVE) /HPF Urine RBC SMALL (0-5) Robinson/ul Urine Mucus (Auto) SLIGHT (NEGATIVE) /HPF Ur Culture Indicated? NO Urine Glucose NEGATIVE (NEGATIVE) mg/dL - Progress Progress: improved, pain not gone completely, re-examined Counseled pt/family regarding: lab results, diagnosis, need for follow-up - Departure Departure Disposition: Home Clinical Impression: Abdominal pain Condition: Stable Critical Care Time: No Referrals: RAUL JALLOH [Primary Care Provider] - Follow up/PCP as directed Additional Instructions: Drink plenty of liquids. Avoid fatty greasy spicy foods. Follow-up with your [facility] care physician and graphics software engineer for further evaluation and management.
[2021-12-06] MEDS ORDERED: Hydromorphone 1 mg/ml Injection IV ONE (22:34)
[2021-12-06] MEDS ORDERED: PROTONIX 40 MG IV IV ONE ×2 (22:34→22:41)
[2021-12-06] MEDS ORDERED: Zofran 4 MG/2 ML VIAL IV ONE (22:34)
[2021-12-06] MEDS ORDERED: Sodium Chloride 0.9% 1000 ML 1,000 ML IV STA (22:34)
[2021-12-06] MEDS ORDERED: TORAdol 30 mg Injection IV ONE (22:38)
[2021-12-06 22:41] LABS: Absolute Neutrophil Ct (ANC) 4.97 x10^3/uL (1.4-6.9); Basophil (Absolute #) 0.07 x10^3/uL (0-0.4); Eosinophil % 3.2 % (0.00-5.0); Eosinophil (Absolute #) 0.29 x10^3/uL (0-0.5); Hematocrit 47.7 % (35-47); Lymphocyte (Absolute #) 3.28 x10^3/uL (1.0-4.6); Lymphocytes % 35.8 % (24.0-44.0); Mean Corpuscular Hemoglobin 31.9 pg (26-32); Mean Corpuscular Hgb Concent. 33.5 g/dL (32-36); Mean Platelet Volume 10.1 fL (7.5-11.0); Monocyte (Absolute #) 0.53 x10^3/uL (0.0-1.3); Monocytes % 5.8 % (0.0-12.0); Neutrophil % 54.3 % (36.0-66.0); Platelet Count 208 x10^3/uL (150-450); Red Blood Count 5.02 x10^6/uL (4.1-5.4); Red Cell Distribution Width 11.9 % (11.5-14.0); White Blood Count 9.2 x10^3/uL (4.0-10.5)
[2021-12-06] MEDS ORDERED: TORAdol 30 mg Injection ONE (22:41)
[2021-12-06] MEDS ORDERED: Zofran 4 MG/2 ML VIAL ONE (22:41)
[2021-12-06] MEDS ORDERED: Sodium Chloride 0.9% 1000 ML 1,000 ML ONE (22:42)
[2021-12-06 22:50] LABS: ALBUMIN 4.8 g/dL (3.5-5.0); ALKALINE PHOSPHATASE 40 U/L (38-126); AMYLASE 88 U/L (30-110); ANION GAP 15.3 MEQ/L (5-15); BLOOD UREA NITROGEN 10 mg/dL (7-17); CHLORIDE 102 mmol/L (98-107); Calcium 9.6 mg/dL (8.4-10.2); Carbon Dioxide 23 mmol/L (22-30); Creatinine 1 0.72 mg/dL (0.52-1.04); EST GLOMERULAR FILTRATION RATE > 60.0 ML/MIN; Glucose 108 mg/dL (74-106); LIPASE 128 U/L (23-300); Potassium 4.4 mmol/L (3.5-5.1); SGOT/AST 29 U/L (14-36); SGPT/ALT 16 U/L (0-35); SODIUM 136 mmol/L (137-145)
[2021-12-06 22:56] LABS: Appearance CLEAR (CLEAR); Bilirubin NEGATIVE (NEGATIVE); Dipstick done @ ? MAIN LAB; Glucose NEGATIVE (NEGATIVE); Ketones NEGATIVE (NEGATIVE); Nitrite NEGATIVE (NEGATIVE); Protein,Urine Dip NEGATIVE (Negative); RBC SMALL Ery/ul (0-5); Specific Gravity 1.025 (1.005-1.025); Urobilinogen 1 mg/dL (0-1)
[2021-12-06 22:57] LABS: Epithelial Cells RARE /HPF (FEW); Mucus SLIGHT /HPF (NEGATIVE); RBC 0-2 /HPF (0-2); Urine Cultured Indicated? NO
[2021-12-06 23:09] VITALS: BP 108/58
[2021-12-06 23:47] VITALS: PULSE 60
== END 2021-12-06 23:55 | disposition home or self-care (01) ==
LOC: ED 21:52
DX: R10.12 Left upper quadrant pain (principal); R10.11 Right upper quadrant pain; R11.2 Nausea with vomiting, unspecified; R19.7 Diarrhea, unspecified; E78.5 Hyperlipidemia, unspecified; J44.9 Chronic obstructive pulmonary disease, unspecified; Z72.0 Tobacco use; Z86.16 Personal history of COVID-19; Z28.310 Unvaccinated for COVID-19; Z79.899 Other long term (current) drug therapy
CPT/HCPCS: 36000; 36415; 80053; 81015; 82150; 83690; 85025; 96374; 96375; 99284; J1885; J2405

== ENCOUNTER 2021-12-30 19:20 | Emergency (ER) | payer OTHER ==
[2021-12-30] MEDS ORDERED: TORAdol 30 mg Injection IV ONE (20:02)
[2021-12-30] MEDS ORDERED: Sodium Chloride 0.9% 1000 ML 1,000 ML IV STA (20:02)
[2021-12-30] MEDS ORDERED: TORAdol 30 mg Injection ONE (20:09)
[2021-12-30] MEDS ORDERED: Sodium Chloride 0.9% 1000 ML 1,000 ML ONE (20:09)
--- NOTE | 2021-12-30 20:21 | ERPHSYRPT ---
- History of Present Illness Time Seen by Provider: 12/30/21 19:54 Historian: patient Exam Limitations: no limitations Patient Subjective Stated Complaint: pt states "I have been having stomach pain for over a month. It has been real bad the past 2 days." Triage Nursing Assessment: pt ambulated into er; pt is axo x4; c/o abd pain; pt states 8/10 to abd; hyperactive bowel sounds in all quads; pt denies N/V/D; tenderness to periumbilical region; vitals wnl Physician History: 41-year-old female with history of chronic right upper quadrant pain going on for a month presented to the ER with worsening for the last couple of days, moderate to severe sharp, more with oral intake without associated nausea vomiting or diarrhea. No abdominal distention. She is scheduled to see GI early next week but pain was not getting tolerable so decided to be seen in the ER. No fever or chills reported. Timing/Duration: day(s) (2), worse Activities at Onset: none Quality: sharpness Abdominal Pain Onset Location: RUQ Pain Radiation: no radiation Severity of Pain-Max: moderate Severity of Pain-Current: moderate Modifying Factors: Worsens With: eating Associated Symptoms: nausea, No vomiting Previous symptoms: same symptoms as today Allergies/Adverse Reactions: cephalexin monohydrate [From Keflex] Allergy (Intermediate, Verified 12/30/21 19:39) Hives cefaclor [From Ceclor] Allergy (Mild, Verified 12/30/21 19:39) Hives oxycodone [From OxyContin] Adverse Reaction (Verified 12/30/21 19:39) "not allergic, just dont like the way it makes me feel" Home Medications: Escitalopram Oxalate [Lexapro 10 MG] 10 mg PO DAILY 01/28/21 [History] clonazePAM [Clonazepam] 0.5 mg PO DAILY PRN 01/28/21 [History] Naproxen Sodium 220 mg [Aleve 220 MG] 220 mg PO DAILY 02/14/21 [History] Hx Tetanus, Diphtheria Vaccination/Date Given: No Hx Influenza Vaccination/Date Given: No Hx Pneumococcal Vaccination/Date Given: No Immunizations Up to Date: Yes Travel Risk - International Travel Have you traveled outside of the country in past 3 weeks: No - Coronavirus Screening Are you exhibiting any of the following symptoms?: No Close contact with a COVID-19 positive Pt in past 14-21 Days: No - Vaccine Status Have you recieved a Covid-19 vaccination: No - Review of Systems Constitutional: No Symptoms Eyes: No Symptoms Ears, Nose, & Throat: No Symptoms Respiratory: No Symptoms Cardiac: No Symptoms Abdominal/Gastrointestinal: Abdominal Pain, Nausea Genitourinary Symptoms: No Symptoms Musculoskeletal: No Symptoms Skin: No Symptoms Neurological: No Symptoms Psychological: No Symptoms Endocrine: No Symptoms Hematologic/Lymphatic: No Symptoms Immunological/Allergic: No Symptoms - Past Medical History Pertinent Past Medical History: Yes Neurological History: Migraines ENT History: No Pertinent History Cardiac History: High Cholesterol Respiratory History: COPD, Other Endocrine Medical History: No Pertinent History Musculoskeletal History: Fractures GI Medical History: No Pertinent History History: No Pertinent History Psycho-Social History: Depression Female Reproductive Disorders: Endometriosis, Other Other Medical History: 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 steriod injections to rt shoulder under anesthesia - Social History Smoking Status: Current every day smoker How long have you smoked: years Exposure to second hand smoke: Yes Drug Use: marijuana Patient Lives Alone: No Significant Family History: no pertinent family hx, alpha-1 antitrypsin deficiency - Female History Hx Now: No - Nursing Vital Signs Nursing Vital Signs: Initial Vital Signs Temperature 98.4 F 12/30/21 19:40 Pulse Rate 63 12/30/21 19:40 Respiratory Rate 14 12/30/21 19:40 Blood Pressure 126/43 12/30/21 19:40 O2 Sat by Pulse Oximetry 100 12/30/21 19:40 Pain Scale Pain Intensity 4 - Physical Exam General Appearance: no apparent distress, alert Eye Exam: PERRL/EOMI Ears, Nose, Throat Exam: normal ENT inspection Neck Exam: normal inspection, full range of motion Respiratory Exam: normal breath sounds, lungs clear Cardiovascular Exam: regular rate/rhythm, normal heart sounds Gastrointestinal/Abdomen Exam: soft, normal bowel sounds, tenderness (RUQ /epigastric), guarding Back Exam: normal inspection, normal range of motion Extremity Exam: normal inspection, normal range of motion, pelvis stable Neurologic Exam: alert, oriented x 3, cooperative Skin Exam: normal color SpO2 Interpretation: normal SpO2: 100 O2 Delivery: Room Air Ordered Tests: Active Orders 24 hr Category Date Time Status IV Insertion STAT Care 12/30/21 20:02 Active NPO (ED) STAT Care 12/30/21 20:02 Active ABDOMEN AND PELVIS W/0 CONTRAS [CT] Stat Exams 12/30/21 20:16 Taken CBC W DIFF Stat Lab 12/30/21 20:20 Completed CMP Stat Lab 12/30/21 20:20 Completed HCG,QUALITATIVE URINE Stat Lab 12/30/21 20:07 Completed LIPASE Stat Lab 12/30/21 20:20 Completed UA W/RFX CULTURE Stat Lab 12/30/21 20:07 Completed Medication Summary Discontinued Medications Generic Name Dose Route Start Last Admin Trade Name Freq PRN Reason Stop Dose Admin Sodium Chloride 1,000 mls @ 999 mls/hr 12/30/21 20:02 12/30/21 20:27 Sodium Chloride 0.9% 1000 Ml IV 12/30/21 21:02 999 mls/hr .Q1H1M STA Administration Sodium Chloride Confirm 12/30/21 20:09 Sodium Chloride 0.9% 1000 Ml Administered 12/30/21 20:10 Dose 1,000 mls @ ud .ROUTE .STK-MED ONE Ketorolac Tromethamine 30 mg 12/30/21 20:02 12/30/21 20:27 Ketorolac Tromethamine 30 Mg/Ml Inj IV 12/30/21 20:03 30 mg STAT ONE Administration Ketorolac Tromethamine Confirm 12/30/21 20:09 Ketorolac Tromethamine 30 Mg/Ml Inj Administered 12/30/21 20:10 Dose 30 mg .ROUTE .STK-MED ONE Lab/Rad Data: Laboratory Result Diagrams 12/30/21 20:20 12/30/21 20:20 Laboratory Results 12/30/21 12/30/21 12/30/21 Range/Units 20:20 20:20 20:07 WBC 7.7 (4.0-10.5) x10^3/uL RBC 4.36 (4.1-5.4) x10^6/uL Hgb 14.0 (12.0-16.0) g/dL Hct 40.9 (35-47) % MCV 93.8 (78-100) fL MCH 32.1 H (26-32) pg MCHC 34.2 (32-36) g/dL RDW 11.9 (11.5-14.0) % Plt Count 165 (150-450) x10^3/uL MPV 9.5 (7.5-11.0) fL Gran % 48.3 (36.0-66.0) % Immature Gran % (Auto) 0.1 (0.00-0.4) % Nucleat RBC Rel Count 0.0 (0.00-0.1) % Eos # (Auto) 0.22 (0-0.5) x10^3/uL Immature Gran # (Auto) 0.01 (0.00-0.03) x10^3u/L Absolute Lymphs (auto) 3.25 (1.0-4.6) x10^3/uL Absolute Monos (auto) 0.48 (0.0-1.3) x10^3/uL Absolute Nucleated RBC 0.00 (0.00-0.01) x10^3u/L Lymphocytes % 42.0 (24.0-44.0) % Monocytes % 6.2 (0.0-12.0) % Eosinophils % 2.8 (0.00-5.0) % Basophils % 0.6 (0.0-0.4) % Absolute Granulocytes 3.73 (1.4-6.9) x10^3/uL Basophils # 0.05 (0-0.4) x10^3/uL Sodium 136 L (137-145) mmol/L Potassium 4.2 (3.5-5.1) mmol/L Chloride 103 (98-107) mmol/L Carbon Dioxide 27 (22-30) mmol/L Anion Gap 10.4 (5-15) MEQ/L BUN 14 (7-17) mg/dL Creatinine 0.77 (0.52-1.04) mg/dL Estimated GFR > 60.0 ML/MIN Glucose 83 (74-106) mg/dL Calcium 9.5 (8.4-10.2) mg/dL Total Bilirubin 0.40 (0.2-1.3) mg/dL AST 23 (14-36) U/L ALT 12 (0-35) U/L Alkaline Phosphatase 43 (38-126) U/L Serum Total Protein 7.0 (6.3-8.2) g/dL Albumin 4.1 (3.5-5.0) g/dL Lipase 558 H (23-300) U/L Urinalys Dipstick Clnc MAIN LAB Urine Color YELLOW (YELLOW) Urine Appearance CLEAR (CLEAR) Urine pH 6.5 (5-6) Ur Specific [place] 1.020 (1.005-1.025) POC Urine Protein Conf NEGATIVE (Negative) Urine Ketones NEGATIVE (NEGATIVE) Urine Nitrite NEGATIVE (NEGATIVE) Urine Bilirubin NEGATIVE (NEGATIVE) Urine Urobilinogen 0.2 (0-1) mg/dL Urine Leukocytes NEGATIVE (NEGATIVE) Urine WBC (Auto) NONE (0-5) /HPF Urine RBC (Auto) NONE (0-2) /HPF U Epithel Cells (Auto) NONE (FEW) /HPF Urine Bacteria (Auto) NONE (NEGATIVE) /HPF Urine RBC TRACE-INTACT (0-5) Robinson/ul Ur Culture Indicated? NO Urine Glucose NEGATIVE (NEGATIVE) mg/dL Urine HCG, Qual (Negative) 12/30/21 Range/Units 20:07 WBC (4.0-10.5) x10^3/uL RBC (4.1-5.4) x10^6/uL Hgb (12.0-16.0) g/dL Hct (35-47) % MCV (78-100) fL MCH (26-32) pg MCHC (32-36) g/dL RDW (11.5-14.0) % Plt Count (150-450) x10^3/uL MPV (7.5-11.0) fL Gran % (36.0-66.0) % Immature Gran % (Auto) (0.00-0.4) % Nucleat RBC Rel Count (0.00-0.1) % Eos # (Auto) (0-0.5) x10^3/uL Immature Gran # (Auto) (0.00-0.03) x10^3u/L Absolute Lymphs (auto) (1.0-4.6) x10^3/uL Absolute Monos (auto) (0.0-1.3) x10^3/uL Absolute Nucleated RBC (0.00-0.01) x10^3u/L Lymphocytes % (24.0-44.0) % Monocytes % (0.0-12.0) % Eosinophils % (0.00-5.0) % Basophils % (0.0-0.4) % Absolute Granulocytes (1.4-6.9) x10^3/uL Basophils # (0-0.4) x10^3/uL Sodium (137-145) mmol/L Potassium (3.5-5.1) mmol/L Chloride (98-107) mmol/L Carbon Dioxide (22-30) mmol/L Anion Gap (5-15) MEQ/L BUN (7-17) mg/dL Creatinine (0.52-1.04) mg/dL Estimated GFR ML/MIN Glucose (74-106) mg/dL Calcium (8.4-10.2) mg/dL Total Bilirubin (0.2-1.3) mg/dL AST (14-36) U/L ALT (0-35) U/L Alkaline Phosphatase (38-126) U/L Serum Total Protein (6.3-8.2) g/dL Albumin (3.5-5.0) g/dL Lipase (23-300) U/L Urinalys Dipstick Clnc Urine Color (YELLOW) Urine Appearance (CLEAR) Urine pH (5-6) Ur Specific [place] (1.005-1.025) POC Urine Protein Conf (Negative) Urine Ketones (NEGATIVE) Urine Nitrite (NEGATIVE) Urine Bilirubin (NEGATIVE) Urine Urobilinogen (0-1) mg/dL Urine Leukocytes (NEGATIVE) Urine WBC (Auto) (0-5) /HPF Urine RBC (Auto) (0-2) /HPF U Epithel Cells (Auto) (FEW) /HPF Urine Bacteria (Auto) (NEGATIVE) /HPF Urine RBC (0-5) Robinson/ul Ur Culture Indicated? Urine Glucose (NEGATIVE) mg/dL Urine HCG, Qual NEGATIVE (Negative) - Progress Progress: improved, re-examined Progress Note: 12/30/21 21:11 41-year-old is evaluated for upper abdominal pain. Is given fluids and symptomatic treatment, on reevaluation pain is better. No peritoneal signs. She has normal white count, grossly unremarkable chemistries except for lipase which is 558, less than double. Patient does have history of chronic upper abdominal pain and could be chronically elevated. CT abdomen pelvis negative fo r any acute findings and have contracted gallbladder without stones and has ultrasound done before with negative for stones. Patient does have appointment with gastroenterology early next week. I do not think patient needs to be admitted, recommended clear liquid until tomorrow and then starting full liquid followed by soft to full diet. Discussed signs symptoms of worsening needing return to ER which she seems understanding. Stable for discharge. Counseled pt/family regarding: lab results, diagnosis, need for follow-up, rad results - Departure Departure Disposition: Home Clinical Impression: Upper abdominal pain, Elevated lipase Condition: Stable Critical Care Time: No Referrals: RAUL JALLOH [Primary Care Provider] - Follow up/PCP as directed (1-2 days for reevaluation) Instructions: Severe Abdominal Pain, Adult (DC), Pancreatitis (DC) Additional Instructions: Take Tylenol as needed for pain. I have clear liquids until tomorrow followed by full liquids and soft diet. Follow-up with your primary care and keep appointment with gastroenterology. Return to ER for worsening pain, intractable nausea vomiting, fever/chills etc. Prescriptions: PANTOPRAZOLE 40 mg Tablet [Protonix 40MG Tablet] 40 mg PO QAM #30 tab
[2021-12-30 20:30] LABS: Absolute Neutrophil Ct (ANC) 3.73 x10^3/uL (1.4-6.9); Basophil (Absolute #) 0.05 x10^3/uL (0-0.4); Eosinophil % 2.8 % (0.00-5.0); Eosinophil (Absolute #) 0.22 x10^3/uL (0-0.5); Hematocrit 40.9 % (35-47); Lymphocyte (Absolute #) 3.25 x10^3/uL (1.0-4.6); Mean Cell Volume 93.8 fL (78-100); Mean Corpuscular Hemoglobin 32.1 pg (26-32); Mean Corpuscular Hgb Concent. 34.2 g/dL (32-36); Mean Platelet Volume 9.5 fL (7.5-11.0); Monocyte (Absolute #) 0.48 x10^3/uL (0.0-1.3); Monocytes % 6.2 % (0.0-12.0); Neutrophil % 48.3 % (36.0-66.0); Platelet Count 165 x10^3/uL (150-450); Red Blood Count 4.36 x10^6/uL (4.1-5.4); Red Cell Distribution Width 11.9 % (11.5-14.0); White Blood Count 7.7 x10^3/uL (4.0-10.5)
[2021-12-30 20:33] LABS: Appearance CLEAR (CLEAR); Bilirubin NEGATIVE (NEGATIVE); Dipstick done @ ? MAIN LAB; Glucose NEGATIVE (NEGATIVE); Ketones NEGATIVE (NEGATIVE); Nitrite NEGATIVE (NEGATIVE); Ph 6.5 (5-6); Protein,Urine Dip NEGATIVE (Negative); RBC TRACE-INTACT Ery/ul (0-5); Urobilinogen 0.2 mg/dL (0-1)
[2021-12-30 20:34] LABS: Urine Cultured Indicated? NO
[2021-12-30 20:50] LABS: ALBUMIN 4.1 g/dL (3.5-5.0); ALKALINE PHOSPHATASE 43 U/L (38-126); ANION GAP 10.4 MEQ/L (5-15); BLOOD UREA NITROGEN 14 mg/dL (7-17); CHLORIDE 103 mmol/L (98-107); Calcium 9.5 mg/dL (8.4-10.2); Carbon Dioxide 27 mmol/L (22-30); Creatinine 1 0.77 mg/dL (0.52-1.04); EST GLOMERULAR FILTRATION RATE > 60.0 ML/MIN; Glucose 83 mg/dL (74-106); LIPASE 558 U/L (23-300); Potassium 4.2 mmol/L (3.5-5.1); SGOT/AST 23 U/L (14-36); SGPT/ALT 12 U/L (0-35); SODIUM 136 mmol/L (137-145)
[2021-12-30 21:09] VITALS: BP 138/60; PULSE 61
[2021-12-30] MEDS ORDERED: PROTONIX 40 MG IV IV ONE (21:13)
[2021-12-30 21:15] VITALS: O2SAT 100
[2021-12-30] MEDS ORDERED: Protonix 40MG Tablet PO ONE (21:17)
[2021-12-30] MEDS ORDERED: Protonix 40MG Tablet ONE (21:18)
--- NOTE | 2021-12-31 08:44 | XRAY ---
Indication: Right upper quadrant pain. Nausea. Pain after eating. Multiple contiguous axial images obtained through the abdomen and pelvis without contrast. Comparison: December 06, 2021 Lung bases remain clear. Heart not enlarged. Stomach is mildly distended with food/fluid. Noncontrasted stomach and bowel loops appear nonobstructed. Gallbladder contracted without gallstones or biliary distention. Stable tiny splenic calcified granuloma. Stable tiny peripheral right lobe liver hemangioma and appendectomy. No free fluid/air. Remaining liver, gallbladder, pancreas, spleen, adrenal glands, kidneys, ureters, and bladder are unremarkable for noncontrast exam. Stable minimal aortoiliac calcifications without AAA. Impression: 1. Contracted gallbladder without stones. Sonogram may yield further information if there remains further clinical concern. 2. Stable tiny hepatic hemangioma, arteriosclerotic disease, and old granulomatous disease. 3. Remaining CT abdomen/pelvis without contrast exam is negative.
== END 2021-12-30 21:27 | disposition home or self-care (01) ==
LOC: ED 19:20
DX: R10.11 Right upper quadrant pain (principal); R74.8 Abnormal levels of other serum enzymes; E78.5 Hyperlipidemia, unspecified; J44.9 Chronic obstructive pulmonary disease, unspecified; Z72.0 Tobacco use; Z79.899 Other long term (current) drug therapy; Z28.310 Unvaccinated for COVID-19; Z86.16 Personal history of COVID-19
CPT/HCPCS: 36000; 36415; 74176; 80053; 81015; 81025; 83690; 85025; 96374; 99284; J1885; A9270-GY

== ENCOUNTER 2022-01-28 23:12 | Emergency (ER) | payer OTHER ==
[2022-01-28 23:35] VITALS: O2SAT 97
[2022-01-28] MEDS ORDERED: Sodium Chloride 0.9% 1000 ML 1,000 ML IV STA (23:45)
[2022-01-28] MEDS ORDERED: TORAdol 30 mg Injection IV ONE (23:46)
[2022-01-28] MEDS ORDERED: Sodium Chloride 0.9% 1000 ML 1,000 ML ONE (23:57)
[2022-01-28] MEDS ORDERED: TORAdol 30 mg Injection ONE (23:57)
--- NOTE | 2022-01-29 00:06 | ERPHSYRPT ---
- History of Present Illness Source: patient Exam Limitations: no limitations Patient Subjective Stated Complaint: general aches, weakness, fever cough, nausea Triage Nursing Assessment: lungs clear, bowel sounds present. no vomiting or diarrhea. pts's mom positive for covid 4 days ago, today patient tested positive Physician History: 42 yo wf w + home CV19 test today complains of fever/nausea/myalgias/back pain/mild cough wo coryza/vomiting/diarrhea/dysuria/hematuria. Timing/Duration: day(s) (1 day) Cough Quality/Degree: dry cough Possible Cause: occasional episodes Modifying Factors: Improves With: coughing Associated Symptoms: fever, chills, cough, headache, muscle aches Allergies/Adverse Reactions: cephalexin monohydrate [From Keflex] Allergy (Intermediate, Verified 01/28/22 23:36) Hives cefaclor [From Ceclor] Allergy (Mild, Verified 01/28/22 23:36) Hives oxycodone [From OxyContin] Adverse Reaction (Verified 01/28/22 23:36) "not allergic, just dont like the way it makes me feel" Hx Tetanus, Diphtheria Vaccination/Date Given: No Hx Influenza Vaccination/Date Given: No Hx Pneumococcal Vaccination/Date Given: No Immunizations Up to Date: No Travel Risk - International Travel Have you traveled outside of the country in past 3 weeks: No - Coronavirus Screening Are you exhibiting any of the following symptoms?: Yes Symptoms: Fever, Cough: New Onset, Shortness of Breath, Headaches/Body Aches/Fatigue Close contact with a COVID-19 positive Pt in past 14-21 Days: Yes - Vaccine Status Have you recieved a Covid-19 vaccination: No - Review of Systems Constitutional: No Symptoms, Fever, Chills, Malaise Eyes: No Symptoms Ears, Nose, & Throat: No Symptoms Respiratory: No Symptoms, Cough Cardiac: No Symptoms Abdominal/Gastrointestinal: No Symptoms, Nausea, Appetite Changes, No Abdominal Pain, No Vomiting, No Diarrhea, No Constipation, No Hematemesis, No Hematochezia, No Melena, No Dysphagia Genitourinary Symptoms: No Symptoms Musculoskeletal: Arthralgias, Back Pain, Myalgias Skin: No Symptoms Neurological: No Symptoms, Headache Psychological: No Symptoms Endocrine: No Symptoms Hematologic/Lymphatic: No Symptoms Immunological/Allergic: No Symptoms - Past Medical History Pertinent Past Medical History: Yes Neurological History: Migraines ENT History: No Pertinent History Cardiac History: High Cholesterol Respiratory History: COPD, Other Endocrine Medical History: No Pertinent History Musculoskeletal History: Fractures GI Medical History: No Pertinent History History: No Pertinent History Psycho-Social History: Depression Female Reproductive Disorders: Endometriosis, Other Other Medical History: 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 steriod injections to rt shoulder under anesthesia - Social History Smoking Status: Current every day smoker How long have you smoked: years Exposure to second hand smoke: No Drug Use: marijuana Patient Lives Alone: No Significant Family History: no pertinent family hx, alpha-1 antitrypsin deficiency - Female History Hx Now: No - Nursing Vital Signs Nursing Vital Signs: Initial Vital Signs Temperature 99.3 F 01/28/22 23:26 Pulse Rate 82 01/28/22 23:26 Respiratory Rate 18 01/28/22 23:26 Blood Pressure 117/85 01/28/22 23:26 O2 Sat by Pulse Oximetry 97 01/28/22 23:26 Pain Scale Pain Intensity 5 WNL - Physical Exam General Appearance: no apparent distress Eye Exam: PERRL/EOMI, eyes nml inspection Ears, Nose, Throat Exam: normal ENT inspection, TMs normal, pharynx normal, moist mucous membranes Neck Exam: normal inspection, non-tender, full range of motion, No meningismus, No mass, No Brudzinski, No Kernig's Respiratory Exam: normal breath sounds, lungs clear, airway intact Cardiovascular Exam: regular rate/rhythm, normal heart sounds, normal peripheral pulses, capillary refill <2 sec, No murmur Gastrointestinal/Abdomen Exam: soft, normal bowel sounds, No tenderness Back Exam: normal inspection, normal range of motion, No CVA tenderness Extremity Exam: normal inspection, normal range of motion, pelvis stable Neurologic Exam: alert, oriented x 3, cooperative, foot tender II-XII nml as tested, normal mood/affect, nml cerebellar function, nml station & gait, sensation nml, No motor deficits, No sensory deficit Skin Exam: normal color, warm, dry, No rash Lymphatic Exam: No adenopathy SpO2 Interpretation: normal SpO2: 97 O2 Delivery: Room Air - Course Nursing assessment & vital signs reviewed: Yes Ordered Tests: Active Orders 24 hr Category Date Time Status TROPONIN Q4H Lab 01/29/22 03:45 Ordered TROPONIN Q4H Lab 01/29/22 07:45 Ordered UA W/RFX CULTURE Stat Lab 01/29/22 00:48 Completed Medication Summary Discontinued Medications Generic Name Dose Route Start Last Admin Trade Name Freyeimy PRN Reason Stop Dose Admin Sodium Chloride 1,000 mls @ 999 mls/hr 01/28/22 23:45 01/28/22 23:58 Sodium Chloride 0.9% 1000 Ml IV 01/29/22 00:45 999 mls/hr .Q1H1M STA Administration Sodium Chloride Confirm 01/28/22 23:57 Sodium Chloride 0.9% 1000 Ml Administered 01/28/22 23:58 Dose 1,000 mls @ ud .ROUTE .STK-MED ONE Ketorolac Tromethamine 15 mg 01/28/22 23:46 01/28/22 23:57 Ketorolac Tromethamine 30 Mg/Ml Inj IV 01/28/22 23:47 15 mg STAT ONE Administration Ketorolac Tromethamine Confirm 01/28/22 23:57 Ketorolac Tromethamine 30 Mg/Ml Inj Administered 01/28/22 23:58 Dose 30 mg .ROUTE .STK-MED ONE Lab/Rad Data: Laboratory Result Diagrams 01/28/22 00:00 01/28/22 00:00 Laboratory Results 01/29/22 01/28/22 01/28/22 Range/Units 00:48 00:00 00:00 WBC (4.0-10.5) x10^3/uL RBC (4.1-5.4) x10^6/uL Hgb (12.0-16.0) g/dL Hct (35-47) % MCV (78-100) fL MCH (26-32) pg MCHC (32-36) g/dL RDW (11.5-14.0) % Plt Count (150-450) x10^3/uL MPV (7.5-11.0) fL Gran % (36.0-66.0) % Immature Gran % (Auto) (0.00-0.4) % Nucleat RBC Rel Count (0.00-0.1) % Eos # (Auto) (0-0.5) x10^3/uL Immature Gran # (Auto) (0.00-0.03) x10^3u/L Absolute Lymphs (auto) (1.0-4.6) x10^3/uL Absolute Monos (auto) (0.0-1.3) x10^3/uL Absolute Nucleated RBC (0.00-0.01) x10^3u/L Lymphocytes % (24.0-44.0) % Monocytes % (0.0-12.0) % Eosinophils % (0.00-5.0) % Basophils % (0.0-0.4) % Absolute Granulocytes (1.4-6.9) x10^3/uL Basophils # (0-0.4) x10^3/uL Sodium (137-145) mmol/L Potassium (3.5-5.1) mmol/L Chloride (98-107) mmol/L Carbon Dioxide (22-30) mmol/L Anion Gap (5-15) MEQ/L BUN (7-17) mg/dL Creatinine (0.52-1.04) mg/dL Estimated GFR ML/MIN Glucose (74-106) mg/dL Calcium (8.4-10.2) mg/dL Total Bilirubin (0.2-1.3) mg/dL AST (14-36) U/L ALT (0-35) U/L Alkaline Phosphatase (38-126) U/L Troponin I < 0.012 (0.000-0.034) ng/mL Serum Total Protein (6.3-8.2) g/dL Albumin (3.5-5.0) g/dL Urinalys Dipstick Clnc MAIN LAB Urine Color YELLOW (YELLOW) Urine Appearance CLEAR (CLEAR) Urine pH 6.0 (5-6) Ur Specific [place] 1.015 (1.005-1.025) POC Urine Protein Conf NEGATIVE (Negative) Urine Ketones TRACE (NEGATIVE) Urine Nitrite NEGATIVE (NEGATIVE) Urine Bilirubin NEGATIVE (NEGATIVE) Urine Urobilinogen 1 (0-1) mg/dL Urine Leukocytes NEGATIVE (NEGATIVE) Urine WBC (Auto) 0-2 (0-5) /HPF Urine RBC (Auto) 0-2 (0-2) /HPF U Epithel Cells (Auto) RARE (FEW) /HPF Urine Bacteria (Auto) NONE (NEGATIVE) /HPF Urine RBC SMALL (0-5) Robinson/ul Urine Mucus (Auto) SLIGHT (NEGATIVE) /HPF Ur Culture Indicated? NO Urine Glucose NEGATIVE (NEGATIVE) mg/dL Influenza Type A Ag NEGATIVE (NEGATIVE) Influenza Type B Ag NEGATIVE (NEGATIVE) RSV (PCR) NEGATIVE (Negative) SARS-CoV-2 (PCR) POSITIVE A (NEGATIVE) 01/28/22 01/28/22 Range/Units 00:00 00:00 WBC 4.7 (4.0-10.5) x10^3/uL RBC 4.71 (4.1-5.4) x10^6/uL Hgb 14.7 (12.0-16.0) g/dL Hct 43.5 (35-47) % MCV 92.4 (78-100) fL MCH 31.2 (26-32) pg MCHC 33.8 (32-36) g/dL RDW 11.9 (11.5-14.0) % Plt Count 123 L (150-450) x10^3/uL MPV 10.4 (7.5-11.0) fL Gran % 60.2 (36.0-66.0) % Immature Gran % (Auto) 0.2 (0.00-0.4) % Nucleat RBC Rel Count 0.0 (0.00-0.1) % Eos # (Auto) 0.02 (0-0.5) x10^3/uL Immature Gran # (Auto) 0.01 (0.00-0.03) x10^3u/L Absolute Lymphs (auto) 1.25 (1.0-4.6) x10^3/uL Absolute Monos (auto) 0.55 (0.0-1.3) x10^3/uL Absolute Nucleated RBC 0.00 (0.00-0.01) x10^3u/L Lymphocytes % 26.8 (24.0-44.0) % Monocytes % 11.8 (0.0-12.0) % Eosinophils % 0.4 (0.00-5.0) % Basophils % 0.6 (0.0-0.4) % Absolute Granulocytes 2.81 (1.4-6.9) x10^3/uL Basophils # 0.03 (0-0.4) x10^3/uL Sodium 133 L (137-145) mmol/L Potassium 3.4 L (3.5-5.1) mmol/L Chloride 98 (98-107) mmol/L Carbon Dioxide 28 (22-30) mmol/L Anion Gap 9.8 (5-15) MEQ/L BUN 8 (7-17) mg/dL Creatinine 0.71 (0.52-1.04) mg/dL Estimated GFR > 60.0 ML/MIN Glucose 114 H (74-106) mg/dL Calcium 9.2 (8.4-10.2) mg/dL Total Bilirubin 0.50 (0.2-1.3) mg/dL AST 37 H (14-36) U/L ALT 20 (0-35) U/L Alkaline Phosphatase 50 (38-126) U/L Troponin I (0.000-0.034) ng/mL Serum Total Protein 7.6 (6.3-8.2) g/dL Albumin 4.3 (3.5-5.0) g/dL Urinalys Dipstick Clnc Urine Color (YELLOW) Urine Appearance (CLEAR) Urine pH (5-6) Ur Specific [place] (1.005-1.025) POC Urine Protein Conf (Negative) Urine Ketones (NEGATIVE) Urine Nitrite (NEGATIVE) Urine Bilirubin (NEGATIVE) Urine Urobilinogen (0-1) mg/dL Urine Leukocytes (NEGATIVE) Urine WBC (Auto) (0-5) /HPF Urine RBC (Auto) (0-2) /HPF U Epithel Cells (Auto) (FEW) /HPF Urine Bacteria (Auto) (NEGATIVE) /HPF Urine RBC (0-5) Robinson/ul Urine Mucus (Auto) (NEGATIVE) /HPF Ur Culture Indicated? Urine Glucose (NEGATIVE) mg/dL Influenza Type A Ag (NEGATIVE) Influenza Type B Ag (NEGATIVE) RSV (PCR) (Negative) SARS-CoV-2 (PCR) (NEGATIVE) - Progress Progress: improved Progress Note: 01/29/22 01:03 1L NS bolus/15mg IV Toradol Counseled pt/family regarding: lab results, diagnosis, need for follow-up - Departure Departure Disposition: Home Clinical Impression: COVID-19 Condition: Stable Critical Care Time: No Referrals: RAUL JALLOH [Primary Care Provider] - Follow up/PCP as directed Instructions: MILLER (DC) Additional Instructions: Start Paxlovid in AM Fluids Motrin/Tylenol for pain Get a pulse oximeter and monitor oxygen saturation 2-3 times a day Return to ER for persistent oxygen saturation less than 90% Prescriptions: Nirmatrelvir/Ritonavir [Paxlovid 2X150 mg-100 mg (Eua)] 1 each PO BID 5 Days #30 tablet
[2022-01-29 00:07] LABS: Absolute Neutrophil Ct (ANC) 2.81 x10^3/uL (1.4-6.9); Basophil (Absolute #) 0.03 x10^3/uL (0-0.4); Eosinophil % 0.4 % (0.00-5.0); Eosinophil (Absolute #) 0.02 x10^3/uL (0-0.5); Hematocrit 43.5 % (35-47); Hemoglobin 14.7 g/dL (12.0-16.0); Lymphocyte (Absolute #) 1.25 x10^3/uL (1.0-4.6); Lymphocytes % 26.8 % (24.0-44.0); Mean Cell Volume 92.4 fL (78-100); Mean Corpuscular Hemoglobin 31.2 pg (26-32); Mean Corpuscular Hgb Concent. 33.8 g/dL (32-36); Mean Platelet Volume 10.4 fL (7.5-11.0); Monocyte (Absolute #) 0.55 x10^3/uL (0.0-1.3); Monocytes % 11.8 % (0.0-12.0); Neutrophil % 60.2 % (36.0-66.0); Platelet Count 123 x10^3/uL (150-450); Red Blood Count 4.71 x10^6/uL (4.1-5.4); Red Cell Distribution Width 11.9 % (11.5-14.0); White Blood Count 4.7 x10^3/uL (4.0-10.5)
[2022-01-29 00:16] VITALS: BP 101/62; PULSE 75
[2022-01-29 00:21] LABS: ALBUMIN 4.3 g/dL (3.5-5.0); ALKALINE PHOSPHATASE 50 U/L (38-126); ANION GAP 9.8 MEQ/L (5-15); BLOOD UREA NITROGEN 8 mg/dL (7-17); CHLORIDE 98 mmol/L (98-107); Calcium 9.2 mg/dL (8.4-10.2); Carbon Dioxide 28 mmol/L (22-30); Creatinine 1 0.71 mg/dL (0.52-1.04); EST GLOMERULAR FILTRATION RATE > 60.0 ML/MIN; Glucose 114 mg/dL (74-106); Potassium 3.4 mmol/L (3.5-5.1); SGOT/AST 37 U/L (14-36); SGPT/ALT 20 U/L (0-35); SODIUM 133 mmol/L (137-145); Total Protein 7.6 g/dL (6.3-8.2)
[2022-01-29 00:46] LABS: INFLUENZA A NEGATIVE (NEGATIVE); INFLUENZA B NEGATIVE (NEGATIVE); RESPIRATORY SYNCTIAL VIRUS NEGATIVE (Negative)
[2022-01-29 00:48] LABS: SARS-CoV-2 Xpert Express POSITIVE (NEGATIVE)
[2022-01-29 00:54] LABS: Appearance CLEAR (CLEAR); Bilirubin NEGATIVE (NEGATIVE); Dipstick done @ ? MAIN LAB; Glucose NEGATIVE (NEGATIVE); Ketones TRACE (NEGATIVE); Nitrite NEGATIVE (NEGATIVE); Protein,Urine Dip NEGATIVE (Negative); RBC SMALL Ery/ul (0-5); Specific Gravity 1.015 (1.005-1.025); Urobilinogen 1 mg/dL (0-1)
[2022-01-29 00:56] LABS: Epithelial Cells RARE /HPF (FEW); Mucus SLIGHT /HPF (NEGATIVE); RBC 0-2 /HPF (0-2); Urine Cultured Indicated? NO; WBC 0-2 /HPF (0-5)
== END 2022-01-29 01:20 | disposition home or self-care (01) ==
LOC: ED 23:12
DX: U07.1 COVID-19 (principal); R50.9 Fever, unspecified; R11.0 Nausea; M79.10 Myalgia, unspecified site; R05.9 Cough, unspecified; E78.5 Hyperlipidemia, unspecified; J44.9 Chronic obstructive pulmonary disease, unspecified; Z72.0 Tobacco use; Z86.16 Personal history of COVID-19; Z28.310 Unvaccinated for COVID-19
CPT/HCPCS: 0241U; 36415; 80053; 81015; 84484; 85025; 96374; 99283; J1885

== ENCOUNTER 2022-05-31 22:39 | Emergency (ER) | payer OTHER ==
--- NOTE | 2022-05-31 22:53 | ERPHSYRPT ---
- History of Present Illness Time Seen by Provider: 05/31/22 22:53 Historian: patient Exam Limitations: no limitations Physician History: This is a 42-year-old white female patient of Dr. Martine Jalloh who was at a [employer] libertarian at approximately 8 PM and began having some upper abdominal pain. She has had no nausea or vomiting but she did have some episodes of diarrhea. Patient has had an appendectomy and hysterectomy in the past. She also has a history of endometriosis. Additionally, she has a history of hyperlipidemia and COPD. Patient is a daily smoker of cigarettes. Timing/Duration: today Quality: burning Abdominal Pain Onset Location: generalized abdomen Severity of Pain-Max: mild Severity of Pain-Current: mild Modifying Factors: Worsens With: vomiting Associated Symptoms: diarrhea, No chest pain, No nausea, No vomiting Previous symptoms: no prior history Allergies/Adverse Reactions: cephalexin monohydrate [From Keflex] Allergy (Intermediate, Verified 05/31/22 22:42) Hives cefaclor [From Ceclor] Allergy (Mild, Verified 05/31/22 22:42) Hives oxycodone [From OxyContin] Adverse Reaction (Verified 05/31/22 22:42) "not allergic, just dont like the way it makes me feel" Hx Tetanus, Diphtheria Vaccination/Date Given: No Hx Influenza Vaccination/Date Given: No Hx Pneumococcal Vaccination/Date Given: No Travel Risk - International Travel Have you traveled outside of the country in past 3 weeks: No - Coronavirus Screening Are you exhibiting any of the following symptoms?: No Close contact with a COVID-19 positive Pt in past 14-21 Days: No - Vaccine Status Have you recieved a Covid-19 vaccination: No - Review of Systems Constitutional: No Symptoms Eyes: No Symptoms Ears, Nose, & Throat: No Symptoms Respiratory: No Symptoms Cardiac: No Symptoms Abdominal/Gastrointestinal: Abdominal Pain (Left upper quadrant), Diarrhea, No Nausea, No Vomiting Genitourinary Symptoms: No Symptoms Musculoskeletal: No Symptoms Skin: No Symptoms Neurological: No Symptoms Psychological: No Symptoms Endocrine: No Symptoms Hematologic/Lymphatic: No Symptoms Immunological/Allergic: No Symptoms All Other Systems: Reviewed and Negative - Past Medical History Pertinent Past Medical History: Yes Neurological History: Migraines ENT History: No Pertinent History Cardiac History: High Cholesterol Respiratory History: COPD, Other Endocrine Medical History: No Pertinent History Musculoskeletal History: Fractures GI Medical History: No Pertinent History History: No Pertinent History Psycho-Social History: Depression Female Reproductive Disorders: Endometriosis, Other Other Medical History: 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 steriod injections to rt shoulder under anesthesia - Social History Smoking Status: Current every day smoker How long have you smoked: years Exposure to second hand smoke: No Drug Use: marijuana Patient Lives Alone: No Significant Family History: no pertinent family hx, alpha-1 antitrypsin deficiency - Nursing Vital Signs Nursing Vital Signs: Initial Vital Signs Temperature 98.1 F 05/31/22 22:43 Pulse Rate 73 05/31/22 22:43 Respiratory Rate 14 05/31/22 22:43 Blood Pressure 139/51 05/31/22 22:43 O2 Sat by Pulse Oximetry 98 05/31/22 22:43 Pain Scale Pain Intensity 5 - Physical Exam General Appearance: no apparent distress, alert, anxiety, thin Eye Exam: PERRL/EOMI, eyes nml inspection Ears, Nose, Throat Exam: normal ENT inspection, moist mucous membranes Neck Exam: normal inspection, non-tender, supple, full range of motion Respiratory Exam: normal breath sounds, lungs clear, airway intact, No chest tenderness, No respiratory distress Cardiovascular Exam: regular rate/rhythm, normal heart sounds, normal peripheral pulses Gastrointestinal/Abdomen Exam: soft, normal bowel sounds, tenderness (Mild diffuse), guarding (Mild diffuse +/- with palpation), No rebound Pelvic Exam: not done Rectal Exam: not done Back Exam: normal inspection, normal range of motion, No CVA tenderness, No vertebral tenderness Extremity Exam: normal inspection, normal range of motion, pelvis stable Neurologic Exam: alert, oriented x 3, cooperative, brand lead II-XII nml as tested, normal mood/affect, nml cerebellar function, nml station & gait, sensation nml Skin Exam: normal color, warm, dry Lymphatic Exam: No adenopathy SpO2 Interpretation: normal O2 Delivery: Room Air Ordered Tests: Active Orders 24 hr Category Date Time Status ABDOMEN AND PELVIS W/0 CONTRAS [CT] Stat Exams 05/31/22 22:54 Taken AMYLASE Stat Lab 05/31/22 23:15 Completed CBC W DIFF Stat Lab 05/31/22 23:15 Completed CMP Stat Lab 05/31/22 23:15 Completed LIPASE Stat Lab 05/31/22 23:15 Completed UA W/RFX CULTURE Stat Lab 05/31/22 22:56 Completed Lab/Rad Data: Laboratory Result Diagrams 05/31/22 23:15 05/31/22 23:15 Laboratory Results 05/31/22 05/31/22 05/31/22 Range/Units 23:15 23:15 22:56 WBC 8.8 (4.0-10.5) x10^3/uL RBC 4.38 (4.1-5.4) x10^6/uL Hgb 13.8 (12.0-16.0) g/dL Hct 41.2 (35-47) % MCV 94.1 (78-100) fL MCH 31.5 (26-32) pg MCHC 33.5 (32-36) g/dL RDW 12.0 (11.5-14.0) % Plt Count 162 (150-450) x10^3/uL MPV 9.6 (7.5-11.0) fL Gran % 51.0 (36.0-66.0) % Immature Gran % (Auto) 0.2 (0.00-0.4) % Nucleat RBC Rel Count 0.0 (0.00-0.1) % Eos # (Auto) 0.23 (0-0.5) x10^3/uL Immature Gran # (Auto) 0.02 (0.00-0.03) x10^3u/L Absolute Lymphs (auto) 3.30 (1.0-4.6) x10^3/uL Absolute Monos (auto) 0.71 (0.0-1.3) x10^3/uL Absolute Nucleated RBC 0.00 (0.00-0.01) x10^3u/L Lymphocytes % 37.5 (24.0-44.0) % Monocytes % 8.1 (0.0-12.0) % Eosinophils % 2.6 (0.00-5.0) % Basophils % 0.6 (0.0-0.4) % Absolute Granulocytes 4.49 (1.4-6.9) x10^3/uL Basophils # 0.05 (0-0.4) x10^3/uL Sodium 134 L (137-145) mmol/L Potassium 3.7 (3.5-5.1) mmol/L Chloride 102 (98-107) mmol/L Carbon Dioxide 29 (22-30) mmol/L Anion Gap 6.4 (5-15) MEQ/L BUN 7 (7-17) mg/dL Creatinine 0.65 (0.52-1.04) mg/dL Estimated GFR > 60.0 ML/MIN Glucose 83 (74-106) mg/dL Calcium 8.6 (8.4-10.2) mg/dL Total Bilirubin 0.40 (0.2-1.3) mg/dL AST 25 (14-36) U/L ALT 16 (0-35) U/L Alkaline Phosphatase 42 (38-126) U/L Serum Total Protein 7.2 (6.3-8.2) g/dL Albumin 4.2 (3.5-5.0) g/dL Amylase 83 (30-110) U/L Lipase 69 (23-300) U/L Urinalys Dipstick Clnc MAIN LAB Urine Color YELLOW (YELLOW) Urine Appearance CLEAR (CLEAR) Urine pH 5.5 (5-6) Ur Specific Thorp 1.020 (1.005-1.025) POC Urine Protein Conf NEGATIVE (Negative) Urine Ketones NEGATIVE (NEGATIVE) Urine Nitrite NEGATIVE (NEGATIVE) Urine Bilirubin NEGATIVE (NEGATIVE) Urine Urobilinogen 0.2 (0-1) mg/dL Urine Leukocytes NEGATIVE (NEGATIVE) Urine WBC (Auto) 0-2 (0-5) /HPF Urine RBC (Auto) NONE (0-2) /HPF U Epithel Cells (Auto) RARE (FEW) /HPF Urine Bacteria (Auto) RARE (NEGATIVE) /HPF Urine RBC TRACE-INTACT A (0-5) Robinson/ul Urine Mucus (Auto) SLIGHT A (NEGATIVE) /HPF Ur Culture Indicated? NO Urine Glucose NEGATIVE (NEGATIVE) mg/dL - Progress Progress: unchanged Progress Note: 05/31/22 23:44 CT of the abdomen pelvis shows possible small bowel enteritis. No other acute intra-abdominal or intrapelvic findings. Counseled pt/family regarding: lab results, diagnosis, need for follow-up, rad results - Departure Departure Disposition: Home Clinical Impression: Diarrhea, Regional enteritis of small bowel Condition: Stable Critical Care Time: No Referrals: RAUL JALLOH [Primary Care Provider] - Follow up/PCP as directed Additional Instructions: Drink plenty of fluids. Follow-up with your primary care provider for further evaluation management. Take your antibiotics as prescribed. Prescriptions: Metronidazole 500 mg [Flagyl 500 MG] 500 mg PO TID #21 tablet
[2022-05-31 22:54] VITALS: BP 139/51; O2SAT 98
[2022-05-31 22:59] LABS: Appearance CLEAR (CLEAR)
[2022-05-31 23:00] LABS: Bilirubin NEGATIVE (NEGATIVE); Dipstick done @ ? MAIN LAB; Glucose NEGATIVE (NEGATIVE); Ketones NEGATIVE (NEGATIVE); Nitrite NEGATIVE (NEGATIVE); Ph 5.5 (5-6); Protein,Urine Dip NEGATIVE (Negative); RBC TRACE-INTACT Ery/ul (0-5); Urobilinogen 0.2 mg/dL (0-1)
[2022-05-31 23:01] LABS: Bacteria RARE /HPF (NEGATIVE); Epithelial Cells RARE /HPF (FEW); Mucus SLIGHT /HPF (NEGATIVE); Urine Cultured Indicated? NO; WBC 0-2 /HPF (0-5)
[2022-05-31 23:18] LABS: Absolute Neutrophil Ct (ANC) 4.49 x10^3/uL (1.4-6.9); Basophil (Absolute #) 0.05 x10^3/uL (0-0.4); Eosinophil % 2.6 % (0.00-5.0); Eosinophil (Absolute #) 0.23 x10^3/uL (0-0.5); Hematocrit 41.2 % (35-47); Hemoglobin 13.8 g/dL (12.0-16.0); Lymphocytes % 37.5 % (24.0-44.0); Mean Cell Volume 94.1 fL (78-100); Mean Corpuscular Hemoglobin 31.5 pg (26-32); Mean Corpuscular Hgb Concent. 33.5 g/dL (32-36); Mean Platelet Volume 9.6 fL (7.5-11.0); Monocyte (Absolute #) 0.71 x10^3/uL (0.0-1.3); Monocytes % 8.1 % (0.0-12.0); Platelet Count 162 x10^3/uL (150-450); Red Blood Count 4.38 x10^6/uL (4.1-5.4); White Blood Count 8.8 x10^3/uL (4.0-10.5)
[2022-05-31 23:31] LABS: ALBUMIN 4.2 g/dL (3.5-5.0); ALKALINE PHOSPHATASE 42 U/L (38-126); AMYLASE 83 U/L (30-110); ANION GAP 6.4 MEQ/L (5-15); BLOOD UREA NITROGEN 7 mg/dL (7-17); CHLORIDE 102 mmol/L (98-107); Calcium 8.6 mg/dL (8.4-10.2); Carbon Dioxide 29 mmol/L (22-30); Creatinine 1 0.65 mg/dL (0.52-1.04); EST GLOMERULAR FILTRATION RATE > 60.0 ML/MIN; Glucose 83 mg/dL (74-106); LIPASE 69 U/L (23-300); Potassium 3.7 mmol/L (3.5-5.1); SGOT/AST 25 U/L (14-36); SGPT/ALT 16 U/L (0-35); SODIUM 134 mmol/L (137-145); Total Protein 7.2 g/dL (6.3-8.2)
[2022-05-31] MEDS ORDERED: Flagyl 500 MG PO ONE (23:43)
[2022-06-01] MEDS ORDERED: Flagyl 500 MG ONE (00:21)
[2022-06-01 00:37] VITALS: PULSE 75
--- NOTE | 2022-06-01 08:45 | XRAY ---
Indication: Abdomen pain and diarrhea. Multiple contiguous axial images obtained through the abdomen and pelvis without contrast. Comparison: December 30, 2021 Lung bases clear. Heart not enlarged. Noncontrasted stomach and bowel loops appear nonobstructed. A few lower abdomen/pelvic small bowel loops now demonstrates mild fluid distention with wall thickening and fluid leveling favoring enteritis. Partially contracted gallbladder without gallstones. Again appendectomy and partial hysterectomy reported. New 2.7 cm left ovary cyst. No free fluid/air. Remaining liver, gallbladder, pancreas, spleen, adrenal glands, kidneys, ureters, lateral, and aorta appear unremarkable for noncontrast exam. Osseous structures intact. Impression: 1. New CT findings favor mild enteritis. 2. New 2.7 cm left ovary cyst. 3. Remaining CT abdomen/pelvis without contrast exam is negative. Comment: Preliminary interpretation made by [facility]. No critical discrepancy.
== END 2022-06-01 00:37 | disposition home or self-care (01) ==
LOC: ED 22:39
DX: K50.00 Crohn's disease of small intestine without complications (principal); R19.7 Diarrhea, unspecified; R10.10 Upper abdominal pain, unspecified; E78.5 Hyperlipidemia, unspecified; Z28.310 Unvaccinated for COVID-19; Z86.16 Personal history of COVID-19; Z72.0 Tobacco use
CPT/HCPCS: 36415; 74176; 80053; 81015; 82150; 83690; 85025; 99283; A9270-GY

== ENCOUNTER 2022-10-07 22:40 | Emergency (ER) | payer OTHER ==
--- NOTE | 2022-10-08 00:08 | ERPHSYRPT ---
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 today it got worse and I tried to get into my doctor's office and they told me to go to quick care but they were closed by the time I could go: Triage Nursing Assessment: pt ambulated to room 9 independently with a slow steady gait. pt is alert and oriented times three, able to speak in complete sentences, alert and oriented times 3, and able to move all extremities. see below for assessment of left middle toe. Physician History: pt denies any trauma to toes but thinks may have been stung last pm and the Left second and third toes continue to burn and have small red punctate area like a sting in between. NV and tendon fxn are intact and there is no prasanth te nderness. minimal swelling but no erythema. Discussed trial of steroids and pt wishes to proceed and alaso AB ointment as a precaution although does not appear infected but rather inflammation. discussed x-ray but without trauma and pt agrees after discussion of risk/benefit and chooses to forgo x-ray at this time. Method of Injury: unknown Occurred: yesterday Quality: constant, burning Severity of Pain-Max: moderate Severity of Pain-Current: moderate Lower Extremities Pain: 2nd toe: left, 3rd toe: left Modifying Factors: Improves With: cold therapy, movement Associated Symptoms: none Allergies/Adverse Reactions: cephalexin monohydrate [From Keflex] Allergy (Intermediate, Verified 05/31/22 22:42) Hives cefaclor [From Ceclor] Allergy (Mild, Verified 05/31/22 22:42) Hives oxycodone [From OxyContin] Adverse Reaction (Verified 05/31/22 22:42) "not allergic, just dont like the way it makes me feel" Home Medications: clonazePAM [Klonopin] 0.5 mg PO TID PRN 10/07/22 [History] Hx Tetanus, Diphtheria Vaccination/Date Given: No Hx Influenza Vaccination/Date Given: No Hx Pneumococcal Vaccination/Date Given: No Immunizations Up to Date: No Travel Risk - International Travel Have you traveled outside of the country in past 3 weeks: No - Coronavirus Screening Are you exhibiting any of the following symptoms?: No Close contact with a COVID-19 positive Pt in past 14-21 Days: No - Vaccine Status Have you recieved a Covid-19 vaccination: No - Review of Systems Constitutional: No Fever, No Chills Eyes: No Symptoms Ears, Nose, & Throat: No Symptoms Respiratory: No Cough, No Dyspnea Cardiac: No Chest Pain, No Edema, No Syncope Abdominal/Gastrointestinal: No Abdominal Pain, No Nausea, No Vomiting, No Diarrhea Genitourinary Symptoms: No Dysuria Musculoskeletal: No Back Pain, No Neck Pain Skin: Other (tiny puntate vivienne and swelling 2nd adn third toe at base. ), No Rash Neurological: No Dizziness, No Focal Weakness, No Sensory Changes Psychological: No Symptoms Endocrine: No Symptoms Hematologic/Lymphatic: No Symptoms Immunological/Allergic: No Symptoms All Other Systems: Reviewed and Negative - Past Medical History Pertinent Past Medical History: Yes Neurological History: Migraines ENT History: No Pertinent History Cardiac History: High Cholesterol Respiratory History: COPD, Other Endocrine Medical History: No Pertinent History Musculoskeletal History: Fractures GI Medical History: No Pertinent History History: No Pertinent History Psycho-Social History: Depression Female Reproductive Disorders: Endometriosis, Other Other Medical History: 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 steriod injections to rt shoulder under anesthesia - Social History Smoking Status: Current every day smoker How long have you smoked: 25 Exposure to second hand smoke: No Drug Use: marijuana Patient Lives Alone: No Significant Family History: no pertinent family hx, alpha-1 antitrypsin deficiency - Female History Hx Last Menstrual Period: partical hysterectomy, doesn't have period Hx Now: No - Nursing Vital Signs Nursing Vital Signs: Initial Vital Signs Temperature 98.4 F 10/07/22 23:22 Pulse Rate 86 10/07/22 23:22 Respiratory Rate 14 10/07/22 23:22 Blood Pressure 113/62 10/07/22 23:22 O2 Sat by Pulse Oximetry 98 10/07/22 23:22 Pain Scale Pain Intensity 5 - Physical Exam General Appearance: alert Eyes, Ears, Nose, Throat Exam: moist mucous membranes Neck Exam: non-tender, supple Cardiovascular/Respiratory Exam: chest non-tender, normal breath sounds, regular rate/rhythm, no respiratory distress Gastrointestinal/Abdominal Exam: non-tender, guarding Back Exam: normal inspection, No vertebral tenderness Hips Exam: bilateral: non-tender, normal inspection, normal range of motion, no evidence of injury Legs Exam: bilateral leg: non-tender, normal inspection, normal range of motion, no evidence of injury Knees Exam: bilateral knee: non-tender, normal inspection, normal range of motion, no evidence of injury Ankle Exam: bilateral ankle: non-tender, normal inspection, normal range of motion, no evidence of injury Foot Exam: right foot: non-tender, normal inspection, normal range of motion, no evidence of injury, left foot: soft tissue tenderness, swelling (2nd and 3rd toes base ) DTR - Lower Extremities Exam: knee (R): 2+, knee (L): 2+, ankle (R): 2+, ankle (L): 2+ Neuro/Tendon Exam: normal sensation, normal motor functions Mental Status Exam: alert, oriented x 3, cooperative Skin Exam: normal color, warm, dry SpO2 Interpretation: normal SpO2: 98 O2 Delivery: Room Air - Course Nursing assessment & vital signs reviewed: Yes Ordered Tests: Medication Summary Generic Name Dose Route Start Last Admin Trade Name Wingq PRN Reason Stop Dose Admin Prednisone 40 mg 10/08/22 10:00 Prednisone 20 Mg Tablet PO 11/07/22 09:59 DAILY LAURA - Progress Counseled pt/family regarding: diagnosis, need for follow-up - Departure Departure Disposition: Home Clinical Impression: inflammation possible sting left toes Condition: Good Critical Care Time: No Referrals: RAUL JALLOH [Primary Care Provider] - Follow up/PCP as directed Instructions: Insect Bites and Stings (DC), Toe Injury (DC) Additional Instructions: use antibiotic ointment until healed. see your Monday for recheck or return meantime if not improving. You can also use ice for the pain . Prescriptions: Mupirocin [Bactroban OINTMENT] 22 gm TP BID #1 cartridge Methylprednisolone Packet [Medrol Dosepack] 4 mg PO UD #1 packet
[2022-10-08 00:10] VITALS: BP 106/57; PULSE 63
[2022-10-08 00:15] VITALS: O2SAT 98
[2022-10-08] MEDS ORDERED: DELTASONE 20 MG ONE (00:16)
[2022-10-08] MEDS ORDERED: DELTASONE 20 MG PO SCH (10:00)
== END 2022-10-08 00:27 | disposition home or self-care (01) ==
LOC: ED 22:40
DX: S99.922A Unspecified injury of left foot, initial encounter (principal); M79.675 Pain in left toe(s); E78.5 Hyperlipidemia, unspecified; Z79.52 Long term (current) use of systemic steroids; Z79.899 Other long term (current) drug therapy; Z28.310 Unvaccinated for COVID-19; Z72.0 Tobacco use; Z86.16 Personal history of COVID-19
CPT/HCPCS: 99281; A9270-GY

== ENCOUNTER 2023-03-20 23:12 | Emergency (ER) | payer OTHER ==
--- NOTE | 2023-03-20 23:16 | ERPHSYRPT ---
- History of Present Illness Time Seen by Provider: 03/20/23 23:16 Source: patient, family Exam Limitations: no limitations Physician History: The 43-year-old white female patient that has history of migraine headaches and has had a headache all day that suddenly worsened approximately 830 this evening. Patient took an [id number] medication that contained caffeine acetaminophen medication without much benefit. Patient is no longer on any medications to help prevent her migraine headaches. Patient denies chest pain. Patient denies shortness of breath. Patient did not suffer any head trauma. Patient has a history of COPD and hyperlipidemia. Patient also has a history of anxiety and depression. Patient is a daily smoker of cigarettes. Timing/Duration: today, other (Not worse but not improving) Head Pain Location: occipital Severity of Pain-Max: moderate Severity of Pain-Current: moderate Recent Head Trauma: no recent headache/trauma, chronic headaches Modifying Factors: Improves With: exposure to light, noise Associated Symptoms: sensitive to light, No neck pain, No speech problems, No stiff neck, No vision changes, No visual disturbance Previous symptoms: same symptoms as today, no recent treatment Allergies/Adverse Reactions: cephalexin monohydrate [From Keflex] Allergy (Intermediate, Verified 03/20/23 23:25) Hives cefaclor [From Ceclor] Allergy (Mild, Verified 03/20/23 23:25) Hives oxycodone [From OxyContin] Adverse Reaction (Verified 03/20/23 23:25) "not allergic, just dont like the way it makes me feel" Home Medications: clonazePAM [Klonopin] 0.5 mg PO TID PRN PRN 10/07/22 [History] Hx Tetanus, Diphtheria Vaccination/Date Given: No Hx Influenza Vaccination/Date Given: No Hx Pneumococcal Vaccination/Date Given: No Travel Risk - International Travel Have you traveled outside of the country in past 3 weeks: No - Coronavirus Screening Are you exhibiting any of the following symptoms?: No Close contact with a COVID-19 positive Pt in past 14-21 Days: No - Vaccine Status Have you recieved a Covid-19 vaccination: No - Review of Systems Constitutional: No Symptoms Eyes: No Symptoms Ears, Nose, & Throat: No Symptoms Respiratory: No Symptoms Cardiac: No Symptoms Abdominal/Gastrointestinal: No Symptoms Genitourinary Symptoms: No Symptoms Musculoskeletal: No Symptoms Skin: No Symptoms Neurological: Headache Psychological: No Symptoms Endocrine: No Symptoms Hematologic/Lymphatic: No Symptoms Immunological/Allergic: No Symptoms All Other Systems: Reviewed and Negative - Past Medical History Pertinent Past Medical History: Yes Neurological History: Migraines ENT History: No Pertinent History Cardiac History: High Cholesterol Respiratory History: COPD, Other Endocrine Medical History: No Pertinent History Musculoskeletal History: Fractures GI Medical History: No Pertinent History History: No Pertinent History Psycho-Social History: Depression Female Reproductive Disorders: Endometriosis, Other Other Medical History: 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 steriod injections to rt shoulder under anesthesia - Social History Smoking Status: Current every day smoker How long have you smoked: 1 Exposure to second hand smoke: Yes Drug Use: marijuana Patient Lives Alone: No Significant Family History: no pertinent family hx, alpha-1 antitrypsin deficiency - Nursing Vital Signs Nursing Vital Signs: Initial Vital Signs Temperature 97.4 F 03/20/23 23:17 Pulse Rate 74 03/20/23 23:17 Respiratory Rate 18 03/20/23 23:17 Blood Pressure 150/60 03/20/23 23:17 O2 Sat by Pulse Oximetry 99 03/20/23 23:17 Pain Scale Pain Intensity 7 - Physical Exam General Appearance: no apparent distress, alert, anxiety, thin Eye Exam: PERRL/EOMI, eyes nml inspection Ears, Nose, Throat Exam: normal ENT inspection, moist mucous membranes Neck Exam: normal inspection, non-tender, supple, full range of motion Respiratory Exam: normal breath sounds, lungs clear, airway intact, No chest tenderness, No respiratory distress Cardiovascular Exam: regular rate/rhythm, normal heart sounds, normal peripheral pulses Gastrointestinal/Abdominal Exam: soft, normal bowel sounds, No tenderness Back Exam: normal inspection, normal range of motion, No CVA tenderness, No vertebral tenderness Extremity Exam: normal inspection, normal range of motion, pelvis stable Mental Status Exam: alert, oriented x 3, 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 The level of complexity in the work-up performed is based on review of the patient's past medical history, review of the patient's medication list, review of the patient's drug allergy list, review of the patient's history present illness and physical findings on examination. This patient has history of migraine headaches. She is no longer on any medicines chronically to help prevent her migraine headaches. Patient states that the combination of medicines has worked for her in the past. We decided on hydrocodone orally (she can take this medication without problems or issues) Benadryl and Compazine. Blood Culture(s) Obtained: No Antibiotics given: No Counseled pt/family regarding: diagnosis, need for follow-up Medical Desision Making - Diagnostic Testing Diagnostic test were ordered, analyzed, and reviewed by me: No - Risk of complications Minimal Risk: Minimal risk of morbidity - Departure Departure Disposition: Home Clinical Impression: Migraine headache Condition: Stable Critical Care Time: No Referrals: RAUL JALLOH [Primary Care Provider] - Follow up/PCP as directed Additional Instructions: Call your prescribing provider tomorrow, 03/21/2023, to make arrangements for follow-up appointment for further evaluation and management.
[2023-03-20 23:19] VITALS: TEMP 97.4
[2023-03-20] MEDS ORDERED: Compazine 10 MG/2 ML IM ONE (23:37)
[2023-03-20] MEDS ORDERED: NORCO 5/325 MG PO ONE (23:37)
[2023-03-20] MEDS ORDERED: BENADRYL 50 MG/ML IM ONE (23:37)
[2023-03-20] MEDS ORDERED: NORCO 5/325 MG ONE (23:42)
[2023-03-20] MEDS ORDERED: Compazine 10 MG/2 ML ONE (23:42)
[2023-03-20] MEDS ORDERED: BENADRYL 50 MG/ML ONE (23:42)
[2023-03-21 00:22] VITALS: BP 142/65; PULSE 71; RESP 16; O2SAT 95
== END 2023-03-21 00:20 | disposition home or self-care (01) ==
LOC: ED 23:12
DX: G43.909 Migraine, unspecified, not intractable, without status migrainosus (principal); E78.5 Hyperlipidemia, unspecified; Z79.899 Other long term (current) drug therapy; Z28.310 Unvaccinated for COVID-19; Z86.16 Personal history of COVID-19; Z72.0 Tobacco use
CPT/HCPCS: 96372; 99283; J1200; A9270-GY

== ENCOUNTER 2023-04-13 13:46 | Emergency (ER) | payer OTHER ==
[2023-04-13 14:00] VITALS: PULSE 86; TEMP 98.6; O2SAT 98
--- NOTE | 2023-04-13 14:11 | ERPHSYRPT ---
- History of Present Illness Time Seen by Provider: 04/13/23 14:10 Source: patient, family Exam Limitations: no limitations Patient Subjective Stated Complaint: Pt had some boards fall on her right foot injuring it Triage Nursing Assessment: Pt brought to the ER by her sister in law, hypotensive, rates pain 7/10, pulses normal, skin n/w/d, pain to the dorsal side of foot in multiple places, denies any other injuries Physician History: She is a thin 43-year-old white female whose systolic blood pressure typically runs in the 90s to low 100 range and presents with pain on the dorsal aspect of her right foot. Prior to arrival, wooden boards fell onto her right foot. Patient has a history of migraine headaches, COPD, hyperlipidemia and depression. She is a smoker of cigarettes. She is requesting hydrocodone pill which she can take she is not allergic to hydrocodone. Method of Injury: direct blow Occurred: just prior to arrival Quality: burning, throbbing Severity of Pain-Max: mild (To moderate) Severity of Pain-Current: mild Lower Extremities Pain: foot: right (Dorsal aspect with associated abrasion) Modifying Factors: Improves With: movement Associated Symptoms: other (To bear weight but can do so) Allergies/Adverse Reactions: cephalexin monohydrate [From Keflex] Allergy (Intermediate, Verified 04/13/23 14:01) Hives cefaclor [From Ceclor] Allergy (Mild, Verified 04/13/23 14:01) Hives prochlorperazine [From Compazine] Adverse Reaction (Intermediate, Verified 04/13/23 14:01) Rapid Heart Beat oxycodone [From OxyContin] Adverse Reaction (Verified 04/13/23 14:01) "not allergic, just dont like the way it makes me feel" Home Medications: clonazePAM [Klonopin] 0.5 mg PO TID PRN PRN 10/07/22 [History] Hx Tetanus, Diphtheria Vaccination/Date Given: No Hx Influenza Vaccination/Date Given: No Hx Pneumococcal Vaccination/Date Given: No Travel Risk - International Travel Have you traveled outside of the country in past 3 weeks: No - Coronavirus Screening Are you exhibiting any of the following symptoms?: No Close contact with a COVID-19 positive Pt in past 14-21 Days: No - Vaccine Status Have you recieved a Covid-19 vaccination: No - Review of Systems Constitutional: No Symptoms Eyes: No Symptoms Ears, Nose, & Throat: No Symptoms Respiratory: No Symptoms Cardiac: No Symptoms Abdominal/Gastrointestinal: No Symptoms Genitourinary Symptoms: No Symptoms Musculoskeletal: Injury (Dorsal aspect right foot) Skin: Other (2 cm) Neurological: No Symptoms ( abrasion dorsal aspect right foot) Psychological: No Symptoms Endocrine: No Symptoms Hematologic/Lymphatic: No Symptoms Immunological/Allergic: No Symptoms All Other Systems: Reviewed and Negative - Past Medical History Pertinent Past Medical History: Yes Neurological History: Migraines ENT History: No Pertinent History Cardiac History: High Cholesterol Respiratory History: COPD, Other Endocrine Medical History: No Pertinent History Musculoskeletal History: Fractures GI Medical History: No Pertinent History History: No Pertinent History Psycho-Social History: Depression Female Reproductive Disorders: Endometriosis, Other Other Medical History: 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 steriod injections to rt shoulder under anesthesia - Social History Smoking Status: Current every day smoker How long have you smoked: 1 Exposure to second hand smoke: Yes Drug Use: marijuana Patient Lives Alone: No Significant Family History: no pertinent family hx, alpha-1 antitrypsin deficiency - Female History Hx Now: No (partial hyst) - Nursing Vital Signs Nursing Vital Signs: Initial Vital Signs Temperature 98.6 F 04/13/23 13:51 Pulse Rate 86 04/13/23 13:51 Blood Pressure 98/65 04/13/23 13:51 O2 Sat by Pulse Oximetry 98 04/13/23 13:51 Pain Scale Pain Intensity 7 - Physical Exam General Appearance: no apparent distress, alert, thin Eyes, Ears, Nose, Throat Exam: moist mucous membranes, other (Edentulous) Neck Exam: normal inspection, non-tender, supple, full range of motion Cardiovascular/Respiratory Exam: chest non-tender, no respiratory distress Gastrointestinal/Abdominal Exam: non-tender Back Exam: normal inspection, normal range of motion, No CVA tenderness, No vertebral tenderness Hips Exam: bilateral: non-tender, normal inspection, normal range of motion, no evidence of injury Legs Exam: bilateral leg: non-tender, normal inspection, normal range of motion, no evidence of injury Knees Exam: bilateral knee: non-tender, normal inspection, normal range of motion, no evidence of injury Ankle Exam: bilateral ankle: non-tender, normal inspection, normal range of motion, no evidence of injury Foot Exam: right foot: abrasions/lacerations (Dorsal aspect abrasion), soft tissue tenderness (Dorsal aspect with associated abrasion), left foot: non- tender, normal inspection, no evidence of injury, bilateral foot: normal range of motion Neuro/Tendon Exam: normal sensation, normal motor functions, normal tendon functions, responds to pain, no evidence tendon injury Mental Status Exam: alert, oriented x 3, cooperative Skin Exam: abrasion (Dorsal aspect 2 cm abrasion) SpO2 Interpretation: normal SpO2: 98 O2 Delivery: Room Air - Course Nursing assessment & vital signs reviewed: Yes Ordered Tests: Active Orders 24 hr Category Date Time Status FOOT (MINIMUM 3 VIEWS) Stat Exams 04/13/23 14:46 Completed Medication Summary Discontinued Medications Generic Name Dose Route Start Last Admin Trade Name Freq PRN Reason Stop Dose Admin Hydrocodone Bitart/Acetaminophen 1 tab 04/13/23 14:57 Hydrocodone/Apap 5/325 1 Tab Tablet PO 04/13/23 14:58 STAT ONE - Progress Progress: unchanged Progress Note: 04/13/23 15:05 This patient's medical issue is 1 of low complexity. Level complexity in the work-up performed is based on review of the patient's past medical history, review the patient's medication list, review the patient's drug allergy list, history of present illness and physical findings on examination. Work-up in this patient includes providing the patient with oral Reliance 5/325 and obtaining an x-ray of the right foot. 04/13/23 15:15 X-ray of right foot was interpreted by the radiologist and I reviewed the impression. There is no evidence of any acute fracture or dislocation. Counseled pt/family regarding: diagnosis, need for follow-up, rad results Medical Desision Making - Independent Historian Additional History obtained from: Relative/friend - Diagnostic Testing Diagnostic test were ordered, analyzed, and reviewed by me: Yes Radiological Interpretation: Reviewed by me, Teleradiologist Report - Risk of complications Minimal Risk: Minimal risk of morbidity - Departure Departure Disposition: Home Clinical Impression: Abrasion, right foot, initial encounter, Contusion of right foot Condition: Stable Critical Care Time: No Referrals: RAUL JALLOH [Primary Care Provider] - Follow up/PCP as directed Additional Instructions: Ice pack to area 3 times a day for the next 48 hours. Keep the abrasion site clean daily with soap and water. May cover the abrasion site daily with antibiotic ointment of choice. Use Tylenol and ibuprofen for pain control if there are no contraindications.
[2023-04-13] MEDS ORDERED: NORCO 5/325 MG PO ONE (14:57)
--- NOTE | 2023-04-13 15:07 | XRAY ---
Indication: Pain following injury. Comparison: None 3 nonweightbearing views right foot demonstrates small cuboid accessory ossicle. No other bony, articular, or soft tissue abnormalities.
[2023-04-13 15:18] VITALS: BP 110/62
[2023-04-13] MEDS ORDERED: NORCO 5/325 MG ONE ×2 (15:18→15:23)
== END 2023-04-13 15:37 | disposition home or self-care (01) ==
LOC: ED 13:46
DX: S90.31XA Contusion of right foot, initial encounter (principal); S90.811A Abrasion, right foot, initial encounter; W20.8XXA Other cause of strike by thrown, projected or falling object, initial encounter; E78.5 Hyperlipidemia, unspecified; Z79.899 Other long term (current) drug therapy; Z28.310 Unvaccinated for COVID-19; Z86.16 Personal history of COVID-19; Z72.0 Tobacco use
CPT/HCPCS: 73630; 99282; A9270-GY

== ENCOUNTER 2023-06-09 23:00 | Emergency (ER) | payer OTHER ==
--- NOTE | 2023-06-09 23:06 | ERPHSYRPT ---
- History of Present Illness Time Seen by Provider: 06/09/23 23:06 Historian: patient Exam Limitations: no limitations Physician History: This is a 43-year-old white female patient who was eating chicken nuggets approximately 2 hours prior to arrival to the emergency department when she was laughing and then started and coughed up portion of her chicken nugget. Ever since that episode she has coughed several times and has a sensation that there is a piece of chicken nugget meat in the back of her throat. She has no difficulty breathing. She has no difficulty speaking. She has no difficultly tolerating her secretions. Timing/Duration: today Severity of Pain-Max: none Severity of Pain-Current: none Modifying Factors: Improves With: coughing (Intermittently after swallowing), other (When she swallows she senses in the left hypopharyngeal region that there is a foreign body that is tender. This makes her start coughing) Previous symptoms: no prior history, no recent treatment Allergies/Adverse Reactions: cephalexin monohydrate [From Keflex] Allergy (Intermediate, Verified 06/09/23 23:18) Hives cefaclor [From Ceclor] Allergy (Mild, Verified 06/09/23 23:18) Hives prochlorperazine [From Compazine] Adverse Reaction (Intermediate, Verified 06/09/23 23:18) Rapid Heart Beat oxycodone [From OxyContin] Adverse Reaction (Verified 06/09/23 23:18) "not allergic, just dont like the way it makes me feel" Home Medications: clonazePAM [Klonopin] 0.5 mg PO TID PRN PRN 10/07/22 [History] Hx Tetanus, Diphtheria Vaccination/Date Given: No Hx Influenza Vaccination/Date Given: No Hx Pneumococcal Vaccination/Date Given: No Travel Risk - International Travel Have you traveled outside of the country in past 3 weeks: No - Coronavirus Screening Are you exhibiting any of the following symptoms?: No Close contact with a COVID-19 positive Pt in past 14-21 Days: No - Vaccine Status Have you recieved a Covid-19 vaccination: No - Review of Systems Constitutional: No Symptoms Eyes: No Symptoms Ears, Nose, & Throat: Painful Swallowing (Mild left hypopharyngeal region) Respiratory: Cough (After swallowing intermittently in the last 2 hours) Cardiac: No Symptoms Abdominal/Gastrointestinal: No Symptoms Genitourinary Symptoms: No Symptoms Musculoskeletal: No Symptoms Skin: No Symptoms Neurological: No Symptoms Psychological: No Symptoms Endocrine: No Symptoms Hematologic/Lymphatic: No Symptoms Immunological/Allergic: No Symptoms All Other Systems: Reviewed and Negative - Past Medical History Pertinent Past Medical History: Yes Neurological History: Migraines ENT History: No Pertinent History Cardiac History: High Cholesterol Respiratory History: COPD, Other Endocrine Medical History: No Pertinent History Musculoskeletal History: Fractures GI Medical History: No Pertinent History History: No Pertinent History Psycho-Social History: Depression Female Reproductive Disorders: Endometriosis, Other Other Medical History: 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 steriod injections to rt shoulder under anesthesia - Social History Smoking Status: Current every day smoker How long have you smoked: 1 Exposure to second hand smoke: Yes Drug Use: marijuana Patient Lives Alone: No Significant Family History: no pertinent family hx, alpha-1 antitrypsin deficiency - Nursing Vital Signs Nursing Vital Signs: Initial Vital Signs Temperature 98.1 F 06/09/23 23:13 Pulse Rate 104 H 06/09/23 23:13 Respiratory Rate 16 06/09/23 23:13 Blood Pressure 123/55 06/09/23 23:13 O2 Sat by Pulse Oximetry 98 06/09/23 23:13 Pain Scale Pain Intensity 0 - Physical Exam General Appearance: no apparent distress, alert, anxiety, thin Eye Exam: PERRL/EOMI, eyes nml inspection Ears, Nose, Throat Exam: moist mucous membranes, other (Upper teeth missing. No evidence of intraoral foreign body.) Neck Exam: normal inspection, non-tender, supple, full range of motion, other (No stridor) Respiratory Exam: normal breath sounds, lungs clear, airway intact, No chest tenderness, No respiratory distress, No wheezing, No stridor Cardiovascular Exam: regular rate/rhythm, normal heart sounds, normal peripheral pulses Gastrointestinal/Abdomen Exam: soft, normal bowel sounds, No tenderness Pelvic Exam: not done Rectal Exam: not done Back Exam: normal inspection, normal range of motion, No CVA tenderness, No vertebral tenderness Extremity Exam: normal inspection, normal range of motion, pelvis stable Neurologic Exam: alert, oriented x 3, cooperative, offal trimmer II-XII nml as tested, normal mood/affect, nml cerebellar function, nml station & gait, sensation nml Skin Exam: normal color, warm, dry Lymphatic Exam: No adenopathy SpO2 Interpretation: normal O2 Delivery: Room Air - Course Nursing assessment & vital signs reviewed: Yes - Progress Progress: unchanged Progress Note: 06/10/23 00:04 This patient's medical issue is 1 of low complexity. Level complex in the workup performed based on review the patient's history present illness, review of the patient's medication list, review of the patient's drug allergy list, history of present illness and physical findings on examination. I offered a workup to include CT scan of the soft tissue of the neck. Patient declines. Patient does not require upper endoscopy at this point. She is only 2 hours out from the incident causing her to have intermittent coughing episodes. She is breathing well. She has no stridor. She is swallowing easily. She is handling her secretions well. Counseled pt/family regarding: diagnosis, need for follow-up Medical Desision Making - Diagnostic Testing Diagnostic test were ordered, analyzed, and reviewed by me: No - Risk of complications Minimal Risk: Minimal risk of morbidity - Departure Departure Disposition: Home Clinical Impression: Sensation of foreign body in throat Condition: Stable Critical Care Time: No Referrals: RAUL JALLOH [Primary Care Provider] - Follow up/PCP as directed Additional Instructions: Drink plenty of liquids. May drink Coke. Keep the back of your throat moist with chewing gum or sucking on hard candy. Avoid exposure to any type of smoke. Follow-up with your primary care provider for further evaluation management.
[2023-06-09 23:14] VITALS: RESP 16; TEMP 98.1
[2023-06-10 00:10] VITALS: BP 118/57; PULSE 71; O2SAT 99
== END 2023-06-10 00:16 | disposition home or self-care (01) ==
LOC: ED 23:00
DX: R09.A2 Foreign body sensation, throat (principal); E78.5 Hyperlipidemia, unspecified; Z79.899 Other long term (current) drug therapy; Z28.310 Unvaccinated for COVID-19; Z86.16 Personal history of COVID-19; Z72.0 Tobacco use
CPT/HCPCS: 99281

== ENCOUNTER 2023-07-22 22:01 | Emergency (ER) | payer SELFPAY ==
[2023-07-22 22:10] VITALS: TEMP 97.6
[2023-07-22] MEDS ORDERED: TORAdol 30 mg Injection ONE (22:39)
[2023-07-22] MEDS ORDERED: TYLENOL 325 MG ONE (22:39)
[2023-07-22] MEDS ORDERED: BENADRYL 50 MG/ML ONE (22:39)
[2023-07-22] MEDS ORDERED: Reglan 10 MG/2 ML ONE (22:39)
[2023-07-22] MEDS: TYLENOL 325 MG PO ONE (22:46)
[2023-07-22] MEDS: Reglan 10 MG/2 ML IM ONE (22:51)
--- NOTE | 2023-07-22 22:53 | ERPHSYRPT ---
- History of Present Illness Time Seen by Provider: 07/22/23 22:05 Source: patient Exam Limitations: no limitations Patient Subjective Stated Complaint: headache, vomited x2 Triage Nursing Assessment: Pt ambulated into ER without diff. Pt was at work this evening and headache just came on, nausea, vomited x2. Pt is alert and oriented x4, cooperative. Pt does have hx of migraines but does not take anything daily for them. Physician History: 43-year-old female with history of migraines presented in the ER with sudden onset generalized headache around 5 PM. Patient reports she felt nauseated, vomited x 2 nonprojectile, nonbilious without any numbness tingling or focal weakness. Patient rates 7/10 intensity generalized headache without any visual symptoms or difficulty speech. No neck pain or difficulty movements of neck. No fever or chills reported reports headache similar to previous and does not think this is the worst headache of her life. She took a Tylenol almost 6 hours ago and no significant relief. Denies any abdominal pain. Allergies/Adverse Reactions: cephalexin monohydrate [From Keflex] Allergy (Intermediate, Verified 07/22/23 22:19) Hives cefaclor [From Ceclor] Allergy (Mild, Verified 07/22/23 22:19) Hives prochlorperazine [From Compazine] Adverse Reaction (Intermediate, Verified 07/22/23 22:19) Rapid Heart Beat oxycodone [From OxyContin] Adverse Reaction (Verified 07/22/23 22:19) "not allergic, just dont like the way it makes me feel" Home Medications: clonazePAM [Klonopin] 0.5 mg PO TID PRN PRN 10/07/22 [History] Hx Tetanus, Diphtheria Vaccination/Date Given: No Hx Influenza Vaccination/Date Given: No Hx Pneumococcal Vaccination/Date Given: No Travel Risk - International Travel Have you traveled outside of the country in past 3 weeks: No - Coronavirus Screening Are you exhibiting any of the following symptoms?: Yes Symptoms: Headaches/Body Aches/Fatigue Close contact with a COVID-19 positive Pt in past 14-21 Days: No - Vaccine Status Have you recieved a Covid-19 vaccination: No - Review of Systems Constitutional: No Symptoms Eyes: No Symptoms Ears, Nose, & Throat: Nose Pain Respiratory: No Symptoms Cardiac: No Symptoms Abdominal/Gastrointestinal: Vomiting Genitourinary Symptoms: No Symptoms Musculoskeletal: No Symptoms Neurological: Headache Psychological: No Symptoms Endocrine: No Symptoms - Past Medical History Pertinent Past Medical History: Yes Neurological History: Migraines ENT History: No Pertinent History Cardiac History: High Cholesterol Respiratory History: COPD, Other Endocrine Medical History: No Pertinent History Musculoskeletal History: Fractures GI Medical History: No Pertinent History History: No Pertinent History Psycho-Social History: Depression Female Reproductive Disorders: Endometriosis, Other Other Medical History: 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 steriod injections to rt shoulder under anesthesia - Social History Smoking Status: Current every day smoker How long have you smoked: 26 years Exposure to second hand smoke: Yes Drug Use: marijuana Patient Lives Alone: No Significant Family History: no pertinent family hx, alpha-1 antitrypsin deficiency - Female History Hx Now: No - Nursing Vital Signs Nursing Vital Signs: Initial Vital Signs Temperature 97.6 F 07/22/23 22:08 Pulse Rate 70 07/22/23 22:08 Respiratory Rate 16 07/22/23 22:08 Blood Pressure 130/59 07/22/23 22:08 O2 Sat by Pulse Oximetry 100 07/22/23 22:08 Pain Scale Pain Intensity 8 - Physical Exam General Appearance: no apparent distress, alert Eye Exam: PERRL/EOMI Ears, Nose, Throat Exam: normal ENT inspection, TMs normal, pharynx normal, moist mucous membranes Neck Exam: normal inspection, non-tender, supple, full range of motion, No meningismus Respiratory Exam: normal breath sounds, lungs clear Cardiovascular Exam: regular rate/rhythm, normal heart sounds Gastrointestinal/Abdominal Exam: soft, normal bowel sounds, No tenderness, No distention Mental Status Exam: alert, oriented x 3, cooperative 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 Exam: normal hearing, normal speech, PERRL Coordination/Gait Exam: normal finger to nose, normal gait, normal cerebellar function, negative Romberg's sign Motor/Sensory Exam: no motor deficit, no sensory deficit, no pronator drift, negative Babinski's sign DTR Exam: bicep (R): 2+, bicep (L): 2+, knee (R): 2+, knee (L): 2+ Skin Exam: normal color SpO2 Interpretation: normal SpO2: 100 O2 Delivery: Room Air Ordered Tests: Medication Summary Discontinued Medications Generic Name Dose Route Start Last Admin Trade Name Araceli PRN Reason Stop Dose Admin Acetaminophen 975 mg 07/22/23 22:29 Acetaminophen 325 Mg Tablet PO 07/22/23 22:30 STAT ONE Acetaminophen Confirm 07/22/23 22:39 Acetaminophen 325 Mg Tablet Administered 07/22/23 22:40 Dose 975 mg .ROUTE .STK-MED ONE Diphenhydramine HCl 25 mg 07/22/23 22:29 Diphenhydramine Hcl 50 Mg/Ml Vial IM 07/22/23 22:30 STAT ONE Diphenhydramine HCl Confirm 07/22/23 22:39 Diphenhydramine Hcl 50 Mg/Ml Vial Administered 07/22/23 22:40 Dose 50 mg .ROUTE .STK-MED ONE Ketorolac Tromethamine 30 mg 07/22/23 22:29 Ketorolac Tromethamine 30 Mg/Ml Inj IM 07/22/23 22:30 STAT ONE Ketorolac Tromethamine Confirm 07/22/23 22:39 Ketorolac Tromethamine 30 Mg/Ml Inj Administered 07/22/23 22:40 Dose 30 mg .ROUTE .STK-MED ONE Metoclopramide HCl 10 mg 07/22/23 22:29 Metoclopramide Hcl 10 Mg/2 Ml Vial IM 07/22/23 22:30 STAT ONE Metoclopramide HCl Confirm 07/22/23 22:39 Metoclopramide Hcl 10 Mg/2 Ml Vial Administered 07/22/23 22:40 Dose 10 mg .ROUTE .STK-MED ONE - Progress Progress: improved Progress Note: 07/22/23 23:55 43-year-old is evaluated for headache. Patient has history of migraine. Headache is similar to previous episodes. Patient has nonfocal neuroexam throughout stay in the ER. No signs of meningismus. Does not think this is the worst headache of her life, do not think needs imaging. She is given Toradol Reglan and Benadryl, on reevaluation her headache is improved. She is advised to follow-up with primary care and possible needs neuro eval uation to be placed on prophylactic medication. Discussed signs symptoms of worsening needing return to ER which she seems understanding stable for discharge. Counseled pt/family regarding: diagnosis, need for follow-up Medical Desision Making - Risk of complications The pt has a mod risk of morbidity or mortality based on: Need for prescription drug management - Departure Departure Disposition: Home Clinical Impression: Migraine headache Condition: Stable Critical Care Time: No Referrals: RAUL JALLOH [Primary Care Provider] - Follow up with PCP 2 days Instructions: Headache, Adult (DC) Prescriptions: Rizatriptan Benzoate [Maxalt] 5 mg PO Q2H/PRN PRN 5 Days #8 tablet PRN Reason: Pain
[2023-07-22] MEDS: BENADRYL 50 MG/ML IM ONE (22:54)
[2023-07-22] MEDS: TORAdol 30 mg Injection IM ONE (22:56)
[2023-07-22 23:23] VITALS: BP 119/63; PULSE 67; RESP 16; O2SAT 98
== END 2023-07-22 23:37 | disposition home or self-care (01) ==
LOC: ED 22:01
DX: G43.909 Migraine, unspecified, not intractable, without status migrainosus (principal); R11.2 Nausea with vomiting, unspecified; E78.5 Hyperlipidemia, unspecified; Z79.899 Other long term (current) drug therapy; Z28.310 Unvaccinated for COVID-19; Z86.16 Personal history of COVID-19; Z72.0 Tobacco use
CPT/HCPCS: 96372; 99283; J1200; J1885; A9270-GY

== ENCOUNTER 2023-12-02 21:03 | Emergency (ER) | payer MEDICAID ==
--- NOTE | 2023-12-02 21:11 | ERPHSYRPT ---
- History of Present Illness Time Seen by Provider: 12/02/23 21:11 Source: patient Exam Limitations: no limitations Physician History: This is a 43-year-old white female patient who presents with left mandibular pain that began earlier today and worsened throughout the day. The patient has no upper teeth and has very poor dental hygiene especially in the left lower molar region with multiple fractures and decayed teeth present. Patient states that the pain worsened today and went into the jaw and left neck into the back of her neck. Timing/Duration: gradual onset Severity: moderate ENT Location: dental (Left lower severe dental caries) Prearrival Treatment: no prearrival treatment Modifying Factors: Improves With: other (Chewing worsens) Associated Symptoms: jaw pain (Left lower jaw pain), tooth pain (Left lower) Allergies/Adverse Reactions: cephalexin monohydrate [From Keflex] Allergy (Intermediate, Verified 12/02/23 21:27) Hives cefaclor [From Ceclor] Allergy (Mild, Verified 12/02/23 21:27) Hives prochlorperazine [From Compazine] Adverse Reaction (Intermediate, Verified 12/02/23 21:27) Rapid Heart Beat oxycodone [From OxyContin] Adverse Reaction (Verified 12/02/23 21:27) "not allergic, just dont like the way it makes me feel" Hx Tetanus, Diphtheria Vaccination/Date Given: No Hx Influenza Vaccination/Date Given: No Hx Pneumococcal Vaccination/Date Given: No Travel Risk - International Travel Have you traveled outside of the country in past 3 weeks: No - Emerging Infectious Disease Are you exhibiting symptoms associated with any current EIDs: No - Review of Systems Constitutional: No Symptoms Eyes: No Symptoms Ears, Nose, & Throat: Other (Left lower dental pain) Respiratory: No Symptoms Cardiac: No Symptoms Abdominal/Gastrointestinal: No Symptoms Genitourinary Symptoms: No Symptoms Musculoskeletal: No Symptoms Skin: No Symptoms Neurological: No Symptoms Psychological: No Symptoms Endocrine: No Symptoms Hematologic/Lymphatic: No Symptoms Immunological/Allergic: No Symptoms All Other Systems: Reviewed and Negative - Past Medical History Pertinent Past Medical History: Yes Neurological History: Migraines ENT History: No Pertinent History Cardiac History: High Cholesterol Respiratory History: COPD, Other Endocrine Medical History: No Pertinent History Musculoskeletal History: Fractures GI Medical History: No Pertinent History History: No Pertinent History Psycho-Social History: Depression Female Reproductive Disorders: Endometriosis, Other Other Medical History: 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 steriod injections to rt shoulder under anesthesia Significant Family History: no pertinent family hx, alpha-1 antitrypsin deficiency - Female History Hx Last Menstrual Period: partial hyster - Social History Smoking Status: Current every day smoker How long have you smoked: 26 years Exposure to second hand smoke: Yes Drug Use: marijuana Patient Lives Alone: No - Nursing Vital Signs Nursing Vital Signs: Initial Vital Signs Temperature 98.4 F 12/02/23 21:14 Pulse Rate 74 12/02/23 21:14 Respiratory Rate 16 12/02/23 21:14 Blood Pressure 115/74 12/02/23 21:14 O2 Sat by Pulse Oximetry 98 12/02/23 21:14 Pain Scale Pain Intensity 8 - Physical Exam General Appearance: no apparent distress, alert, anxiety, thin Eye Exam: bilateral eye: normal inspection, PERRL, EOMI Ear Exam: bilateral ear: auricle normal Nasal Exam: normal inspection Throat Exam: pharynx normal, dental tenderness (Severe dental caries and multiple fractured teeth left lower), moist mucus membranes Neck Exam: normal inspection, non-tender, supple, full range of motion Cardiovascular/Respiratory Exam: chest non-tender, no respiratory distress Abdominal Exam: non-tender Neurologic Exam: alert, oriented x 3, cooperative, 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 as tested, normal mood/affect, nml cerebellar function, nml station & gait, sensation nml Skin Exam: normal color, warm, dry SpO2 Interpretation: normal O2 Delivery: Room Air - Course Nursing assessment & vital signs reviewed: Yes Ordered Tests: Medication Summary Discontinued Medications Generic Name Dose Route Start Last Admin Trade Name Freq PRN Reason Stop Dose Admin Amoxicillin 500 mg 12/02/23 21:26 Amoxicillin Trihydrate 500 Mg Capsule PO 12/02/23 21:27 STAT ONE Ibuprofen 600 mg 12/02/23 21:26 Ibuprofen 600 Mg Tablet PO 12/02/23 21:27 STAT ONE Oxycodone/Acetaminophen 1 tab 12/02/23 21:26 Oxycodone Hcl/Apap 5 Mg/325 Mg Tablet PO 12/02/23 21:27 STAT STA - Progress Progress: unchanged, pain not gone completely, re-examined Progress Note: 12/02/23 21:31 My medical decision making and the assignment of low complexity to this patient's medical issue today is based on review of the patient's past medical history, review of the patient's medication list, or review of the patient's drug allergy list, history present illness and physical findings on examination. The workup in this patient does not require any laboratory or radiographic studies. 12/02/23 21:34 Patient did states that although she cannot take Keflex, she has taken amoxicillin without any adverse effects. We are also checking to see if she has a true allergy to oxycodone. We may need to change it to hydrocodone. Counseled pt/family regarding: diagnosis, need for follow-up Medical Desision Making - Independent Historian Additional History obtained from: Family - Diagnostic Testing Diagnostic test were ordered, analyzed, and reviewed by me: No - Risk of complications The pt has a mod risk of morbidity or mortality based on: Need for prescription drug management - Departure Departure Disposition: Home Clinical Impression: Infected dental caries Condition: Stable Critical Care Time: No Referrals: RAUL JALLOH [Primary Care Provider] - Follow up/PCP as directed Additional Instructions: Call a dentist on 12/04/2023 to make arrangements for follow-up appointment for definitive care. Take your antibiotics as prescribed. You may use Tylenol and ibuprofen for pain control after you complete the take-home Percocet medication. Prescriptions: Amoxicillin 500 mg Cap [Amoxil 500 mg] 500 mg PO TID #30 cap
[2023-12-02] MEDS ORDERED: PERCOCET TABLET 5/325MG PO STA ×2 (21:26→21:27)
[2023-12-02 21:27] VITALS: RESP 16; TEMP 98.4
[2023-12-02] MEDS ORDERED: AMOXIL 500 MG ONE (21:32)
[2023-12-02] MEDS ORDERED: MOTRIN 600 MG ONE (21:32)
[2023-12-02] MEDS ORDERED: PERCOCET TABLET 5/325MG ONE (21:32)
[2023-12-02] MEDS ORDERED: ZOFRAN ODT 4 MG ONE ×2 (21:33→22:59)
[2023-12-02] MEDS: ZOFRAN ODT 4 MG PO ONE ×2 (21:35→23:00)
[2023-12-02] MEDS: MOTRIN 600 MG PO ONE (21:44)
[2023-12-02] MEDS: AMOXIL 500 MG PO ONE (21:46)
[2023-12-02] MEDS ORDERED: NORCO 5/325 MG ONE (22:09)
[2023-12-02] MEDS: NORCO 5/325 MG PO ONE ×2 (22:10)
[2023-12-02 23:17] VITALS: BP 116/54; PULSE 58; O2SAT 98
== END 2023-12-02 23:15 | disposition home or self-care (01) ==
LOC: ED 21:03
DX: K02.9 Dental caries, unspecified (principal); K04.7 Periapical abscess without sinus; R68.84 Jaw pain; E78.5 Hyperlipidemia, unspecified; Z72.0 Tobacco use
CPT/HCPCS: 99283; Q0162; A9270-GY

== ENCOUNTER 2024-01-12 19:07 | Emergency (ER) | payer SELFPAY ==
[2024-01-12 19:19] VITALS: RESP 16; TEMP 98.4
--- NOTE | 2024-01-12 19:46 | ERPHSYRPT ---
- History of Present Illness Time Seen by Provider: 01/12/24 19:35 Source: patient Exam Limitations: no limitations Patient Subjective Stated Complaint: swelling to the left side of my face/jaw area Triage Nursing Assessment: pt ambulated into ER without diff. Pt c/o swelling to left side of mouth/face/jaw area which started around 10am this morning and has gotten worse as the day goes on. Pt denies any dental pain but does have a broken tooth to the back left lower area of mouth. Pt denies any issues with breathing or swallowing. 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 Pt reports she recently completed a course of antibiotics for an infected tooth in the same region. Pt reports the swelling is painful, pain extends from the mid mandible to the left ear and into the left submandibular region. Pt denies any fevers, mouth or tooth pain, decrease in PO intake, body aches. Timing/Duration: today Severity: moderate Associated Symptoms: No nausea, No vomiting, No diaphoresis, No fever, No headaches, No loss of appetite, No rash Allergies/Adverse Reactions: cephalexin monohydrate [From Keflex] Allergy (Intermediate, Verified 01/12/24 19:27) Hives cefaclor [From Ceclor] Allergy (Mild, Verified 01/12/24 19:27) Hives oxycodone [From OxyContin] Adverse Reaction (Intermediate, Verified 01/12/24 19:27) "not allergic, just dont like the way it makes me feel" prochlorperazine [From Compazine] Adverse Reaction (Intermediate, Verified 01/12/24 19:27) Rapid Heart Beat Hx Tetanus, Diphtheria Vaccination/Date Given: Yes Hx Influenza Vaccination/Date Given: No Hx Pneumococcal Vaccination/Date Given: No Travel Risk - International Travel Have you traveled outside of the country in past 3 weeks: No - Emerging Infectious Disease Are you exhibiting symptoms associated with any current EIDs: No - Review of Systems Constitutional: No Symptoms Eyes: No Symptoms Ears, Nose, & Throat: Ear Pain, Mouth Swelling, No Ear Discharge, No Hearing Ch anges, No Tinnitus, No Nose Pain, No Nose Congestion, No Sinus Drainage, No Mouth Pain, No Throat Swelling, No Painful Swallowing, No Stridor Respiratory: No Symptoms Cardiac: No Symptoms Abdominal/Gastrointestinal: No Symptoms - Past Medical History Pertinent Past Medical History: Yes Neurological History: Migraines ENT History: No Pertinent History Cardiac History: High Cholesterol Respiratory History: COPD, Other Endocrine Medical History: No Pertinent History Musculoskeletal History: Fractures GI Medical History: No Pertinent History History: No Pertinent History Psycho-Social History: Depression Female Reproductive Disorders: Endometriosis, Other Other Medical History: 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 steriod injections to rt shoulder under anesthesia Significant Family History: no pertinent family hx, alpha-1 antitrypsin deficiency - Female History Hx Last Menstrual Period: partial hyster Hx Now: No - Social History Smoking Status: Current every day smoker How long have you smoked: 30 yrs Exposure to second hand smoke: Yes Drug Use: marijuana Patient Lives Alone: No - Social Determinants of Health Will the patient participate in the screening: Yes Do you worry about a steady place to live?: No Do you have any problems with any of the following?: No known problems In the past 12 months,have you had to go without utilities?: No Transportation Issues: No Has anyone in your support network made you feel unsafe?: No Have you or anyone in your house had to go without enough: No - Nursing Vital Signs Nursing Vital Signs: Initial Vital Signs Temperature 98.4 F 01/12/24 19:18 Pulse Rate 92 H 01/12/24 19:18 Respiratory Rate 16 01/12/24 19:18 Blood Pressure 105/81 01/12/24 19:18 O2 Sat by Pulse Oximetry 98 01/12/24 19:18 Pain Scale Pain Intensity 0 - Physical Exam General Appearance: no apparent distress, alert Ears, Nose, Throat Exam: TMs normal, other (edema of left mid mandibular region roughly [id number], mildly TTP, warm to touch, TTP extends medial to the left ear and into the left submandibular space), No pharyngeal erythema, No tonsillar exudate Neck Exam: normal inspection, non-tender, supple, No mass Respiratory Exam: normal breath sounds, airway intact, No respiratory distress Cardiovascular Exam: regular rate/rhythm SpO2: 98 Ordered Tests: Active Orders 24 hr Category Date Time Status FACIAL BONES WO CONTRAST [CT] Stat Exams 01/12/24 19:48 Taken NECK WO CONTRAST [CT] Stat Exams 01/12/24 19:49 Taken - Progress Progress: unchanged, pain not gone completely Progress Note: 01/12/24 21:31 CT neck w/o showed - mild C4-C7 DDD, otherwise normal exam of neck CT facial bones showed - poor dentition, o/w normal facial bones 01/12/24 21:42 pain minimal, pt not interested in pain medication at this time likely parotitis vs sialodenitis, less likely parotid or lymph node malignancy will cover for possibility of bacterial cause in setting of recent infected tooth CT not suggestive of any sizeable abscess/cyst/mass start augmentin 7d course twice a day recommend sour lozenges, fruity candies to promote activation of salivary gland recommended pt f/u w/ PCP Dr Nieves this week, recommend dentist f/u as well to discuss poor dentition can use tylenol/ibuprofen for pain relief, ice for swelling return to ED if: develop fevers, pain becomes unbearable, swelling progresses, develop hearing changes, develop difficulty swallowing or breathing 01/12/24 21:49 Counseled pt/family regarding: diagnosis, need for follow-up, rad results Medical Desision Making - Diagnostic Testing Diagnostic test were ordered, analyzed, and reviewed by me: Yes Radiological Interpretation: Reviewed by me, Teleradiologist Report - Risk of complications Low Risk: Low risk of morbidity from additional dx testing or treatment - Departure Departure Disposition: Home Clinical Impression: Swelling of left side of face Condition: Stable Critical Care Time: No Referrals: RAUL JALLOH [Primary Care Provider] - Follow up/PCP as directed Additional Instructions: start augmentin 7d course twice a day recommend sour lozenges, fruity candies to promote activation of salivary gland recommended pt f/u w/ PCP Dr Nieves this , recommend dentist f/u as well to discuss poor dentition can use tylenol/ibuprofen for pain relief, ice for swelling return to ED if: develop fevers, pain becomes unbearable, swelling progresses, develop hearing changes, develop difficulty swallowing or breathing Prescriptions: Amox Tr/Potass Clav. 875 mg [Augmentin 875-125 Tablet] 875 mg PO BID 7 Days #13 tablet
[2024-01-12 21:42] VITALS: O2SAT 98
[2024-01-12] MEDS ORDERED: Augmentin 875-125 Tablet ONE (21:59)
[2024-01-12] MEDS: Augmentin 875-125 Tablet PO ONE (22:08)
[2024-01-12 22:16] VITALS: BP 113/92; PULSE 69
--- NOTE | 2024-01-13 07:36 | XRAY ---
Indication: Left mandible/parotid swelling. Multiple contiguous axial images obtained through the neck without contrast. Sagittal and coronal reformatted images obtained. Comparison: None Poor dentition with multiple bilateral dental caries. Parotid and submandibular glands are bilaterally symmetric. Thyroid gland homogeneous. A few small cervical and submandibular glands bilaterally, largest left submandibular measuring 1.2 x 0.5 cm. No pathologic lymphadenopathy. Supra and infraglottic airway widely patent. Normal epiglottis. Osseous structures intact with mild C4-C7 degenerative endplate spurring. Base of brain unremarkable. Lung apices demonstrates mild pleural-parenchymal fibrosis/scarring. Impression: C4-C7 degenerative changes. Remaining CT neck without contrast exam is negative.
--- NOTE | 2024-01-13 07:36 | XRAY ---
Indication: Left mandible/parotid swelling. Multiple contiguous axial images obtained through the facial bones. Sagittal and coronal reformatted images obtained. Comparison: None Beam artifact from right dental amalgam. No acute fracture, suspicious for lesions, or radiopaque foreign body. Orbits including roof, farias, and floors are intact. Paranasal sinuses and nasal passages are clear. Moderate nasal septal deviation to the left. Incidental bilateral middle turbinate christina bullosa. Patient nearly edentulous with multiple bilateral dental caries. TMJ bilaterally symmetric. Mild C4-C5 degenerative changes. Base of brain unremarkable. Impression: Poor dentition. Incidental nasal septal deviation and bilateral middle turbinate christina bullosa. Remaining CT facial bones negative.
== END 2024-01-12 22:23 | disposition home or self-care (01) ==
LOC: ED 19:07
DX: R22.0 Localized swelling, mass and lump, head (principal); R68.84 Jaw pain; E78.5 Hyperlipidemia, unspecified; Z72.0 Tobacco use; Z79.899 Other long term (current) drug therapy
CPT/HCPCS: 70486; 70490; 99283; A9270-GY

== ENCOUNTER 2024-01-23 22:56 | Emergency (ER) | payer SELFPAY ==
[2024-01-23 23:06] VITALS: RESP 16; TEMP 98.2
[2024-01-23] MEDS ORDERED: CLEOCIN 150 MG CAPSULE ONE (23:17)
[2024-01-23] MEDS ORDERED: TORAdol 30 mg Injection ONE (23:17)
[2024-01-23] MEDS ORDERED: ZOFRAN ODT 4 MG ONE (23:18)
[2024-01-23] MEDS: TORAdol 30 mg Injection IM ONE (23:19)
[2024-01-23] MEDS: ZOFRAN ODT 4 MG PO ONE (23:19)
[2024-01-23] MEDS: CLEOCIN 150 MG CAPSULE PO ONE (23:19)
--- NOTE | 2024-01-23 23:19 | ERPHSYRPT ---
- History of Present Illness Time Seen by Provider: 01/23/24 23:11 Source: patient Exam Limitations: no limitations Physician History: 43-year-old female presents to emergency department for evaluation of dental pain. Patient has a painful tooth at the left lower jaw. No trauma no fever. Symptoms started today. Pain described as an ache that is localized however she does experience some pain to the side of her head. Mild nausea. Symptoms are mild to moderate in intensity. Pain worse with percussion mastication. Pain improved with rest somewhat. Patient otherwise feels well. She voices no other complaints or concerns at this time. Portions of this note were created with voice recognition technology. There may be grammatical, spelling, punctuation or sound alike errors Timing/Duration: today Severity: moderate Modifying Factors: Improves With: other (Mastication and percussion) Associated Symptoms: nausea Allergies/Adverse Reactions: cephalexin monohydrate [From Keflex] Allergy (Intermediate, Verified 01/12/24 19:27) Hives cefaclor [From Ceclor] Allergy (Mild, Verified 01/12/24 19:27) Hives oxycodone [From OxyContin] Adverse Reaction (Intermediate, Verified 01/12/24 19:27) "not allergic, just dont like the way it makes me feel" prochlorperazine [From Compazine] Adverse Reaction (Intermediate, Verified 08/05 19:27) Rapid Heart Beat Hx Tetanus, Diphtheria Vaccination/Date Given: Yes Hx Influenza Vaccination/Date Given: No Hx Pneumococcal Vaccination/Date Given: No Travel Risk - Emerging Infectious Disease Are you exhibiting symptoms associated with any current EIDs: No - Review of Systems Constitutional: No Symptoms, No Fever, No Chills Eyes: No Symptoms Ears, Nose, & Throat: No Symptoms Respiratory: No Symptoms, No Cough, No Dyspnea Cardiac: No Symptoms, No Chest Pain, No Edema, No Syncope Abdominal/Gastrointestinal: No Symptoms, No Abdominal Pain, No Nausea, No Vomiting, No Diarrhea Genitourinary Symptoms: No Symptoms, No Dysuria Musculoskeletal: No Symptoms, No Back Pain, No Neck Pain Skin: No Symptoms, No Rash Neurological: No Symptoms, No Dizziness, No Focal Weakness, No Sensory Changes Psychological: No Symptoms Endocrine: No Symptoms Hematologic/Lymphatic: No Symptoms Immunological/Allergic: No Symptoms All Other Systems: Reviewed and Negative - Past Medical History Pertinent Past Medical History: Yes Neurological History: Migraines ENT History: No Pertinent History Cardiac History: High Cholesterol Respiratory History: COPD, Other Endocrine Medical History: No Pertinent History Musculoskeletal History: Fractures GI Medical History: No Pertinent History History: No Pertinent History Psycho-Social History: Depression Female Reproductive Disorders: Endometriosis, Other Other Medical History: 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 steriod injections to rt shoulder under anesthesia Significant Family History: no pertinent family hx, alpha-1 antitrypsin deficiency - Female History Hx Last Menstrual Period: partial hyster - Social History Smoking Status: Current every day smoker How long have you smoked: 30 yrs Exposure to second hand smoke: Yes Drug Use: marijuana Patient Lives Alone: No - Social Determinants of Health Will the patient participate in the screening: Yes Do you worry about a steady place to live?: No In the past 12 months,have you had to go without utilities?: No Transportation Issues: No Has anyone in your support network made you feel unsafe?: No Have you or anyone in your house had to go without enough: No - Nursing Vital Signs Nursing Vital Signs: Initial Vital Signs Temperature 98.2 F 01/23/24 23:04 Pulse Rate 72 01/23/24 23:04 Respiratory Rate 16 01/23/24 23:04 Blood Pressure 132/56 01/23/24 23:04 O2 Sat by Pulse Oximetry 100 01/23/24 23:04 Pain Scale Pain Intensity 7 - Physical Exam General Appearance: no apparent distress, alert Eye Exam: PERRL/EOMI, eyes nml inspection Ears, Nose, Throat Exam: normal ENT inspection, TMs normal, pharynx normal, moist mucous membranes, other (Carious tooth #20. There is a abscess at this location. No tongue swelling. No sublingual masses. No Ganesh's angina. Patient tolerating oral secretions well) Neck Exam: normal inspection, non-tender, supple, full range of motion Respiratory Exam: normal breath sounds, lungs clear, airway intact, No respiratory distress Cardiovascular Exam: regular rate/rhythm, normal heart sounds, normal peripheral pulses Gastrointestinal/Abdomen Exam: soft, normal bowel sounds, No tenderness, No mass Back Exam: normal inspection, normal range of motion, No CVA tenderness, No vertebral tenderness Extremity Exam: normal inspection, normal range of motion, pelvis stable Neurologic Exam: alert, oriented x 3, cooperative, normal mood/affect, sensation nml, No motor deficits Skin Exam: normal color, warm, dry, No rash Lymphatic Exam: No adenopathy SpO2 Interpretation: normal SpO2: 100 O2 Delivery: Room Air - Course Nursing assessment & vital signs reviewed: Yes Ordered Tests: Medication Summary Discontinued Medications Generic Name Dose Route Start Last Admin Trade Name Araceli PRN Reason Stop Dose Admin Ketorolac Tromethamine 30 mg 01/23/24 23:12 Ketorolac Tromethamine 30 Mg/Ml Inj IM 01/23/24 23:13 STAT ONE Ondansetron HCl 4 mg 01/23/24 23:11 Zofran 4 Mg/Udtablet Orally Disintegrating PO 01/23/24 23:12 STAT ONE - Progress Progress: improved Progress Note: 43-year-old female presents to our ED for evaluation of dental pain. Physical exam reveals dental abscess. Dental abscess appears to be at tooth #21. Patient also complains of some nausea. Patient received Zofran ODT clindamycin and Toradol. Symptoms improved. A prescription for the same forwarded to patient's pharmacy. Patient currently does not have a dentist but states she will look for 1. Or she will follow-up with her primary care doctor for further evaluation. Will discharge home. Patient voices no other complaints or concerns at this time. Portions of this note were created with voice recognition technology. There may be grammatical, spelling, punctuation or sound alike errors Complexity problem addressed is moderate acute complicated. No critical care time. Complex of data reviewed and analyzed is none. No specialized testing ordered. Diagnosis made based on history and physical exam. Risk of complication and or risk of morbidity/mortality patient management is moderate. Vital stable. Time spent to discharge patient is approximately 15 minutes. Plan of care established via shared decision making. No social determinants of health presents impede follow-up. Portions of this note were created with voice recognition technology. There may be grammatical, spelling, punctuation or sound alike errors 01/23/24 23:26 Counseled pt/family regarding: diagnosis, need for follow-up - Departure Departure Disposition: Home Clinical Impression: Pain, dental, Dental abscess, Carious teeth Condition: Stable Critical Care Time: No Instructions: Tooth Abscess (DC), Dental Pain (DC), Tooth Decay, Adult (DC) Prescriptions: Ondansetron ODT 4 MG [Zofran Odt 4 mg] 4 mg PO Q6H PRN PRN #10 tablet PRN Reason: Vomiting Clindamycin HCl 150 mg [Cleocin 150 mg Capsule] 2 cap PO QID #56 cap Ketorolac Trometh 10 mg Tab [TORAdol 10 MG TABLET] 10 mg PO TID 5 Days #15 tablet
[2024-01-24 00:07] VITALS: BP 119/52; PULSE 57; O2SAT 97
== END 2024-01-24 00:06 | disposition home or self-care (01) ==
LOC: ED 22:56
DX: K04.7 Periapical abscess without sinus (principal); K02.9 Dental caries, unspecified; K08.89 Other specified disorders of teeth and supporting structures; E78.5 Hyperlipidemia, unspecified; Z79.899 Other long term (current) drug therapy; Z72.0 Tobacco use
CPT/HCPCS: 96372; 99283; J1885; Q0162; A9270-GY

== ENCOUNTER 2024-05-10 19:25 | Emergency (ER) | payer OTHER ==
[2024-05-10 19:39] VITALS: TEMP 97
--- NOTE | 2024-05-10 20:31 | ERPHSYRPT ---
- History of Present Illness Time Seen by Provider: 05/10/24 20:26 Source: patient, family Exam Limitations: no limitations Patient Subjective Stated Complaint: pt states that she has a spaghetti noodle stuck in her throat Triage Nursing Assessment: pt ambulated into the er; pt is axo x4; c/o foreign body in throat; pt denies pain; no visible foreign body present in throat; no upper airway obstruction present with auscultation; clear lung sounds in all lobes; dry hacking cough present; no respiratory distress present; pt is able to talk in full sentences; skin PDW; vitals wnl Physician History: Pt was eating spagetti and feels that a noodle got stuck in her throat and is coughing. No stridor No SObreath. Swallowing OK. CHest clear Ht reg without M. Abd soft nontender without peritoneal signs. Neck supple no visible object in pharynx. Discussed with pt and available family risks and benefits of testing/Tx including indirect larygnoscopy and they wish to proceed so this is ordered. Results discussed with pt and available family. Spouse / family was present in ER to serve as independent source to confirm/collaborate the History. Pt got up a few pieces of noodle coughing, after drinking fluids. We are trying some more fluids and will then look with mirror. Timing/Duration: abrupt onset, this evening Severity: moderate Prearrival Treatment: no prearrival treatment Modifying Factors: Improves With: nothing, coughing Associated Symptoms: cough, No drooling, No difficulty swallowing, No voice change Allergies/Adverse Reactions: cephalexin monohydrate [From Keflex] Allergy (Intermediate, Verified 05/10/24 19:30) Hives cefaclor [From Ceclor] Allergy (Mild, Verified 05/10/24 19:30) Hives oxycodone [From OxyContin] Adverse Reaction (Intermediate, Verified 05/10/24 19:30) "not allergic, just dont like the way it makes me feel" prochlorperazine [From Compazine] Adverse Reaction (Intermediate, Verified 05/10/24 19:30) Rapid Heart Beat Home Medications: No Reportable Medications [No Reported Medications] 05/10/24 [History] Hx Tetanus, Diphtheria Vaccination/Date Given: No Hx Influenza Vaccination/Date Given: No Hx Pneumococcal Vaccination/Date Given: No Travel Risk - International Travel Have you traveled outside of the country in past 3 weeks: No - Emerging Infectious Disease Are you exhibiting symptoms associated with any current EIDs: No Symptoms: Headaches/Body Aches/ - Review of Systems Constitutional: No Fever, No Chills Eyes: No Symptoms Ears, Nose, & Throat: No Symptoms Respiratory: Cough, No Dyspnea Cardiac: No Chest Pain, No Edema, No Syncope Abdominal/Gastrointestinal: No Abdominal Pain, No Nausea, No Vomiting, No Diarrhea Genitourinary Symptoms: No Dysuria Musculoskeletal: No Back Pain, No Neck Pain Skin: No Rash Neurological: No Dizziness, No Focal Weakness, No Sensory Changes Psychological: No Symptoms Endocrine: No Symptoms Hematologic/Lymphatic: No Symptoms Immunological/Allergic: No Symptoms All Other Systems: Reviewed and Negative - Past Medical History Pertinent Past Medical History: Yes Neurological History: Migraines ENT History: No Pertinent History Cardiac History: High Cholesterol Respiratory History: COPD, Other Endocrine Medical History: No Pertinent History Musculoskeletal History: Fractures GI Medical History: No Pertinent History History: No Pertinent History Psycho-Social History: Depression Female Reproductive Disorders: Endometriosis, Other Other Medical History: 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 steriod injections to rt shoulder under anesthesia Significant Family History: no pertinent family hx, alpha-1 antitrypsin deficiency - Female History Hx Last Menstrual Period: partial hyster Hx Now: No - Social History Smoking Status: Current every day smoker How long have you smoked: 30 yrs Exposure to second hand smoke: Yes Drug Use: marijuana Patient Lives Alone: No - Social Determinants of Health Will the patient participate in the screening: Yes Do you worry about a steady place to live?: No Do you have any problems with any of the following?: No known problems In the past 12 months,have you had to go without utilities?: No Transportation Issues: No Has anyone in your support network made you feel unsafe?: No Have you or anyone in your house had to go without enough: No - Nursing Vital Signs Nursing Vital Signs: Initial Vital Signs Temperature 97 F 05/10/24 19:31 Pulse Rate 94 H 05/10/24 19:31 Respiratory Rate 18 05/10/24 19:31 Blood Pressure 125/58 05/10/24 19:31 O2 Sat by Pulse Oximetry 100 05/10/24 19:31 Pain Scale Pain Intensity 0 - Physical Exam General Appearance: no apparent distress, alert Eye Exam: bilateral eye: PERRL, EOMI Ear Exam: bilateral ear: auricle normal, canal normal, TM normal Nasal Exam: normal inspection Throat Exam: pharynx normal, moist mucus membranes, No dental tenderness, No excessive drooling, No pharynx swelling, No pharynx tenderness, No tongue swollen, No tonsillar exudate, No tonsillar swelling, No trismus, No uvula sw elling, No voice changes Neck Exam: supple Cardiovascular/Respiratory Exam: chest non-tender, normal breath sounds, regular rate/rhythm, heart sounds normal, no JVD, no respiratory distress, No subcutaneous emphysema, No crepitus, No accessory muscle use Abdominal Exam: non-tender, soft Neurologic Exam: alert, oriented x 3, 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 She wishes to go home now having complete relief rather than further eval or procedure in ER ( they are advised of potential risk for undetected aspiration and resulting complications) and has the capacity to make this choice. No visible remaining FB on exam of hypopharynx. 05/10/24 22:11 Counseled pt/family regarding: diagnosis, need for follow-up Medical Desision Making - Independent Historian Additional History obtained from: Family - Discussion of managment Reviewed:: Test results, Need for additional workup Agreed on:: Treatment plan, need for follow-up - Diagnostic Testing Diagnostic test were ordered, analyzed, and reviewed by me: No - Risk of complications The pt has a mod risk of morbidity or mortality based on: Need for minor surgical intervention in patient with know risk factors - Departure Departure Disposition: Home Clinical Impression: resolved FB hypopharynx Condition: Good Critical Care Time: No Referrals: ARMANDO PUTNAM [Primary Care Provider] - Follow up/PCP as directed Instructions: Swallowed Objects, Adult ED, Foreign Body, Swallowed, Adult Additional Instructions: Although it is most likely that the food object has all either come up or was swallowed, there could still be some material remaining so remain aware of any persisting symptoms or especially any increased symptoms ( there could be a delayed risk of infection or pneumonia if some particles got into the lungs ) or if symptoms recur, you have any pain with swallowing or shortness of breath and return if those occur. otherwise followup with your this week to confirm that all symptoms have resolved. There may be minor symptoms for a few hours to a day due to irritation.
[2024-05-10 21:10] VITALS: RESP 16
[2024-05-10 21:20] VITALS: O2SAT 100
[2024-05-10 22:02] VITALS: BP 120/54; PULSE 78
== END 2024-05-10 22:16 | disposition home or self-care (01) ==
LOC: ED 19:25
DX: T17.228A Food in pharynx causing other injury, initial encounter (principal); E78.5 Hyperlipidemia, unspecified; Z72.0 Tobacco use
CPT/HCPCS: 99281

== ENCOUNTER 2024-07-06 06:38 | Emergency (ER) | payer OTHER ==
[2024-07-06 06:50] VITALS: TEMP 97.2; O2SAT 98
--- NOTE | 2024-07-06 07:31 | ERPHSYRPT ---
- History of Present Illness Time Seen by Provider: 07/06/24 07:15 Historian: patient, family Patient Subjective Stated Complaint: pt states that she has been vomiting since yesterday Triage Nursing Assessment: pt ambulated into the er; pt is axo x4; c/o vomiting; pt states 6/10 pain to abd; c/o N/V/D; active bowel sounds in all quads; mucus membranes dry, pink; no respiratory distess present; vitals wnl Physician History: This is a 44-year-old white female patient who presents to the emergency department by private vehicle and is a patient Dr. Elliott. Patient states that she has been vomiting since yesterday. She thinks that she has the flu. She has generalized intermittent crampy abdominal pain. She denies chest pain. She denies cough. She has not had a fever. Patient is a daily smoker of tobacco cigarettes. Patient is having mild diarrheal stools. Patient has had a history of appendectomy and partial hysterectomy. She has a history of L4 1 antitrypsin deficiency. She has a history of hyperlipidemia, migraine headaches, COPD, depression and endometriosis. Timing/Duration: yesterday Quality: cramping Abdominal Pain Onset Location: generalized abdomen Severity of Pain-Max: mild Severity of Pain-Current: mild Modifying Factors: Improves With: vomiting Associated Symptoms: diarrhea, loss of appetite, nausea, vomiting, weakness, No fever/chills Previous symptoms: no prior history, no recent treatment Allergies/Adverse Reactions: cephalexin monohydrate [From Keflex] Allergy (Intermediate, Verified 07/06/24 06:43) Hives cefaclor [From Ceclor] Allergy (Mild, Verified 07/06/24 06:43) Hives oxycodone [From OxyContin] Adverse Reaction (Intermediate, Verified 07/06/24 06:43) "not allergic, just dont like the way it makes me feel" prochlorperazine [From Compazine] Adverse Reaction (Intermediate, Verified 07/06/24 06:43) Rapid Heart Beat Hx Tetanus, Diphtheria Vaccination/Date Given: No (unknown) Hx Influenza Vaccination/Date Given: No Hx Pneumococcal Vaccination/Date Given: No Travel Risk - International Travel Have you traveled outside of the country in past 3 weeks: No - Emerging Infectious Disease Are you exhibiting symptoms associated with any current EIDs: Yes Symptoms: Abdominal Pain, Diarrhea, Vomitting - Review of Systems Constitutional: Weakness Eyes: No Symptoms Ears, Nose, & Throat: No Symptoms Respiratory: No Symptoms Cardiac: No Symptoms Abdominal/Gastrointestinal: Abdominal Pain (Mild generalized cramping), Nausea, Vomiting, Diarrhea, Appetite Changes, No Constipation Genitourinary Symptoms: No Symptoms Musculoskeletal: No Symptoms Skin: No Symptoms Neurological: No Symptoms Psychological: No Symptoms Endocrine: No Symptoms Hematologic/Lymphatic: No Symptoms Immunological/Allergic: No Symptoms All Other Systems: Reviewed and Negative - Past Medical History Pertinent Past Medical History: Yes Neurological History: Migraines ENT History: No Pertinent History Cardiac History: High Cholesterol Respiratory History: COPD, Other Endocrine Medical History: No Pertinent History Musculoskeletal History: Fractures GI Medical History: No Pertinent History History: No Pertinent History Psycho-Social History: Depression Female Reproductive Disorders: Endometriosis, Other Other Medical History: 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 steriod injections to rt shoulder under anesthesia Significant Family History: no pertinent family hx, alpha-1 antitrypsin deficiency - Female History Hx Last Menstrual Period: partial hyster Hx Now: No - Social History Smoking Status: Current every day smoker How long have you smoked: 30 yrs Exposure to second hand smoke: Yes Drug Use: marijuana Patient Lives Alone: No - Social Determinants of Health Will the patient participate in the screening: Yes Do you worry about a steady place to live?: No Do you have any problems with any of the following?: No known problems In the past 12 months,have you had to go without utilities?: No Transportation Issues: No Has anyone in your support network made you feel unsafe?: No Have you or anyone in your house had to go without enough: No - Nursing Vital Signs Nursing Vital Signs: Initial Vital Signs Temperature 97.2 F 07/06/24 06:44 Pulse Rate 94 H 07/06/24 06:44 Respiratory Rate 16 07/06/24 06:44 Blood Pressure 96/63 07/06/24 06:44 O2 Sat by Pulse Oximetry 98 07/06/24 06:44 Pain Scale Pain Intensity 6 - Physical Exam General Appearance: no apparent distress, alert, thin Eye Exam: PERRL/EOMI, eyes nml inspection Ears, Nose, Throat Exam: moist mucous membranes, other (Patient is edentulous) Neck Exam: normal inspection, non-tender, supple, full range of motion Respiratory Exam: normal breath sounds, lungs clear, airway intact, No chest tenderness, No respiratory distress Cardiovascular Exam: regular rate/rhythm, normal heart sounds, normal peripheral pulses Gastrointestinal/Abdomen Exam: soft, normal bowel sounds, No tenderness, No guarding Pelvic Exam: not done Rectal Exam: not done Back Exam: normal inspection, normal range of motion, No CVA tenderness, No vertebral tenderness Extremity Exam: normal inspection, normal range of motion, pelvis stable Neurologic Exam: alert, oriented x 3, cooperative, heating unit installer II-XII nml as tested, nml cerebellar function, nml station & gait, sensation nml Skin Exam: normal color, warm, dry Lymphatic Exam: No adenopathy SpO2 Interpretation: normal SpO2: 98 O2 Delivery: Room Air - Course Nursing assessment & vital signs reviewed: Yes Ordered Tests: Active Orders 24 hr Category Date Time Status IV Insertion STAT Care 07/06/24 07:33 Active AMYLASE Stat Lab 07/06/24 07:52 Completed CBC W DIFF Stat Lab 07/06/24 07:52 Completed CMP Stat Lab 07/06/24 07:52 Completed LIPASE Stat Lab 07/06/24 07:52 Completed MONO SCREEN Stat Lab 07/06/24 07:52 Completed UA W/RFX UR CULTURE Stat Lab 07/06/24 08:39 Completed Medication Summary Discontinued Medications Generic Name Dose Route Start Last Admin Trade Name Araceli PRN Reason Stop Dose Admin Sodium Chloride 1,000 mls @ 999 mls/hr 07/06/24 07:33 07/06/24 08:45 Sodium Chloride 0.9% 1000 Ml IV 07/06/24 08:33 Infused .Q1H1M STA Infusion Sodium Chloride Confirm 07/06/24 07:38 Sodium Chloride 0.9% 1000 Ml Administered 07/06/24 07:39 Dose 1,000 mls @ ud .ROUTE .STK-MED ONE Ondansetron HCl 4 mg 07/06/24 07:33 07/06/24 07:41 Ondansetron Hcl 4 Mg/2 Ml Vial IV 07/06/24 07:34 4 mg STAT ONE Administration Ondansetron HCl Confirm 07/06/24 07:38 Ondansetron Hcl 4 Mg/2 Ml Vial Administered 07/06/24 07:39 Dose 4 mg .ROUTE .STK-MED ONE Lab/Rad Data: Laboratory Result Diagrams 07/06/24 07:52 07/06/24 07:52 Laboratory Results 07/06/24 07/06/24 07/06/24 Range/Units 08:39 07:52 07:52 WBC (3.98-10.04) x10^3/uL RBC (3.93-5.22) x10^6/uL Hgb (11.2-15.7) g/dL Hct (34.1-44.9) % MCV (79.4-94.8) fL MCH (25.6-32.2) pg MCHC (32.2-35.5) g/dL RDW (11.7-14.4) % Plt Count (182-369) x10^3/uL MPV (9.4-12.3) fL Gran % (34.0-71.1) % Immature Gran % (Auto) (0.001-0.429) % Nucleat RBC Rel Count (0.00-0.2) % Eos # (Auto) (0.04-0.36) x10^3/uL Immature Gran # (Auto) (0.001-0.031) x10^3u/L Absolute Lymphs (auto) (1.18-3.74) x10^3/uL Absolute Monos (auto) (0.24-0.86) x10^3/uL Absolute Nucleated RBC (0.00-0.012) x10^3u/L Lymphocytes % (19.3-51.7) % Monocytes % (4.7-12.5) % Eosinophils % (0.7-5.8) % Basophils % (0.1-1.2) % Absolute Granulocytes (1.56-6.13) x10^3/uL Basophils # (0.01-0.08) x10^3/uL Sodium (135-145) mmol/L Potassium (3.5-5.1) mmol/L Chloride (98-107) mmol/L Carbon Dioxide (22-30) mmol/L Anion Gap (5-15) MEQ/L BUN (7-17) mg/dL Creatinine (0.52-1.04) mg/dL Estimated GFR ML/MIN Glucose (74-106) mg/dL Calcium (8.4-10.2) mg/dL Total Bilirubin (0.2-1.3) mg/dL AST (14-36) U/L ALT (0-35) U/L Alkaline Phosphatase (38-126) U/L Serum Total Protein (6.3-8.2) g/dL Albumin (3.5-5.0) g/dL Amylase (30-110) U/L Lipase (23-300) U/L Urine Color Yellow (Yellow) Urine Appearance Clear (Clear) Urine pH 5.5 (4.6-8.0) Ur Specific Melvin 1.010 (1.005-1.030) Urine Protein Negative (Negative) Urine Glucose (UA) Negative (Negative) mg/dL Urine Ketones Trace A (Negative) Urine Blood Trace (Negative) Urine Nitrite Negative (Negative) Urine Bilirubin Negative (Negative) Urine Urobilinogen 1.0 A (0.2) mg/dL Ur Leukocyte Esterase Negative (Negative) U Hyaline Cast (Auto) NONE SEEN (0-2) /LPF Urine Microscopic RBC 3-5 (0-5) /HPF Urine Microscopic WBC 0-2 (0-5) /HPF Ur Epithelial Cells None Seen (None Seen) /HPF Urine Bacteria None Seen (None Seen) /HPF Urine Culture Reflexed NO (NO) Monoscreen NEGATIVE (NEGATIVE) Influenza Type A Ag NEGATIVE (NEGATIVE) Influenza Type B Ag NEGATIVE (NEGATIVE) RSV (PCR) NEGATIVE (NEGATIVE) SARS-CoV-2 (PCR) NEGATIVE (NEGATIVE) 07/06/24 07/06/24 Range/Units 07:52 07:52 WBC 5.2 (3.98-10.04) x10^3/uL RBC 4.75 (3.93-5.22) x10^6/uL Hgb 14.9 (11.2-15.7) g/dL Hct 42.7 (34.1-44.9) % MCV 89.9 (79.4-94.8) fL MCH 31.4 (25.6-32.2) pg MCHC 34.9 (32.2-35.5) g/dL RDW 12.1 (11.7-14.4) % Plt Count 143 L (182-369) x10^3/uL MPV 10.7 (9.4-12.3) fL Gran % 75.0 H (34.0-71.1) % Immature Gran % (Auto) 0.2 (0.001-0.429) % Nucleat RBC Rel Count 0.0 (0.00-0.2) % Eos # (Auto) 0.06 (0.04-0.36) x10^3/uL Immature Gran # (Auto) 0.01 (0.001-0.031) x10^3u/L Absolute Lymphs (auto) 0.81 L (1.18-3.74) x10^3/uL Absolute Monos (auto) 0.40 (0.24-0.86) x10^3/uL Absolute Nucleated RBC 0.00 (0.00-0.012) x10^3u/L Lymphocytes % 15.5 L (19.3-51.7) % Monocytes % 7.7 (4.7-12.5) % Eosinophils % 1.2 (0.7-5.8) % Basophils % 0.4 (0.1-1.2) % Absolute Granulocytes 3.91 (1.56-6.13) x10^3/uL Basophils # 0.02 (0.01-0.08) x10^3/uL Sodium 133 L (135-145) mmol/L Potassium 3.5 (3.5-5.1) mmol/L Chloride 101 (98-107) mmol/L Carbon Dioxide 25 (22-30) mmol/L Anion Gap 11.1 (5-15) MEQ/L BUN 8 (7-17) mg/dL Creatinine 0.90 (0.52-1.04) mg/dL Estimated GFR 81.9 ML/MIN Glucose 101 (74-106) mg/dL Calcium 9.4 (8.4-10.2) mg/dL Total Bilirubin 1.40 H (0.2-1.3) mg/dL AST 32 (14-36) U/L ALT 16 (0-35) U/L Alkaline Phosphatase 57 (38-126) U/L Serum Total Protein 7.9 (6.3-8.2) g/dL Albumin 4.7 (3.5-5.0) g/dL Amylase 61 (30-110) U/L Lipase 49 (23-300) U/L Urine Color (Yellow) Urine Appearance (Clear) Urine pH (4.6-8.0) Ur Specific Melvin (1.005-1.030) Urine Protein (Negative) Urine Glucose (UA) (Negative) mg/dL Urine Ketones (Negative) Urine Blood (Negative) Urine Nitrite (Negative) Urine Bilirubin (Negative) Urine Urobilinogen (0.2) mg/dL Ur Leukocyte Esterase (Negative) U Hyaline Cast (Auto) (0-2) /LPF Urine Microscopic RBC (0-5) /HPF Urine Microscopic WBC (0-5) /HPF Ur Epithelial Cells (None Seen) /HPF Urine Bacteria (None Seen) /HPF Urine Culture Reflexed (NO) Monoscreen (NEGATIVE) Influenza Type A Ag (NEGATIVE) Influenza Type B Ag (NEGATIVE) RSV (PCR) (NEGATIVE) SARS-CoV-2 (PCR) (NEGATIVE) - Progress Progress: improved, re-examined Progress Note: 07/06/24 07:59 My medical decision making and the assignment of moderate complexity to this patient's medical issue today is based on review of the patient's past medical history, review of the patient's medication list, reviewed the patient drug allergy list, history present illness and physical findings on examination. The workup in this patient includes placement of an intravenous line, infusion of normal saline solution, CBC, CMP, amylase, lipase, urinalysis, viral swabs and monotest. Differential diagnosis includes but is not limited to viral illness, dehydration, urinary tract infection, electrolyte abnormalities 07/06/24 09:10 I interpreted the patient's laboratory data results. Based on laboratory data results, there are no acute, emergent medical issues. Counseled pt/family regarding: lab results, diagnosis, need for follow-up Medical Desision Making - Diagnostic Testing Diagnostic test were ordered, analyzed, and reviewed by me: Yes - Risk of complications The pt has a mod risk of morbidity or mortality based on: Need for prescription drug management - Departure Departure Disposition: Home Clinical Impression: Vomiting and diarrhea, Mild dehydration Condition: Stable Critical Care Time: No Referrals: ARMANDO ELLIOTT [Primary Care Provider] - Follow up/PCP as directed Additional Instructions: Drink plenty of clear liquids before advancing your diet. Avoid fatty greasy spicy foods. Call your primary care provider on 07/08/2024, to make arrangements for follow-up appointment for further evaluation management. Prescriptions: Ondansetron ODT 4 MG [Zofran Odt 4 mg] 4 mg PO Q6H PRN PRN #10 tablet PRN Reason: Vomiting
[2024-07-06] MEDS ORDERED: Sodium Chloride 0.9% 1000 ML 1,000 ML ONE (07:38)
[2024-07-06] MEDS ORDERED: Zofran 4 MG/2 ML VIAL ONE (07:38)
[2024-07-06] MEDS: Sodium Chloride 0.9% 1000 ML 1,000 ML IV STA (07:41)
[2024-07-06] MEDS: Zofran 4 MG/2 ML VIAL IV ONE (07:41)
[2024-07-06 07:55] LABS: Absolute Neutrophil Ct (ANC) 3.91 x10^3/uL (1.56-6.13); BASOPHIL % 0.4 % (0.1-1.2); Basophil (Absolute #) 0.02 x10^3/uL (0.01-0.08); Eosinophil % 1.2 % (0.7-5.8); Eosinophil (Absolute #) 0.06 x10^3/uL (0.04-0.36); Hematocrit 42.7 % (34.1-44.9); Hemoglobin 14.9 g/dL (11.2-15.7); IMMATURE GRAN # 0.01 x10^3u/L (0.001-0.031); IMMATURE GRAN % 0.2 % (0.001-0.429); Lymphocyte (Absolute #) 0.81 x10^3/uL (1.18-3.74); Lymphocytes % 15.5 % (19.3-51.7); Mean Cell Volume 89.9 fL (79.4-94.8); Mean Corpuscular Hemoglobin 31.4 pg (25.6-32.2); Mean Corpuscular Hgb Concent. 34.9 g/dL (32.2-35.5); Mean Platelet Volume 10.7 fL (9.4-12.3); Monocytes % 7.7 % (4.7-12.5); Platelet Count 143 x10^3/uL (182-369); Red Blood Count 4.75 x10^6/uL (3.93-5.22); Red Cell Distribution Width 12.1 % (11.7-14.4); White Blood Count 5.2 x10^3/uL (3.98-10.04)
[2024-07-06 08:09] LABS: ALBUMIN 4.7 g/dL (3.5-5.0); ANION GAP 11.1 MEQ/L (5-15); BILIRUBIN,TOTAL 1.4 mg/dL (0.2-1.3); Calcium 9.4 mg/dL (8.4-10.2); Creatinine 1 0.9 mg/dL (0.52-1.04); EST GLOMERULAR FILTRATION RATE 81.9 ML/MIN; Potassium 3.5 mmol/L (3.5-5.1); Total Protein 7.9 g/dL (6.3-8.2)
[2024-07-06 08:31] LABS: INFLUENZA A NEGATIVE (NEGATIVE); INFLUENZA B NEGATIVE (NEGATIVE); RESPIRATORY SYNCTIAL VIRUS NEGATIVE (NEGATIVE); SARS-CoV-2 Xpert Express NEGATIVE (NEGATIVE)
[2024-07-06 08:53] LABS: Appearance Clear (Clear); Bacteria None Seen /HPF (None Seen); Bilirubin Negative (Negative); Blood Trace (Negative); Epithelial Cells None Seen /HPF (None Seen); Glucose, Urine Negative (Negative); Hyaline Casts NONE SEEN /LPF (0-2); Ketones Trace (Negative); Leukocyte Esterase Negative (Negative); Nitrite Negative (Negative); Ph 5.5 (4.6-8.0); Protein,Urine Dip Negative (Negative); WBC 0-2 /HPF (0-5)
[2024-07-06 09:03] VITALS: BP 119/61; PULSE 70; RESP 18
== END 2024-07-06 09:27 | disposition home or self-care (01) ==
LOC: ED 06:38
DX: R11.2 Nausea with vomiting, unspecified (principal); R19.7 Diarrhea, unspecified; E86.0 Dehydration; R10.84 Generalized abdominal pain; E78.5 Hyperlipidemia, unspecified; Z72.0 Tobacco use; Z79.899 Other long term (current) drug therapy
CPT/HCPCS: 0241U; 36415; 80053; 81001; 82150; 83690; 85025; 86308; 96360; 96374; 99285; 99284; J2405

== ENCOUNTER 2024-10-02 21:42 | Observation (INO) | payer OTHER ==
[2024-10-02 22:12] LABS: BASOPHIL % 0.7 % (0.1-1.2); Basophil (Absolute #) 0.05 x10^3/uL (0.01-0.08); Eosinophil % 1.8 % (0.7-5.8); Eosinophil (Absolute #) 0.14 x10^3/uL (0.04-0.36); Hematocrit 41.7 % (34.1-44.9); Hemoglobin 14.5 g/dL (11.2-15.7); IMMATURE GRAN # 0.02 x10^3u/L (0.001-0.031); IMMATURE GRAN % 0.3 % (0.001-0.429); Lymphocyte (Absolute #) 2.85 x10^3/uL (1.18-3.74); Lymphocytes % 37.3 % (19.3-51.7); Mean Cell Volume 90.8 fL (79.4-94.8); Mean Corpuscular Hemoglobin 31.6 pg (25.6-32.2); Mean Corpuscular Hgb Concent. 34.8 g/dL (32.2-35.5); Monocyte (Absolute #) 0.38 x10^3/uL (0.24-0.86); Neutrophil % 54.9 % (34.0-71.1); Platelet Count 167 x10^3/uL (182-369); Red Blood Count 4.59 x10^6/uL (3.93-5.22); Red Cell Distribution Width 12.3 % (11.7-14.4); White Blood Count 7.6 x10^3/uL (3.98-10.04)
[2024-10-02 22:28] LABS: ALBUMIN 4.7 g/dL (3.5-5.0); ANION GAP 14.4 MEQ/L (5-15); BILIRUBIN,TOTAL 0.7 mg/dL (0.2-1.3); Calcium 9.6 mg/dL (8.4-10.2); Creatinine 1 0.76 mg/dL (0.52-1.04); EST GLOMERULAR FILTRATION RATE 100.3 ML/MIN; NT PRO BNPII 39.3 pg/mL (<300); Potassium 3.5 mmol/L (3.5-5.1); Total Protein 7.4 g/dL (6.3-8.2)
--- NOTE | 2024-10-02 22:41 | ERPHSYRPT ---
- History of Present Illness Time Seen by Provider: 10/02/24 22:00 Historian: patient Exam Limitations: no limitations Patient Subjective Stated Complaint: "I've been out mushroom hunting and I think I walked too much today. I've been having some chest pains all day but they have worsened in the past 30-45 minutes. I did notice that I had 14 ticks on me today, and a couple days ago I had 26 on me". Triage Nursing Assessment: Pt presents to ER with complaints of mid-sternal chest pains intermittently all day but worsening about 30-45 minutes ago. Pt was walking around for quite some time [place] and believes she "over exerted herself. Pt admits to finding 14 ticks on her today and approx 26 ticks on her a couple days ago from [place]. Pt has some red, non-bleeding, open sores all over body from tick bites. Pt is alert and oriented x 3. Skin is pink, warm, and dry. Respirations are easy. Complains of nausea. Rates pain 7/10 scale. Physician History: Patient is a 44-year-old female history of hyperlipidemia, COPD current smoker presents to our ED for evaluation of substernal chest pain. Pain radiated into her neck.. Associated with nausea. Pain started today while she was mushroom hunting. Pain was initially intermittent however became constant and significantly worse over the past hour. Patient mentions that she has had several ticks on her over the past 2 days. However no associated fever. No nausea no vomiting no diaphoresis. Patient voices no other complaints or concerns at this time. Timing/Duration: today Activities at Onset: activity Quality: aching Location: substernal Chest Pain Radiation: no radiation Severity of Pain-Max: moderate Severity of Pain-Current: mild Modifying Factors: Improves With: nothing Associated Symptoms: nausea Prior Chest Pain/Cardiac Workup: no prior chest pain Nitro Today/Relief: no nitro taken today Aspirin Treatment Today: no aspirin today Allergies/Adverse Reactions: cephalexin monohydrate [From Keflex] Allergy (Intermediate, Verified 10/02/24 21:55) Hives cefaclor [From Ceclor] Allergy (Mild, Verified 10/02/24 21:55) Hives oxycodone [From OxyContin] Adverse Reaction (Intermediate, Verified 10/02/24 21:55) "not allergic, just dont like the way it makes me feel" prochlorperazine [From Compazine] Adverse Reaction (Intermediate, Verified 10/02/24 21:55) Rapid Heart Beat Home Medications: Aspirin 81 gm Chew [Baby Aspirin 81 mg Chew] 81 mg PO DAILY 10/02/24 [History] Hx Tetanus, Diphtheria Vaccination/Date Given: No Hx Influenza Vaccination/Date Given: No Hx Pneumococcal Vaccination/Date Given: No Immunizations Up to Date: No Travel Risk - International Travel Have you traveled outside of the country in past 3 weeks: No - Emerging Infectious Disease Are you exhibiting symptoms associated with any current EIDs: No Symptoms: Abdominal Pain, Diarrhea, Vomitting - Review of Systems Constitutional: No Symptoms, No Fever, No Chills Eyes: No Symptoms Ears, Nose, & Throat: No Symptoms Respiratory: No Symptoms, No Cough, No Dyspnea Cardiac: No Symptoms, No Chest Pain, No Edema, No Syncope Abdominal/Gastrointestinal: No Symptoms, No Abdominal Pain, No Nausea, No Vomiting, No Diarrhea Genitourinary Symptoms: No Symptoms, No Dysuria Musculoskeletal: No Symptoms, No Back Pain, No Neck Pain Skin: No Symptoms, No Rash Neurological: No Symptoms, No Dizziness, No Focal Weakness, No Sensory Changes Psychological: No Symptoms Endocrine: No Symptoms Hematologic/Lymphatic: No Symptoms Immunological/Allergic: No Symptoms All Other Systems: Reviewed and Negative - Past Medical History Pertinent Past Medical History: Yes Neurological History: Migraines ENT History: No Pertinent History Cardiac History: High Cholesterol Respiratory History: COPD, Other Endocrine Medical History: No Pertinent History Musculoskeletal History: Fractures GI Medical History: No Pertinent History History: No Pertinent History Psycho-Social History: Depression Female Reproductive Disorders: Endometriosis, Other Other Medical History: 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 steriod injections to rt shoulder under anesthesia Significant Family History: no pertinent family hx, alpha-1 antitrypsin deficiency - Female History Hx Last Menstrual Period: unsure - hysterectomy Hx Now: No - Social History Smoking Status: Current every day smoker Exposure to second hand smoke: No Drug Use: marijuana - Social Determinants of Health Will the patient participate in the screening: Yes Do you worry about a steady place to live?: No Do you have any problems with any of the following?: No known problems In the past 12 months,have you had to go without utilities?: No Transportation Issues: No Has anyone in your support network made you feel unsafe?: No Have you or anyone in your house had to go w/o enough food: No - Nursing Vital Signs Nursing Vital Signs: Initial Vital Signs Pulse Rate 61 10/02/24 21:47 Respiratory Rate 12 10/02/24 21:47 Blood Pressure 128/64 10/02/24 21:47 O2 Sat by Pulse Oximetry 98 10/02/24 21:47 Pain Scale Pain Intensity 4 - Physical Exam General Appearance: no apparent distress, alert Eye Exam: PERRL/EOMI, eyes nml inspection Ears, Nose, Throat Exam: normal ENT inspection, moist mucous membranes Neck Exam: normal inspection, non-tender, supple, full range of motion Respiratory Exam: normal breath sounds, lungs clear, No respiratory distress Cardiovascular Exam: regular rate/rhythm, normal heart sounds Gastrointestinal/Abdomen Exam: soft, No tenderness, No mass Back Exam: normal inspection, No CVA tenderness, No vertebral tenderness Extremity Exam: normal inspection, normal range of motion Neurologic Exam: alert, oriented x 3, cooperative, normal mood/affect, sensation nml, No motor deficits Skin Exam: normal color, warm, dry Lymphatic Exam: No adenopathy SpO2 Interpretation: normal SpO2: 98 O2 Delivery: Room Air - Course Nursing assessment & vital signs reviewed: Yes EKG Interpreted by Me: RATE (78), Sinus Rhythm, NORMAL AXIS, NORMAL INTERVALS, NORMAL QRS Ordered Tests: Active Orders 24 hr Category Date Time Status Purchase Analyst STAT Care 10/02/24 22:08 Active EKG-ER Only STAT Care 10/02/24 22:07 Active IV Insertion STAT Care 10/02/24 22:07 Active Pulse Oximetry (ED) STAT Care 10/02/24 22:07 Active CHEST 1 VIEW (PORTABLE) Stat Exams 10/02/24 23:05 Taken CBC W DIFF Stat Lab 10/02/24 22:00 Completed CMP Stat Lab 10/02/24 22:00 Completed D-DIMER QUANTITATIVE Stat Lab 10/02/24 22:00 Completed NT PRO BNPII Stat Lab 10/02/24 22:00 Completed TROPONIN Q4H Lab 10/02/24 22:00 Completed TROPONIN Q4H Lab 10/03/24 02:15 Ordered TROPONIN Q4H Lab 10/03/24 06:15 Ordered UA W/RFX UR CULTURE Stat Lab 10/02/24 22:41 Completed Urine Triage Profile Stat Lab 10/02/24 22:41 Completed Transfer Order Routine Transfer 10/03/24 Ordered Medication Summary Discontinued Medications Generic Name Dose Route Start Last Admin Trade Name Araceli PRN Reason Stop Dose Admin Aspirin 162 mg 10/02/24 23:55 Aspirin 81 Mg Tab.Chew PO 10/02/24 23:56 STAT ONE Nitroglycerin 1 gm 10/02/24 23:55 Nitroglycerin 1 Gm Packet TOP 10/02/24 23:56 STAT ONE Lab/Rad Data: Laboratory Result Diagrams 10/02/24 22:00 10/02/24 22:00 Laboratory Results 10/02/24 10/02/24 10/02/24 Range/Units 22:41 22:41 22:00 WBC (3.98-10.04) x10^3/uL RBC (3.93-5.22) x10^6/uL Hgb (11.2-15.7) g/dL Hct (34.1-44.9) % MCV (79.4-94.8) fL MCH (25.6-32.2) pg MCHC (32.2-35.5) g/dL RDW (11.7-14.4) % Plt Count (182-369) x10^3/uL MPV (9.4-12.3) fL Gran % (34.0-71.1) % Immature Gran % (Auto) (0.001-0.429) % Nucleat RBC Rel Count (0.00-0.2) % Eos # (Auto) (0.04-0.36) x10^3/uL Immature Gran # (Auto) (0.001-0.031) x10^3u/L Absolute Lymphs (auto) (1.18-3.74) x10^3/uL Absolute Monos (auto) (0.24-0.86) x10^3/uL Absolute Nucleated RBC (0.00-0.012) x10^3u/L Lymphocytes % (19.3-51.7) % Monocytes % (4.7-12.5) % Eosinophils % (0.7-5.8) % Basophils % (0.1-1.2) % Absolute Granulocytes (1.56-6.13) x10^3/uL Basophils # (0.01-0.08) x10^3/uL D-Dimer (0.0-0.50) mg/L Sodium (135-145) mmol/L Potassium (3.5-5.1) mmol/L Chloride (98-107) mmol/L Carbon Dioxide (22-30) mmol/L Anion Gap (5-15) MEQ/L BUN (7-17) mg/dL Creatinine (0.52-1.04) mg/dL Estimated GFR ML/MIN Glucose (74-106) mg/dL Calcium (8.4-10.2) mg/dL Total Bilirubin (0.2-1.3) mg/dL AST (14-36) U/L ALT (0-35) U/L Alkaline Phosphatase (38-126) U/L Troponin I < 0.012 (0.000-0.033) ng/mL NT-Pro-B Natriuret Pep (<300) pg/mL Serum Total Protein (6.3-8.2) g/dL Albumin (3.5-5.0) g/dL Urine Color Yellow (Yellow) Urine Appearance Clear (Clear) Urine pH 7.0 (4.6-8.0) Ur Specific [place] 1.020 (1.005-1.030) Urine Protein Negative (Negative) Urine Glucose (UA) Negative (Negative) mg/dL Urine Ketones Negative (Negative) Urine Blood Negative (Negative) Urine Nitrite Negative (Negative) Urine Bilirubin Negative (Negative) Urine Urobilinogen 1.0 A (0.2) mg/dL Ur Leukocyte Esterase Negative (Negative) U Hyaline Cast (Auto) NONE SEEN (0-2) /LPF Urine Microscopic RBC 3-5 (0-5) /HPF Urine Microscopic WBC 0-2 (0-5) /HPF Ur Epithelial Cells None Seen (None Seen) /HPF Urine Bacteria None Seen (None Seen) /HPF Urine Culture Reflexed NO (NO) Urine Opiates Level NEGATIVE (NEGATIVE) Ur Methadone NEGATIVE (NEGATIVE) Urine Barbiturates NEGATIVE (NEGATIVE) Ur Phencyclidine (PCP) NEGATIVE (NEGATIVE) Urine Amphetamine NEGATIVE (NEGATIVE) U Benzodiazepine Level NEGATIVE (NEGATIVE) Urine Cocaine NEGATIVE (NEGATIVE) Urine Marijuana (THC) POSITIVE A (NEGATIVE) 10/02/24 10/02/24 10/02/24 Range/Units 22:00 22:00 22:00 WBC 7.6 (3.98-10.04) x10^3/uL RBC 4.59 (3.93-5.22) x10^6/uL Hgb 14.5 (11.2-15.7) g/dL Hct 41.7 (34.1-44.9) % MCV 90.8 (79.4-94.8) fL MCH 31.6 (25.6-32.2) pg MCHC 34.8 (32.2-35.5) g/dL RDW 12.3 (11.7-14.4) % Plt Count 167 L (182-369) x10^3/uL MPV 10.0 (9.4-12.3) fL Gran % 54.9 (34.0-71.1) % Immature Gran % (Auto) 0.3 (0.001-0.429) % Nucleat RBC Rel Count 0.0 (0.00-0.2) % Eos # (Auto) 0.14 (0.04-0.36) x10^3/uL Immature Gran # (Auto) 0.02 (0.001-0.031) x10^3u/L Absolute Lymphs (auto) 2.85 (1.18-3.74) x10^3/uL Absolute Monos (auto) 0.38 (0.24-0.86) x10^3/uL Absolute Nucleated RBC 0.00 (0.00-0.012) x10^3u/L Lymphocytes % 37.3 (19.3-51.7) % Monocytes % 5.0 (4.7-12.5) % Eosinophils % 1.8 (0.7-5.8) % Basophils % 0.7 (0.1-1.2) % Absolute Granulocytes 4.20 (1.56-6.13) x10^3/uL Basophils # 0.05 (0.01-0.08) x10^3/uL D-Dimer 0.29 (0.0-0.50) mg/L Sodium 139 (135-145) mmol/L Potassium 3.5 (3.5-5.1) mmol/L Chloride 102 (98-107) mmol/L Carbon Dioxide 26 (22-30) mmol/L Anion Gap 14.4 (5-15) MEQ/L BUN 8 (7-17) mg/dL Creatinine 0.76 (0.52-1.04) mg/dL Estimated GFR 100.3 ML/MIN Glucose 122 H (74-106) mg/dL Calcium 9.6 (8.4-10.2) mg/dL Total Bilirubin 0.70 (0.2-1.3) mg/dL AST 32 (14-36) U/L ALT 19 (0-35) U/L Alkaline Phosphatase 45 (38-126) U/L Troponin I (0.000-0.033) ng/mL NT-Pro-B Natriuret Pep 39.3 (<300) pg/mL Serum Total Protein 7.4 (6.3-8.2) g/dL Albumin 4.7 (3.5-5.0) g/dL Urine Color (Yellow) Urine Appearance (Clear) Urine pH (4.6-8.0) Ur Specific [place] (1.005-1.030) Urine Protein (Negative) Urine Glucose (UA) (Negative) mg/dL Urine Ketones (Negative) Urine Blood (Negative) Urine Nitrite (Negative) Urine Bilirubin (Negative) Urine Urobilinogen (0.2) mg/dL Ur Leukocyte Esterase (Negative) U Hyaline Cast (Auto) (0-2) /LPF Urine Microscopic RBC (0-5) /HPF Urine Microscopic WBC (0-5) /HPF Ur Epithelial Cells (None Seen) /HPF Urine Bacteria (None Seen) /HPF Urine Culture Reflexed (NO) Urine Opiates Level (NEGATIVE) Ur Methadone (NEGATIVE) Urine Barbiturates (NEGATIVE) Ur Phencyclidine (PCP) (NEGATIVE) Urine Amphetamine (NEGATIVE) U Benzodiazepine Level (NEGATIVE) Urine Cocaine (NEGATIVE) Urine Marijuana (THC) (NEGATIVE) - Progress Progress: improved Air Movement: good Progress Note: 44-year-old female presents to our ED for evaluation of substernal chest pain radiating into her neck stated with nausea. Patient is a current smoker history of hypercholesterolemia. Preliminary workup negative. EKG sinus rhythm. Initial troponin negative. Vitals stable. Patient will require hospitalization for further evaluation and treatment. Plan of care discussed with patient. She she agrees to admission at [facility] for further evaluation and treatment. Portions of this note were created with voice recognition technology. There may be grammatical, spelling, punctuation or sound alike errors Complexity of problem addressed is moderate acute complicated. No critical care time. Complexity of data reviewed and analyzed as extensive. Test ordered test reviewed results analyzed and correlated clinically with history and physical exam. Risk of complication and or risk of morbidity/mortality of patient management is high. Patient requires hospitalization for further evaluation and treatment. Vital stable. Time spent admit patient is approximately 15 minutes. Plan of care established for shared decision making. No social determinants of health present to impede follow-up. Portions of this note were created with voice recognition technology. There may be grammatical, spelling, punctuation or sound alike errors 10/03/24 00:13 Blood Culture(s) Obtained: No Antibiotics given: No Counseled pt/family regarding: lab results, diagnosis, rad results - Departure Departure Disposition: Observation Clinical Impression: Chest pain, ACS (acute coronary syndrome) Condition: Stable Critical Care Time: No Referrals: ARMANDO PUTNAM [Primary Care Provider, [facility]] - Follow up/PCP as directed Additional Instructions: Discharge/Care Plan KAHLIL HALE JOSEPH was seen on 10/03/24 in the Emergency Room. The patient was counseled regarding Diagnosis,Lab results, Imaging studies, need for follow up and when to return to the Emergency Room. Prescriptions given: Discharge Note I have spoken with the patient and/or caregivers. I have explained the patient's condition, diagnosis and treatment plan based on the information available to me at this time. I have answered the patient's and/or caregiver's questions and addressed any concerns. The patient and/or caregivers have as good understanding of the patient's diagnosis, condition and treatment plan as can be expected at this point. The vital signs have been stable. The patient's condition is stable and appropriate for discharge from the emergency department. The patient will pursue further outpatient evaluation with the primary care physician or other designated or consulting physician as outlined in the discharge instructions. The patient and/or caregivers are agreeable to this plan of care and follow-up instructions have been explained in detail. The patient and/or caregivers have received these instruction. The patient/and or caregivers are aware that any significant change in condition or worsening of symptoms should prompt an immediate return to this or the closest emergency department or call 911.
[2024-10-02 22:51] LABS: Appearance Clear (Clear); Bacteria None Seen /HPF (None Seen); Bilirubin Negative (Negative); Blood Negative (Negative); Epithelial Cells None Seen /HPF (None Seen); Glucose, Urine Negative (Negative); Hyaline Casts NONE SEEN /LPF (0-2); Ketones Negative (Negative); Leukocyte Esterase Negative (Negative); Nitrite Negative (Negative); Protein,Urine Dip Negative (Negative); WBC 0-2 /HPF (0-5)
[2024-10-02 23:03] LABS: Amphetamine,Urine NEGATIVE (NEGATIVE); Barbiturate,Urine NEGATIVE (NEGATIVE); Benzodiazepine,Urine NEGATIVE (NEGATIVE); Cocaine,Urine NEGATIVE (NEGATIVE); Methadone,Urine NEGATIVE (NEGATIVE); Opiate,Urine NEGATIVE (NEGATIVE); PCP,Urine NEGATIVE (NEGATIVE); THC,Urine POSITIVE (NEGATIVE)
[2024-10-03] MEDS ORDERED: NITRO-BID 2% UD PACKETS ONE (00:28)
[2024-10-03] MEDS ORDERED: BABY ASPIRIN 81 MG CHEW ONE (00:28)
[2024-10-03] MEDS: BABY ASPIRIN 81 MG CHEW PO ONE (00:30)
[2024-10-03] MEDS: NITRO-BID 2% UD PACKETS TOP ONE (00:30)
[2024-10-03] MEDS ORDERED: MILK OF MAGNESIA 30 ML PO PRN (01:13)
[2024-10-03] MEDS ORDERED: Zofran 4 MG/2 ML VIAL IV PRN (01:13)
--- NOTE | 2024-10-03 01:24 | PCM.HP ---
History of Present Illness - Chief Complaint Chief Complaint: Chest pain, ACS Date: 10/03/24 History of Present Illness: is a 44 year old female with a history of diet controlled hyperlipidemia, tobacco use (she has cut back use recently), COPD, and recent ch est pain syndrome (evaluated with a reportedly negative cardiac stress test [address] Crawford) who presented for evaluation of substernal chest pain, with radiation into her neck and associated nausea, which started while she was mushroom hunting. Pain was initially intermittent however became constant and significantly worse over the past hour. Additionally, the patient mentions that she has had several ticks on her over the past 2 days. However, she denies associated fever, nausea, vomiting or diaphoresis. - Review of Systems Constitutional: No Symptoms Eyes: No Symptoms Ears, Nose, & Throat: No Symptoms Respiratory: No Symptoms Cardiac: Chest Pain Abdominal/Gastrointestinal: Nausea Genitourinary Symptoms: No Symptoms Musculoskeletal: No Symptoms Skin: No Symptoms, Skin Lesions (tick bites) Neurological: No Symptoms Psychological: No Symptoms Endocrine: No Symptoms Hematologic/Lymphatic: No Symptoms Immunological/Allergic: No Symptoms All Other Systems: Reviewed and Negative Medications & Allergies Home Medications: Home Medication List Aspirin 81 gm Chew [Baby Aspirin 81 mg Chew] 81 mg PO DAILY 10/02/24 [History Confirmed 10/02/24] Allergies/Adverse Reactions: Allergies Allergy/AdvReac Type Severity Reaction Status Date / Time cephalexin monohydrate Allergy Intermediate Hives Verified 10/02/24 21:55 [From Keflex] cefaclor [From Ceclor] Allergy Mild Hives Verified 10/02/24 21:55 oxycodone [From OxyContin] AdvReac Intermediate Verified 10/02/24 21:55 prochlorperazine AdvReac Intermediate Rapid Verified 10/02/24 21:55 [From Compazine] Heart Beat - Past Medical History Past Medical History: Yes Neurological History: Migraines ENT History: No Pertinent History Cardiac History: High Cholesterol Respiratory History: COPD, Other Endocrine Medical History: No Pertinent History Musculoskelatal History: Fractures GI Medical History: No Pertinent History History: No Pertinent History Pyscho-Social History: Depression Reproductive Disorders: Endometriosis, Other Comment: COVID-19 (2019 with scar tissue present since), 5th MP fracture - Female History Hx Last Menstrual Period: unsure - hysterectomy Are you now?: No - Past Surgical History Past Surgical History: Yes Neuro Surgical History: No Pertinent History Cardiac History: No Pertinent History Respiratory Surgery: No Pertinent History GI Surgical History: Appendectomy Genitourinary Surgical Hx: No Pertinent History Musculskeletal Surgical Hx: No Pertinent History Female Surgical History: Hysterectomy Other Surgical History: HYSTERECTOMY PARTIAL. steriod injections to rt shoulder under anesthesia Significant Family History: no pertinent family hx, alpha-1 antitrypsin deficiency Family History: no family history of early CAD - Social History Smoking Status: Current every day smoker How long have you smoked: 30 yrs Exposure to second hand smoke: No Alcohol: None Drug Use: marijuana - Social Determinants of Health Will the patient participate in the screening: Yes Do you worry about a steady place to live?: No Do you have any problems with any of the following?: No known problems In the past 12 months,have you had to go without utilities?: No Have you or anyone in your house had to go without enough: No Transportation Issues: No Has anyone in your support network made you feel unsafe?: No Does the patient want assistance with any of the above?: No - Physical Exam Vital Signs: Vital Signs - 24 hr Temp Pulse Pulse Resp BP BP Pulse Ox 10/03/24 00:54 97 F 66 128/64 98 10/03/24 00:16 98 10/03/24 00:00 66 18 121/57 99 10/02/24 23:30 68 14 114/62 98 10/02/24 23:01 63 20 110/59 98 10/02/24 22:30 61 19 138/64 99 10/02/24 22:00 61 18 126/51 98 10/02/24 21:48 97 F 74 70 20 128/64 100 10/02/24 21:47 61 12 128/64 99 General Appearance: no apparent distress, alert Neurologic Exam: alert, oriented x 3, cooperative, technology internship II-XII nml as tested, normal mood/affect, nml cerebellar function Eye Exam: PERRL/EOMI, eyes nml inspection Ears, Nose, Throat Exam: normal ENT inspection Neck Exam: normal inspection, non-tender, supple, full range of motion Respiratory Exam: normal breath sounds, lungs clear, airway intact Cardiovascular Exam: regular rate/rhythm, normal heart sounds Gastrointestinal/Abdomen Exam: soft, normal bowel sounds Back Exam: normal range of motion Extremity Exam: normal inspection, normal range of motion Skin Exam: normal color, other (tick bites noted) Results - Labs Lab/Micro Results: Lab Results-Last 24 Hours 10/02/24 10/02/24 10/02/24 Range/Units 22:00 22:00 22:00 WBC 7.6 (3.98-10.04) x10^3/uL RBC 4.59 (3.93-5.22) x10^6/uL Hgb 14.5 (11.2-15.7) g/dL Hct 41.7 (34.1-44.9) % MCV 90.8 (79.4-94.8) fL MCH 31.6 (25.6-32.2) pg MCHC 34.8 (32.2-35.5) g/dL RDW 12.3 (11.7-14.4) % Plt Count 167 L (182-369) x10^3/uL MPV 10.0 (9.4-12.3) fL Gran % 54.9 (34.0-71.1) % Immature Gran % (Auto) 0.3 (0.001-0.429) % Nucleat RBC Rel Count 0.0 (0.00-0.2) % Eos # (Auto) 0.14 (0.04-0.36) x10^3/uL Immature Gran # (Auto) 0.02 (0.001-0.031) x10^3u/L Absolute Lymphs (auto) 2.85 (1.18-3.74) x10^3/uL Absolute Monos (auto) 0.38 (0.24-0.86) x10^3/uL Absolute Nucleated RBC 0.00 (0.00-0.012) x10^3u/L Lymphocytes % 37.3 (19.3-51.7) % Monocytes % 5.0 (4.7-12.5) % Eosinophils % 1.8 (0.7-5.8) % Basophils % 0.7 (0.1-1.2) % Absolute Granulocytes 4.20 (1.56-6.13) x10^3/uL Basophils # 0.05 (0.01-0.08) x10^3/uL D-Dimer 0.29 (0.0-0.50) mg/L Sodium 139 (135-145) mmol/L Potassium 3.5 (3.5-5.1) mmol/L Chloride 102 (98-107) mmol/L Carbon Dioxide 26 (22-30) mmol/L Anion Gap 14.4 (5-15) MEQ/L BUN 8 (7-17) mg/dL Creatinine 0.76 (0.52-1.04) mg/dL Estimated GFR 100.3 ML/MIN Glucose 122 H (74-106) mg/dL Calcium 9.6 (8.4-10.2) mg/dL Total Bilirubin 0.70 (0.2-1.3) mg/dL AST 32 (14-36) U/L ALT 19 (0-35) U/L Alkaline Phosphatase 45 (38-126) U/L Troponin I (0.000-0.033) ng/mL NT-Pro-B Natriuret Pep 39.3 (<300) pg/mL Serum Total Protein 7.4 (6.3-8.2) g/dL Albumin 4.7 (3.5-5.0) g/dL Urine Color (Yellow) Urine Appearance (Clear) Urine pH (4.6-8.0) Ur Specific [place] (1.005-1.030) Urine Protein (Negative) Urine Glucose (UA) (Negative) mg/dL Urine Ketones (Negative) Urine Blood (Negative) Urine Nitrite (Negative) Urine Bilirubin (Negative) Urine Urobilinogen (0.2) mg/dL Ur Leukocyte Esterase (Negative) U Hyaline Cast (Auto) (0-2) /LPF Urine Microscopic RBC (0-5) /HPF Urine Microscopic WBC (0-5) /HPF Ur Epithelial Cells (None Seen) /HPF Urine Bacteria (None Seen) /HPF Urine Culture Reflexed (NO) Urine Opiates Level (NEGATIVE) Ur Methadone (NEGATIVE) Urine Barbiturates (NEGATIVE) Ur Phencyclidine (PCP) (NEGATIVE) Urine Amphetamine (NEGATIVE) U Benzodiazepine Level (NEGATIVE) Urine Cocaine (NEGATIVE) Urine Marijuana (THC) (NEGATIVE) 10/02/24 10/02/24 10/02/24 Range/Units 22:00 22:41 22:41 WBC (3.98-10.04) x10^3/uL RBC (3.93-5.22) x10^6/uL Hgb (11.2-15.7) g/dL Hct (34.1-44.9) % MCV (79.4-94.8) fL MCH (25.6-32.2) pg MCHC (32.2-35.5) g/dL RDW (11.7-14.4) % Plt Count (182-369) x10^3/uL MPV (9.4-12.3) fL Gran % (34.0-71.1) % Immature Gran % (Auto) (0.001-0.429) % Nucleat RBC Rel Count (0.00-0.2) % Eos # (Auto) (0.04-0.36) x10^3/uL Immature Gran # (Auto) (0.001-0.031) x10^3u/L Absolute Lymphs (auto) (1.18-3.74) x10^3/uL Absolute Monos (auto) (0.24-0.86) x10^3/uL Absolute Nucleated RBC (0.00-0.012) x10^3u/L Lymphocytes % (19.3-51.7) % Monocytes % (4.7-12.5) % Eosinophils % (0.7-5.8) % Basophils % (0.1-1.2) % Absolute Granulocytes (1.56-6.13) x10^3/uL Basophils # (0.01-0.08) x10^3/uL D-Dimer (0.0-0.50) mg/L Sodium (135-145) mmol/L Potassium (3.5-5.1) mmol/L Chloride (98-107) mmol/L Carbon Dioxide (22-30) mmol/L Anion Gap (5-15) MEQ/L BUN (7-17) mg/dL Creatinine (0.52-1.04) mg/dL Estimated GFR ML/MIN Glucose (74-106) mg/dL Calcium (8.4-10.2) mg/dL Total Bilirubin (0.2-1.3) mg/dL AST (14-36) U/L ALT (0-35) U/L Alkaline Phosphatase (38-126) U/L Troponin I < 0.012 (0.000-0.033) ng/mL NT-Pro-B Natriuret Pep (<300) pg/mL Serum Total Protein (6.3-8.2) g/dL Albumin (3.5-5.0) g/dL Urine Color Yellow (Yellow) Urine Appearance Clear (Clear) Urine pH 7.0 (4.6-8.0) Ur Specific [place] 1.020 (1.005-1.030) Urine Protein Negative (Negative) Urine Glucose (UA) Negative (Negative) mg/dL Urine Ketones Negative (Negative) Urine Blood Negative (Negative) Urine Nitrite Negative (Negative) Urine Bilirubin Negative (Negative) Urine Urobilinogen 1.0 A (0.2) mg/dL Ur Leukocyte Esterase Negative (Negative) U Hyaline Cast (Auto) NONE SEEN (0-2) /LPF Urine Microscopic RBC 3-5 (0-5) /HPF Urine Microscopic WBC 0-2 (0-5) /HPF Ur Epithelial Cells None Seen (None Seen) /HPF Urine Bacteria None Seen (None Seen) /HPF Urine Culture Reflexed NO (NO) Urine Opiates Level NEGATIVE (NEGATIVE) Ur Methadone NEGATIVE (NEGATIVE) Urine Barbiturates NEGATIVE (NEGATIVE) Ur Phencyclidine (PCP) NEGATIVE (NEGATIVE) Urine Amphetamine NEGATIVE (NEGATIVE) U Benzodiazepine Level NEGATIVE (NEGATIVE) Urine Cocaine NEGATIVE (NEGATIVE) Urine Marijuana (THC) POSITIVE A (NEGATIVE) 10/03/24 Range/Units 00:25 WBC (3.98-10.04) x10^3/uL RBC (3.93-5.22) x10^6/uL Hgb (11.2-15.7) g/dL Hct (34.1-44.9) % MCV (79.4-94.8) fL MCH (25.6-32.2) pg MCHC (32.2-35.5) g/dL RDW (11.7-14.4) % Plt Count (182-369) x10^3/uL MPV (9.4-12.3) fL Gran % (34.0-71.1) % Immature Gran % (Auto) (0.001-0.429) % Nucleat RBC Rel Count (0.00-0.2) % Eos # (Auto) (0.04-0.36) x10^3/uL Immature Gran # (Auto) (0.001-0.031) x10^3u/L Absolute Lymphs (auto) (1.18-3.74) x10^3/uL Absolute Monos (auto) (0.24-0.86) x10^3/uL Absolute Nucleated RBC (0.00-0.012) x10^3u/L Lymphocytes % (19.3-51.7) % Monocytes % (4.7-12.5) % Eosinophils % (0.7-5.8) % Basophils % (0.1-1.2) % Absolute Granulocytes (1.56-6.13) x10^3/uL Basophils # (0.01-0.08) x10^3/uL D-Dimer (0.0-0.50) mg/L Sodium (135-145) mmol/L Potassium (3.5-5.1) mmol/L Chloride (98-107) mmol/L Carbon Dioxide (22-30) mmol/L Anion Gap (5-15) MEQ/L BUN (7-17) mg/dL Creatinine (0.52-1.04) mg/dL Estimated GFR ML/MIN Glucose (74-106) mg/dL Calcium (8.4-10.2) mg/dL Total Bilirubin (0.2-1.3) mg/dL AST (14-36) U/L ALT (0-35) U/L Alkaline Phosphatase (38-126) U/L Troponin I < 0.012 (0.000-0.033) ng/mL NT-Pro-B Natriuret Pep (<300) pg/mL Serum Total Protein (6.3-8.2) g/dL Albumin (3.5-5.0) g/dL Urine Color (Yellow) Urine Appearance (Clear) Urine pH (4.6-8.0) Ur Specific [place] (1.005-1.030) Urine Protein (Negative) Urine Glucose (UA) (Negative) mg/dL Urine Ketones (Negative) Urine Blood (Negative) Urine Nitrite (Negative) Urine Bilirubin (Negative) Urine Urobilinogen (0.2) mg/dL Ur Leukocyte Esterase (Negative) U Hyaline Cast (Auto) (0-2) /LPF Urine Microscopic RBC (0-5) /HPF Urine Microscopic WBC (0-5) /HPF Ur Epithelial Cells (None Seen) /HPF Urine Bacteria (None Seen) /HPF Urine Culture Reflexed (NO) Urine Opiates Level (NEGATIVE) Ur Methadone (NEGATIVE) Urine Barbiturates (NEGATIVE) Ur Phencyclidine (PCP) (NEGATIVE) Urine Amphetamine (NEGATIVE) U Benzodiazepine Level (NEGATIVE) Urine Cocaine (NEGATIVE) Urine Marijuana (THC) (NEGATIVE) - Radiology Impressions Radiology Exams & Impressions: Radiology Procedures Category Date Time Status CHEST 1 VIEW (PORTABLE) Stat Exams 10/02/24 23:05 Taken - Other Procedures and Tests Respiratory Therapy 10/03/24 01:03 Smoking Cessation Education ONCE 10/03/24 01:13 EKG REPEAT IN AM Assessment/Plan (1) Chest pain Current Visit: Yes Status: Acute Assessment & Plan: Serial troponins on telemetry. Recent stress test was negative per patient. Code(s): R07.9 - CHEST PAIN, UNSPECIFIED (2) Tick bites Current Visit: Yes Status: Acute Assessment & Plan: Will send Lyme/RMSF panel. Will need to follow up results and report results after discharge. Code(s): W57.XXXA - BIT/STUNG BY NONVENOM INSECT & OTH NONVENOM ARTHROPODS, INIT (3) Nausea Current Visit: Yes Status: Acute Assessment & Plan: Zofran prn Code(s): R11.0 - NAUSEA (4) Smoker Current Visit: No Status: Acute Assessment & Plan: Offered nicotine TD, but declined by patient. Code(s): F17.200 - NICOTINE DEPENDENCE, UNSPECIFIED, UNCOMPLICATED Telemedicine Encounter - Telemedicine Encounter Telemedicine Encounter: "The entirety of this encounter was performed via Telemedicine" This visit was performed using real-time audio and video connection between my location and thepatients locationwith the assistance of a surrogateat the patients location. Written or verbal consent was obtained from the patient/guardian to perform this visit [facility] technology. Any patient questions regarding the telemedicine interaction were answered. Please note that this admission required 46 minutes to complete.
[2024-10-03 05:05] VITALS: RESP 16
[2024-10-03 07:13] VITALS: BP 98/54; PULSE 67; TEMP 97.8
[2024-10-03 07:32] VITALS: O2SAT 98
--- NOTE | 2024-10-03 09:00 | XRAY ---
Indication: Chest pain. Comparison: September 06, 2024 Portable chest unchanged again hyperinflated and clear. Heart not enlarged. Bony thorax intact. No new/acute findings.
[2024-10-03] MEDS: TYLENOL 325 MG PO PRN (09:01)
[2024-10-03] MEDS: Protonix 40MG Tablet PO SCH (09:02)
[2024-10-03] MEDS: ECOTRIN 81 MG PO SCH (09:03)
[2024-10-03] MEDS: ENOXAPARIN SODIUM SQ SCH (09:06)
[2024-10-03] MEDS ORDERED: Pepcid 20 MG PO ONE (09:45)
--- NOTE | 2024-10-03 09:50 | PCM.DS ---
Discharge Summary Date of Admission: 10/03/24 00:49 Date of Discharge: 10/03/24 Admitting Physician: TAYLER NUR MD Primary Care Provider: ARMANDO PUTNAM Allergies Allergies cephalexin monohydrate [From Keflex] Allergy (Intermediate, Verified 10/02/24 21:55) Hives cefaclor [From Ceclor] Allergy (Mild, Verified 10/02/24 21:55) Hives oxycodone [From OxyContin] Adverse Reaction (Intermediate, Verified 10/02/24 21:55) "not allergic, just dont like the way it makes me feel" prochlorperazine [From Compazine] Adverse Reaction (Intermediate, Verified 10/02/24 21:55) [facility] Summary - Hospital Course Hospital Course: 10/03/24 is a 44 year old female with a history of diet controlled hyperlipidemia, tobacco use (she has cut back use recently), COPD, and recent chest pain syndrome (evaluated with a reportedly negative cardiac stress test [address] Crawford. She presented on 10/02/24 for evaluation of substernal chest pain, with radiation into her neck and associated nausea, which started while she was mushroom hunting. Pain was initially intermittent however became constant and significantly worse over the past hour. Additionally, the patient mentions that she has had several ticks on her over the past 2 days. However, she denies associated fever, nausea, vomiting or diaphoresis. Today she feels better but has a small area of burning in the center of her chest, pepcid ordered. She has no radiation of sxs. Trops x3 negative. She denies any further sxs at this time and would like to d/c. Lyme test pending and will follow OP. - Vitals & Intake/Output Vital Signs: Vital Signs Temperature 97.8 F 10/03/24 07:12 Pulse Rate 67 10/03/24 07:12 Respiratory Rate 16 10/03/24 07:12 Blood Pressure 98/54 10/03/24 07:12 O2 Sat by Pulse Oximetry 98 10/03/24 07:31 Intake & Output: Intake & Output 09/30/24 10/01/24 10/02/24 10/03/24 11:59 11:59 11:59 11:59 Intake Total 680 Output Total 20 Balance 660 Weight 48.7 kg - Lab Result Diagrams: 10/02/24 22:00 10/02/24 22:00 Lab Results-Last 24 Hrs: Lab Results-Last 24 Hours 10/02/24 10/02/24 10/02/24 Range/Units 22:00 22:00 22:00 WBC 7.6 (3.98-10.04) x10^3/uL RBC 4.59 (3.93-5.22) x10^6/uL Hgb 14.5 (11.2-15.7) g/dL Hct 41.7 (34.1-44.9) % MCV 90.8 (79.4-94.8) fL MCH 31.6 (25.6-32.2) pg MCHC 34.8 (32.2-35.5) g/dL RDW 12.3 (11.7-14.4) % Plt Count 167 L (182-369) x10^3/uL MPV 10.0 (9.4-12.3) fL Gran % 54.9 (34.0-71.1) % Immature Gran % (Auto) 0.3 (0.001-0.429) % Nucleat RBC Rel Count 0.0 (0.00-0.2) % Eos # (Auto) 0.14 (0.04-0.36) x10^3/uL Immature Gran # (Auto) 0.02 (0.001-0.031) x10^3u/L Absolute Lymphs (auto) 2.85 (1.18-3.74) x10^3/uL Absolute Monos (auto) 0.38 (0.24-0.86) x10^3/uL Absolute Nucleated RBC 0.00 (0.00-0.012) x10^3u/L Lymphocytes % 37.3 (19.3-51.7) % Monocytes % 5.0 (4.7-12.5) % Eosinophils % 1.8 (0.7-5.8) % Basophils % 0.7 (0.1-1.2) % Absolute Granulocytes 4.20 (1.56-6.13) x10^3/uL Basophils # 0.05 (0.01-0.08) x10^3/uL D-Dimer 0.29 (0.0-0.50) mg/L Sodium 139 (135-145) mmol/L Potassium 3.5 (3.5-5.1) mmol/L Chloride 102 (98-107) mmol/L Carbon Dioxide 26 (22-30) mmol/L Anion Gap 14.4 (5-15) MEQ/L BUN 8 (7-17) mg/dL Creatinine 0.76 (0.52-1.04) mg/dL Estimated GFR 100.3 ML/MIN Glucose 122 H (74-106) mg/dL Calcium 9.6 (8.4-10.2) mg/dL Total Bilirubin 0.70 (0.2-1.3) mg/dL AST 32 (14-36) U/L ALT 19 (0-35) U/L Alkaline Phosphatase 45 (38-126) U/L Troponin I (0.000-0.033) ng/mL NT-Pro-B Natriuret Pep 39.3 (<300) pg/mL Serum Total Protein 7.4 (6.3-8.2) g/dL Albumin 4.7 (3.5-5.0) g/dL Urine Color (Yellow) Urine Appearance (Clear) Urine pH (4.6-8.0) Ur Specific [place] (1.005-1.030) Urine Protein (Negative) Urine Glucose (UA) (Negative) mg/dL Urine Ketones (Negative) Urine Blood (Negative) Urine Nitrite (Negative) Urine Bilirubin (Negative) Urine Urobilinogen (0.2) mg/dL Ur Leukocyte Esterase (Negative) U Hyaline Cast (Auto) (0-2) /LPF Urine Microscopic RBC (0-5) /HPF Urine Microscopic WBC (0-5) /HPF Ur Epithelial Cells (None Seen) /HPF Urine Bacteria (None Seen) /HPF Urine Culture Reflexed (NO) Urine Opiates Level (NEGATIVE) Ur Methadone (NEGATIVE) Urine Barbiturates (NEGATIVE) Ur Phencyclidine (PCP) (NEGATIVE) Urine Amphetamine (NEGATIVE) U Benzodiazepine Level (NEGATIVE) Urine Cocaine (NEGATIVE) Urine Marijuana (THC) (NEGATIVE) 10/02/24 10/02/24 10/02/24 Range/Units 22:00 22:41 22:41 WBC (3.98-10.04) x10^3/uL RBC (3.93-5.22) x10^6/uL Hgb (11.2-15.7) g/dL Hct (34.1-44.9) % MCV (79.4-94.8) fL MCH (25.6-32.2) pg MCHC (32.2-35.5) g/dL RDW (11.7-14.4) % Plt Count (182-369) x10^3/uL MPV (9.4-12.3) fL Gran % (34.0-71.1) % Immature Gran % (Auto) (0.001-0.429) % Nucleat RBC Rel Count (0.00-0.2) % Eos # (Auto) (0.04-0.36) x10^3/uL Immature Gran # (Auto) (0.001-0.031) x10^3u/L Absolute Lymphs (auto) (1.18-3.74) x10^3/uL Absolute Monos (auto) (0.24-0.86) x10^3/uL Absolute Nucleated RBC (0.00-0.012) x10^3u/L Lymphocytes % (19.3-51.7) % Monocytes % (4.7-12.5) % Eosinophils % (0.7-5.8) % Basophils % (0.1-1.2) % Absolute Granulocytes (1.56-6.13) x10^3/uL Basophils # (0.01-0.08) x10^3/uL D-Dimer (0.0-0.50) mg/L Sodium (135-145) mmol/L Potassium (3.5-5.1) mmol/L Chloride (98-107) mmol/L Carbon Dioxide (22-30) mmol/L Anion Gap (5-15) MEQ/L BUN (7-17) mg/dL Creatinine (0.52-1.04) mg/dL Estimated GFR ML/MIN Glucose (74-106) mg/dL Calcium (8.4-10.2) mg/dL Total Bilirubin (0.2-1.3) mg/dL AST (14-36) U/L ALT (0-35) U/L Alkaline Phosphatase (38-126) U/L Troponin I < 0.012 (0.000-0.033) ng/mL NT-Pro-B Natriuret Pep (<300) pg/mL Serum Total Protein (6.3-8.2) g/dL Albumin (3.5-5.0) g/dL Urine Color Yellow (Yellow) Urine Appearance Clear (Clear) Urine pH 7.0 (4.6-8.0) Ur Specific [place] 1.020 (1.005-1.030) Urine Protein Negative (Negative) Urine Glucose (UA) Negative (Negative) mg/dL Urine Ketones Negative (Negative) Urine Blood Negative (Negative) Urine Nitrite Negative (Negative) Urine Bilirubin Negative (Negative) Urine Urobilinogen 1.0 A (0.2) mg/dL Ur Leukocyte Esterase Negative (Negative) U Hyaline Cast (Auto) NONE SEEN (0-2) /LPF Urine Microscopic RBC 3-5 (0-5) /HPF Urine Microscopic WBC 0-2 (0-5) /HPF Ur Epithelial Cells None Seen (None Seen) /HPF Urine Bacteria None Seen (None Seen) /HPF Urine Culture Reflexed NO (NO) Urine Opiates Level NEGATIVE (NEGATIVE) Ur Methadone NEGATIVE (NEGATIVE) Urine Barbiturates NEGATIVE (NEGATIVE) Ur Phencyclidine (PCP) NEGATIVE (NEGATIVE) Urine Amphetamine NEGATIVE (NEGATIVE) U Benzodiazepine Level NEGATIVE (NEGATIVE) Urine Cocaine NEGATIVE (NEGATIVE) Urine Marijuana (THC) POSITIVE A (NEGATIVE) 10/03/24 10/03/24 Range/Units 00:25 06:45 WBC (3.98-10.04) x10^3/uL RBC (3.93-5.22) x10^6/uL Hgb (11.2-15.7) g/dL Hct (34.1-44.9) % MCV (79.4-94.8) fL MCH (25.6-32.2) pg MCHC (32.2-35.5) g/dL RDW (11.7-14.4) % Plt Count (182-369) x10^3/uL MPV (9.4-12.3) fL Gran % (34.0-71.1) % Immature Gran % (Auto) (0.001-0.429) % Nucleat RBC Rel Count (0.00-0.2) % Eos # (Auto) (0.04-0.36) x10^3/uL Immature Gran # (Auto) (0.001-0.031) x10^3u/L Absolute Lymphs (auto) (1.18-3.74) x10^3/uL Absolute Monos (auto) (0.24-0.86) x10^3/uL Absolute Nucleated RBC (0.00-0.012) x10^3u/L Lymphocytes % (19.3-51.7) % Monocytes % (4.7-12.5) % Eosinophils % (0.7-5.8) % Basophils % (0.1-1.2) % Absolute Granulocytes (1.56-6.13) x10^3/uL Basophils # (0.01-0.08) x10^3/uL D-Dimer (0.0-0.50) mg/L Sodium (135-145) mmol/L Potassium (3.5-5.1) mmol/L Chloride (98-107) mmol/L Carbon Dioxide (22-30) mmol/L Anion Gap (5-15) MEQ/L BUN (7-17) mg/dL Creatinine (0.52-1.04) mg/dL Estimated GFR ML/MIN Glucose (74-106) mg/dL Calcium (8.4-10.2) mg/dL Total Bilirubin (0.2-1.3) mg/dL AST (14-36) U/L ALT (0-35) U/L Alkaline Phosphatase (38-126) U/L Troponin I < 0.012 < 0.012 (0.000-0.033) ng/mL NT-Pro-B Natriuret Pep (<300) pg/mL Serum Total Protein (6.3-8.2) g/dL Albumin (3.5-5.0) g/dL Urine Color (Yellow) Urine Appearance (Clear) Urine pH (4.6-8.0) Ur Specific [place] (1.005-1.030) Urine Protein (Negative) Urine Glucose (UA) (Negative) mg/dL Urine Ketones (Negative) Urine Blood (Negative) Urine Nitrite (Negative) Urine Bilirubin (Negative) Urine Urobilinogen (0.2) mg/dL Ur Leukocyte Esterase (Negative) U Hyaline Cast (Auto) (0-2) /LPF Urine Microscopic RBC (0-5) /HPF Urine Microscopic WBC (0-5) /HPF Ur Epithelial Cells (None Seen) /HPF Urine Bacteria (None Seen) /HPF Urine Culture Reflexed (NO) Urine Opiates Level (NEGATIVE) Ur Methadone (NEGATIVE) Urine Barbiturates (NEGATIVE) Ur Phencyclidine (PCP) (NEGATIVE) Urine Amphetamine (NEGATIVE) U Benzodiazepine Level (NEGATIVE) Urine Cocaine (NEGATIVE) Urine Marijuana (THC) (NEGATIVE) - Radiology Exams Ordered Rad Exams-Entire Visit: Radiology Procedures Category Date Time Status CHEST 1 VIEW (PORTABLE) Stat Exams 10/02/24 23:05 Completed - Procedures and Test Procedures and Tests throughout Hospitalization: Therapy Orders & Screens 10/03/24 01:03 Smoking Cessation Education ONCE Comment: Diagnosis: Chest pain, ACS Smoking Status: Current every day smoker How long have you smoked: 30 yrs Have you smoked in the past 12 months: Yes Approximately how many cigarettes per day: 30 Do you dip or chew tobacco: No 10/03/24 01:13 EKG REPEAT IN AM Comment: Diagnosis: Chest pain, ACS Discharge Exam General Appearance: no apparent distress, alert, thin Neurologic Exam: alert, oriented x 3, cooperative, normal mood/affect, nml cerebellar function, sensation nml, No motor deficits Eye Exam: PERRL, EOMI, eyes nml inspection Ears, Nose, Throat Exam: normal ENT inspection, pharynx normal, moist mucous membranes Neck Exam: normal inspection, non-tender, supple, full range of motion Respiratory Exam: normal breath sounds, lungs clear, No respiratory distress Cardiovascular Exam: regular rate/rhythm, normal heart sounds Gastrointestinal/Abdomen Exam: soft, No tenderness, No mass Pelvic Exam: deferred Rectal Exam: deferred Back Exam: normal inspection, normal range of motion, No CVA tenderness, No vertebral tenderness Extremity Exam: normal inspection, normal range of motion Skin Exam: normal color, warm, dry Final Diagnosis/Problem List - Final Discharge Diagnosis/Problem (1) Chest pain Current Visit: Yes Status: Acute Assessment & Plan: - CBC, CMP reviewed - Trops X3 negative - EKG - TELE - Recent stress test was negative per patient. - CXR negative - + THC - F/U with PCP and Dr. Crawford OP Code(s): R07.9 - CHEST PAIN, UNSPECIFIED (2) GERD (gastroesophageal reflux disease) Current Visit: Yes Status: Acute Assessment & Plan: - Pepcid x1 - Discussed OTC meds for OP use in detail Code(s): K21.9 - GASTRO-ESOPHAGEAL REFLUX DISEASE WITHOUT ESOPHAGITIS (3) Tick bites Current Visit: Yes Status: Acute Assessment & Plan: - Lyme test pending Code(s): W57.XXXA - BIT/STUNG BY NONVENOM INSECT & OTH NONVENOM ARTHROPODS, INIT (4) Underweight (BMI < 18.5) Current Visit: Yes Status: Chronic Assessment & Plan: - Advised to f/u with PCP for further evaluation Code(s): R63.6 - UNDERWEIGHT; Z68.1 - BODY MASS INDEX [BMI] 19.9 OR LESS, ADULT (5) Smoker Current Visit: No Status: Chronic Assessment & Plan: - Advised cessation - Information for 1800quitnow provided - Education provided Code(s): F17.200 - NICOTINE DEPENDENCE, UNSPECIFIED, UNCOMPLICATED (6) Nausea Current Visit: Yes Status: Resolved Assessment & Plan: - Resolved since admission - Antiemetic IV Code(s): R11.0 - NAUSEA (7) Marijuana smoker Current Visit: Yes Status: Acute Assessment & Plan: - + THC on UDS - Advised cessation Code(s): F12.90 - CANNABIS USE, UNSPECIFIED, UNCOMPLICATED - Discharge Discharge Date: 10/03/24 Disposition: Home, Self-Care Condition: Stable Prescriptions: Continue Aspirin 81 gm Chew [Baby Aspirin 81 mg Chew] 81 mg PO DAILY Follow up with: ARMANDO PUTNAM [Primary Care Provider, FAMILY PRACTICE] - 10/10/24 9:45 am DEIRDRE CRAWFORD MD [CONSULTING PHYSICIAN, CARDIOLOGY]
[2024-10-03] MEDS ORDERED: BABY ASPIRIN 81 MG CHEW PO SCH (10:00)
== END 2024-10-03 11:00 | disposition home or self-care (01) ==
LOC: ED 21:42 → MED SURG 10-03 00:49
PROVIDERS: ADMIT Internal Medicine; ATTEND Internal Medicine
DX: R07.9 Chest pain, unspecified (principal); K21.9 Gastro-esophageal reflux disease without esophagitis; W57.XXXA Bitten or stung by nonvenomous insect and other nonvenomous arthropods, initial encounter; R63.6 Underweight; Z68.1 Body mass index [BMI] 19.9 or less, adult; F17.200 Nicotine dependence, unspecified, uncomplicated; R11.0 Nausea; F12.90 Cannabis use, unspecified, uncomplicated; E78.5 Hyperlipidemia, unspecified
CPT/HCPCS: 36415; 71045; 80053; 80307; 81001; 83880; 84484; 85025; 85379; 86618; 93005; 93041; 93268; 94760; 94762; 99285; J1650; A9270-GY; G0378

== ENCOUNTER 2025-03-04 17:21 | Emergency (ER) | payer OTHER ==
--- NOTE | 2025-03-04 17:29 | ERPHSYRPT ---
- History of Present Illness Time Seen by Provider: 03/04/25 17:29 Historian: patient, family Exam Limitations: no limitations Physician History: This is a 45-year-old white female patient arrives per private vehicle accompanied by family and is a patient Dr. Elliott with complaint of generalized abdominal pain with associated nausea vomiting diarrhea for approximately 1 week. Patient states that she was "vomiting bile for 1 week". Patient is laughing and smiling and joking. Patient saw her primary care provider yesterday. This is her fourth evaluation in the last several days for this medical complaint/issue. Patient has a history of migraine headaches, hyperlipidemia, COPD and depression. Patient has had hysterectomy and appendectomy in the past. Timing/Duration: day(s) (7 to 8 days) Activities at Onset: none Quality: aching Abdominal Pain Onset Location: generalized abdomen Severity of Pain-Max: moderate Severity of Pain-Current: mild Modifying Factors: Improves With: vomiting Associated Symptoms: diarrhea, loss of appetite, nausea, No chest pain, No headache, No shortness of breath Previous symptoms: same symptoms as today, recently seen, recently treated Allergies/Adverse Reactions: cephalexin monohydrate [From Keflex] Allergy (Intermediate, Verified 03/04/25 17:30) Hives cefaclor [From Ceclor] Allergy (Mild, Verified 03/04/25 17:30) Hives oxycodone [From OxyContin] Adverse Reaction (Intermediate, Verified 03/04/25 17:30) "not allergic, just dont like the way it makes me feel" prochlorperazine [From Compazine] Adverse Reaction (Intermediate, Verified 03/04/25 17:30) [facility] Home Medications: Ondansetron [Ondansetron Odt ] 4 mg PO Q6HPRN PRN 03/04/25 [History] Hx Tetanus, Diphtheria Vaccination/Date Given: No Hx Influenza Vaccination/Date Given: No Hx Pneumococcal Vaccination/Date Given: No Travel Risk - International Travel Have you traveled outside of the country in past 3 weeks: No - Emerging Infectious Disease Are you exhibiting symptoms associated with any current EIDs: No Symptoms: Abdominal Pain, Diarrhea, Vomitting - Review of Systems Constitutional: No Symptoms Eyes: No Symptoms Ears, Nose, & Throat: No Symptoms Respiratory: No Symptoms Cardiac: No Symptoms Abdominal/Gastrointestinal: Abdominal Pain, Nausea, Vomiting, Diarrhea, Appetite Changes Genitourinary Symptoms: No Symptoms Musculoskeletal: No Symptoms Skin: No Symptoms Neurological: No Symptoms Psychological: No Symptoms Endocrine: No Symptoms Hematologic/Lymphatic: No Symptoms Immunological/Allergic: No Symptoms All Other Systems: Reviewed and Negative - Past Medical History Pertinent Past Medical History: Yes Neurological History: Migraines ENT History: No Pertinent History Cardiac History: High Cholesterol Respiratory History: COPD, Other Endocrine Medical History: No Pertinent History Musculoskeletal History: Fractures GI Medical History: No Pertinent History History: No Pertinent History Psycho-Social History: Depression Female Reproductive Disorders: Endometriosis, Other Other Medical History: 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 steriod injections to rt shoulder under anesthesia Significant Family History: no pertinent family hx, alpha-1 antitrypsin deficiency - Female History Hx Last Menstrual Period: unsure - hysterectomy - Social History Smoking Status: Current every day smoker How long have you smoked: 30 yrs Exposure to second hand smoke: No Drug Use: marijuana - Social Determinants of Health Will the patient participate in the screening: Declined to provide - Nursing Vital Signs Nursing Vital Signs: Initial Vital Signs Temperature 96.7 F 03/04/25 17:33 Pulse Rate 72 03/04/25 17:33 Respiratory Rate 14 03/04/25 17:33 Blood Pressure 124/60 03/04/25 17:33 O2 Sat by Pulse Oximetry 99 03/04/25 17:33 Pain Scale Pain Intensity 4 - Physical Exam General Appearance: no apparent distress, alert, anxiety, thin Eye Exam: PERRL/EOMI, eyes nml inspection Ears, Nose, Throat Exam: moist mucous membranes, other (A dentulous) Neck Exam: normal inspection, non-tender, supple, full range of motion Respiratory Exam: normal breath sounds, lungs clear, airway intact, No chest tenderness, No respiratory distress Cardiovascular Exam: regular rate/rhythm, normal heart sounds, normal peripheral pulses Gastrointestinal/Abdomen Exam: soft, normal bowel sounds, No tenderness Pelvic Exam: not done Rectal Exam: not done Back Exam: normal inspection, normal range of motion, No CVA tenderness, No vertebral tenderness Extremity Exam: normal inspection, normal range of motion, pelvis stable Neurologic Exam: alert, oriented x 3, 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, 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, normal mood/affect, nml cerebellar function, nml station & gait, sensation nml Skin Exam: normal color, warm, dry Lymphatic Exam: No adenopathy SpO2 Interpretation: normal O2 Delivery: Room Air - Course Nursing assessment & vital signs reviewed: Yes Ordered Tests: Active Orders 24 hr Category Date Time Status IV Insertion STAT Care 03/04/25 17:54 Active ABDOMEN AND PELVIS W/0 CONTRAS [CT] Stat Exams 03/04/25 17:53 Taken AMYLASE Stat Lab 03/04/25 18:10 Completed CBC W DIFF Stat Lab 03/04/25 18:10 Completed CMP Stat Lab 03/04/25 18:10 Completed LIPASE Stat Lab 03/04/25 18:10 Completed Lactic Acid Stat Lab 03/04/25 18:19 Completed UA W/RFX UR CULTURE Stat Lab 03/04/25 19:53 Completed Medication Summary Discontinued Medications Generic Name Dose Route Start Last Admin Trade Name Wingq PRN Reason Stop Dose Admin Droperidol 0.625 mg 03/04/25 17:54 03/04/25 18:17 Droperidol 5 Mg/2 Ml Vial IV 03/04/25 17:55 0.625 mg STAT ONE Administration Droperidol Confirm 03/04/25 18:16 Droperidol 5 Mg/2 Ml Vial Administered 03/04/25 18:17 Dose 5 mg .ROUTE .STK-MED ONE Sodium Chloride 1,000 mls @ 999 mls/hr 03/04/25 17:54 03/04/25 19:52 Sodium Chloride 0.9% 1000 Ml IV 03/04/25 18:54 Infused .Q1H1M STA Infusion Sodium Chloride Confirm 03/04/25 18:16 Sodium Chloride 0.9% 1000 Ml Administered 03/04/25 18:17 Dose 1,000 mls @ ud .ROUTE .STK-MED ONE Lab/Rad Data: Laboratory Result Diagrams 03/04/25 18:10 03/04/25 18:10 Laboratory Results 03/04/25 03/04/25 03/04/25 Range/Units 19:53 18:19 18:10 WBC (3.98-10.04) x10^3/uL RBC (3.93-5.22) x10^6/uL Hgb (11.2-15.7) g/dL Hct (34.1-44.9) % MCV (79.4-94.8) fL MCH (25.6-32.2) pg MCHC (32.2-35.5) g/dL RDW (11.7-14.4) % Plt Count (182-369) x10^3/uL MPV (9.4-12.3) fL Gran % (34.0-71.1) % Immature Gran % (Auto) (0.001-0.429) % Nucleat RBC Rel Count (0.00-0.2) % Eos # (Auto) (0.04-0.36) x10^3/uL Immature Gran # (Auto) (0.001-0.031) x10^3u/L Absolute Lymphs (auto) (1.18-3.74) x10^3/uL Absolute Monos (auto) (0.24-0.86) x10^3/uL Absolute Nucleated RBC (0.00-0.012) x10^3u/L Lymphocytes % (19.3-51.7) % Monocytes % (4.7-12.5) % Eosinophils % (0.7-5.8) % Basophils % (0.1-1.2) % Absolute Granulocytes (1.56-6.13) x10^3/uL Basophils # (0.01-0.08) x10^3/uL Sodium 136 (135-145) mmol/L Potassium 4.1 (3.5-5.1) mmol/L Chloride 103 (98-107) mmol/L Carbon Dioxide 25 (22-30) mmol/L Anion Gap 12.4 (5-15) MEQ/L BUN 7 (7-17) mg/dL Creatinine 0.81 (0.52-1.04) mg/dL Estimated GFR 92.3 ML/MIN Glucose 85 (74-106) mg/dL Lactic Acid 0.7 (0.4-2.0) Calcium 9.6 (8.4-10.2) mg/dL Total Bilirubin 0.40 (0.2-1.3) mg/dL AST 37 H (14-36) U/L ALT 19 (0-35) U/L Alkaline Phosphatase 56 (38-126) U/L Serum Total Protein 8.1 (6.3-8.2) g/dL Albumin 4.6 (3.5-5.0) g/dL Amylase 85 (30-110) U/L Lipase 105 (23-300) U/L Urine Color Yellow (Yellow) Urine Appearance Clear (Clear) Urine pH 5.5 (4.6-8.0) Ur Specific [place] <=1.005 (1.005-1.030) Urine Protein Negative (Negative) Urine Glucose (UA) Negative (Negative) mg/dL Urine Ketones Negative (Negative) Urine Blood Negative (Negative) Urine Nitrite Negative (Negative) Urine Bilirubin Negative (Negative) Urine Urobilinogen 0.2 (0.2) mg/dL Ur Leukocyte Esterase Negative (Negative) U Hyaline Cast (Auto) NONE SEEN (0-2) /LPF Urine Microscopic RBC 0-2 (0-5) /HPF Urine Microscopic WBC 0-2 (0-5) /HPF Ur Epithelial Cells None Seen (None Seen) /HPF Urine Bacteria None Seen (None Seen) /HPF Urine Culture Reflexed NO (NO) 03/04/25 Range/Units 18:10 WBC 8.0 (3.98-10.04) x10^3/uL RBC 4.99 (3.93-5.22) x10^6/uL Hgb 16.0 H (11.2-15.7) g/dL Hct 46.1 H (34.1-44.9) % MCV 92.4 (79.4-94.8) fL MCH 32.1 (25.6-32.2) pg MCHC 34.7 (32.2-35.5) g/dL RDW 12.2 (11.7-14.4) % Plt Count 190 (182-369) x10^3/uL MPV 10.4 (9.4-12.3) fL Gran % 59.0 (34.0-71.1) % Immature Gran % (Auto) 0.3 (0.001-0.429) % Nucleat RBC Rel Count 0.0 (0.00-0.2) % Eos # (Auto) 0.21 (0.04-0.36) x10^3/uL Immature Gran # (Auto) 0.02 (0.001-0.031) x10^3u/L Absolute Lymphs (auto) 2.35 (1.18-3.74) x10^3/uL Absolute Monos (auto) 0.61 (0.24-0.86) x10^3/uL Absolute Nucleated RBC 0.00 (0.00-0.012) x10^3u/L Lymphocytes % 29.6 (19.3-51.7) % Monocytes % 7.7 (4.7-12.5) % Eosinophils % 2.6 (0.7-5.8) % Basophils % 0.8 (0.1-1.2) % Absolute Granulocytes 4.70 (1.56-6.13) x10^3/uL Basophils # 0.06 (0.01-0.08) x10^3/uL Sodium (135-145) mmol/L Potassium (3.5-5.1) mmol/L Chloride (98-107) mmol/L Carbon Dioxide (22-30) mmol/L Anion Gap (5-15) MEQ/L BUN (7-17) mg/dL Creatinine (0.52-1.04) mg/dL Estimated GFR ML/MIN Glucose (74-106) mg/dL Lactic Acid (0.4-2.0) Calcium (8.4-10.2) mg/dL Total Bilirubin (0.2-1.3) mg/dL AST (14-36) U/L ALT (0-35) U/L Alkaline Phosphatase (38-126) U/L Serum Total Protein (6.3-8.2) g/dL Albumin (3.5-5.0) g/dL Amylase (30-110) U/L Lipase (23-300) U/L Urine Color (Yellow) Urine Appearance (Clear) Urine pH (4.6-8.0) Ur Specific [place] (1.005-1.030) Urine Protein (Negative) Urine Glucose (UA) (Negative) mg/dL Urine Ketones (Negative) Urine Blood (Negative) Urine Nitrite (Negative) Urine Bilirubin (Negative) Urine Urobilinogen (0.2) mg/dL Ur Leukocyte Esterase (Negative) U Hyaline Cast (Auto) (0-2) /LPF Urine Microscopic RBC (0-5) /HPF Urine Microscopic WBC (0-5) /HPF Ur Epithelial Cells (None Seen) /HPF Urine Bacteria (None Seen) /HPF Urine Culture Reflexed (NO) - Progress Progress: improved Progress Note: 03/04/25 19:09 My medical decision making and the assignment of moderate complexity of this patient's medical issue today is based on review of the patient's past medical history, review the patient's medication list, reviewed patient drug allergy list, history of present illness and physical findings on examination. The workup in this patient includes placement of an intravenous line, CBC, CMP, amylase, lipase, CT scan of the abdomen pelvis without contrast, urinalysis, IV crystalloid, IV droperidol Differential diagnosis includes was not limited to pancreatitis, bowel obstruction, constipation, diverticulitis, urinary tract infection, dehydration 03/04/25 19:[address] scan of the abdomen pelvis without contrast was interpreted by the radiologist and I reviewed the impression. The impression states normal CT scan of the abdomen pelvis. I interpreted the laboratory data results except for the urinalysis which is pending. The other labs that have resulted show no acute or emergent medical issue Counseled pt/family regarding: lab results, diagnosis, need for follow-up, rad results - Departure Departure Disposition: Home Clinical Impression: Vomiting and diarrhea, Abdominal pain Condition: Stable Critical Care Time: No Referrals: ARMANDO ELLIOTT [Primary Care Provider, [facility]] - Follow up/PCP as directed Additional Instructions: Drink plenty of clear liquids. Advance your diet as tolerated. Call your prescribing provider tomorrow, 03/05/2025, to make arrangements for follow-up appointment and instructions for further management.
[2025-03-04 17:45] VITALS: TEMP 96.7
[2025-03-04] MEDS ORDERED: Inapsine 5 MG/2 ML ONE (18:16)
[2025-03-04] MEDS: Inapsine 5 MG/2 ML IV ONE (18:17)
[2025-03-04 18:19] LABS: BASOPHIL % 0.8 % (0.1-1.2); Basophil (Absolute #) 0.06 x10^3/uL (0.01-0.08); Eosinophil (Absolute #) 0.21 x10^3/uL (0.04-0.36); Hematocrit 46.1 % (34.1-44.9); Hemoglobin 16.0 g/dL (11.2-15.7); IMMATURE GRAN # 0.02 x10^3u/L (0.001-0.031); IMMATURE GRAN % 0.3 % (0.001-0.429); Lymphocyte (Absolute #) 2.35 x10^3/uL (1.18-3.74); Mean Corpuscular Hemoglobin 32.1 pg (25.6-32.2); Mean Corpuscular Hgb Concent. 34.7 g/dL (32.2-35.5); Monocyte (Absolute #) 0.61 x10^3/uL (0.24-0.86); NUCLEATED RBC # 0.00 x10^3u/L (0.00-0.012); NUCLEATED RBC % 0.0 % (0.00-0.2); Platelet Count 190 x10^3/uL (182-369); Red Blood Count 4.99 x10^6/uL (3.93-5.22); White Blood Count 8.0 x10^3/uL (3.98-10.04)
[2025-03-04 18:33] LABS: Calcium 9.6 mg/dL (8.4-10.2); Carbon Dioxide 25.0 mmol/L (22-30); Creatinine 1 0.81 mg/dL (0.52-1.04); EST GLOMERULAR FILTRATION RATE 92.3 ML/MIN; Glucose 85.0 mg/dL (74-106); Potassium 4.1 mmol/L (3.5-5.1); SGOT/AST 37.0 U/L (14-36); SGPT/ALT 19.0 U/L (0-35); Total Protein 8.1 g/dL (6.3-8.2)
[2025-03-04 20:06] LABS: Glucose, Urine Negative (Negative); Protein,Urine Dip Negative (Negative); RBC 0-2 /HPF (0-5); WBC 0-2 /HPF (0-5)
[2025-03-04 20:15] VITALS: O2SAT 99
[2025-03-04 20:34] VITALS: BP 118/57; PULSE 72; RESP 14
--- NOTE | 2025-03-05 08:39 | XRAY ---
Indication: Pain and vomiting. Multiple contiguous axial images obtained through the abdomen and pelvis without contrast. Comparison: May 31, 2022 Lung bases remain clear. Heart not enlarged. Noncontrasted stomach and bowel loops appear nonobstructed. Again appendectomy, partial hysterectomy, and 2.6 cm left ovary cyst. No free fluid/air. Remaining liver, gallbladder, pancreas, spleen, adrenal glands, kidneys, ureters, and bladder are unremarkable for noncontrast exam. Minimal aortic calcifications without AAA. Osseous structures intact. Impression: Again incidental 2.6 cm left ovary cyst. Remaining CT abdomen/pelvis without contrast exam is negative.
== END 2025-03-04 20:38 | disposition home or self-care (01) ==
LOC: ED 17:21
DX: R11.2 Nausea with vomiting, unspecified (principal); R19.7 Diarrhea, unspecified; R10.84 Generalized abdominal pain; Z79.899 Other long term (current) drug therapy; Z72.0 Tobacco use

== ENCOUNTER 2025-04-07 20:50 | Emergency (ER) | payer OTHER ==
[2025-04-07 21:13] VITALS: TEMP 98
[2025-04-07 21:13] LABS: Hematocrit 48.5 % (34.1-44.9); Hemoglobin 16.6 g/dL (11.2-15.7); Mean Corpuscular Hemoglobin 31.5 pg (25.6-32.2); Mean Corpuscular Hgb Concent. 34.2 g/dL (32.2-35.5); Platelet Count 241 x10^3/uL (182-369); Red Blood Count 5.27 x10^6/uL (3.93-5.22); White Blood Count 9.8 x10^3/uL (3.98-10.04)
[2025-04-07] MEDS ORDERED: Inapsine 5 MG/2 ML ONE (21:17)
[2025-04-07] MEDS ORDERED: Pepcid 20 MG VIAL IV ONE (21:17)
[2025-04-07 21:19] LABS: Calcium 10.3 mg/dL (8.4-10.2); Carbon Dioxide 25.0 mmol/L (22-30); Creatinine 1 0.84 mg/dL (0.52-1.04); EST GLOMERULAR FILTRATION RATE 88.4 ML/MIN; Glucose 98.0 mg/dL (74-106); Potassium 4.1 mmol/L (3.5-5.1); SGOT/AST 35.0 U/L (14-36); SGPT/ALT 24.0 U/L (0-35); Total Protein 8.4 g/dL (6.3-8.2)
[2025-04-07] MEDS: Pepcid 20 MG VIAL IV ONE (21:22)
[2025-04-07] MEDS: Inapsine 5 MG/2 ML IV ONE (21:23)
--- NOTE | 2025-04-07 21:27 | ERPHSYRPT ---
- History of Present Illness Patient Subjective Stated Complaint: pt reports she was assisting her mother in law out of the shower and bent over to lock her wheelchair and when she stood up she felt very dizzy and experienced ringing in her ears and some burning to the left chest. pt reports a cough for 2.5-3 weeks but states she quit taking the prednisone she was prescribed because she felt better. Triage Nursing Assessment: pt is aox3, pupils perrl, afebrile, upon arrival pt presents with duoneb treatment per EMS, resps are non labored, lung sounds are diminished, dry cough noted intermittently, cap refill < 3 seconds, radial pulses strong and equal, pt is tachycardic upon arrival, appears anxious, abd soft non tender bowel sounds present, pt skin pink warm dry. Physician History: Lightheadedness, patient was helping her family member and she bent over became lightheaded, she felt like she was get a pass out but never truly did pass out, her called 911, she then developed some heartburn and some abdominal pain, She also felt short of breath Witnessed: by family Prior Episodes: single episode today Context: standing Loss of Consciousness: no loss of consciousness Charcter of event(s): almost passed out Allergies/Adverse Reactions: cephalexin monohydrate [From Keflex] Allergy (Intermediate, Verified 04/07/25 21:14) Hives cefaclor [From Ceclor] Allergy (Mild, Verified 04/07/25 21:14) Hives oxycodone [From OxyContin] Adverse Reaction (Intermediate, Verified 04/07/25 21:14) "not allergic, just dont like the way it makes me feel" prochlorperazine [From Compazine] Adverse Reaction (Intermediate, Verified 04/07/25 21:14) Rapid Heart Beat Home Medications: No Reportable Medications [No Reported Medications] 04/07/25 [History] Hx Tetanus, Diphtheria Vaccination/Date Given: No Hx Influenza Vaccination/Date Given: No Hx Pneumococcal Vaccination/Date Given: No Immunizations Up to Date: No Travel Risk - International Travel Have you traveled outside of the country in past 3 weeks: No - Emerging Infectious Disease Are you exhibiting symptoms associated with any current EIDs: No Symptoms: Abdominal Pain, Diarrhea, Vomitting - Past Medical History Pertinent Past Medical History: Yes Neurological History: Migraines ENT History: No Pertinent History Cardiac History: High Cholesterol Respiratory History: COPD, Other Endocrine Medical History: No Pertinent History Musculoskeletal History: Fractures GI Medical History: No Pertinent History History: No Pertinent History Psycho-Social History: Depression Female Reproductive Disorders: Endometriosis, Other Other Medical History: 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 steriod injections to rt shoulder under anesthesia Significant Family History: no pertinent family hx, alpha-1 antitrypsin deficiency - Female History Hx Last Menstrual Period: unsure - hysterectomy Hx Now: No - Social History Smoking Status: Current every day smoker How long have you smoked: 30 yrs Exposure to second hand smoke: No Drug Use: marijuana - Social Determinants of Health Will the patient participate in the screening: Declined to provide Physical Exam - Nursing Vital Signs Nursing Vital Signs: Initial Vital Signs Temperature 98 F 04/07/25 20:54 Pulse Rate 88 04/07/25 20:54 Respiratory Rate 27 H 04/07/25 20:54 Blood Pressure 102/31 04/07/25 20:54 O2 Sat by Pulse Oximetry 100 04/07/25 20:54 Pain Scale Pain Intensity 3 - Physical Exam General Appearance: no apparent distress, alert Eye Exam: bilateral eye: normal inspection, PERRL, EOMI Ears, Nose, Throat Exam: normal ENT inspection, pharynx normal, moist mucous membranes Neck Exam: normal inspection, non-tender, supple, full range of motion Respiratory: normal breath sounds, lungs clear, No chest tenderness, No respiratory distress Cardiovascular: regular rate/rhythm, capillary refill <2 sec, No murmur, No pulse deficit Gastrointestinal: soft, No tenderness, No distention, No mass Back Exam: normal inspection, normal range of motion, No CVA tenderness, No vertebral tenderness Extremity Exam: normal inspection, normal range of motion, pelvis stable, No tenderness Mental Status: alert, oriented x 3, cooperative coil tier Exam: normal speech, PERRL, No facial droop Coordination/Gait: normal finger to nose Motor/Sensory: no motor deficit, no sensory deficit, no pronator drift Skin Exam: normal color, warm, dry, No rash SpO2 Interpretation: normal SpO2: 98 - Radiology Exams Chest X-ray Interpretation: Interpreted by me, No Pneumonia, No Pneumothorax, Nml Alignment, No Infiltrates Ordered Tests: Active Orders 24 hr Category Date Time Status Ambulate Patient ROUTINE Care 04/07/25 22:16 Active EKG-ER Only STAT Care 04/07/25 21:09 Active CHEST 1 VIEW (PORTABLE) Stat Exams 04/07/25 21:07 Taken CBC W DIFF Stat Lab 04/07/25 21:00 Completed CMP Stat Lab 04/07/25 21:00 Completed Manual Differential NC Stat Lab 04/07/25 21:00 Completed TROPONIN Q2H Lab 04/07/25 21:00 Completed TROPONIN Q2H Lab 04/07/25 23:15 Ordered Medication Summary Discontinued Medications Generic Name Dose Route Start Last Admin Trade Name Freq PRN Reason Stop Dose Admin Droperidol 1.25 mg 04/07/25 21:09 04/07/25 21:23 Droperidol 5 Mg/2 Ml Vial IV 04/07/25 21:10 Not Given STAT ONE Droperidol Confirm 04/07/25 21:17 Droperidol 5 Mg/2 Ml Vial Administered 04/07/25 21:18 Dose 5 mg .ROUTE .STK-MED ONE Famotidine 20 mg 04/07/25 21:08 04/07/25 21:22 Famotidine 20 Mg/1 Vial IV 04/07/25 21:09 20 mg STAT ONE Administration Famotidine Confirm 04/07/25 21:17 Famotidine 20 Mg/1 Vial Administered 04/07/25 21:18 Dose 20 mg IV .STK-MED ONE Lab/Rad Data: Laboratory Result Diagrams 04/07/25 21:00 04/07/25 21:00 Laboratory Results 04/07/25 04/07/25 04/07/25 Range/Units 21:00 21:00 21:00 WBC 9.8 (3.98-10.04) x10^3/uL RBC 5.27 H (3.93-5.22) x10^6/uL Hgb 16.6 H (11.2-15.7) g/dL Hct 48.5 H (34.1-44.9) % MCV 92.0 (79.4-94.8) fL MCH 31.5 (25.6-32.2) pg MCHC 34.2 (32.2-35.5) g/dL RDW 12.1 (11.7-14.4) % Plt Count 241 (182-369) x10^3/uL MPV 10.6 (9.4-12.3) fL Sodium 139 (135-145) mmol/L Potassium 4.1 (3.5-5.1) mmol/L Chloride 102 (98-107) mmol/L Carbon Dioxide 25 (22-30) mmol/L Anion Gap 16.3 H (5-15) MEQ/L BUN 8 (7-17) mg/dL Creatinine 0.84 (0.52-1.04) mg/dL Estimated GFR 88.4 ML/MIN Glucose 98 (74-106) mg/dL Calcium 10.3 H (8.4-10.2) mg/dL Total Bilirubin 0.30 (0.2-1.3) mg/dL AST 35 (14-36) U/L ALT 24 (0-35) U/L Alkaline Phosphatase 69 (38-126) U/L Troponin I < 0.012 (0.000-0.033) ng/mL Serum Total Protein 8.4 H (6.3-8.2) g/dL Albumin 5.0 (3.5-5.0) g/dL - Progress Progress Note: 04/07/25 22:35 Discussed lab and x-ray results, she was ambulated in the emergency department, clinically she is improving, her symptoms have resolved, recommend outpatient follow-up and treatment - Departure Departure Disposition: Home Clinical Impression: Near syncope, Panic attack Condition: Stable Critical Care Time: No Referrals: ARMANDO PUTNAM [Primary Care Provider, [facility]] - Follow up with PCP 7 days Instructions: Near Fainting, Panic attack - ED discharge instructions Additional Instructions: Continue home medications
[2025-04-07 22:09] VITALS: BP 102/56; PULSE 88; RESP 18
[2025-04-07 22:38] VITALS: O2SAT 98
[2025-04-07 22:40] LABS: Total Cells Counted 100
--- NOTE | 2025-04-08 08:52 | XRAY ---
Indication: Chest pain. Comparison: November 03, 2024 Portable chest remains hyperinflated and clear. Heart not enlarged. Bony thorax intact. No new/acute findings.
== END 2025-04-07 22:48 | disposition home or self-care (01) ==
LOC: ED 20:50
DX: R55 Syncope and collapse (principal); F41.0 Panic disorder [episodic paroxysmal anxiety]

== ENCOUNTER 2025-04-25 09:07 | Emergency (ER) | payer OTHER ==
--- NOTE | 2025-04-25 09:11 | ERPHSYRPT ---
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 Elliott with recurrent migraine headache. Is been present for 10 days. She states that she has taken old Toradol and Zofran medication which did not help her. Patient tried to see her primary care provider but could not get an appointment until 04/29/2025. Patient did not suffer any acute trauma to her head. Patient was seen here on 04/07/2025 for dizziness symptoms. Patient states that she is not on any medication. Her systolic blood pressures 130 mmHg today. She has 99% room air oxygenation level. Her heart rate is in the high 70s and low 80 bpm. Patient went to [facility] to be evaluated but they sent her to our emergency department. Patient does not feel is necessary for CT scan of her head. She declined CT scan of her head. Patient has history of migraine headaches, hyperlipidemia, COPD, depression, endometriosis. Patient states that she is under a lot of stress at this time. Patient states that her headaches are becoming more frequent approximately once every 3 to 4 weeks. Timing/Duration: day(s) (10) Quality: aching, stabbing Head Pain Location: global Severity of Pain-Max: moderate Severity of Pain-Current: moderate Recent Head Trauma: no recent headache/trauma, chronic headaches Modifying Factors: Improves With: exposure to light, noise Associated Symptoms: nausea/vomiting, sensitive to light, No dizziness, No loss of consciousness (Nausea), No speech problems, No stiff neck, No trouble walking, No vision changes, No visual disturbance Previous symptoms: same symptoms as today, no recent treatment Allergies/Adverse Reactions: cephalexin monohydrate [From Keflex] Allergy (Intermediate, Verified 04/25/25 09:16) Hives cefaclor [From Ceclor] Allergy (Mild, Verified 04/25/25 09:16) Hives oxycodone [From OxyContin] Adverse Reaction (Intermediate, Verified 04/25/25 09:16) "not allergic, just dont like the way it makes me feel" prochlorperazine [From Compazine] Adverse Reaction (Intermediate, Verified 1 06/25/24 09:16) Rapid Heart Beat Home Medications: No Reportable Medications [No Reported Medications] 04/07/25 [History] Hx Tetanus, Diphtheria Vaccination/Date Given: No Hx Influenza Vaccination/Date Given: No Hx Pneumococcal Vaccination/Date Given: No Travel Risk - International Travel Have you traveled outside of the country in past 3 weeks: No - Emerging Infectious Disease Are you exhibiting symptoms associated with any current EIDs: No Symptoms: Abdominal Pain, Diarrhea, Vomitting - Review of Systems Constitutional: No Symptoms Eyes: No Symptoms Ears, Nose, & Throat: No Symptoms Respiratory: No Symptoms Cardiac: No Symptoms Abdominal/Gastrointestinal: No Symptoms Genitourinary Symptoms: No Symptoms Musculoskeletal: No Symptoms Skin: No Symptoms Neurological: Headache Psychological: No Symptoms Endocrine: No Symptoms Hematologic/Lymphatic: No Symptoms Immunological/Allergic: No Symptoms All Other Systems: Reviewed and Negative - Past Medical History Pertinent Past Medical History: Yes Neurological History: Migraines ENT History: No Pertinent History Cardiac History: High Cholesterol Respiratory History: COPD, Other Endocrine Medical History: No Pertinent History Musculoskeletal History: Fractures GI Medical History: No Pertinent History History: No Pertinent History Psycho-Social History: Depression Female Reproductive Disorders: Endometriosis, Other Other Medical History: COVID-19 (2019 with scar tissue present since), 5th MP fr acture - Past Surgical History Past Surgical History: Yes Neuro Surgical History: No Pertinent History Cardiac: No Pertinent History Respiratory: No Pertinent History Gastrointestinal: Appendectomy Genitourinary: No Pertinent History Musculoskeletal: No Pertinent History Female Surgical History: Hysterectomy Other Surgical History: HYSTERECTOMY PARTIAL. steriod injections to rt shoulder under anesthesia Significant Family History: no pertinent family hx, alpha-1 antitrypsin deficiency - Female History Hx Last Menstrual Period: unsure - hysterectomy - Social History Smoking Status: Current every day smoker How long have you smoked: 30 yrs Exposure to second hand smoke: No Drug Use: marijuana - Social Determinants of Health Will the patient participate in the screening: Declined to provide - Nursing Vital Signs Nursing Vital Signs: Initial Vital Signs Temperature 98.8 F 04/25/25 09:08 Pulse Rate 91 H 04/25/25 09:08 Respiratory Rate 16 04/25/25 09:08 Blood Pressure 130/66 04/25/25 09:08 O2 Sat by Pulse Oximetry 99 04/25/25 09:08 Pain Scale Pain Intensity 10 - Physical Exam General Appearance: mild distress, alert, thin Eye Exam: PERRL/EOMI, eyes nml inspection Ears, Nose, Throat Exam: normal ENT inspection, moist mucous membranes Neck Exam: normal inspection, non-tender, supple, full range of motion Respiratory Exam: airway intact, No chest tenderness, No respiratory distress Gastrointestinal/Abdominal Exam: No tenderness Back Exam: normal inspection, normal range of motion, No CVA tenderness, No vertebral tenderness Extremity Exam: normal inspection, normal range of motion, pelvis stable Mental Status Exam: alert, oriented x 3, cooperative dispatcher street department Exam: normal hearing, normal speech, PERRL, tongue midline Coordination/Gait Exam: normal gait, normal cerebellar function Motor/Sensory Exam: no motor deficit, no sensory deficit Skin Exam: normal color, warm, dry Lymphatic Exam: No adenopathy SpO2 Interpretation: normal O2 Delivery: Room Air - Course Nursing assessment & vital signs reviewed: Yes - Progress Progress: improved, re-examined Air Movement: good Progress Note: 04/25/25 09:35 My medical decision making and the assignment of low complexity of this patient's medical issue today is based on review of the patient's past medical history, reviewed patient medication list, reviewed patient drug allergy list, history present illness and physical findings on examination. The workup in this patient is based on the patient's desire not to have a full workup. She states that this headache is her typical migraine headaches. It is not the worst headache she is ever had. She also declined CT scan of the head. Differential diagnosis includes but is not limited to stress, migraine headache, musculoskeletal pain Blood Culture(s) Obtained: No Antibiotics given: No Counseled pt/family regarding: diagnosis, need for follow-up Medical Desision Making - Independent Historian Additional History obtained from: Spouse - Diagnostic Testing Diagnostic test were ordered, analyzed, and reviewed by me: No - Risk of complications Low Risk: Low risk of morbidity from additional dx testing or treatment - Departure Departure Disposition: Home Clinical Impression: Migraine headache Condition: Stable Critical Care Time: No Referrals: ARMANDO ELLIOTT [Primary Care Provider, [facility]] - Follow up/PCP as directed Additional Instructions: Keep your appointment with your primary care provider scheduled on 04/29/2025. Use Tylenol and ibuprofen for pain control. Discussed with them about the possibility of a referral to a neurologist
[2025-04-25 09:23] VITALS: TEMP 98.8; O2SAT 99
[2025-04-25] MEDS ORDERED: TORAdol 30 mg Injection ONE (09:42)
[2025-04-25] MEDS ORDERED: BENADRYL 50 MG/ML ONE (09:42)
[2025-04-25] MEDS ORDERED: ZOFRAN ODT 4 MG ONE (09:42)
[2025-04-25] MEDS ORDERED: Hydromorphone 1 mg/ml Injection ONE (09:43)
[2025-04-25] MEDS: TORAdol 30 mg Injection IM ONE (09:46)
[2025-04-25] MEDS: Hydromorphone 1 mg/ml Injection IM ONE (09:47)
[2025-04-25] MEDS: ZOFRAN ODT 4 MG PO ONE (09:48)
[2025-04-25] MEDS: BENADRYL 50 MG/ML IM ONE (09:48)
[2025-04-25 10:16] VITALS: BP 111/80; PULSE 76; RESP 14
== END 2025-04-25 10:17 | disposition home or self-care (01) ==
LOC: ED 09:07
DX: G43.909 Migraine, unspecified, not intractable, without status migrainosus (principal); I10 Essential (primary) hypertension; Z72.0 Tobacco use